=== PATIENT | male | born 1990 | race Caucasian/White ===

== ENCOUNTER 2018-03-30 15:53 | Inpatient (IN) | payer MEDICAID ==
[2018-03-30] MEDS ORDERED: IPRATROPIUM/ALBUTEROL 0.5-2.5 MG/3 ML AMPUL NEB ONE ×2 (15:58→16:05)
[2018-03-30] MEDS ORDERED: ALBUTEROL SULFATE 0.083% NEB 2.5 MG/3 ML AMPUL NEB ONE (16:02)
[2018-03-30] MEDS ORDERED: METHYLPREDNISOLONE INJ 125 MG/2 ML SDV ONE (16:02)
[2018-03-30] MEDS ORDERED: METHYLPREDNISOLONE INJ 125 MG/2 ML SDV IV ONE (16:05)
[2018-03-30] MEDS: ALBUTEROL SULFATE 0.083% NEB 2.5 MG/3 ML AMPUL NEB SCH ×2 (16:10→16:11)
--- NOTE | 2018-03-30 16:28 | RADIOLOGY REPORT (SQ) ---
EXAM DESCRIPTION: CHEST SINGLE VIEW COMPLETED DATE/TIME: 03/30/2018 4:16 pm REASON FOR STUDY: bed 18 db difficulty breathing COMPARISON: None. EXAM PARAMETERS: NUMBER OF VIEWS: One view. TECHNIQUE: Single frontal radiographic view of the chest acquired. RADIATION DOSE: NA LIMITATIONS: Large patient, AP portable technique. FINDINGS: LUNGS AND PLEURA: No opacities, masses or pneumothorax. No pleural effusion. MEDIASTINUM AND HILAR STRUCTURES: No masses. Contour normal. HEART AND VASCULAR STRUCTURES: Mild cardiomegaly BONES: No acute findings. HARDWARE: None in the chest. OTHER: No other significant finding. IMPRESSION: Mild cardiomegaly. No acute infiltrates TECHNICAL DOCUMENTATION: JOB ID: [id number] [employer]- All Rights Reserved Reading location - IP/workstation name: [email or web address]
--- NOTE | 2018-03-30 16:34 | ER Document Report ---
ED General - General Chief Complaint: Shortness Of Breath Stated Complaint: SHORT OF BREATH Time Seen by Provider: 03/30/18 16:08 Mode of Arrival: Ambulatory Information source: Patient Notes: 28-year-old male presents emergency department in respiratory distress. Patient has a history of COPD and asthma. He states that he is not on any nebulizer treatments at home. He states that he ran out of his medication and never got it refilled. He does not have an inhaler. He states that he uses 4 L nasal cannula and is on BiPAP when needed. Patient states that he took a nap and when he woke up he was having wheezing. Patient states that his wheezing gradually progressed. He denies being on any current antibiotics or steroids. Patient denies any other medical problems. He does not smoke. He denies any recent travel, recent surgery, history of DVT or PE, calf pain, history of malignancy, hormone use. Patient denies check pain, nausea, vomiting, or diaphoresis. He has had a productive cough over the last day. TRAVEL OUTSIDE OF THE [place] IN LAST 30 DAYS: No - HPI Onset: Just prior to arrival Onset/Duration: Sudden Quality of pain: No pain Severity: Severe Associated symptoms: Shortness of breath Exacerbated by: Denies Relieved by: Denies Similar symptoms previously: Yes Recently seen / treated by doctor: No - Related Data Allergies/Adverse Reactions: No Known Allergies Allergy (Verified 03/30/18 15:59) Past Medical History - Social History Smoking Status: Former Smoker Family History: Reviewed & Not Pertinent Review of Systems - Review of Systems Constitutional: Chills, Fever EENT: No symptoms reported Cardiovascular: No symptoms reported Respiratory: Cough, Short of breath, Sputum, Wheezing Gastrointestinal: No symptoms reported Genitourinary: No symptoms reported Male Genitourinary: No symptoms reported Musculoskeletal: No symptoms reported Skin: No symptoms reported Hematologic/Lymphatic: No symptoms reported Neurological/Psychological: No symptoms reported -: Yes All other systems reviewed and negative Physical Exam - Vital signs Vitals: Pulse Resp BP Pulse Ox 132 H 38 H 156/83 H 93 03/30/18 16:00 03/30/18 16:00 03/30/18 16:00 03/30/18 16:00 - Notes Notes: PHYSICAL EXAMINATION: GENERAL:Severe respiratory distress. HEAD: Atraumatic, normocephalic. EYES: Pupils equal round and reactive to light, extraocular movements intact, sclera anicteric, conjunctiva are normal. ENT: Nares patent, oropharynx clear without exudates. Moist mucous membranes. NECK: Normal range of motion, supple without lymphadenopathy LUNGS: Diffuse wheezing. HEART: Regular rate and rhythm without murmurs ABDOMEN: Morbidly obese. Soft, nontender, nondistended abdomen. No guarding, no rebound. No masses appreciated. Musculoskeletal: Normal range of motion, no pitting or edema. No cyanosis. NEUROLOGICAL: Cranial nerves grossly intact. Normal speech, normal gait. Normal sensory, motor exams PSYCH: Normal mood, normal affect. SKIN: Warm, Dry, normal turgor, no rashes or lesions noted. Course - Re-evaluation Re-evalutation: 03/30/18 16:34 EKG: Ventricular rate 92, DC interval 156, QRS duration 108, QTc 441, sinus rhythm, incomplete right bundle branch block. No ischemic changes. 03/30/18 19:31 On evaluation, patient is in respiratory distress. Patient was given a DuoNeb treatment and Solu-Medrol. Patient was placed on BiPAP. Labs and imaging were obtained. Chest x-ray does not show an acute process. D-dimer was ordered and is within normal limits. ABG shows a respiratory acidosis. On reevaluation, patient's vital signs are within normal limits. He's on Bipap. His work of breathing has improved. Patient states that he is feeling much better. I contacted the hospitalist for admission. Dr. Guaman is agreeable with admitting the patient. - Vital Signs Vital signs: Temp Pulse Resp BP Pulse Ox 99.3 F 132 H 14 125/59 L 96 03/30/18 16:29 03/30/18 16:00 03/30/18 19:01 03/30/18 19:01 03/30/18 19:01 - Laboratory Result Diagrams: 03/30/18 16:00 03/30/18 16:00 Laboratory results interpreted by me: 03/30/18 03/30/18 03/30/18 16:00 16:00 17:50 RDW 16.0 H Lymphocytes % 12.3 L Carbonic Acid 2.01 H ABG pH 7.22 L ABG pCO2 66.9 H ABG pO2 182.0 H ABG HCO3 27.0 H ABG Total CO2 29.1 H ABG O2 Saturation 98.9 H Carbon Dioxide 34 H Glucose 156 H Direct Bilirubin 0.5 H Discharge - Discharge Clinical Impression: COPD exacerbation, Respiratory distress Condition: Good Disposition: ADMITTED OBSERVATION Admitting Provider: Hospitalist Unit Admitted: IMCU Referrals: PILY ESPINAL MD [Primary Care Provider] - Follow up as needed
[2018-03-30 16:49] LABS: ABSOLUTE EOSINOPHILS # (AUTO) 0.3 10^3/uL (0.0-0.6); ABSOLUTE LYMPHOCYTES (AUTO) 1.3 10^3/uL (0.5-4.7); ABSOLUTE MONOCYTES (AUTO) 0.8 10^3/uL (0.1-1.4); BASOPHILS % (AUTO) 0.2 % (0-2); EOSINOPHILS % (AUTO) 2.9 % (0-6); HEMOGLOBIN 14.6 g/dL (13.5-17.0); LYMPHOCYTES % (AUTO) 12.3 % (13-45); MEAN CORPUSCULAR HEMOGLOBIN 29.8 pg (27.0-33.4); MEAN CORPUSCULAR HGB CONC 32.6 g/dL (32.0-36.0); MEAN CORPUSCULAR VOLUME 92 fl (80-97); MONOCYTES % (AUTO) 7.3 % (3-13); PLATELET COUNT 289 10^3/uL (150-450); RED BLOOD COUNT 4.91 10^6/uL (4.35-5.55); SEGMENTED NEUTROPHILS % (AUTO) 77.3 % (42-78); TOTAL CELLS COUNTED % (AUTO) 100 %; WHITE BLOOD COUNT 10.4 10^3/uL (4.0-10.5)
[2018-03-30 17:06] LABS: ALANINE AMINOTRANSFERASE 46 U/L (21-72); ALKALINE PHOSPHATASE 64 U/L (38-126); ANION GAP 5 (5-19); ASPARTATE AMINO TRANSFERASE 32 U/L (17-59); BILIRUBIN,DIRECT 0.5 mg/dL (0.0-0.4); BILIRUBIN,TOTAL 0.5 mg/dL (0.2-1.3); BLOOD UREA NITROGEN 9 mg/dL (7-20); CALCIUM 8.8 mg/dL (8.4-10.2); CARBON DIOXIDE 34 mmol/L (22-30); CHLORIDE 105 mmol/L (98-107); GLUCOSE 156 mg/dL (75-110); POTASSIUM 4.1 mmol/L (3.6-5.0); SODIUM 143.7 mmol/L (137-145); TOTAL PROTEIN 7.4 g/dL (6.3-8.2)
[2018-03-30 18:15] LABS: ARTERIAL BLOOD BASE EXCESS -2.2 mmol/L; ARTERIAL BLOOD H2CO3 2.01 mmol/L (1.05-1.35); ARTERIAL BLOOD O2 SATURATION 98.9 % (94-98); ARTERIAL BLOOD PCO2 66.9 mmHg (35-45); ARTERIAL BLOOD PH 7.22 (7.35-7.45); ARTERIAL BLOOD TOTAL CO2 29.1 mmol/L (23-27)
[2018-03-30 18:17] LABS: ARTERIAL BLOOD FIO2 50%
--- NOTE | 2018-03-30 19:25 | EKG REPORT ---
SEVERITY:- ABNORMAL ECG - SINUS RHYTHM INCOMPLETE RIGHT BUNDLE BRANCH BLOCK INFERIOR Q WAVES, PROBABLY NORMAL VARIATION : Confirmed by: Rohini Vargas 30-Mar-2018 19:24:42
[2018-03-30] MEDS ORDERED: PROMETHAZINE HCL INJ 25 MG/1 ML VIAL IV PRN (20:05)
[2018-03-30] MEDS ORDERED: IPRATROPIUM/ALBUTEROL 0.5-2.5 MG/3 ML AMPUL NEB PRN (20:05)
[2018-03-30] MEDS ORDERED: ACETAMINOPHEN 650 MG SUPP.RECT PR PRN (20:05)
[2018-03-30] MEDS ORDERED: PROMETHAZINE HCL 25 MG TABLET PO PRN (20:05)
--- NOTE | 2018-03-30 20:38 | PDOC H&P ---
History of Present Illness Admission Date/PCP: 03/30/18 19:43 PILY ESPINAL MD Patient complains of: Shortness of breath History of Present Illness: JOEY ORTEGA is a 28 year old male with history of chronic respiratory failure secondary to COPD on 4 L oxygen at home. Room air he tells me he saturates between 80-92%, his diagnosis of COPD has been confirm more than once with pulmonary function tesT. On CPAP at night secondary to TERRANCE. Tells me he has been sick for the last 3 days with progressive shortness of breath, brownish sputum, persistent cough which caused him chest pain and upper abdominal pain. Subjective fever and chills. He has been complaining of mild sore throat and runny nose. Denies dizziness, lightheadedness, palpitations, headache, diarrhea , constipation, urinary symptoms. Patient follows with Dr. Reeder who is his pulmonary. Upon arrival to our facility patient was tachypneic with a respiratory rate of 40, oxygen saturation 93% on 8 L oxygen via nasal cannula, afebrile. Patient was initiated on BiPAP. By the time I went to see him he was more comfortable. AB. His last COPD with asthma exacerbation was about a year ago Past Medical History Cardiac Medical History: Reports: Hypertension, Other - LVH Cardiac History Note: Morbid obesity Pulmonary Medical History: Reports: Asthma, Chronic Obstructive Pulmonary Disease (COPD), Respiratory Failure, Sleep Apnea Psychiatric Medical History: Reports: Depression, General Anxiety Disorder Past Surgical History Past Surgical History: Reports: None Social History Smoking Status: Former Smoker - Used to smoke three quarters of a pack a day, quit 1 year ago but intermittently she smokes 1 cigarette, last 2 months ago. Frequency of Alcohol Use: Rare Hx Recreational Drug Use: No Hx Prescription Drug Abuse: No Family History Family History: Reviewed & Not Pertinent Family History: Mother alive 44 years old with no medical history, father he does not know anything about him Parental Family History Reviewed: Yes - As above Children Family History Reviewed: NA Sibling(s) Family History Reviewed.: NA Medication/Allergy Allergies/Adverse Reactions: No Known Allergies Allergy (Verified 03/30/18 15:59) Review of Systems Review of Systems: As outlined in the HPI, all others negative Physical Exam Vital Signs: Temp Pulse Resp BP Pulse Ox 99.3 F 132 H 28 H 125/59 L 95 03/30/18 16:29 03/30/18 16:00 03/30/18 20:00 03/30/18 19:01 03/30/18 20:00 Additional comments: General appearance: Morbid obese, alert and cooperative, and appears to be in no acute distress. Wearing BiPAP. Head: Normocephalic Eyes: PEERL, EOMI, vision is grossly intact. Ears: External auditory canal and tympanic membranes clear, hearing grossly intact. Nose: No nasal discharge. Throat: Oral cavity and pharynx normal. No inflammation, swelling, exudate or lesions. Neck: Neck supple, nontender without lymphadenopathy, masses or thyromegaly. Cardiac: Normal S1 and S2. No S3, S4 or murmurs. Rhythm is regular. There is no peripheral edema, cyanosis or pallor. Extremities are warm and well perfused. Capillary refill is less than 2 seconds. No carotid bruits. Lungs: Bilateral decreased breath sounds with diffuse rales and moderate rhonchi , mild to moderate wheezing . Not using accessory muscles. Abdomen: Positive bowel sounds. Soft. Nondistended, nontender. No guarding or rebound. No masses. No hepatosplenomegaly Extremities: No significant deformity or joint abnormality. No edema. Peripheral pulses intact. No varicosities. Neurological: Cranial nerves II through XII grossly intact. Strength and sensation symmetric and intact throughout. Reflexes 2+ throughout. Skin: Skin normal color, texture and turgor with no lesions or eruptions, warm and dry. Psychiatric: The mental examination revealed the patient was oriented to person , place, and time. The patient was able to demonstrate good judgment on recent , without hallucinations, abnormal affect or abnormal behaviors. Results Laboratory Results: 03/30/18 03/30/18 03/30/18 16:00 16:00 16:00 WBC 10.4 RBC 4.91 Hgb 14.6 Hct 45.0 MCV 92 MCH 29.8 MCHC 32.6 RDW 16.0 H Plt Count 289 Seg Neutrophils % 77.3 Lymphocytes % 12.3 L Monocytes % 7.3 Eosinophils % 2.9 Basophils % 0.2 Absolute Neutrophils 8.0 Absolute Lymphocytes 1.3 Absolute Monocytes 0.8 Absolute Eosinophils 0.3 Absolute Basophils 0.0 D-Dimer Carbonic Acid HCO3/H2CO3 Ratio ABG pH ABG pCO2 ABG pO2 ABG HCO3 ABG Total CO2 ABG O2 Saturation ABG Base Excess FiO2 Sodium 143.7 Potassium 4.1 Chloride 105 Carbon Dioxide 34 H Anion Gap 5 BUN 9 Creatinine 0.72 Est GFR ( Amer) > 60 Est GFR (Non-Af Amer) > 60 Glucose 156 H Calcium 8.8 Total Bilirubin 0.5 Direct Bilirubin 0.5 H AST 32 ALT 46 Alkaline Phosphatase 64 Troponin I < 0.012 Total Protein 7.4 Albumin 4.0 03/30/18 03/30/18 16:00 17:50 WBC RBC Hgb Hct MCV MCH MCHC RDW Plt Count Seg Neutrophils % Lymphocytes % Monocytes % Eosinophils % Basophils % Absolute Neutrophils Absolute Lymphocytes Absolute Monocytes Absolute Eosinophils Absolute Basophils D-Dimer 0.38 Carbonic Acid 2.01 H HCO3/H2CO3 Ratio 13:1 ABG pH 7.22 L ABG pCO2 66.9 H ABG pO2 182.0 H ABG HCO3 27.0 H ABG Total CO2 29.1 H ABG O2 Saturation 98.9 H ABG Base Excess -2.2 FiO2 50% Sodium Potassium Chloride Carbon Dioxide Anion Gap BUN Creatinine Est GFR ( Amer) Est GFR (Non-Af Amer) Glucose Calcium Total Bilirubin Direct Bilirubin AST ALT Alkaline Phosphatase Troponin I Total Protein Albumin Impressions: Chest X-Ray 03/30/18 16:05 IMPRESSION: Mild cardiomegaly. No acute infiltrates Assessment & Plan - Diagnosis (1) Acute and chronic respiratory failure Qualifiers: Respiratory failure complication: hypoxia and hypercapnia Qualified Code(s) : J96.21 - Acute and chronic respiratory failure with hypoxia; J96.22 - Acute and chronic respiratory failure with hypercapnia; J96.22 - Acute and chronic respiratory failure with hypercapnia; J96.22 - Acute and chronic respiratory failure with hypercapnia Is this a current diagnosis for this admission?: Yes Plan: Patient has chronic respiratory failure on 4 L oxygen at home, usually saturates between 82% to 92%, in the emergency department initially was saturating 93% on 8 L oxygen via nasal cannula and was transitioned to BiPAP. ABG shows hypercapnia with a CO2 of 66 with a pH of 7.22, with a half prior ABG to compare in our system. Chest x-ray so far negative. D-dimer negative. (2) Bronchial asthma Qualifiers: Asthma complication type: with acute exacerbation Is this a current diagnosis for this admission?: Yes Plan: Symptoms are probably also associated with bronchial asthma exacerbation. As per prior assessment and plan (3) COPD exacerbation Is this a current diagnosis for this admission?: Yes Plan: We will continue the patient on BiPAP. IV Levaquin. Solu-Medrol 60 mg every 8 hours. Incentive spirometry. Pulmonary toilet. Respiratory therapy consult. DuoNeb nebulizer treatments as needed. Unfortunately we do not have pulmonary evaluation until Sunday. Tonight patient will be n.p.o. Patient tells me that he had meconium aspiration when he was born that he had pneumonia, after that he had multiple episodes of bronchial asthma exacerbation in addition to his a smoking habit and morbid obesity probably made him to have COPD at early age. (4) Hypertension Qualifiers: Hypertension type: essential hypertension Qualified Code(s): I10 - Essential (primary) hypertension Is this a current diagnosis for this admission?: Yes Plan: Continue home antihypertensive medications (5) Hypothyroidism Is this a current diagnosis for this admission?: Yes Plan: Continue with Synthroid (6) Morbid obesity Is this a current diagnosis for this admission?: Yes Plan: Lifestyle modification (7) TERRANCE (obstructive sleep apnea) Is this a current diagnosis for this admission?: Yes Plan: Patient is usually on CPAP at home, currently on BiPAP 18/ - Time Time Spent: 30 to 50 Minutes - Inpatient Certification Based on my medical assessment, after consideration of the patient's comorbidities, presenting symptoms, or acuity I expect that the services needed warrant INPATIENT care.: Yes I certify that my determination is in accordance with my understanding of Medicare's requirements for reasonable and necessary INPATIENT services [42 CFR 412.3e].: Yes Medical Necessity: Risk of Complication if Not Cared For in Hospital
[2018-03-30] MEDS ORDERED: LEVOFLOXACIN 750 MG/D5W RTU 750 MG/150 ML RTUPB IV SCH (21:00)
[2018-03-30] MEDS: NORMAL SALINE 1000 ML 1,000 ML IV PRN (21:01)
[2018-03-30] MEDS: MAG HYDROX/AL HYDROX/SIMETH SUSP 30 ML UDCUP PO PRN (23:51)
[2018-03-31] MEDS ORDERED: IPRATROPIUM/ALBUTEROL 0.5-2.5 MG/3 ML AMPUL NEB ONE (00:01)
[2018-03-31] MEDS ORDERED: METHYLPREDNISOLONE INJ 40 MG/1 ML SDV IV SCH (02:00)
[2018-03-31 06:00] LABS: ABSOLUTE BASOPHILS # (AUTO) 0.1 10^3/uL (0.0-0.2); ABSOLUTE LYMPHOCYTES (AUTO) 0.8 10^3/uL (0.5-4.7); ABSOLUTE MONOCYTES (AUTO) 0.4 10^3/uL (0.1-1.4); ABSOLUTE NEUT (AUTO) 11.1 10^3/uL (1.7-8.2); BASOPHILS % (AUTO) 0.4 % (0-2); EOSINOPHILS % (AUTO) 0.1 % (0-6); HEMATOCRIT 40.4 % (37.9-51.0); HEMOGLOBIN 13.2 g/dL (13.5-17.0); LYMPHOCYTES % (AUTO) 6.1 % (13-45); MEAN CORPUSCULAR HEMOGLOBIN 29.5 pg (27.0-33.4); MEAN CORPUSCULAR HGB CONC 32.7 g/dL (32.0-36.0); MEAN CORPUSCULAR VOLUME 90 fl (80-97); MONOCYTES % (AUTO) 2.9 % (3-13); PLATELET COUNT 275 10^3/uL (150-450); RED BLOOD COUNT 4.49 10^6/uL (4.35-5.55); RED CELL DISTRIBUTION WIDTH 15.7 % (11.5-14.0); SEGMENTED NEUTROPHILS % (AUTO) 90.5 % (42-78); TOTAL CELLS COUNTED % (AUTO) 100 %; WHITE BLOOD COUNT 12.3 10^3/uL (4.0-10.5)
[2018-03-31 06:37] LABS: ANION GAP 10 (5-19); BLOOD UREA NITROGEN 14 mg/dL (7-20); CALCIUM 8.7 mg/dL (8.4-10.2); CARBON DIOXIDE 28 mmol/L (22-30); CHLORIDE 104 mmol/L (98-107); GLUCOSE 179 mg/dL (75-110); PHOSPHORUS 2.7 mg/dL (2.5-4.5); POTASSIUM 4.8 mmol/L (3.6-5.0); SODIUM 142.1 mmol/L (137-145)
[2018-03-31] MEDS: MAG HYDROX/AL HYDROX/SIMETH SUSP 30 ML UDCUP PO PRN (08:13)
[2018-03-31] MEDS ORDERED: NALBUPHINE HCL INJ 10 MG/1 ML AMPULE IV PRN (08:45)
[2018-03-31] MEDS ORDERED: TRAMADOL HCL 50 MG TABLET PO PRN (08:47)
[2018-03-31] MEDS ORDERED: SUCCINYLCHOLINE CHLORIDE INJ 200 MG/10 ML VIAL ONE (09:15)
[2018-03-31] MEDS: BUDESONIDE NEB 0.5 MG/2 ML AMPUL NEB SCH ×2 (09:53→20:46)
[2018-03-31] MEDS: IPRATROPIUM BROMIDE 0.02% NEB 0.5 MG/2.5 ML AMPUL NEB SCH ×2 (09:53→16:03)
[2018-03-31] MEDS: LEVALBUTEROL HCL NEB 1.25 MG/3 ML AMPUL NEB SCH ×2 (09:53→16:03)
[2018-03-31] MEDS ORDERED: LEVOFLOXACIN 750 MG TABLET PO SCH (10:00)
[2018-03-31 10:16] LABS: ARTERIAL BLOOD BASE EXCESS 3.4 mmol/L; ARTERIAL BLOOD FIO2 50%; ARTERIAL BLOOD H2CO3 2.72 mmol/L (1.05-1.35); ARTERIAL BLOOD HCO3 34.6 mmol/L (20-24); ARTERIAL BLOOD O2 SATURATION 95.5 % (94-98); ARTERIAL BLOOD PO2 97.9 mmHg (80-100); ARTERIAL BLOOD TOTAL CO2 37.4 mmol/L (23-27)
[2018-03-31 10:18] LABS: ARTERIAL BLOOD PCO2 90.4 mmHg (35-45)
[2018-03-31] MEDS: ENOXAPARIN SODIUM INJ 40 MG/0.4 ML DISP.SYRIN SUBCUT SCH (10:53)
[2018-03-31] MEDS ORDERED: PHARMACY COMMUNICATION ORDER MC NR (11:30)
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
[2018-03-31] MEDS ORDERED: MAG HYDROX/AL HYDROX/SIMETH SUSP 30 ML UDCUP NG PRN (12:30)
[2018-03-31] MEDS ORDERED: PROMETHAZINE HCL 25 MG TABLET NG PRN (12:30)
[2018-03-31] MEDS ORDERED: TRAMADOL HCL 50 MG TABLET NG PRN (12:30)
[2018-03-31] MEDS ORDERED: MIDAZOLAM HCL 50 MG/100 ML RTUINJ ONE (12:44)
[2018-03-31] MEDS ORDERED: PROPOFOL 1,000 MG/100 ML INFUS..BTL IV ONE (12:44)
--- NOTE | 2018-03-31 13:14 | RADIOLOGY REPORT (SQ) ---
EXAM DESCRIPTION: CHEST SINGLE VIEW COMPLETED DATE/TIME: 03/31/2018 12:53 pm REASON FOR STUDY: post intubation COMPARISON: None. EXAM PARAMETERS: NUMBER OF VIEWS: One view. TECHNIQUE: Single frontal radiographic view of the chest acquired. RADIATION DOSE: NA LIMITATIONS: None. FINDINGS: LUNGS AND PLEURA: No acute infiltrates or effusions. ET tube in good position above jasmina a. MEDIASTINUM AND HILAR STRUCTURES: No masses. Contour normal. HEART AND VASCULAR STRUCTURES: The heart is normal with normal pulmonary vasculature. HARDWARE: None in the chest. OTHER: Endotracheal tube above danny. NG tube passing toward stomach. . IMPRESSION: ET tube in good position above danny. Otherwise, no significant abnormality seen. TECHNICAL DOCUMENTATION: JOB ID: [id number] [employer]- All Rights Reserved Reading location - IP/workstation name: [email or web address]
[2018-03-31] MEDS: NORMAL SALINE 1000 ML 1,000 ML IV PRN (13:26)
[2018-03-31 13:30] LABS: ARTERIAL BLOOD BASE EXCESS 1.6 mmol/L; ARTERIAL BLOOD HCO3 32.6 mmol/L (20-24); ARTERIAL BLOOD O2 SATURATION 86.2 % (94-98); ARTERIAL BLOOD PO2 64.3 mmHg (80-100); ARTERIAL BLOOD TOTAL CO2 35.2 mmol/L (23-27)
[2018-03-31 13:32] LABS: ARTERIAL BLOOD FIO2 60%
[2018-03-31 13:33] LABS: ARTERIAL BLOOD PCO2 86.3 mmHg (35-45)
--- NOTE | 2018-03-31 13:43 | PDOC CONSULTATION ---
Consultation Consult Date: 03/31/18 Attending physician:: ALDO MCCARTHY Consult reason:: acute/chronic resp failure History of Present Illness Admission Date/PCP: 03/30/18 19:43 PILY ESPINAL MD History of Present Illness: JOEY ORTEGA is a 28 year old male,With multiple medical problems complaining increasing shortness of breath he is placed on BiPAP unfortunately his PCO2 was rising from 60-90 and the patient was awake but somewhat confused and after some debate about his fatigue rising PCO2 and pH it was elected that we intubate him he concurred was intubated by anesthesia. He has a past medical history of COPD chronic respiratory failure obesity hypoventilation syndrome. Past Medical History Cardiac Medical History: Reports: Hypertension, Other - LVH Pulmonary Medical History: Reports: Asthma, Chronic Obstructive Pulmonary Disease (COPD), Respiratory Failure, Sleep Apnea EENT Medical History: Denies: Cataracts Neurological Medical History: Denies: Multiple Sclerosis GI Medical History: Denies: Crohn's Disease, Ulcerative Colitis Psychiatric Medical History: Reports: Depression, General Anxiety Disorder Past Surgical History Past Surgical History: Reports: None Social History Information Source: Patient, OM Records Smoking Status: Former Smoker Passive smoke exposure as: Both Frequency of Alcohol Use: Rare Hx Recreational Drug Use: No Hx Prescription Drug Abuse: No Have you been exposed to any sick contacts recently?: No Have you had any recent respiratory illnesses?: No Have you travelled outside of [place] in the past 12 months?: No - Advance Directive Resuscitation Status: Full Code Family History Parental Family History Reviewed: No Children Family History Reviewed: No Sibling(s) Family History Reviewed.: No Medication/Allergy Home Medications: Buspirone HCl [Buspar 10 mg Tablet] 20 mg PO BID 03/31/18 Hydrochlorothiazide [Hydrodiuril 12.5 mg Capsule] 12.5 mg PO DAILY 03/31/18 Levothyroxine Sodium [Synthroid] 100 mcg PO DAILY 03/31/18 Lisinopril [Prinivil] 20 mg PO DAILY 03/31/18 Sertraline HCl [Zoloft] 150 mg PO DAILY 03/31/18 Allergies/Adverse Reactions: No Known Allergies Allergy (Verified 03/30/18 15:59) Review of Systems ROS unobtainable: Due to mental status Physical Exam Vital Signs: Temp Pulse Resp BP Pulse Ox 97.5 F 79 20 153/64 H 93 03/31/18 07:57 03/31/18 09:53 03/31/18 09:53 03/31/18 07:57 03/31/18 09:53 Intake & Output 03/30/18 03/31/18 04/01/18 06:59 06:59 06:59 Intake Total 100 Output Total 100 Balance 0 Weight 238 kg General appearance: PRESENT: no acute distress, disheveled, morbidly obese Head exam: PRESENT: atraumatic, normocephalic Eye exam: PRESENT: conjunctiva pale, EOMI. ABSENT: nystagmus, periorbital swelling, scleral icterus Mouth exam: PRESENT: dry mucosa, neck supple, tongue midline Neck exam: ABSENT: carotid bruit, JVD, lymphadenopathy, thyromegaly, tracheal deviation, tracheostomy Respiratory exam: PRESENT: decreased breath sounds, prolonged expiratory phas, rales, rhonchi, tachypnea, unlabored. ABSENT: retraction, stridor Cardiovascular exam: PRESENT: RRR, +S1, +S2 Pulses: PRESENT: normal radial pulses GI/Abdominal exam: PRESENT: soft. ABSENT: tenderness Extremities exam: PRESENT: pedal edema. ABSENT: calf tenderness, clubbing, joint swelling, tenderness Musculoskeletal exam: ABSENT: deformity, dislocation Neurological exam: PRESENT: awake Psychiatric exam: PRESENT: anxious Skin exam: PRESENT: dry, warm Results Laboratory Results: 03/31/18 05:30 03/31/18 05:30 03/31/18 03/31/18 03/31/18 05:30 05:30 06:50 WBC 12.3 H RBC 4.49 Hgb 13.2 L Hct 40.4 MCV 90 MCH 29.5 MCHC 32.7 RDW 15.7 H Plt Count 275 Seg Neutrophils % 90.5 H Lymphocytes % 6.1 L Monocytes % 2.9 L Eosinophils % 0.1 Basophils % 0.4 Absolute Neutrophils 11.1 H Absolute Lymphocytes 0.8 Absolute Monocytes 0.4 Absolute Eosinophils 0.0 Absolute Basophils 0.1 Carbonic Acid Cancelled HCO3/H2CO3 Ratio Cancelled ABG pH Cancelled ABG pCO2 Cancelled ABG pO2 Cancelled ABG HCO3 Cancelled ABG O2 Saturation Cancelled ABG Base Excess Cancelled FiO2 Cancelled Sodium 142.1 Potassium 4.8 Chloride 104 Carbon Dioxide 28 Anion Gap 10 BUN 14 Creatinine 0.66 Est GFR ( Amer) > 60 Est GFR (Non-Af Amer) > 60 Glucose 179 H Calcium 8.7 Phosphorus 2.7 Magnesium 2.2 03/31/18 09:40 WBC RBC Hgb Hct MCV MCH MCHC RDW Plt Count Seg Neutrophils % Lymphocytes % Monocytes % Eosinophils % Basophils % Absolute Neutrophils Absolute Lymphocytes Absolute Monocytes Absolute Eosinophils Absolute Basophils Carbonic Acid 2.72 H HCO3/H2CO3 Ratio 12:1 ABG pH 7.20 L* ABG pCO2 90.4 H* ABG pO2 97.9 ABG HCO3 34.6 H ABG O2 Saturation 95.5 ABG Base Excess 3.4 FiO2 50% Sodium Potassium Chloride Carbon Dioxide Anion Gap BUN Creatinine Est GFR ( Amer) Est GFR (Non-Af Amer) Glucose Calcium Phosphorus Magnesium Impressions: Chest X-Ray 03/30/18 16:05 IMPRESSION: Mild cardiomegaly. No acute infiltrates Assessment & Plan - Diagnosis (1) Acute respiratory failure with hypoxia and hypercapnia Is this a current diagnosis for this admission?: Yes Plan: Patient failed BiPAP PCO2 rising strongly suggest intubation (2) Morbid obesity Is this a current diagnosis for this admission?: Yes (3) TERRANCE (obstructive sleep apnea) Is this a current diagnosis for this admission?: Yes Plan: May require trilogy at home - Time Total Critical Time (Minutes): 75
[2018-03-31 13:48] LABS: URINE AMPHETAMINES SCREEN NEGATIVE; URINE BARBITURATES SCREEN NEGATIVE; URINE BENZODIAZEPINES SCREEN NEGATIVE; URINE COCAINE SCREEN NEGATIVE; URINE MARIJUANA (THC) SCREEN NEGATIVE; URINE METHADONE SCREEN NEGATIVE; URINE PHENCYCLIDINE SCREEN NEGATIVE
[2018-03-31] MEDS: PROPOFOL 1,000 MG/100 ML INFUS..BTL IV PRN ×6 (14:47→22:29)
[2018-03-31] MEDS: METHYLPREDNISOLONE INJ 40 MG/1 ML SDV IV SCH ×2 (15:32→17:07)
[2018-03-31 15:55] LABS: ARTERIAL BLOOD BASE EXCESS 2.8 mmol/L; ARTERIAL BLOOD H2CO3 1.78 mmol/L (1.05-1.35); ARTERIAL BLOOD HCO3 30.3 mmol/L (20-24); ARTERIAL BLOOD O2 SATURATION 85.8 % (94-98); ARTERIAL BLOOD PCO2 59.3 mmHg (35-45); ARTERIAL BLOOD PH 7.33 (7.35-7.45); ARTERIAL BLOOD PO2 55.3 mmHg (80-100); ARTERIAL BLOOD TOTAL CO2 32.1 mmol/L (23-27)
[2018-03-31 15:56] LABS: ARTERIAL BLOOD FIO2 80%
[2018-03-31] MEDS: MIDAZOLAM HCL 50 MG/100 ML RTUINJ IV PRN ×2 (17:06→22:31)
[2018-03-31 21:40] LABS: ANION GAP 7 (5-19); BLOOD UREA NITROGEN 16 mg/dL (7-20); CALCIUM 9.3 mg/dL (8.4-10.2); CARBON DIOXIDE 31 mmol/L (22-30); CHLORIDE 104 mmol/L (98-107); CREATINE KINASE 114 U/L (55-170); GLUCOSE 147 mg/dL (75-110); POTASSIUM 4.9 mmol/L (3.6-5.0); SODIUM 142.3 mmol/L (137-145)
[2018-03-31 21:53] LABS: NT PRO BNP 209 pg/mL (<125); TROPONIN I < 0.012 ng/mL
[2018-03-31] MEDS ORDERED: PANTOPRAZOLE SODIUM 40 MG VIAL IV ONE (22:30)
--- NOTE | 2018-03-31 23:33 | EKG REPORT ---
SEVERITY:- BORDERLINE ECG - SINUS RHYTHM INFERIOR Q WAVES, PROBABLY NORMAL VARIATION : Confirmed by: Rohini Vargas 31-Mar-2018 23:31:48
[2018-04-01] MEDS: IPRATROPIUM BROMIDE 0.02% NEB 0.5 MG/2.5 ML AMPUL NEB SCH ×3 (00:06→15:56)
[2018-04-01] MEDS: LEVALBUTEROL HCL NEB 1.25 MG/3 ML AMPUL NEB SCH ×3 (00:06→15:56)
[2018-04-01] MEDS: PROPOFOL 1,000 MG/100 ML INFUS..BTL IV PRN ×15 (01:10→23:00)
[2018-04-01] MEDS: METHYLPREDNISOLONE INJ 40 MG/1 ML SDV IV SCH ×4 (01:11→18:47)
[2018-04-01 04:25] LABS: VENOUS BLOOD HCO3 31.3 mmol/L (20-32); VENOUS BLOOD PCO2 53.1 mmHg (35-63); VENOUS BLOOD PH 7.39 (7.30-7.42)
[2018-04-01 04:57] LABS: FREE T3 2.43 pg/mL (2.77-5.27); FREE T4 (FREE THYROXINE) 0.83 ng/dL (0.78-2.19)
[2018-04-01 05:11] LABS: THYROID STIMULATING HORMONE 0.4 uIU/mL (0.47-4.68)
[2018-04-01 05:38] LABS: ARTERIAL BLOOD BASE EXCESS 3.1 mmol/L; ARTERIAL BLOOD H2CO3 1.58 mmol/L (1.05-1.35); ARTERIAL BLOOD HCO3 29.5 mmol/L (20-24); ARTERIAL BLOOD O2 SATURATION 96.7 % (94-98); ARTERIAL BLOOD PCO2 52.4 mmHg (35-45); ARTERIAL BLOOD PH 7.37 (7.35-7.45); ARTERIAL BLOOD PO2 91.5 mmHg (80-100); ARTERIAL BLOOD TOTAL CO2 31.1 mmol/L (23-27)
[2018-04-01 05:39] LABS: ARTERIAL BLOOD FIO2 100%
[2018-04-01] MEDS: NORMAL SALINE 1000 ML 1,000 ML IV PRN (05:40)
[2018-04-01 06:22] LABS: ABSOLUTE LYMPHOCYTES (AUTO) 0.8 10^3/uL (0.5-4.7); ABSOLUTE MONOCYTES (AUTO) 0.6 10^3/uL (0.1-1.4); ABSOLUTE NEUT (AUTO) 11.6 10^3/uL (1.7-8.2); BASOPHILS % (AUTO) 0.1 % (0-2); HEMATOCRIT 40.1 % (37.9-51.0); HEMOGLOBIN 13.2 g/dL (13.5-17.0); LYMPHOCYTES % (AUTO) 6.2 % (13-45); MEAN CORPUSCULAR HEMOGLOBIN 29.3 pg (27.0-33.4); MEAN CORPUSCULAR VOLUME 89 fl (80-97); MONOCYTES % (AUTO) 4.8 % (3-13); PLATELET COUNT 260 10^3/uL (150-450); RED BLOOD COUNT 4.51 10^6/uL (4.35-5.55); RED CELL DISTRIBUTION WIDTH 15.9 % (11.5-14.0); SEGMENTED NEUTROPHILS % (AUTO) 88.9 % (42-78); TOTAL CELLS COUNTED % (AUTO) 100 %
[2018-04-01 06:31] LABS: ANION GAP 8 (5-19); BLOOD UREA NITROGEN 17 mg/dL (7-20); CALCIUM 9.3 mg/dL (8.4-10.2); CARBON DIOXIDE 28 mmol/L (22-30); CHLORIDE 105 mmol/L (98-107); GLUCOSE 153 mg/dL (75-110); POTASSIUM 4.9 mmol/L (3.6-5.0); SODIUM 141.3 mmol/L (137-145)
--- NOTE | 2018-04-01 07:28 | RADIOLOGY REPORT (SQ) ---
EXAM DESCRIPTION: X-ray single view chest. CLINICAL HISTORY: 28 years Male, post intubation COMPARISON: 03/31/2018 TECHNIQUE: Single portable view of the chest performed on 04/01/2018 at 6:44 AM FINDINGS: The lungs are well expanded. There is volume loss in the left inferior hemithorax which may be due to a combination of pleural fluid and atelectasis. Underlying inflammatory changes are not excluded. There is no evidence of a pneumothorax. The cardiac silhouette is normal in size and configuration. No acute osseous abnormality is identified. No focal soft tissue abnormalities are seen. Lines and tubes: The endotracheal tube tip terminates in the region of the midclavicular heads. A feeding tube tip is poorly delineated on this examination. The feeding tube appears to extend below the diaphragm. IMPRESSION: 1. There is volume loss in the left lung base which may be due to a combination of pleural fluid and atelectasis. 2. Life support lines and tubes present as described above. The tip of the feeding tube is not well visualized on this examination.
[2018-04-01 07:33] LABS: AMORPHOUS SEDIMENT,URINE 2+ /HPF; APPEARANCE,URINE TURBID; BILIRUBIN,URINE NEGATIVE (NEGATIVE); COLOR,URINE YELLOW; GLUCOSE, URINE NEGATIVE (NEGATIVE); KETONES,URINE NEGATIVE (NEGATIVE); LEUKOCYTE ESTERASE,URINE NEGATIVE (NEGATIVE); NITRITE,URINE NEGATIVE (NEGATIVE); PROTEIN,URINE 30 mg/dL (NEGATIVE); URINE SPECIFIC GRAVITY 1.021; UROBILINOGEN,URINE NEGATIVE mg/dL (<2.0)
[2018-04-01] MEDS: BUDESONIDE NEB 0.5 MG/2 ML AMPUL NEB SCH ×2 (08:21→20:10)
[2018-04-01] MEDS: PANTOPRAZOLE SODIUM 40 MG VIAL IV SCH (09:22)
[2018-04-01] MEDS: LEVOFLOXACIN 750 MG TABLET NG SCH (09:22)
[2018-04-01] MEDS: ENOXAPARIN SODIUM INJ 40 MG/0.4 ML DISP.SYRIN SUBCUT SCH (09:22)
--- NOTE | 2018-04-01 12:08 | PDOC PROGRESS REPORT ---
Subjective Progress Note for:: 04/01/18 Subjective:: Intubated and sedated Reason For Visit: ACUTE ON CHRONIC SEVERE RESPIRATORY FAILURE Physical Exam Vital Signs: Temp Pulse Resp BP Pulse Ox 99.3 F 70 24 H 141/87 H 91 L 04/01/18 08:05 04/01/18 08:00 04/01/18 08:05 04/01/18 08:05 04/01/18 08:05 Intake & Output 03/31/18 04/01/18 04/02/18 06:59 06:59 06:59 Intake Total 100 2797 100 Output Total 100 2670 100 Balance 0 127 0 Weight 238 kg 226.1 kg General appearance: PRESENT: no acute distress, disheveled, morbidly obese. ABSENT: cooperative Head exam: PRESENT: atraumatic, normocephalic Eye exam: PRESENT: conjunctiva pale. ABSENT: nystagmus, scleral icterus Mouth exam: PRESENT: dry mucosa, neck supple, tongue midline, other - ET tube in place Neck exam: ABSENT: carotid bruit, JVD, lymphadenopathy, thyromegaly, tracheal deviation, tracheostomy Respiratory exam: PRESENT: decreased breath sounds, prolonged expiratory phas, rales, rhonchi, tachypnea, unlabored, wheezes. ABSENT: retraction, stridor Cardiovascular exam: PRESENT: RRR, +S1, +S2 Pulses: PRESENT: normal radial pulses GI/Abdominal exam: PRESENT: soft. ABSENT: tenderness Gentrourinary exam: PRESENT: indwelling catheter Extremities exam: PRESENT: pedal edema. ABSENT: calf tenderness, clubbing, joint swelling Musculoskeletal exam: ABSENT: ambulatory, deformity, dislocation Neurological exam: ABSENT: awake Skin exam: PRESENT: dry, warm Results Laboratory Results: 04/01/18 04:12 04/01/18 04:12 03/31/18 03/31/18 03/31/18 09:40 13:20 15:40 WBC RBC Hgb Hct MCV MCH MCHC RDW Plt Count Seg Neutrophils % Lymphocytes % Monocytes % Eosinophils % Basophils % Absolute Neutrophils Absolute Lymphocytes Absolute Monocytes Absolute Eosinophils Absolute Basophils Carbonic Acid 2.72 H 2.60 H 1.78 H HCO3/H2CO3 Ratio 12:1 12:1 17:1 ABG pH 7.20 L* 7.20 L* 7.33 L ABG pCO2 90.4 H* 86.3 H* 59.3 H ABG pO2 97.9 64.3 L 55.3 L ABG HCO3 34.6 H 32.6 H 30.3 H ABG O2 Saturation 95.5 86.2 L 85.8 L ABG Base Excess 3.4 1.6 2.8 VBG pH VBG pCO2 VBG HCO3 VBG Base Excess FiO2 50% 60% 80% Sodium Potassium Chloride Carbon Dioxide Anion Gap BUN Creatinine Est GFR ( Amer) Est GFR (Non-Af Amer) Glucose Calcium Magnesium Triglycerides TSH Free T4 Free T3 pg/mL Urine Color Urine Appearance Urine pH Ur Specific [place] Urine Protein Urine Glucose (UA) Urine Ketones Urine Blood Urine Nitrite Ur Leukocyte Esterase Urine WBC (Auto) Urine RBC (Auto) 03/31/18 04/01/18 04/01/18 21:14 04:12 04:12 WBC RBC Hgb Hct MCV MCH MCHC RDW Plt Count Seg Neutrophils % Lymphocytes % Monocytes % Eosinophils % Basophils % Absolute Neutrophils Absolute Lymphocytes Absolute Monocytes Absolute Eosinophils Absolute Basophils Carbonic Acid HCO3/H2CO3 Ratio ABG pH ABG pCO2 ABG pO2 ABG HCO3 ABG O2 Saturation ABG Base Excess VBG pH 7.39 VBG pCO2 53.1 VBG HCO3 31.3 VBG Base Excess 5.0 FiO2 Sodium 142.3 Potassium 4.9 Chloride 104 Carbon Dioxide 31 H Anion Gap 7 BUN 16 Creatinine 0.65 Est GFR ( Amer) > 60 Est GFR (Non-Af Amer) > 60 Glucose 147 H Calcium 9.3 Magnesium 2.2 2.3 Triglycerides 186 H TSH Free T4 Free T3 pg/mL Urine Color Urine Appearance Urine pH Ur Specific [place] Urine Protein Urine Glucose (UA) Urine Ketones Urine Blood Urine Nitrite Ur Leukocyte Esterase Urine WBC (Auto) Urine RBC (Auto) 04/01/18 04/01/18 04/01/18 04:12 04:12 04:12 WBC 13.0 H RBC 4.51 Hgb 13.2 L Hct 40.1 MCV 89 MCH 29.3 MCHC 33.0 RDW 15.9 H Plt Count 260 Seg Neutrophils % 88.9 H Lymphocytes % 6.2 L Monocytes % 4.8 Eosinophils % 0.0 Basophils % 0.1 Absolute Neutrophils 11.6 H Absolute Lymphocytes 0.8 Absolute Monocytes 0.6 Absolute Eosinophils 0.0 Absolute Basophils 0.0 Carbonic Acid HCO3/H2CO3 Ratio ABG pH ABG pCO2 ABG pO2 ABG HCO3 ABG O2 Saturation ABG Base Excess VBG pH VBG pCO2 VBG HCO3 VBG Base Excess FiO2 Sodium 141.3 Potassium 4.9 Chloride 105 Carbon Dioxide 28 Anion Gap 8 BUN 17 Creatinine 0.73 Est GFR ( Amer) > 60 Est GFR (Non-Af Amer) > 60 Glucose 153 H Calcium 9.3 Magnesium Triglycerides TSH 0.40 L Free T4 0.83 Free T3 pg/mL 2.43 L Urine Color Urine Appearance Urine pH Ur Specific [place] Urine Protein Urine Glucose (UA) Urine Ketones Urine Blood Urine Nitrite Ur Leukocyte Esterase Urine WBC (Auto) Urine RBC (Auto) 04/01/18 04/01/18 05:30 06:30 WBC RBC Hgb Hct MCV MCH MCHC RDW Plt Count Seg Neutrophils % Lymphocytes % Monocytes % Eosinophils % Basophils % Absolute Neutrophils Absolute Lymphocytes Absolute Monocytes Absolute Eosinophils Absolute Basophils Carbonic Acid 1.58 H HCO3/H2CO3 Ratio 18:1 ABG pH 7.37 ABG pCO2 52.4 H ABG pO2 91.5 ABG HCO3 29.5 H ABG O2 Saturation 96.7 ABG Base Excess 3.1 VBG pH VBG pCO2 VBG HCO3 VBG Base Excess FiO2 100% Sodium Potassium Chloride Carbon Dioxide Anion Gap BUN Creatinine Est GFR ( Amer) Est GFR (Non-Af Amer) Glucose Calcium Magnesium Triglycerides TSH Free T4 Free T3 pg/mL Urine Color YELLOW Urine Appearance TURBID Urine pH 5.0 Ur Specific [place] 1.021 Urine Protein 30 H Urine Glucose (UA) NEGATIVE Urine Ketones NEGATIVE Urine Blood NEGATIVE Urine Nitrite NEGATIVE Ur Leukocyte Esterase NEGATIVE Urine WBC (Auto) 1 Urine RBC (Auto) 1 03/31/18 03/31/18 21:14 21:14 Creatine Kinase 114 CK-MB (CK-2) 0.80 Troponin I < 0.012 NT-Pro-B Natriuret Pep 209 H Impressions: Chest X-Ray 04/01/18 06:00 IMPRESSION: 1. There is volume loss in the left lung base which may be due to a combination of pleural fluid and atelectasis. 2. Life support lines and tubes present as described above. The tip of the feeding tube is not well visualized on this examination. Assessment & Plan - Diagnosis (1) Acute respiratory failure with hypoxia and hypercapnia Is this a current diagnosis for this admission?: Yes Plan: Intermittent pain requiring FiO2 of 100% PCO2 has gone down and pH is improved (2) Morbid obesity Is this a current diagnosis for this admission?: Yes (3) TERRANCE (obstructive sleep apnea) Is this a current diagnosis for this admission?: Yes Plan: May require trilogy at home - Time Total Critical Time (Minutes): 40
[2018-04-01] MEDS: MIDAZOLAM HCL 50 MG/100 ML RTUINJ IV PRN ×2 (15:07→21:56)
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
[2018-04-01 16:26] LABS: ARTERIAL BLOOD BASE EXCESS 2.8 mmol/L; ARTERIAL BLOOD H2CO3 1.49 mmol/L (1.05-1.35); ARTERIAL BLOOD HCO3 28.8 mmol/L (20-24); ARTERIAL BLOOD O2 SATURATION 90.5 % (94-98); ARTERIAL BLOOD PCO2 49.5 mmHg (35-45); ARTERIAL BLOOD PH 7.38 (7.35-7.45); ARTERIAL BLOOD PO2 60.4 mmHg (80-100); ARTERIAL BLOOD TOTAL CO2 30.3 mmol/L (23-27)
[2018-04-01 16:27] LABS: ARTERIAL BLOOD FIO2 100%
[2018-04-01] MEDS: LEVALBUTEROL HCL NEB 1.25 MG/3 ML AMPUL NEB PRN (20:10)
[2018-04-02] MEDS: METHYLPREDNISOLONE INJ 40 MG/1 ML SDV IV SCH ×5 (00:08→23:57)
[2018-04-02] MEDS: PROPOFOL 1,000 MG/100 ML INFUS..BTL IV PRN ×16 (00:08→23:04)
[2018-04-02] MEDS: IPRATROPIUM BROMIDE 0.02% NEB 0.5 MG/2.5 ML AMPUL NEB SCH ×4 (00:35→23:58)
[2018-04-02] MEDS: LEVALBUTEROL HCL NEB 1.25 MG/3 ML AMPUL NEB SCH ×4 (00:35→23:58)
[2018-04-02] MEDS: MIDAZOLAM HCL 50 MG/100 ML RTUINJ IV PRN ×4 (04:24→21:02)
[2018-04-02 04:34] LABS: VENOUS BLOOD BASE EXCESS 1.2 mmol/L; VENOUS BLOOD HCO3 26.3 mmol/L (20-32); VENOUS BLOOD PCO2 43.5 mmHg (35-63); VENOUS BLOOD PH 7.4 (7.30-7.42)
[2018-04-02] MEDS: LEVALBUTEROL HCL NEB 1.25 MG/3 ML AMPUL NEB PRN ×3 (04:40→19:58)
[2018-04-02 05:24] LABS: ARTERIAL BLOOD BASE EXCESS 4.1 mmol/L; ARTERIAL BLOOD H2CO3 1.49 mmol/L (1.05-1.35); ARTERIAL BLOOD O2 SATURATION 92.5 % (94-98); ARTERIAL BLOOD PCO2 49.5 mmHg (35-45); ARTERIAL BLOOD TOTAL CO2 31.5 mmol/L (23-27)
[2018-04-02 05:25] LABS: ARTERIAL BLOOD FIO2 100%
--- NOTE | 2018-04-02 06:18 | RADIOLOGY REPORT (SQ) ---
EXAM DESCRIPTION: XR CHEST 1 VIEW COMPLETED DATE/TME: 04/02/2018 06:00 CLINICAL HISTORY: 28 years Male, resp failure COMPARISON: One day prior. NUMBER OF VIEWS/TECHNIQUE: 1/AP FINDINGS: Moderate central edema pattern, moderate streaky opacity of the right upper lung field, normal cardiac silhouette, moderate lung volume, tip of an endotracheal tube is 6 cm from the danny, likely adequate enteric tube partially obscured distally. No pneumothorax. Stable bony thorax. IMPRESSION: No significant change.
[2018-04-02 07:28] LABS: HEMATOCRIT 41.2 % (37.9-51.0); HEMOGLOBIN 13.5 g/dL (13.5-17.0); MEAN CORPUSCULAR HEMOGLOBIN 29.6 pg (27.0-33.4); MEAN CORPUSCULAR HGB CONC 32.8 g/dL (32.0-36.0); MEAN CORPUSCULAR VOLUME 90 fl (80-97); PLATELET COUNT 286 10^3/uL (150-450); RED BLOOD COUNT 4.57 10^6/uL (4.35-5.55); RED CELL DISTRIBUTION WIDTH 16.4 % (11.5-14.0); WHITE BLOOD COUNT 13.4 10^3/uL (4.0-10.5)
[2018-04-02 07:36] LABS: ANION GAP 9 (5-19); BLOOD UREA NITROGEN 21 mg/dL (7-20); CALCIUM 9.2 mg/dL (8.4-10.2); CARBON DIOXIDE 28 mmol/L (22-30); CHLORIDE 104 mmol/L (98-107); GLUCOSE 162 mg/dL (75-110); POTASSIUM 4.5 mmol/L (3.6-5.0); SODIUM 140.8 mmol/L (137-145)
[2018-04-02 07:52] LABS: ABSOLUTE LYMPHOCYTES# (MANUAL) 1.1 10^3/uL (0.5-4.7); ABSOLUTE MONOCYTES # (MANUAL) 0.7 10^3/uL (0.1-1.4); ABSOLUTE NEUTROPHILS# (MANUAL) 11.7 10^3/uL (1.7-8.2); BAND NEUTROPHILS % (MANUAL) 1 % (3-5); BASOPHILS % (MANUAL) 0 % (0-2); EOSINOPHILS % (MANUAL) 0 % (0-6); LYMPHOCYTES % (MANUAL) 8 % (13-45); MONOCYTES % (MANUAL) 5 % (3-13); SEGMENTED NEUTROPHILS % (MAN) 86 % (42-78); TOTAL CELLS COUNTED 100
[2018-04-02 07:53] LABS: PLATELET COMMENT ADEQUATE; PLATELET GIANT PRESENT; PLATELET LARGE PRESENT
[2018-04-02 07:54] LABS: RBC MORPHOLOGY COMMENT NORMO-CYTIC/CHROMIC
[2018-04-02 07:55] LABS: POLYCHROMASIA SLIGHT
[2018-04-02] MEDS: BUDESONIDE NEB 0.5 MG/2 ML AMPUL NEB SCH ×2 (08:38→19:58)
[2018-04-02] MEDS: NORMAL SALINE 1000 ML 1,000 ML IV PRN (09:03)
[2018-04-02] MEDS: LEVOFLOXACIN 750 MG TABLET NG SCH (09:04)
[2018-04-02] MEDS: PANTOPRAZOLE SODIUM 40 MG VIAL IV SCH (09:04)
[2018-04-02] MEDS: ENOXAPARIN SODIUM INJ 40 MG/0.4 ML DISP.SYRIN SUBCUT SCH (09:04)
[2018-04-02 13:34] LABS: ARTERIAL BLOOD BASE EXCESS 3.6 mmol/L; ARTERIAL BLOOD H2CO3 1.64 mmol/L (1.05-1.35); ARTERIAL BLOOD HCO3 30.4 mmol/L (20-24); ARTERIAL BLOOD O2 SATURATION 92.5 % (94-98); ARTERIAL BLOOD PCO2 54.5 mmHg (35-45); ARTERIAL BLOOD PH 7.36 (7.35-7.45); ARTERIAL BLOOD PO2 67.5 mmHg (80-100)
[2018-04-02 13:38] LABS: ARTERIAL BLOOD FIO2 100%
--- NOTE | 2018-04-02 14:00 | PDOC PROGRESS REPORT ---
Subjective Progress Note for:: 04/02/18 Subjective:: Intubated and sedated Reason For Visit: ACUTE ON CHRONIC SEVERE RESPIRATORY FAILURE Physical Exam Vital Signs: Temp Pulse Resp BP Pulse Ox 99.3 F 74 24 H 172/98 H 89 L 04/02/18 08:00 04/02/18 08:00 04/02/18 08:00 04/02/18 08:00 04/02/18 08:00 Intake & Output 04/01/18 04/02/18 04/03/18 06:59 06:59 06:59 Intake Total 2797 1684 90 Output Total 2670 2290 200 Balance 127 -606 -110 Weight 226.1 kg 218.5 kg General appearance: PRESENT: no acute distress, disheveled, morbidly obese. ABSENT: cooperative Head exam: PRESENT: atraumatic, normocephalic Eye exam: PRESENT: conjunctiva pale. ABSENT: nystagmus, scleral icterus Mouth exam: PRESENT: dry mucosa, neck supple, tongue midline, other - ET tube in place Neck exam: ABSENT: carotid bruit, JVD, lymphadenopathy, thyromegaly, tracheal deviation, tracheostomy Respiratory exam: PRESENT: decreased breath sounds, prolonged expiratory phas, rales, rhonchi, unlabored. ABSENT: retraction, stridor, tachypnea Cardiovascular exam: PRESENT: RRR, +S1, +S2 Pulses: PRESENT: normal radial pulses GI/Abdominal exam: PRESENT: soft. ABSENT: tenderness Gentrourinary exam: PRESENT: indwelling catheter Extremities exam: PRESENT: pedal edema. ABSENT: calf tenderness, clubbing, joint swelling Musculoskeletal exam: ABSENT: ambulatory, deformity, dislocation Neurological exam: ABSENT: awake Skin exam: PRESENT: dry, warm Results Laboratory Results: 04/02/18 04:12 04/02/18 04:12 04/01/18 04/02/18 04/02/18 16:00 04:12 04:12 WBC 13.4 H RBC 4.57 Hgb 13.5 Hct 41.2 MCV 90 MCH 29.6 MCHC 32.8 RDW 16.4 H Plt Count 286 Seg Neutrophils % Not Reportable Lymphocytes % Not Reportable Monocytes % Not Reportable Eosinophils % Not Reportable Basophils % Not Reportable Absolute Neutrophils Not Reportable Absolute Lymphocytes Not Reportable Absolute Monocytes Not Reportable Absolute Eosinophils Not Reportable Absolute Basophils Not Reportable Carbonic Acid 1.49 H HCO3/H2CO3 Ratio 19:1 ABG pH 7.38 ABG pCO2 49.5 H ABG pO2 60.4 L ABG HCO3 28.8 H ABG O2 Saturation 90.5 L ABG Base Excess 2.8 VBG pH 7.40 VBG pCO2 43.5 VBG HCO3 26.3 VBG Base Excess 1.2 FiO2 100% Sodium Potassium Chloride Carbon Dioxide Anion Gap BUN Creatinine Est GFR ( Amer) Est GFR (Non-Af Amer) Glucose Calcium Magnesium 04/02/18 04/02/18 04/02/18 04:12 04:12 04:55 WBC RBC Hgb Hct MCV MCH MCHC RDW Plt Count Seg Neutrophils % Lymphocytes % Monocytes % Eosinophils % Basophils % Absolute Neutrophils Absolute Lymphocytes Absolute Monocytes Absolute Eosinophils Absolute Basophils Carbonic Acid 1.49 H HCO3/H2CO3 Ratio 20:1 ABG pH 7.40 ABG pCO2 49.5 H ABG pO2 65.0 L ABG HCO3 30.0 H ABG O2 Saturation 92.5 L ABG Base Excess 4.1 VBG pH VBG pCO2 VBG HCO3 VBG Base Excess FiO2 100% Sodium 140.8 Potassium 4.5 Chloride 104 Carbon Dioxide 28 Anion Gap 9 BUN 21 H Creatinine 0.79 Est GFR ( Amer) > 60 Est GFR (Non-Af Amer) > 60 Glucose 162 H Calcium 9.2 Magnesium 2.4 H 03/31/18 03/31/18 21:14 21:14 Creatine Kinase 114 CK-MB (CK-2) 0.80 Troponin I < 0.012 NT-Pro-B Natriuret Pep 209 H Impressions: Chest X-Ray 04/02/18 06:00 IMPRESSION: No significant change. Assessment & Plan - Diagnosis (1) Acute respiratory failure with hypoxia and hypercapnia Is this a current diagnosis for this admission?: Yes Plan: He has improved pH is stable but still very difficult to oxygenate check d- dimer if elevated will treat empirically for pulmonary emboli as I am unable to get CTA here or in other institutions (2) Morbid obesity Is this a current diagnosis for this admission?: Yes (3) TERRANCE (obstructive sleep apnea) Is this a current diagnosis for this admission?: Yes Plan: May require trilogy at home - Time Total Critical Time (Minutes): 45
--- NOTE | 2018-04-02 14:13 | PDOC PROGRESS REPORT ---
Subjective Progress Note for:: 04/02/18 Subjective:: JEOY ORTEGA is a 28 year old male with history of chronic respiratory failure secondary to COPD on 4 L oxygen at home. Room air he tells me he saturates between 80-92%, his diagnosis of COPD has been confirm more than once with pulmonary function tesT. On CPAP at night secondary to TERRANCE. Tells me he has been sick for the last 3 days with progressive shortness of breath, brownish sputum, persistent cough which caused him chest pain and upper abdominal pain. Subjective fever and chills. He has been complaining of mild sore throat and runny nose. Denies dizziness, lightheadedness, palpitations, headache, diarrhea , constipation, urinary symptoms. Patient currently on ventilator requiring 100% FiO2 to maintain saturations in the 88-90% range. Dr. Mayer has anticoagulated patient for possible pulmonary embolism. Due to patient's morbid obesity unable to fit in any scanner at this or other hospitals. Currently sedated on the ventilator unable to review Reason For Visit: ACUTE ON CHRONIC SEVERE RESPIRATORY FAILURE Physical Exam Vital Signs: Temp Pulse Resp BP Pulse Ox 99.0 F 78 24 H 162/97 H 86 L 04/02/18 12:06 04/02/18 13:20 04/02/18 13:20 04/02/18 12:06 04/02/18 13:20 Intake & Output 04/01/18 04/02/18 04/03/18 06:59 06:59 06:59 Intake Total 2797 1684 1266 Output Total 2670 2290 845 Balance 127 -606 421 Weight 226.1 kg 218.5 kg General appearance: PRESENT: other - Dated on ventilator Head exam: PRESENT: atraumatic, normocephalic Respiratory exam: PRESENT: clear to auscultation kapil, other - On ventilator. ABSENT: rales, rhonchi, wheezes Cardiovascular exam: PRESENT: RRR. ABSENT: diastolic murmur, rubs, systolic murmur GI/Abdominal exam: PRESENT: normal bowel sounds, soft, other - Massive pannus. ABSENT: distended, guarding, mass, organolmegaly, rebound, tenderness Extremities exam: PRESENT: calf tenderness, full ROM, pedal edema, +2 edema. ABSENT: clubbing Neurological exam: ABSENT: alert, awake Results Laboratory Results: 04/02/18 04:12 10/09/18 04:12 04/01/18 04/02/18 04/02/18 16:00 04:12 04:12 WBC 13.4 H RBC 4.57 Hgb 13.5 Hct 41.2 MCV 90 MCH 29.6 MCHC 32.8 RDW 16.4 H Plt Count 286 Seg Neutrophils % Not Reportable Lymphocytes % Not Reportable Monocytes % Not Reportable Eosinophils % Not Reportable Basophils % Not Reportable Absolute Neutrophils Not Reportable Absolute Lymphocytes Not Reportable Absolute Monocytes Not Reportable Absolute Eosinophils Not Reportable Absolute Basophils Not Reportable Carbonic Acid 1.49 H HCO3/H2CO3 Ratio 19:1 ABG pH 7.38 ABG pCO2 49.5 H ABG pO2 60.4 L ABG HCO3 28.8 H ABG O2 Saturation 90.5 L ABG Base Excess 2.8 VBG pH 7.40 VBG pCO2 43.5 VBG HCO3 26.3 VBG Base Excess 1.2 FiO2 100% Sodium Potassium Chloride Carbon Dioxide Anion Gap BUN Creatinine Est GFR ( Amer) Est GFR (Non-Af Amer) Glucose Calcium Magnesium 04/02/18 04/02/18 04/02/18 04:12 04:12 04:55 WBC RBC Hgb Hct MCV MCH MCHC RDW Plt Count Seg Neutrophils % Lymphocytes % Monocytes % Eosinophils % Basophils % Absolute Neutrophils Absolute Lymphocytes Absolute Monocytes Absolute Eosinophils Absolute Basophils Carbonic Acid 1.49 H HCO3/H2CO3 Ratio 20:1 ABG pH 7.40 ABG pCO2 49.5 H ABG pO2 65.0 L ABG HCO3 30.0 H ABG O2 Saturation 92.5 L ABG Base Excess 4.1 VBG pH VBG pCO2 VBG HCO3 VBG Base Excess FiO2 100% Sodium 140.8 Potassium 4.5 Chloride 104 Carbon Dioxide 28 Anion Gap 9 BUN 21 H Creatinine 0.79 Est GFR ( Amer) > 60 Est GFR (Non-Af Amer) > 60 Glucose 162 H Calcium 9.2 Magnesium 2.4 H 04/02/18 13:20 WBC RBC Hgb Hct MCV MCH MCHC RDW Plt Count Seg Neutrophils % Lymphocytes % Monocytes % Eosinophils % Basophils % Absolute Neutrophils Absolute Lymphocytes Absolute Monocytes Absolute Eosinophils Absolute Basophils Carbonic Acid 1.64 H HCO3/H2CO3 Ratio 18:1 ABG pH 7.36 ABG pCO2 54.5 H ABG pO2 67.5 L ABG HCO3 30.4 H ABG O2 Saturation 92.5 L ABG Base Excess 3.6 VBG pH VBG pCO2 VBG HCO3 VBG Base Excess FiO2 100% Sodium Potassium Chloride Carbon Dioxide Anion Gap BUN Creatinine Est GFR ( Amer) Est GFR (Non-Af Amer) Glucose Calcium Magnesium 03/31/18 03/31/18 21:14 21:14 Creatine Kinase 114 CK-MB (CK-2) 0.80 Troponin I < 0.012 NT-Pro-B Natriuret Pep 209 H Impressions: Chest X-Ray 04/02/18 06:00 IMPRESSION: No significant change. Assessment & Plan - Diagnosis (1) Acute on chronic respiratory failure with hypoxia and hypercapnia Is this a current diagnosis for this admission?: Yes Plan: Dr. Mayer managing ventilator. We will ask dietary to assess for nutritional needs while on ventilator. Agree patient's requirements are inconsistent with his chest x-ray pulmonary embolism clearly is likely in this patient anticoagulation indicated. Overall prognosis poor (2) COPD exacerbation Is this a current diagnosis for this admission?: Yes Plan: Obstructive sleep apnea obesity hypoventilation syndrome and tobacco dependency all contributing to patient's respiratory issues. (3) Hypertension Qualifiers: Hypertension type: essential hypertension Qualified Code(s): I10 - Essential (primary) hypertension Is this a current diagnosis for this admission?: Yes Plan: Mild hypertension begin patient's home medications (4) Hypothyroidism Is this a current diagnosis for this admission?: Yes Plan: Begin home medications via OG tube while on ventilator. TSH 0.4 patient most likely euthyroid sick from acute illness. Will make no change at this time (5) Morbid obesity Is this a current diagnosis for this admission?: Yes Plan: BMI of 69.1. Patient too obese to fit in imaging equipment. (6) TERRANCE (obstructive sleep apnea) Is this a current diagnosis for this admission?: Yes Plan: Unknown compliance in the outpatient setting - Time Time Spent with patient: 25-34 minutes Anticipated discharge: Home
[2018-04-02] MEDS ORDERED: (PENDING PHARMACY ID) (Lisinopril [Prinivil] 20 MG) PO SCH (14:15)
[2018-04-02] MEDS: HYDRALAZINE HCL INJ/PF 20 MG/1 ML SDV IV PRN ×2 (15:00→20:14)
[2018-04-02] MEDS: LEVOTHYROXINE SODIUM 0.1 MG TABLET PO SCH (15:00)
[2018-04-02] MEDS: LISINOPRIL 10 MG TABLET PO SCH (15:01)
[2018-04-03] MEDS: PROPOFOL 1,000 MG/100 ML INFUS..BTL IV PRN ×13 (00:14→15:46)
[2018-04-03] MEDS: MIDAZOLAM HCL 50 MG/100 ML RTUINJ IV PRN ×3 (03:04→12:17)
[2018-04-03 04:15] LABS: ABSOLUTE BASOPHILS # (AUTO) 0.1 10^3/uL (0.0-0.2); ABSOLUTE LYMPHOCYTES (AUTO) 0.7 10^3/uL (0.5-4.7); ABSOLUTE MONOCYTES (AUTO) 0.7 10^3/uL (0.1-1.4); ABSOLUTE NEUT (AUTO) 10.8 10^3/uL (1.7-8.2); BASOPHILS % (AUTO) 0.5 % (0-2); HEMATOCRIT 42.3 % (37.9-51.0); HEMOGLOBIN 13.9 g/dL (13.5-17.0); LYMPHOCYTES % (AUTO) 5.8 % (13-45); MEAN CORPUSCULAR HEMOGLOBIN 29.2 pg (27.0-33.4); MEAN CORPUSCULAR HGB CONC 32.9 g/dL (32.0-36.0); MEAN CORPUSCULAR VOLUME 89 fl (80-97); MONOCYTES % (AUTO) 5.8 % (3-13); PLATELET COUNT 259 10^3/uL (150-450); RED BLOOD COUNT 4.77 10^6/uL (4.35-5.55); RED CELL DISTRIBUTION WIDTH 16.3 % (11.5-14.0); SEGMENTED NEUTROPHILS % (AUTO) 87.9 % (42-78); TOTAL CELLS COUNTED % (AUTO) 100 %; WHITE BLOOD COUNT 12.3 10^3/uL (4.0-10.5)
[2018-04-03 04:29] LABS: ALANINE AMINOTRANSFERASE 107 U/L (21-72); ALBUMIN 3.6 g/dL (3.5-5.0); ALKALINE PHOSPHATASE 49 U/L (38-126); ANION GAP 7 (5-19); ASPARTATE AMINO TRANSFERASE 100 U/L (17-59); BILIRUBIN,DIRECT 0.5 mg/dL (0.0-0.4); BILIRUBIN,TOTAL 0.6 mg/dL (0.2-1.3); BLOOD UREA NITROGEN 19 mg/dL (7-20); CARBON DIOXIDE 28 mmol/L (22-30); CHLORIDE 107 mmol/L (98-107); GLUCOSE 157 mg/dL (75-110); POTASSIUM 4.3 mmol/L (3.6-5.0); TOTAL PROTEIN 6.7 g/dL (6.3-8.2)
[2018-04-03] MEDS: LEVOTHYROXINE SODIUM 0.1 MG TABLET PO SCH (05:44)
[2018-04-03] MEDS: METHYLPREDNISOLONE INJ 40 MG/1 ML SDV IV SCH ×2 (05:45→11:18)
[2018-04-03 06:00] LABS: ARTERIAL BLOOD H2CO3 1.34 mmol/L (1.05-1.35); ARTERIAL BLOOD HCO3 24.6 mmol/L (20-24); ARTERIAL BLOOD O2 SATURATION 91.8 % (94-98); ARTERIAL BLOOD PCO2 44.5 mmHg (35-45); ARTERIAL BLOOD PH 7.36 (7.35-7.45); ARTERIAL BLOOD PO2 64.6 mmHg (80-100)
[2018-04-03 06:01] LABS: ARTERIAL BLOOD FIO2 100%
--- NOTE | 2018-04-03 06:35 | RADIOLOGY REPORT (SQ) ---
EXAM DESCRIPTION: XR CHEST 1 VIEW COMPLETED DATE/TME: 04/03/2018 06:00 CLINICAL HISTORY: 28 years Male, resp failure COMPARISON: One day prior. NUMBER OF VIEWS/TECHNIQUE: 1/AP FINDINGS: Moderate mixed patchy and wedge-shaped opacity of the right upper and right suprahilar hemithorax , moderate left infrahilar consolidate, mildly enlarged cardiac silhouette, endotracheal tube tip is 6.5 cm from the danny, likely adequate enteric tube obscured distally. No pneumothorax. Stable bony thorax. IMPRESSION: Interval worsening includes moderate right upper hemithoracic opacities.
[2018-04-03] MEDS: LEVALBUTEROL HCL NEB 1.25 MG/3 ML AMPUL NEB SCH ×2 (08:11→16:01)
[2018-04-03] MEDS: BUDESONIDE NEB 0.5 MG/2 ML AMPUL NEB SCH (08:11)
[2018-04-03] MEDS: IPRATROPIUM BROMIDE 0.02% NEB 0.5 MG/2.5 ML AMPUL NEB SCH ×2 (08:11→16:00)
[2018-04-03] MEDS ORDERED: VANCOMYCIN HCL 0 MG in DEXTROSE 5%-WATER 250 ML IV NR (08:15)
[2018-04-03] MEDS: PANTOPRAZOLE SODIUM 40 MG VIAL IV SCH (09:52)
[2018-04-03] MEDS: ENOXAPARIN SODIUM INJ 40 MG/0.4 ML DISP.SYRIN SUBCUT SCH (09:52)
[2018-04-03] MEDS: LISINOPRIL 10 MG TABLET PO SCH (09:52)
[2018-04-03] MEDS: LEVOFLOXACIN 750 MG TABLET NG SCH (09:53)
--- NOTE | 2018-04-03 10:40 | PDOC PROGRESS REPORT ---
Subjective Progress Note for:: 04/03/18 Subjective:: JOEY ORTEGA is a 28 year old male with history of chronic respiratory failure secondary to COPD on 4 L oxygen at home. Room air he tells me he saturates between 80-92%, his diagnosis of COPD has been confirm more than once with pulmonary function tesT. On CPAP at night secondary to TERRANCE. Tells me he has been sick for the last 3 days with progressive shortness of breath, brownish sputum, persistent cough which caused him chest pain and upper abdominal pain. Subjective fever and chills. He has been complaining of mild sore throat and runny nose. Denies dizziness, lightheadedness, palpitations, headache, diarrhea , constipation, urinary symptoms. Patient currently on ventilator requiring 100% FiO2 to maintain saturations in the 88-90% range. Dr. Mayer has ordered d-dimer which was normal. Chest x- ray today shows increasing infiltrate in the right upper lobe. Patient continues to require 100% FiO2. Case discussed with Dr. Mayer Reason For Visit: ACUTE ON CHRONIC SEVERE RESPIRATORY FAILURE Physical Exam Vital Signs: Temp Pulse Resp BP Pulse Ox 97.0 F 71 24 H 161/83 H 89 L 04/03/18 08:00 04/03/18 10:00 04/03/18 10:00 04/03/18 10:00 04/03/18 10:00 Intake & Output 04/02/18 04/03/18 04/04/18 06:59 06:59 06:59 Intake Total 1684 2813 285 Output Total 2290 3230 500 Balance -606 -417 -215 Weight 218.5 kg 220.3 kg General appearance: PRESENT: other - Sedated on a ventilator Respiratory exam: PRESENT: rales, wheezes, other - Ventilator support. ABSENT: rhonchi Cardiovascular exam: PRESENT: RRR. ABSENT: diastolic murmur, rubs, systolic murmur GI/Abdominal exam: PRESENT: normal bowel sounds, soft. ABSENT: distended, guarding, mass, organolmegaly, rebound, tenderness Extremities exam: PRESENT: +2 edema Results Laboratory Results: 04/03/18 03:48 04/03/18 03:48 04/02/18 04/03/18 04/03/18 13:20 03:48 03:48 WBC 12.3 H RBC 4.77 Hgb 13.9 Hct 42.3 MCV 89 MCH 29.2 MCHC 32.9 RDW 16.3 H Plt Count 259 Seg Neutrophils % 87.9 H Lymphocytes % 5.8 L Monocytes % 5.8 Eosinophils % 0.0 Basophils % 0.5 Absolute Neutrophils 10.8 H Absolute Lymphocytes 0.7 Absolute Monocytes 0.7 Absolute Eosinophils 0.0 Absolute Basophils 0.1 Carbonic Acid 1.64 H HCO3/H2CO3 Ratio 18:1 ABG pH 7.36 ABG pCO2 54.5 H ABG pO2 67.5 L ABG HCO3 30.4 H ABG O2 Saturation 92.5 L ABG Base Excess 3.6 FiO2 100% Sodium 142.0 Potassium 4.3 Chloride 107 Carbon Dioxide 28 Anion Gap 7 BUN 19 Creatinine 0.66 Est GFR ( Amer) > 60 Est GFR (Non-Af Amer) > 60 Glucose 157 H Calcium 9.0 Magnesium 2.5 H Total Bilirubin 0.6 AST 100 H ALT 107 H Alkaline Phosphatase 49 Total Protein 6.7 Albumin 3.6 04/03/18 05:55 WBC RBC Hgb Hct MCV MCH MCHC RDW Plt Count Seg Neutrophils % Lymphocytes % Monocytes % Eosinophils % Basophils % Absolute Neutrophils Absolute Lymphocytes Absolute Monocytes Absolute Eosinophils Absolute Basophils Carbonic Acid 1.34 HCO3/H2CO3 Ratio 18:1 ABG pH 7.36 ABG pCO2 44.5 ABG pO2 64.6 L ABG HCO3 24.6 H ABG O2 Saturation 91.8 L ABG Base Excess -1.0 FiO2 100% Sodium Potassium Chloride Carbon Dioxide Anion Gap BUN Creatinine Est GFR ( Amer) Est GFR (Non-Af Amer) Glucose Calcium Magnesium Total Bilirubin AST ALT Alkaline Phosphatase Total Protein Albumin 03/31/18 13:20 Sputum Gram Stain - Final 03/31/18 13:20 Sputum Sputum Culture - Final NORMAL ALHAJI 03/31/18 03/31/18 21:14 21:14 Creatine Kinase 114 CK-MB (CK-2) 0.80 Troponin I < 0.012 NT-Pro-B Natriuret Pep 209 H Impressions: Chest X-Ray 04/03/18 06:00 IMPRESSION: Interval worsening includes moderate right upper hemithoracic opacities. Assessment & Plan - Diagnosis (1) Acute on chronic respiratory failure with hypoxia and hypercapnia Is this a current diagnosis for this admission?: Yes Plan: Dr. Mayer managing ventilator. Case discussed with him. D-dimer being negative and infiltrate increasing it appears patient has pneumonia as his primary cause for profound hypoxemia. Certainly his morbid obesity is a compounding factor. We will add vancomycin due to worsening infiltrate despite antibiotics. Continue Levaquin (2) COPD exacerbation Is this a current diagnosis for this admission?: Yes Plan: Obstructive sleep apnea obesity hypoventilation syndrome and tobacco dependency all contributing to patient's respiratory issues. Continue current medical therapy. (3) Hypertension Qualifiers: Hypertension type: essential hypertension Qualified Code(s): I10 - Essential (primary) hypertension Is this a current diagnosis for this admission?: Yes Plan: Patient on as needed hydralazine and lisinopril 20 mg daily. We will add IV Lasix 20 mg daily patient remains hypertensive will consider adding calcium channel vinicius or titrate lisinopril further.. (4) Hypothyroidism Is this a current diagnosis for this admission?: Yes Plan: Begin home medications via OG tube while on ventilator. TSH 0.4 patient most likely euthyroid sick from acute illness. Will make no change at this time (5) Morbid obesity Is this a current diagnosis for this admission?: Yes Plan: BMI of 69.1. Patient too obese to fit in imaging equipment. (6) TERRANCE (obstructive sleep apnea) Is this a current diagnosis for this admission?: Yes Plan: Unknown compliance in the outpatient setting - Time Time Spent with patient: 25-34 minutes
[2018-04-03] MEDS ORDERED: FUROSEMIDE INJ/PF 20 MG/2 ML SDV IV SCH (11:30)
--- NOTE | 2018-04-03 11:54 | PDOC TRANSFER SUMMARY ---
General Admission Date/PCP: 03/30/18 19:43 PILY ESPINAL MD Admission Date: 03/30/18 Transfer Date: 04/03/18 Accepting Facility: [facility] Accepting Physician: Dr. Wolf Resuscitation Status: Full Code - Transfer Diagnosis (1) Acute on chronic respiratory failure with hypoxia and hypercapnia Is this a current diagnosis for this admission?: Yes Diagnosis Summary: Currently on ventilator requiring an FiO2 of 100% with saturations in the 88-91 % range (2) COPD exacerbation Is this a current diagnosis for this admission?: Yes (3) Hypertension Is this a current diagnosis for this admission?: Yes Diagnosis Summary: Mild systolic hypertension lisinopril restarted 04/02/2018 and Lasix added 2017 (4) Hypothyroidism Is this a current diagnosis for this admission?: Yes Diagnosis Summary: TSH of 0.4 (5) Morbid obesity Is this a current diagnosis for this admission?: Yes Diagnosis Summary: 220.3 kg BMI of 69.7 (6) TERRANCE (obstructive sleep apnea) Is this a current diagnosis for this admission?: Yes Diagnosis Summary: Does comply with CPAP at night in the outpatient setting (7) Right upper lobe pneumonia Is this a current diagnosis for this admission?: Yes Diagnosis Summary: On IV Levaquin 750 daily since 03/30/2018 vancomycin added 04/03/2018 - Transfer Medications Transfer Medications: Current Medications Acetaminophen (Tylenol 650 Mg Supp) 650 mg [place] Q4HP PRN PRN Reason: FOR PAIN OR TEMP Stop: 04/29/18 20:04 Al Hydrox/Mg Hydrox/Simethicone (Maalox Plus Susp 30 Udcup) 30 ml NG Q6HP PRN PRN Reason: HEARTBURN Stop: 04/29/18 20:04 Budesonide (Pulmicort Neb 0.5 Mg/2 Ml Ampul) 0.5 mg NEB RTQ12 CHRISTINE Stop: 04/30/18 09:29 Last Admin: 04/03/18 08:11 Dose: 0.5 mg Enoxaparin Sodium (Lovenox Inj 40 Mg/0.4 Ml Disp.Syrin) 40 mg SUBCUT DAILY CHRISTINE Stop: 04/30/18 09:59 Last Admin: 04/03/18 09:52 Dose: 40 mg Furosemide (Lasix Inj/Pf 20 Mg/2 Ml Sdv) 20 mg IV DAILY CHRISTINE Stop: 05/03/18 11:29 Last Admin: 04/03/18 11:22 Dose: 20 mg Hydralazine HCl (Apresoline Inj/Pf 20 Mg/1 Ml Sdv) 10 mg IV Q4HP PRN PRN Reason: Give For Sbp > 180 / Dbp > 105 Stop: 05/02/18 14:24 Last Admin: 04/02/18 20:14 Dose: 10 mg Sodium Chloride (Nacl 0.9% 1000 Ml Iv Soln) 1,000 mls @ 30 mls/hr IV CONTINUOUS PRN PRN Reason: THIS MED IS NOT "PRN" Stop: 04/29/18 20:04 Last Admin: 04/02/18 09:03 Dose: 30 mls/hr Propofol (Diprivan Rtu 1000 Mg/100 Ml Inf.Bottle) 1,000 mg in 100 mls @ 0 mls/ hr IV CONTINUOUS PRN; Protocol; Titrate PRN Reason: THIS MED IS NOT "PRN" Stop: 04/30/18 13:34 Last Admin: 04/03/18 11:17 Dose: 78.66 mls/hr Midazolam HCl (Versed Rtu 50 Mg/100 Ml Premix Bag) 50 mg in 100 mls @ 0 mls/hr IV CONTINUOUS PRN; Protocol; Titrate PRN Reason: THIS MED IS NOT "PRN" Stop: 04/07/18 13:35 Last Admin: 04/03/18 07:42 Dose: 10 mg/hr, 20 mls/hr Vancomycin HCl 2,000 mg/ (Dextrose) 500 mls @ 250 mls/hr IV Q8 CHRISTINE Stop: 04/10/18 13:59 Ipratropium Purdys (Atrovent 0.02% Neb 0.5 Mg/2.5 Ml Ampul) 0.5 mg NEB RTQ8 CHRISTINE Stop: 04/30/18 09:29 Last Admin: 04/03/18 08:11 Dose: 0.5 mg Levalbuterol HCl (Xopenex Neb 1.25 Mg/3 Ml Ampul) 1.25 mg NEB RTQ2HP PRN PRN Reason: FOR WHEEZING Stop: 04/30/18 08:39 Last Admin: 04/02/18 19:58 Dose: 1.25 mg Levalbuterol HCl (Xopenex Neb 1.25 Mg/3 Ml Ampul) 1.25 mg NEB RTQ8 CHRISTINE Stop: 04/30/18 09:29 Last Admin: 04/03/18 08:11 Dose: 1.25 mg Levofloxacin (Levaquin 750 Mg Tablet) 750 mg NG DAILY CHRISTINE Stop: 04/07/18 09:59 Last Admin: 04/03/18 09:53 Dose: 750 mg Levothyroxine Sodium (Synthroid 0.1 Mg Tablet) 0.1 mg PO Q6AM CHRISTINE Stop: 05/02/18 14:59 Last Admin: 04/03/18 05:44 Dose: 0.1 mg Lisinopril (Prinivil 10 Mg Tablet) 20 mg PO DAILY CHRISTINE Stop: 05/02/18 14:59 Last Admin: 04/03/18 09:52 Dose: 20 mg Methylprednisolone Sodium Succinate (Solu-Medrol Inj/Pf 40 Mg/1 Ml Sdv) 40 mg IV Q6 CHRISTINE Stop: 04/30/18 11:59 Last Admin: 04/03/18 11:18 Dose: 40 mg Pantoprazole Sodium (Protonix Iv Inj 40 Mg Vial) 40 mg IV DAILY CHRISTINE Stop: 04/04/18 09:59 Last Admin: 04/03/18 09:52 Dose: 40 mg Pharmacy Profile Note (Medication Communication Order) 1 each [facility] .NOTICE NR Stop: 04/30/18 11:29 Promethazine HCl (Phenergan 25 Mg Tablet) 25 mg NG Q4HP PRN PRN Reason: FOR NAUSEA/VOMITING Stop: 04/29/18 20:04 Tramadol HCl (Ultram 50 Mg Tablet) 50 mg NG Q4HP PRN PRN Reason: FOR PAIN SCALE 1-2 Stop: 04/07/18 08:46 - Allergies Allergies/Adverse Reactions: No Known Allergies Allergy (Verified 03/30/18 15:59) Hospital Course Hospital Course: JOEY ORTEGA is a 28 year old male with history of chronic respiratory failure secondary to COPD on 4 L oxygen at home. Room air he tells me he saturates between 80-92%, his diagnosis of COPD has been confirm more than once with pulmonary function tesT. On CPAP at night secondary to TERRANCE. Tells me he has been sick for the last 3 days with progressive shortness of breath, brownish sputum, persistent cough which caused him chest pain and upper abdominal pain. Subjective fever and chills. He has been complaining of mild sore throat and runny nose. Denies dizziness, lightheadedness, palpitations, headache, diarrhea , constipation, urinary symptoms. Patient follows with Dr. Reeder who is his pulmonary. Upon arrival to our facility patient was tachypneic with a respiratory rate of 40, oxygen saturation 93% on 8 L oxygen via nasal cannula, afebrile. Patient was initiated on BiPAP. By the time I went to see him he was more comfortable. AB.//[id number] His last COPD with asthma exacerbation was about a year ago. Patient was intubated and placed in the medical intensive care unit. He was requiring 100% FiO2 to maintain saturations at 88%. D-dimer was performed on 3 separate occasions as patient was too obese to fit in any scanner's the d-dimer was normal indicating there was no pulmonary embolism. Patient was on Levaquin for a possible community-acquired pneumonia although his x-rays of limited quality due to obesity showed no clear infiltrate. On 03 30 patient did blossom a right upper lobe infiltrate consistent with a pneumonitis. His white count was 12,000 at the time of transfer. With the worsening of the x-ray vancomycin was added. Blood cultures were negative sputum culture showed gram-positive cocci in clusters ID and sensitivity to follow. Consultation with Dr. Mayer of pulmonary was obtained at the time of his admission. The patient had no clear cause for his disproportionate hypoxemia suspecting he had a large shunt. Because of his obesity it was felt the patient could not be managed at this facility since he failed to respond to routine therapies. Contact was made with Dr. harper and the commission specialist at [facility] who accepted the patient in transfer. Condition at the time of transfer stable Physical Exam Vital Signs: Temp Pulse Resp BP Pulse Ox 97.0 F 71 24 H 161/83 H 90 L 04/03/18 08:00 04/03/18 10:00 04/03/18 10:00 04/03/18 10:00 04/03/18 11:34 Intake & Output 04/02/18 04/03/18 04/04/18 06:59 06:59 06:59 Intake Total 1684 2813 385 Output Total 2290 3230 500 Balance -606 -417 -115 Weight 218.5 kg 220.3 kg General appearance: PRESENT: other - Sedated on ventilator Head exam: PRESENT: atraumatic, normocephalic Mouth exam: PRESENT: other - ET OG present Respiratory exam: PRESENT: rales, wheezes - There, other - Ventilator support Cardiovascular exam: PRESENT: RRR. ABSENT: diastolic murmur, rubs, systolic murmur GI/Abdominal exam: PRESENT: normal bowel sounds, soft, other - Massive pannus. ABSENT: distended, guarding, mass, organolmegaly, rebound, tenderness Extremities exam: PRESENT: +2 edema Musculoskeletal exam: ABSENT: deformity Results Laboratory Results: 04/03/18 03:48 04/03/18 03:48 04/02/18 04/03/18 04/03/18 13:20 03:48 03:48 WBC 12.3 H RBC 4.77 Hgb 13.9 Hct 42.3 MCV 89 MCH 29.2 MCHC 32.9 RDW 16.3 H Plt Count 259 Seg Neutrophils % 87.9 H Lymphocytes % 5.8 L Monocytes % 5.8 Eosinophils % 0.0 Basophils % 0.5 Absolute Neutrophils 10.8 H Absolute Lymphocytes 0.7 Absolute Monocytes 0.7 Absolute Eosinophils 0.0 Absolute Basophils 0.1 Carbonic Acid 1.64 H HCO3/H2CO3 Ratio 18:1 ABG pH 7.36 ABG pCO2 54.5 H ABG pO2 67.5 L ABG HCO3 30.4 H ABG O2 Saturation 92.5 L ABG Base Excess 3.6 FiO2 100% Sodium 142.0 Potassium 4.3 Chloride 107 Carbon Dioxide 28 Anion Gap 7 BUN 19 Creatinine 0.66 Est GFR ( Amer) > 60 Est GFR (Non-Af Amer) > 60 Glucose 157 H Calcium 9.0 Magnesium 2.5 H Total Bilirubin 0.6 AST 100 H ALT 107 H Alkaline Phosphatase 49 Total Protein 6.7 Albumin 3.6 04/03/18 05:55 WBC RBC Hgb Hct MCV MCH MCHC RDW Plt Count Seg Neutrophils % Lymphocytes % Monocytes % Eosinophils % Basophils % Absolute Neutrophils Absolute Lymphocytes Absolute Monocytes Absolute Eosinophils Absolute Basophils Carbonic Acid 1.34 HCO3/H2CO3 Ratio 18:1 ABG pH 7.36 ABG pCO2 44.5 ABG pO2 64.6 L ABG HCO3 24.6 H ABG O2 Saturation 91.8 L ABG Base Excess -1.0 FiO2 100% Sodium Potassium Chloride Carbon Dioxide Anion Gap BUN Creatinine Est GFR ( Amer) Est GFR (Non-Af Amer) Glucose Calcium Magnesium Total Bilirubin AST ALT Alkaline Phosphatase Total Protein Albumin 03/31/18 13:20 Sputum Gram Stain - Final 03/31/18 13:20 Sputum Sputum Culture - Final NORMAL ALHAJI 03/31/18 03/31/18 21:14 21:14 Creatine Kinase 114 CK-MB (CK-2) 0.80 Troponin I < 0.012 NT-Pro-B Natriuret Pep 209 H Impressions: Chest X-Ray 04/03/18 06:00 IMPRESSION: Interval worsening includes moderate right upper hemithoracic opacities. Plan Discharge Plan: Transferred to [facility] Time Spent: Greater than 30 Minutes
[2018-04-03] MEDS ORDERED: VANCOMYCIN HCL 2,000 MG in DEXTROSE 5%-WATER 500 ML IV SCH (14:00)
[2018-04-03 14:47] VITALS: BP 163/94
--- NOTE | 2018-04-03 18:09 | PDOC PROGRESS REPORT ---
Subjective Progress Note for:: 04/03/18 Subjective:: Intubated and sedated,Unchanged Reason For Visit: ACUTE ON CHRONIC SEVERE RESPIRATORY FAILURE Physical Exam Vital Signs: Temp Pulse Resp BP Pulse Ox 96.8 F L 69 24 H 160/90 H 89 L 04/03/18 12:00 04/03/18 12:00 04/03/18 12:00 04/03/18 12:00 04/03/18 12:00 Intake & Output 04/02/18 04/03/18 04/04/18 06:59 06:59 06:59 Intake Total 1684 2813 639 Output Total 2290 3230 675 Balance -606 -417 -36 Weight 218.5 kg 220.3 kg General appearance: PRESENT: no acute distress, disheveled, morbidly obese. ABSENT: cooperative Head exam: PRESENT: atraumatic, normocephalic Eye exam: PRESENT: conjunctiva pale. ABSENT: nystagmus, scleral icterus Mouth exam: PRESENT: dry mucosa, neck supple, tongue midline, other - ET tube in place Neck exam: ABSENT: carotid bruit, JVD, lymphadenopathy, thyromegaly, tracheal deviation, tracheostomy Respiratory exam: PRESENT: decreased breath sounds, prolonged expiratory phas, rales, rhonchi, tachypnea, unlabored, wheezes Cardiovascular exam: PRESENT: RRR, +S1, +S2 Pulses: PRESENT: normal radial pulses GI/Abdominal exam: PRESENT: soft. ABSENT: tenderness Extremities exam: PRESENT: pedal edema. ABSENT: calf tenderness, clubbing, joint swelling Musculoskeletal exam: ABSENT: ambulatory, deformity, dislocation Neurological exam: ABSENT: awake Skin exam: PRESENT: dry, warm Results Laboratory Results: 04/03/18 03:48 04/03/18 03:48 04/03/18 04/03/18 04/03/18 03:48 03:48 05:55 WBC 12.3 H RBC 4.77 Hgb 13.9 Hct 42.3 MCV 89 MCH 29.2 MCHC 32.9 RDW 16.3 H Plt Count 259 Seg Neutrophils % 87.9 H Lymphocytes % 5.8 L Monocytes % 5.8 Eosinophils % 0.0 Basophils % 0.5 Absolute Neutrophils 10.8 H Absolute Lymphocytes 0.7 Absolute Monocytes 0.7 Absolute Eosinophils 0.0 Absolute Basophils 0.1 Carbonic Acid 1.34 HCO3/H2CO3 Ratio 18:1 ABG pH 7.36 ABG pCO2 44.5 ABG pO2 64.6 L ABG HCO3 24.6 H ABG O2 Saturation 91.8 L ABG Base Excess -1.0 FiO2 100% Sodium 142.0 Potassium 4.3 Chloride 107 Carbon Dioxide 28 Anion Gap 7 BUN 19 Creatinine 0.66 Est GFR ( Amer) > 60 Est GFR (Non-Af Amer) > 60 Glucose 157 H Calcium 9.0 Magnesium 2.5 H Total Bilirubin 0.6 AST 100 H ALT 107 H Alkaline Phosphatase 49 Total Protein 6.7 Albumin 3.6 04/01/18 06:30 Zamora Catheter Urine Culture - Final NO GROWTH 2 DAYS 03/31/18 13:20 Sputum Gram Stain - Final 03/31/18 13:20 Sputum Sputum Culture - Final NORMAL ALHAJI 03/31/18 03/31/18 21:14 21:14 Creatine Kinase 114 CK-MB (CK-2) 0.80 Troponin I < 0.012 NT-Pro-B Natriuret Pep 209 H Impressions: Chest X-Ray 04/03/18 06:00 IMPRESSION: Interval worsening includes moderate right upper hemithoracic opacities. Assessment & Plan - Diagnosis (1) Acute respiratory failure with hypoxia and hypercapnia Is this a current diagnosis for this admission?: Yes Plan: Discussed with primary care physician patient not making any headway have a large right to left shunt consider transferring to tertiary care (2) Morbid obesity Is this a current diagnosis for this admission?: Yes (3) TERRANCE (obstructive sleep apnea) Is this a current diagnosis for this admission?: Yes Plan: May require trilogy at home - Time Total Critical Time (Minutes): 45
--- NOTE | 2018-04-04 14:50 | PDOC PROGRESS REPORT ---
Subjective Progress Note for:: 04/03/18 Subjective:: Intubated and sedated,Unchanged Reason For Visit: ACUTE ON CHRONIC SEVERE RESPIRATORY FAILURE Physical Exam Vital Signs: Temp Pulse Resp BP Pulse Ox 97.0 F 63 24 H 157/92 H 90 L 04/03/18 08:00 04/03/18 08:00 04/03/18 08:00 04/03/18 08:00 04/03/18 08:00 Intake & Output 04/02/18 04/03/18 04/04/18 06:59 06:59 06:59 Intake Total 1684 2813 193 Output Total 2290 3230 300 Balance -606 -417 -107 Weight 218.5 kg 220.3 kg General appearance: PRESENT: no acute distress, disheveled, morbidly obese. ABSENT: cooperative Head exam: PRESENT: atraumatic, normocephalic Eye exam: PRESENT: conjunctiva pale. ABSENT: nystagmus, periorbital swelling, scleral icterus Mouth exam: PRESENT: dry mucosa, neck supple, tongue midline, other - ET tube in place Neck exam: ABSENT: carotid bruit, JVD, lymphadenopathy, thyromegaly, tracheal deviation, tracheostomy Respiratory exam: PRESENT: decreased breath sounds, prolonged expiratory phas, rales, rhonchi, symmetrical, tachypnea, unlabored, wheezes. ABSENT: retraction , stridor Cardiovascular exam: PRESENT: RRR, +S1, +S2 Pulses: PRESENT: normal radial pulses GI/Abdominal exam: PRESENT: soft. ABSENT: tenderness Gentrourinary exam: PRESENT: indwelling catheter Extremities exam: PRESENT: +2 edema. ABSENT: calf tenderness, clubbing, joint swelling Musculoskeletal exam: ABSENT: deformity, dislocation Neurological exam: ABSENT: awake Skin exam: PRESENT: dry, warm Results Laboratory Results: 04/03/18 03:48 04/03/18 03:48 04/02/18 04/03/18 04/03/18 13:20 03:48 03:48 WBC 12.3 H RBC 4.77 Hgb 13.9 Hct 42.3 MCV 89 MCH 29.2 MCHC 32.9 RDW 16.3 H Plt Count 259 Seg Neutrophils % 87.9 H Lymphocytes % 5.8 L Monocytes % 5.8 Eosinophils % 0.0 Basophils % 0.5 Absolute Neutrophils 10.8 H Absolute Lymphocytes 0.7 Absolute Monocytes 0.7 Absolute Eosinophils 0.0 Absolute Basophils 0.1 Carbonic Acid 1.64 H HCO3/H2CO3 Ratio 18:1 ABG pH 7.36 ABG pCO2 54.5 H ABG pO2 67.5 L ABG HCO3 30.4 H ABG O2 Saturation 92.5 L ABG Base Excess 3.6 FiO2 100% Sodium 142.0 Potassium 4.3 Chloride 107 Carbon Dioxide 28 Anion Gap 7 BUN 19 Creatinine 0.66 Est GFR ( Amer) > 60 Est GFR (Non-Af Amer) > 60 Glucose 157 H Calcium 9.0 Magnesium 2.5 H Total Bilirubin 0.6 AST 100 H ALT 107 H Alkaline Phosphatase 49 Total Protein 6.7 Albumin 3.6 04/03/18 05:55 WBC RBC Hgb Hct MCV MCH MCHC RDW Plt Count Seg Neutrophils % Lymphocytes % Monocytes % Eosinophils % Basophils % Absolute Neutrophils Absolute Lymphocytes Absolute Monocytes Absolute Eosinophils Absolute Basophils Carbonic Acid 1.34 HCO3/H2CO3 Ratio 18:1 ABG pH 7.36 ABG pCO2 44.5 ABG pO2 64.6 L ABG HCO3 24.6 H ABG O2 Saturation 91.8 L ABG Base Excess -1.0 FiO2 100% Sodium Potassium Chloride Carbon Dioxide Anion Gap BUN Creatinine Est GFR ( Amer) Est GFR (Non-Af Amer) Glucose Calcium Magnesium Total Bilirubin AST ALT Alkaline Phosphatase Total Protein Albumin 03/31/18 13:20 Sputum Gram Stain - Final 03/31/18 13:20 Sputum Sputum Culture - Final NORMAL ALHAJI 03/31/18 03/31/18 21:14 21:14 Creatine Kinase 114 CK-MB (CK-2) 0.80 Troponin I < 0.012 NT-Pro-B Natriuret Pep 209 H Impressions: Chest X-Ray 04/03/18 06:00 IMPRESSION: Interval worsening includes moderate right upper hemithoracic opacities. Assessment & Plan - Diagnosis (1) Acute respiratory failure with hypoxia and hypercapnia Is this a current diagnosis for this admission?: Yes Plan: Unchanged (2) Morbid obesity Is this a current diagnosis for this admission?: Yes (3) TERRANCE (obstructive sleep apnea) Is this a current diagnosis for this admission?: Yes Plan: May require trilogy at home - Time Total Critical Time (Minutes): 50
== END 2018-04-03 16:15 | disposition short-term general hospital (02) | DRG 208 ==
LOC: ER 15:53 → EH 19:43 → OBSVTOIN 19:43 → 3W 21:32 → ICU 03-31 11:45
PROVIDERS: ADMIT Internal Medicine; ATTEND Internal Medicine
PROC: 5A09357 Assistance with Respiratory Ventilation, Less than 24 Consecutive Hours, Continuous Positive Airway Pressure (ICD-10-PCS; 2018-03-30)
PROC: 5A1945Z Respiratory Ventilation, 24-96 Consecutive Hours (ICD-10-PCS; principal; 2018-03-31)
PROC: 0BH17EZ Insertion of Endotracheal Airway into Trachea, Via Natural or Artificial Opening (ICD-10-PCS; 2018-03-31)
PROC: 3E0F73Z Introduction of Anti-inflammatory into Respiratory Tract, Via Natural or Artificial Opening (ICD-10-PCS; 2018-03-31)
DX: J96.21 Acute and chronic respiratory failure with hypoxia (principal); J18.9 Pneumonia, unspecified organism; J44.1 Chronic obstructive pulmonary disease with (acute) exacerbation; Z68.44 Body mass index [BMI] 60.0-69.9, adult; E66.2 Morbid (severe) obesity with alveolar hypoventilation; J96.22 Acute and chronic respiratory failure with hypercapnia; I10 Essential (primary) hypertension; E03.9 Hypothyroidism, unspecified; F32.9 Major depressive disorder, single episode, unspecified; F41.1 Generalized anxiety disorder; I45.10 Unspecified right bundle-branch block; Z99.81 Dependence on supplemental oxygen; Z87.891 Personal history of nicotine dependence; Z78.1 Physical restraint status
CPT/HCPCS: 31500; 36415; 36600; 71045; 80048; 80053; 80307; 81001; 82271; 82550; 82553; 82803; 83735; 83880; 84100; 84439; 84443; 84478; 84481; 84484; 85025; 85379; 87040; 87070; 87077; 87086; 87186; 87205; 93005; 93010; 94002; 94003; 94640; 94660; 96374; 99285; J0330; J0360; J1650; J1940; J2250; J2704; J2920; J2930; J3490; J7030; J7620; S0164

== ENCOUNTER 2018-10-02 16:01 | Emergency (ER) | payer MEDICAID, MEDICARE ==
--- NOTE | 2018-10-02 17:03 | ER Document Report ---
ED General - General Chief Complaint: Breathing Difficulty Stated Complaint: RESPIRATORY DISTRESS Time Seen by Provider: 10/02/18 16:14 Primary Care Provider: PILY ESPINAL MD [Primary Care Provider] - Follow up as needed Mode of Arrival: Medic Information source: Patient, Emergency Med Personnel, [facility] Records Notes: 28-year-old male with chronic respiratory failure, tracheostomy, hypertension, hypothyroidism, depression, anxiety presents with complaint of shortness of breath that started 2 days prior to arrival. Patient also reports a new productive cough. He denies any fever, chills, nausea, vomiting, chest pain. He has had sick contacts with family members at home with upper respiratory illness. Patient uses Pulmicort. He is supposed to be on Atrovent as needed but mother and friend who are at the bedside states that he is noncompliant with this. He is also supposed to be on humidified air and they state that he is also noncompliant with this. TRAVEL OUTSIDE OF THE [place] IN LAST 30 DAYS: No - HPI Onset: Other Onset/Duration: Gradual, Persistent Quality of pain: No pain Associated symptoms: Productive cough, Shortness of breath. denies: Chest pain, Fever, Nausea, Vomiting, Sweating, Weakness Exacerbated by: Coughing Relieved by: Denies Similar symptoms previously: Yes Recently seen / treated by doctor: Yes - Related Data Allergies/Adverse Reactions: No Known Allergies Allergy (Verified 10/02/18 16:09) Past Medical History - General Information source: Patient, Relative, [facility] Records - Social History Smoking Status: Former Smoker Chew tobacco use (# tins/day): No Frequency of alcohol use: None Drug Abuse: None Lives with: Family Family History: DM, Hypertension, Reviewed & Not Pertinent Patient has suicidal ideation: No Patient has homicidal ideation: No - Past Medical History Cardiac Medical History: Reports: Hx Hypertension Pulmonary Medical History: Reports: Hx Asthma, Hx COPD, Hx Respiratory Failure, Hx Sleep Apnea Renal/ Medical History: Denies: Hx Peritoneal Dialysis GI Medical History: Denies: Hx Crohn's Disease, Hx Ulcerative Colitis Psychiatric Medical History: Reports: Hx Anxiety, Hx Depression - Immunizations Hx Diphtheria, Pertussis, Tetanus Vaccination: Yes Review of Systems - Review of Systems Constitutional: denies: Fever, Malaise, Weakness, Recent illness EENT: denies: Blurred vision, Difficulty swallowing Cardiovascular: denies: Chest pain, Palpitations Respiratory: Cough, Short of breath, Wheezing. denies: Hurts to breathe Gastrointestinal: denies: Nausea, Vomiting Genitourinary: denies: Flank pain Male Genitourinary: No symptoms reported Musculoskeletal: Back pain Skin: denies: Rash Hematologic/Lymphatic: No symptoms reported Neurological/Psychological: denies: Confusion, Lost consciousness, Headaches -: Yes All other systems reviewed and negative Physical Exam - Vital signs Vitals: Temp Pulse Resp BP 98.5 F 89 19 162/65 H 10/02/18 16:10 10/02/18 16:10 10/02/18 16:10 10/02/18 16:10 - Notes Notes: PHYSICAL EXAMINATION: GENERAL: Morbidly obese, no acute distress. HEAD: Atraumatic, normocephalic. EYES: Pupils equal round and reactive to light, extraocular movements intact, sclera anicteric, conjunctiva are normal. ENT: Nares patent, oropharynx clear without exudates. Moist mucous membranes. NECK: Normal range of motion, supple without lymphadenopathy LUNGS: Breath sounds clear to auscultation bilaterally and equal. No wheezes rales or rhonchi. HEART: Regular rate and rhythm without murmurs ABDOMEN: Soft, nontender, nondistended abdomen. No guarding, no rebound. No masses appreciated. Musculoskeletal: Normal range of motion, no pitting or edema. No cyanosis. NEUROLOGICAL: Cranial nerves grossly intact. Normal speech, normal gait. Normal sensory, motor exams PSYCH: Normal mood, normal affect. SKIN: Warm, Dry, normal turgor, no rashes or lesions noted. Course - Vital Signs Vital signs: Temp Pulse Resp BP Pulse Ox 98.5 F 89 18 179/75 H 94 10/02/18 16:10 10/02/18 16:10 10/02/18 18:00 10/02/18 17:02 10/02/18 21:00 10/02/18 22:25 28-year-old male with chronic respiratory failure, tracheostomy, hypertension, hypothyroidism, depression, anxiety presents with complaint of shortness of breath that started 2 days prior to arrival. Patient also reports a new productive cough. He denies any fever, chills, nausea, vomiting, chest pain. Vital signs reviewed and patient initially hypoxic on room air which he is not supposed to be on. Exam is significant for expiratory wheezing. Patient has no accessory muscle use, tachypnea, increased work of breathing. He does have a harsh productive cough. Patient did receive duo nebs, saline irrigation of the trach and suctioning and reports significant improvement of his shortness of breath. Discussed admission with the patient who states that he is comfortable with discharge home. Patient to receive doxycycline, prednisone for home-going prescriptions. Patient was evaluated and treated as appropriate for the patient's presenting symptoms and complaint, with consideration of any critical or life threatening conditions that may be associated with their obtained history and exam as noted above. All results were discussed with patient. Patient provided the opportunity to ask questions, and express concerns. Patient was educated on treatments based on their presumed diagnosis as noted above. At this time we will discharge the patient with return precautions and follow-up recommendations. Verbal discharge instructions given a the bedside. Medication warnings reviewed. Patient is in ag reement with this plan and has verbalized understanding of return precautions. After careful consideration I feel that that patient can be safely discharged from the emergency department, they were advised to followup with a primary care physician in 2-3 days. Dictation on this chart was performed using voice recognition software and may result in unintended grammatical, spelling, syntax or errors. - Laboratory Result Diagrams: 10/02/18 19:05 10/02/18 19:05 Laboratory results interpreted by me: 10/02/18 10/02/18 19:05 19:05 RBC 3.83 L Hgb 11.2 L Hct 34.7 L RDW 14.6 H Monocytes % 14.0 H Chloride 95 L Carbon Dioxide 38 H Glucose 156 H - Diagnostic Test Radiology reviewed: Image reviewed, Reports reviewed Discharge - Discharge Clinical Impression: COPD exacerbation Pneumonia Qualifiers: Pneumonia type: due to unspecified organism Laterality: right Lung location: middle lobe of lung Qualified Code(s): J18.1 - Lobar pneumonia, unspecified organism Condition: Good Disposition: HOME, SELF-CARE Instructions: Chronic Obstructive Lung Disease ([facility]), Pneumonia ([facility]) Additional Instructions: You have been diagnosed with a pneumonia. It is very important that you take all of your antibiotics until they are gone even if you are feeling better. Please return to the emergency department immediately if you began having worsening shortness of breath, become confused, have worsening pain, pass out, have persistent vomiting that prevents you from being able to drink fluids for more than 12 hours, or have any other symptoms that are worrisome to you. Please follow-up with your primary care doctor in the next 1-2 days. Prescriptions: Albuterol Sulfate [Albuterol Sulfate 5mg/1 mL] 5 mg PO Q4 PRN #25 vial PRN Reason: Doxycycline Hyclate 100 mg PO BID #20 capsule Prednisone [Deltasone 20 mg Tablet] 60 mg PO DAILY #10 tablet Forms: Elevated Blood Pressure Referrals: PILY ESPINAL MD [Primary Care Provider] - Follow up as needed
[2018-10-02] MEDS ORDERED: IPRATROPIUM/ALBUTEROL 0.5-2.5 MG/3 ML AMPUL NEB ONE ×2 (17:12→17:17)
[2018-10-02] MEDS ORDERED: PREDNISONE 20 MG TABLET PO ONE (17:17)
[2018-10-02] MEDS ORDERED: DOXYCYCLINE HYCLATE 100 MG TABLET PO ONE (17:17)
--- NOTE | 2018-10-02 18:11 | RADIOLOGY REPORT (SQ) ---
EXAM DESCRIPTION: CHEST SINGLE VIEW COMPLETED DATE/TIME: 10/02/2018 5:45 pm REASON FOR STUDY: cough/ sputum COMPARISON: 02/07/2017 TECHNIQUE: Single frontal radiographic view of the chest acquired. NUMBER OF VIEWS: One view. LIMITATIONS: None. FINDINGS: LUNGS AND PLEURA: No pneumothorax. Patchy airspace opacities in the right mid and lower l maxim consolidation. No evidence for significant effusion. MEDIASTINUM AND HILAR STRUCTURES: Stable. HEART AND VASCULAR STRUCTURES: Stable. BONES: No acute findings. HARDWARE: A tracheostomy tube is present with tip overlying the lower trachea approximately 1 cm abov e the level of the danny, correlate clinically for proper positioning. OTHER: No other significant finding. IMPRESSION: A tracheostomy tube is present with tip overlying the lower trachea approximately 1 cm a kaci the level of the danny, correlate clinically for proper positioning. Patchy airspace opacities in the right mid and lower lung consolidation. COMMENT: These results were called to Dr. Batista at 1803 hours. Results were confirmed and read debby reyes TECHNICAL DOCUMENTATION: JOB ID: [id number] [place]-72 2010 [employer]- All Rights Reserved Reading location - IP/workstation name: [email or web address]
[2018-10-02 19:32] LABS: ABSOLUTE EOSINOPHILS # (AUTO) 0.2 10^3/uL (0.0-0.6); ABSOLUTE MONOCYTES (AUTO) 0.7 10^3/uL (0.1-1.4); ABSOLUTE NEUT (AUTO) 3.1 10^3/uL (1.7-8.2); BASOPHILS % (AUTO) 0.4 % (0-2); EOSINOPHILS % (AUTO) 3.1 % (0-6); HEMATOCRIT 34.7 % (37.9-51.0); HEMOGLOBIN 11.2 g/dL (13.5-17.0); LYMPHOCYTES % (AUTO) 19.7 % (13-45); MEAN CORPUSCULAR HEMOGLOBIN 29.2 pg (27.0-33.4); MEAN CORPUSCULAR HGB CONC 32.3 g/dL (32.0-36.0); MEAN CORPUSCULAR VOLUME 90 fl (80-97); PLATELET COUNT 233 10^3/uL (150-450); RED BLOOD COUNT 3.83 10^6/uL (4.35-5.55); RED CELL DISTRIBUTION WIDTH 14.6 % (11.5-14.0); SEGMENTED NEUTROPHILS % (AUTO) 62.8 % (42-78); TOTAL CELLS COUNTED % (AUTO) 100 %; WHITE BLOOD COUNT 4.9 10^3/uL (4.0-10.5)
[2018-10-02 19:52] LABS: BLOOD UREA NITROGEN 20 mg/dL (7-20); CALCIUM 9.1 mg/dL (8.4-10.2); CHLORIDE 95 mmol/L (98-107); GLUCOSE 156 mg/dL (75-110); POTASSIUM 4.5 mmol/L (3.6-5.0); SODIUM 142.3 mmol/L (137-145)
[2018-10-02 19:59] LABS: ANION GAP 9 (5-19); CARBON DIOXIDE 38 mmol/L (22-30)
[2018-10-02 22:33] VITALS: BP 168/78
== END 2018-10-02 22:35 | disposition home or self-care (01) ==
LOC: ER 16:01
DX: J44.0 Chronic obstructive pulmonary disease with (acute) lower respiratory infection (principal); J18.1 Lobar pneumonia, unspecified organism; J44.1 Chronic obstructive pulmonary disease with (acute) exacerbation; J96.11 Chronic respiratory failure with hypoxia; Z93.0 Tracheostomy status; Z91.14 Patient's other noncompliance with medication regimen; E66.01 Morbid (severe) obesity due to excess calories; I10 Essential (primary) hypertension; R05 Cough; M54.9 Dorsalgia, unspecified; Z87.891 Personal history of nicotine dependence
CPT/HCPCS: 94640 ×2; 99285; 36415; 87070; 87205; 85025; 87077; 80048; 87186; 71045; J3490; J7512; J7620

== ENCOUNTER 2019-03-11 20:50 | Emergency (ER) | payer MEDICARE, MEDICAID ==
--- NOTE | 2019-03-11 21:17 | ER Document Report ---
ED Respiratory Problem - General Stated Complaint: DIFFICULTY BREATHING Time Seen by Provider: 03/11/19 21:16 Primary Care Provider: PILY ESPINAL MD [NO LOCAL MD] - Follow up as needed Mode of Arrival: Stretcher Information source: Patient Notes: HISTORY OF PRESENT ILLNESS: Patient is a 29-year-old male with a past medical history of COPD and chronic respiratory failure status post tracheostomy who presents with shortness of breath and a feeling as though something is "stuck around my tracheostomy." He denies chest pain, no cough or congestion, no recent fevers or chills. Patient reports that he was chewing gum yesterday and feels as though he may have aspirated it, however he did not have symptoms until today. Of note, he reports his tracheostomy was replaced 1 day ago by his home health nurse. Location: Trachea Onset: Gradual Alleviation: None Provocation: None Quality: Foreign body sensation Radiation: None Severity: Mild Timing: Constant History of CAD: None Associated symptoms: None REVIEW OF SYSTEMS: CONSTITUTIONAL : Denies fever or chills, no sweats. Denies recent illness. EENT: Denies eye, ear, throat, or mouth pain or symptoms. Denies nasal or sinus congestion. CARDIOVASCULAR: Denies chest pain. Denies swelling of the legs. RESPIRATORY: Denies cough, cold, or chest congestion. Denies shortness of breath or difficulty breathing. Denies wheezing. GASTROINTESTINAL: Denies abdominal pain. Denies nausea, vomiting, or diarrhea. Denies constipation. GENITOURINARY: Denies difficulty urinating, painful urination, burning, frequency, or blood in urine. MUSCULOSKELETAL: Denies neck or back pain or joint pain or swelling. SKIN: Denies rash or skin lesions. HEMATOLOGIC : Denies easy bruising or bleeding. LYMPHATIC: Denies swollen, enlarged glands. NEUROLOGICAL: Denies altered mental status or loss of consciousness. Denies headache. Denies weakness or paralysis or loss of use of either side. Denies problems with gait or speech. Denies sensory or motor loss. PSYCHIATRIC: Denies anxiety or stress or depression. All other systems reviewed and negative. PHYSICAL EXAMINATION: GENERAL: Super morbidly obese-appearing, well-nourished and in no acute distress. HEAD: Atraumatic, normocephalic. No scalp deformity, depression, or crepitance. EYES: Pupils are 3 mm and equal/round/reactive to light, extraocular movements intact, sclera anicteric, conjunctiva are normal. ENT: Nares patent bilaterally, oropharynx. Moist mucous membranes. No tonsil hypertrophy. NECK: Tracheostomy present in the anterior neck. Normal range of motion, supple without lymphadenopathy. LUNGS: Breath sounds present, equal, and clear to auscultation bilaterally. No wheezes, rales, or rhonchi. HEART: Regular rate and rhythm without murmurs, rubs, or gallops. 2+ peripheral pulses. Normal capillary refill. ABDOMEN: Soft, nontender, nondistended. Normoactive bowel sounds. No guarding, no rebound. No masses appreciated. BACK: Normal contour, no midline tenderness. Rectal exam deferred. GENITAL/PELVIC: Deferred. EXTREMITIES: Normal range of motion, no pitting or edema. No cyanosis. NEUROLOGICAL: No focal neurological deficits. Moves all extremities spontaneously and on command. PSYCH: Normal mood, normal affect. No suicidal thoughts/ideations. No homicidal thoughts/ideations. No hallucinations. SKIN: Warm, dry, normal turgor, no rashes or lesions noted. ASSESSMENT AND PLAN: This patient is a 29-year-old male who presents with possible foreign body sensation versus mucus plugging around tracheostomy. 1. Will obtain chest x-ray and deep suction of the trachea. 2. Will reassess. TRAVEL OUTSIDE OF THE [place] IN LAST 30 DAYS: No - HPI Patient complains to provider of: COPD Onset: Just prior to arrival Duration: Continuous Quality of pain: No pain Severity: Mild Pain Level: Denies Context: Hx COPD Short of Breath: Mild Cough: Nonproductive Sputum amount: None Associated symptoms: None Similar symptoms previously: No Recently seen / treated by doctor: No - Related Data Allergies/Adverse Reactions: No Known Allergies Allergy (Verified 10/02/18 16:09) Past Medical History - General Information source: Patient - Social History Smoking Status: Former Smoker Chew tobacco use (# tins/day): No Frequency of alcohol use: None Drug Abuse: None Lives with: Family Family History: DM, Hypertension, Reviewed & Not Pertinent Patient has suicidal ideation: No Patient has homicidal ideation: No - Past Medical History Cardiac Medical History: Reports: Hx Hypertension Pulmonary Medical History: Reports: Hx Asthma, Hx COPD, Hx Respiratory Failure, Hx Sleep Apnea EENT Medical History: Reports: None Neurological Medical History: Reports: None Endocrine Medical History: Reports: None Renal/ Medical History: Reports: None. Denies: Hx Peritoneal Dialysis Malignancy Medical History: Reports None GI Medical History: Reports: None. Denies: Hx Crohn's Disease, Hx Ulcerative Colitis Musculoskeletal Medical History: Reports None Skin Medical History: Reports None Psychiatric Medical History: Reports: Hx Anxiety, Hx Depression Traumatic Medical History: Reports: None Infectious Medical History: Reports: None Past Surgical History: Reports: Other - History of tracheostomy - Immunizations Hx Diphtheria, Pertussis, Tetanus Vaccination: Yes Review of Systems - Review of Systems Constitutional: No symptoms reported EENT: No symptoms reported Cardiovascular: No symptoms reported Respiratory: See HPI, Short of breath Gastrointestinal: No symptoms reported Genitourinary: No symptoms reported Male Genitourinary: No symptoms reported Musculoskeletal: No symptoms reported Skin: No symptoms reported Hematologic/Lymphatic: No symptoms reported Neurological/Psychological: No symptoms reported -: Yes All other systems reviewed and negative Physical Exam - Vital signs Vitals: Pulse Ox 95 03/11/19 20:56 Interpretation: Normal Course - Re-evaluation Re-evalutation: 03/12/19 00:58 Chest x-ray is negative. Patient had deep suctioning. Will discharge the patient home with strict return precautions and follow-up with primary care. All results were explained to and discussed with the patient, and all questions addressed and answered for the patient. The patient voices both understanding and agreeing with the plan. - Vital Signs Vital signs: Temp Pulse Resp BP Pulse Ox 98.5 F 16 116/44 L 96 03/11/19 21:24 03/12/19 00:01 03/12/19 00:01 03/11/19 23:01 - Diagnostic Test Radiology reviewed: Image reviewed, Reports reviewed - EKG Interpretation by Me EKG shows normal: Sinus rhythm Rate: Normal Rhythm: NSR [place]/QRS: No: Right axis deviation, Left axis deviation, RBBB, LBBB, IVCD, LAHB/LAFB, LPHB/LPFB, Bifasicular block Voltage: No: Increased voltage, Consistant with LVH, Decreased voltage, Throughout, Limb leads P Waves: No: LISA, LAE, Absent, AV Dissociation, Other Heart block present: No: 1st Degree, Mobitz 1, Mobitz 2, CHB (3rd degree block) When compared to previous EKG there are: No significant change Discharge - Discharge Clinical Impression: Morbid obesity, TERRANCE (obstructive sleep apnea) Condition: Good Disposition: HOME, SELF-CARE Additional Instructions: You have been evaluated in the Emergency Department for difficulty breathing that could have been related to your tracheostomy. While here, you had suctioning of your tracheostomy and a normal chest x-ray and it is now safe to be discharged home. Please follow-up with your primary physician as instructed in one week to be rechecked. Return to the Emergency Department if you exp erience chest pain, increased difficulty breathing, or any other concerning symptoms. Referrals: PILY ESPINAL MD [NO LOCAL MD] - Follow up as needed Print Language: Icelandic
--- NOTE | 2019-03-11 22:59 | RADIOLOGY REPORT (SQ) ---
XR CHEST 1 VIEW CLINICAL STATEMENT: SOB COMPARISON: 10/02/2018 FINDINGS: Heart is moderately enlarged. Endotracheal tube is in appropriate placement. No pneumothorax. No significant pleural effusions. IMPRESSION: No acute disease. No change.
--- NOTE | 2019-03-12 07:20 | EKG REPORT ---
SEVERITY:- ABNORMAL ECG - SINUS RHYTHM INCOMPLETE RIGHT BUNDLE BRANCH BLOCK : Confirmed by: Vincent Meyer MD 12-Mar-2019 07:19:03
[2019-03-12 18:34] VITALS: BP 138/72
== END 2019-03-12 17:00 | disposition home or self-care (01) ==
LOC: ER 20:50
DX: G47.33 Obstructive sleep apnea (adult) (pediatric) (principal); E66.01 Morbid (severe) obesity due to excess calories; J44.9 Chronic obstructive pulmonary disease, unspecified; J96.10 Chronic respiratory failure, unspecified whether with hypoxia or hypercapnia; Z93.0 Tracheostomy status; I10 Essential (primary) hypertension; Z87.891 Personal history of nicotine dependence
CPT/HCPCS: 71045; 93005; 93010

== ENCOUNTER 2019-03-21 20:22 | Inpatient (IN) | payer MEDICARE, MEDICAID ==
[2019-03-21] MEDS ORDERED: METHYLPREDNISOLONE INJ 125 MG/2 ML SDV IV ONE (20:41)
[2019-03-21] MEDS ORDERED: IPRATROPIUM/ALBUTEROL 0.5-2.5 MG/3 ML AMPUL NEB ONE (20:45)
--- NOTE | 2019-03-21 20:55 | ER Document Report ---
ED Respiratory Problem - General Chief Complaint: Breathing Difficulty Stated Complaint: DIFFICULTY BREATHING Time Seen by Provider: 03/21/19 20:36 TRAVEL OUTSIDE OF THE [place] IN LAST 30 DAYS: No - HPI Notes: This is a 29-year-old gentleman with a history of oxygen dependent COPD, indwelling trach who presents today with complaint of cough, congestion for the past couple of weeks. Patient tells me that he was told he has an infection in his trach and was taken Levaquin orally. He states is not getting any better. Continues to cough. Had fever today. He describes his symptoms as moderate. There are no obvious aggravating or relieving factors. The patient was found to have wheezing per EMS. He was given 3 DuoNeb's per EMS. - Related Data Allergies/Adverse Reactions: No Known Allergies Allergy (Verified 10/02/18 16:09) Past Medical History - Social History Smoking Status: Former Smoker Frequency of alcohol use: None Drug Abuse: None Family History: DM, Hypertension, Reviewed & Not Pertinent - Past Medical History Cardiac Medical History: Reports: Hx Hypertension Pulmonary Medical History: Reports: Hx Asthma, Hx COPD, Hx Respiratory Failure, Hx Sleep Apnea Renal/ Medical History: Denies: Hx Peritoneal Dialysis GI Medical History: Denies: Hx Crohn's Disease, Hx Ulcerative Colitis Psychiatric Medical History: Reports: Hx Anxiety, Hx Depression Past Surgical History: Reports: Other - History of tracheostomy - Immunizations Hx Diphtheria, Pertussis, Tetanus Vaccination: Yes Review of Systems - Review of Systems Constitutional: Fever Cardiovascular: denies: Chest pain, Palpitations Respiratory: Cough, Short of breath, Sputum, Wheezing Gastrointestinal: denies: Abdominal pain, Diarrhea, Nausea -: Yes All other systems reviewed and negative Physical Exam - Vital signs Vitals: Resp BP Pulse Ox 24 H 133/81 H 94 03/21/19 20:28 03/21/19 20:28 03/21/19 20:28 Interpretation: Normal - General General appearance: Appears well, Alert - HEENT Head: Normocephalic, Atraumatic Eyes: Normal Pupils: PERRL Neck: Other - Patient has trach in place. - Respiratory Respiratory status: No respiratory distress Chest status: Nontender Breath sounds: Rhonchi, Wheezing - There is some rhonchi appreciated. Scattered wheezes appreciated. Chest palpation: Normal - Cardiovascular Rhythm: Regular Heart sounds: Normal auscultation Murmur: No - Abdominal Inspection: Normal Distension: No distension Bowel sounds: Normal Tenderness: Nontender Organomegaly: No organomegaly - Neurological Neuro grossly intact: Yes Cognition: Normal Orientation: AAOx4 Tony Coma Scale Eye Opening: Spontaneous Mckenzie Coma Scale Verbal: Oriented Tony Coma Scale Motor: Obeys Commands Mckenzie Coma Scale Total: 15 Speech: Normal Motor strength normal: LUE, RUE, LLE, RLE Sensory: Normal - Psychological Associated symptoms: Normal affect, Normal mood Course - Re-evaluation Re-evalutation: 03/21/19 20:57 Differential diagnosis includes pneumonia versus COPD exacerbation. Will cover for ventilator associated pneumonia with Cipro and Zosyn. 03/21/19 22:04 Patient reevaluated. Patient is doing better. 03/21/19 23:11 Patient reevaluated. Patient is doing much better. Labs and imaging reviewed and discussed. Patient's care discussed with Dr. Lewis. Will admit to the hospitalist service. - Vital Signs Vital signs: Temp Pulse Resp BP Pulse Ox 18 127/64 H 93 03/21/19 21:01 03/21/19 21:01 03/21/19 21:01 - Laboratory Result Diagrams: 03/21/19 20:37 03/21/19 20:37 Laboratory results interpreted by me: 03/21/19 03/21/19 03/21/19 20:37 20:37 23:13 RBC 3.94 L Hgb 10.9 L Hct 34.9 L MCHC 31.4 L RDW 15.6 H Carbonic Acid 2.40 H ABG pCO2 79.9 H* ABG pO2 69.0 L ABG HCO3 43.5 H ABG Total CO2 46.0 H ABG O2 Saturation 92.1 L Potassium 5.1 H Chloride 91 L Carbon Dioxide 41 H* Discharge - Discharge Clinical Impression: Pneumonia Qualifiers: Pneumonia type: due to unspecified organism Laterality: unspecified laterality Lung location: unspecified part of lung Qualified Code(s): J18.9 - Pneumonia, unspecified organism Condition: Stable Disposition: ADMITTED INPATIENT Admitting Provider: Joshua (Hospitalist) Unit Admitted: Telemetry
[2019-03-21] MEDS ORDERED: PIPERACILLIN/TAZOBACTAM 4.5 GM VIAL IV ONE (20:58)
[2019-03-21 21:01] LABS: ABSOLUTE BASOPHILS # (AUTO) 0.1 10^3/uL (0.0-0.2); ABSOLUTE EOSINOPHILS # (AUTO) 0.1 10^3/uL (0.0-0.6); ABSOLUTE LYMPHOCYTES (AUTO) 1.1 10^3/uL (0.5-4.7); ABSOLUTE MONOCYTES (AUTO) 0.7 10^3/uL (0.1-1.4); ABSOLUTE NEUT (AUTO) 5.6 10^3/uL (1.7-8.2); BASOPHILS % (AUTO) 0.7 % (0-2); EOSINOPHILS % (AUTO) 1.8 % (0-6); HEMATOCRIT 34.9 % (37.9-51.0); HEMOGLOBIN 10.9 g/dL (13.5-17.0); LYMPHOCYTES % (AUTO) 14.9 % (13-45); MEAN CORPUSCULAR HEMOGLOBIN 27.7 pg (27.0-33.4); MEAN CORPUSCULAR HGB CONC 31.4 g/dL (32.0-36.0); MEAN CORPUSCULAR VOLUME 89 fl (80-97); MONOCYTES % (AUTO) 9.3 % (3-13); PLATELET COUNT 285 10^3/uL (150-450); RED BLOOD COUNT 3.94 10^6/uL (4.35-5.55); RED CELL DISTRIBUTION WIDTH 15.6 % (11.5-14.0); SEGMENTED NEUTROPHILS % (AUTO) 73.3 % (42-78); TOTAL CELLS COUNTED % (AUTO) 100 %; WHITE BLOOD COUNT 7.6 10^3/uL (4.0-10.5)
[2019-03-21 21:23] LABS: ALBUMIN 4.1 g/dL (3.5-5.0); ALKALINE PHOSPHATASE 65 U/L (38-126); ASPARTATE AMINO TRANSFERASE 33 U/L (17-59); BILIRUBIN,DIRECT 0.2 mg/dL (0.0-0.4); BILIRUBIN,TOTAL 0.3 mg/dL (0.2-1.3); BLOOD UREA NITROGEN 20 mg/dL (7-20); CALCIUM 8.6 mg/dL (8.4-10.2); CHLORIDE 91 mmol/L (98-107); GLUCOSE 105 mg/dL (75-110); POTASSIUM 5.1 mmol/L (3.6-5.0); TOTAL PROTEIN 7.4 g/dL (6.3-8.2)
[2019-03-21 21:33] LABS: ANION GAP 7 (5-19)
[2019-03-21 21:34] LABS: CARBON DIOXIDE 41 mmol/L (22-30)
--- NOTE | 2019-03-21 22:05 | RADIOLOGY REPORT (SQ) ---
EXAM DESCRIPTION: XR CHEST 1 VIEW COMPLETED DATE/TME: 03/21/2019 20:44 CLINICAL HISTORY: 29 years, Male, dyspnea COMPARISON: 03/11/2019. NUMBER OF VIEWS: 1 TECHNIQUE: Single view, AP portable chest was obtained. LIMITATIONS: None. FINDINGS: Stable enlarged cardiac and mediastinal silhouette. Heart size is enlarged. Endotracheal tube terminates 3.3 cm above the level of the danny. Elevation of the RIGHT hemidiaphragm. RIGHT paratracheal opacity may reflect prominence of the vascular pedicle or hilum. Subsegmental atelectasis or developing consolidation may be considered in the differential. Low lung volumes grossly clear without focal opacity, pneumothorax or pleural effusions. The visualized bones are within normal limits. IMPRESSION: 1. Cardiomegaly. 2. Stable aeration. copyright 2010 [employer]- All Rights Reserved
[2019-03-21] MEDS ORDERED: IPRATROPIUM/ALBUTEROL 0.5-2.5 MG/3 ML AMPUL NEB PRN (23:13)
[2019-03-21] MEDS ORDERED: MAG HYDROX/AL HYDROX/SIMETH SUSP 30 ML UDCUP PO PRN (23:13)
[2019-03-21 23:34] LABS: ARTERIAL BLOOD BASE EXCESS 14.6 mmol/L; ARTERIAL BLOOD HCO3 43.5 mmol/L (20-24); ARTERIAL BLOOD O2 SATURATION 92.1 % (94-98); ARTERIAL BLOOD PH 7.35 (7.35-7.45)
[2019-03-21 23:36] LABS: ARTERIAL BLOOD FIO2 6L
[2019-03-21 23:37] LABS: ARTERIAL BLOOD PCO2 79.9 mmHg (35-45)
[2019-03-21] MEDS ORDERED: CEFTAZIDIME PENTAHYDRATE 2 GM in DEXTROSE 5%-WATER 100 ML IV ONE (23:45)
[2019-03-21] MEDS ORDERED: CEFTAZIDIME INJ 1 GM VIAL IV PRN (23:50)
[2019-03-21] MEDS ORDERED: IMIPENEM/CILASTATIN SODIUM INJ 500 MG VIAL IV PRN (23:51)
[2019-03-22] MEDS ORDERED: IMIPENEM/CILASTATIN SODIUM 1,000 MG in NORMAL SALINE 250 ML IV SCH ×2
[2019-03-22] MEDS: CIPROFLOXACIN 400 MG/D5W RTU 400 MG/200 ML RTUPB IV SCH ×3 (00:39→22:59)
[2019-03-22] MEDS: IPRATROPIUM/ALBUTEROL 0.5-2.5 MG/3 ML AMPUL NEB SCH ×4 (02:24→20:18)
[2019-03-22] MEDS: CEFTAZIDIME PENTAHYDRATE 2 GM in DEXTROSE 5%-WATER 100 ML IV SCH ×3 (02:52→18:14)
[2019-03-22] MEDS ORDERED: IMIPENEM/CILASTATIN SODIUM INJ 500 MG VIAL IV ONE (02:55)
[2019-03-22] MEDS: IMIPENEM/CILASTATIN SODIUM 1,000 MG in NORMAL SALINE 250 ML IV SCH ×4 (04:00→21:08)
[2019-03-22 04:55] LABS: ABSOLUTE LYMPHOCYTES (AUTO) 0.6 10^3/uL (0.5-4.7); ABSOLUTE MONOCYTES (AUTO) 0.1 10^3/uL (0.1-1.4); ABSOLUTE NEUT (AUTO) 7.9 10^3/uL (1.7-8.2); BASOPHILS % (AUTO) 0.3 % (0-2); EOSINOPHILS % (AUTO) 0.1 % (0-6); HEMATOCRIT 34.4 % (37.9-51.0); HEMOGLOBIN 10.8 g/dL (13.5-17.0); LYMPHOCYTES % (AUTO) 7.4 % (13-45); MEAN CORPUSCULAR HEMOGLOBIN 27.9 pg (27.0-33.4); MEAN CORPUSCULAR HGB CONC 31.5 g/dL (32.0-36.0); MEAN CORPUSCULAR VOLUME 89 fl (80-97); PLATELET COUNT 217 10^3/uL (150-450); RED BLOOD COUNT 3.88 10^6/uL (4.35-5.55); RED CELL DISTRIBUTION WIDTH 15.5 % (11.5-14.0); SEGMENTED NEUTROPHILS % (AUTO) 91.2 % (42-78); TOTAL CELLS COUNTED % (AUTO) 100 %; WHITE BLOOD COUNT 8.6 10^3/uL (4.0-10.5)
[2019-03-22 05:08] LABS: ANION GAP 12 (5-19); BLOOD UREA NITROGEN 22 mg/dL (7-20); CALCIUM 8.7 mg/dL (8.4-10.2); CARBON DIOXIDE 36 mmol/L (22-30); CHLORIDE 91 mmol/L (98-107); GLUCOSE 292 mg/dL (75-110); POTASSIUM 4.5 mmol/L (3.6-5.0)
[2019-03-22] MEDS: HEPARIN SOD (PORCINE) 5,000 UNIT/ML 1 ML VIAL SUBCUT SCH ×3 (05:38→22:59)
[2019-03-22] MEDS ORDERED: CEFTAZIDIME PENTAHYDRATE 2 GM in DEXTROSE 5%-WATER 100 ML IV SCH (06:00)
--- NOTE | 2019-03-22 06:01 | PDOC H&P ---
History of Present Illness Admission Date/PCP: 03/21/19 23:25 MARIALUISA HANSEN DO Patient complains of: Shortness of breath History of Present Illness: JOEY ORTEGA III is a 29 year old male with a past medical history of morbid obesity hypoventilation syndrome, status post tracheostomy 11 months ago, depression, tobacco, BMI of 70. He presents with 2 weeks of increased tracheal expectoration. Secretions were cultured by primary care Dr. Rodriguez at [facility] [place]. Patient reports culture was resistant to oral antibiotics and referred to the hospital for evaluation. On exam is found to have shortness of breath, tracheal secretions and decompensated respiratory acidosis. He is completely awake and alert and talkative with a PCO2 of 80. He denies sedating, anxiolytic, analgesic medications. He started on empiric antibiotics and referred to the hospitalist for admission. Past Medical History Cardiac Medical History: Reports: Hypertension Pulmonary Medical History: Reports: Asthma, Chronic Obstructive Pulmonary Disease (COPD), Respiratory Failure, Sleep Apnea GI Medical History: Denies: Crohn's Disease, Ulcerative Colitis Psychiatric Medical History: Reports: Depression Past Surgical History Past Surgical History: Reports: Other - History of tracheostomy Social History Information Source: Patient, [facility] Records Smoking Status: Former Smoker Last Time Smoked: quit approximately 1 and 1/2 years ago Frequency of Alcohol Use: Occasional Hx Recreational Drug Use: No Drugs: None Hx Prescription Drug Abuse: No - Advance Directive Resuscitation Status: Full Code Family History Family History: DM, Hypertension Parental Family History Reviewed: Yes Children Family History Reviewed: Yes Sibling(s) Family History Reviewed.: Yes Medication/Allergy Home Medications: Buspirone HCl [Buspar 10 mg Tablet] 15 mg PO BID 03/12/18 Levothyroxine Sodium [Synthroid] 100 mcg PO DAILY 03/12/18 Lisinopril [Prinivil] 40 mg PO DAILY 03/12/18 Sertraline HCl [Zoloft] 150 mg PO DAILY 03/12/18 Amlodipine Besylate [Norvasc 10 mg Tablet] 10 mg PO DAILY 03/22/19 Atorvastatin Calcium [Lipitor 40 mg Tablet] 40 mg PO QHS 03/22/19 Buspirone HCl [Buspar 10 mg Tablet] 25 mg PO QHS 03/22/19 Furosemide [Lasix 40 mg Tablet] 40 mg PO DAILY 03/22/19 Hydrochlorothiazide [Hydrodiuril 25 mg Tablet] 25 mg PO DAILY 03/22/19 Nystatin 1 applic TP QIDP PRN 03/22/19 Allergies/Adverse Reactions: No Known Allergies Allergy (Verified 10/02/18 16:09) Review of Systems Constitutional: ABSENT: chills, fever(s), headache(s), weight gain, weight loss Eyes: ABSENT: visual disturbances Ears: ABSENT: hearing changes Cardiovascular: ABSENT: chest pain, dyspnea on exertion, edema, orthropnea, palpitations Respiratory: ABSENT: cough, hemoptysis Gastrointestinal: ABSENT: abdominal pain, constipation, diarrhea, hematemesis, hematochezia, nausea, vomiting Genitourinary: ABSENT: dysuria, hematuria Musculoskeletal: ABSENT: joint swelling Integumentary: ABSENT: rash, wounds Neurological: ABSENT: abnormal gait, abnormal speech, confusion, dizziness, focal weakness, syncope Psychiatric: ABSENT: anxiety, depression, homidical ideation, suicidal ideation Endocrine: ABSENT: cold intolerance, heat intolerance, polydipsia, polyuria Hematologic/Lymphatic: ABSENT: easy bleeding, easy bruising Physical Exam Vital Signs: Temp Pulse Resp BP Pulse Ox 98.3 F 78 20 139/59 H 96 03/22/19 01:22 03/22/19 02:24 03/22/19 02:24 03/22/19 01:22 03/22/19 02:24 Intake & Output 03/20/19 03/21/19 03/22/19 11:59 11:59 11:59 Intake Total 200 Output Total 550 Balance -350 Weight 208 kg General appearance: PRESENT: cooperative, mild distress, morbidly obese, well- developed, well-nourished Head exam: PRESENT: atraumatic, normocephalic Eye exam: PRESENT: conjunctiva pink, EOMI, PERRLA. ABSENT: scleral icterus Ear exam: PRESENT: normal external ear exam Mouth exam: PRESENT: moist, tongue midline Neck exam: PRESENT: tracheostomy - With purulent secretions, other. ABSENT: carotid bruit, JVD, lymphadenopathy, thyromegaly Respiratory exam: PRESENT: clear to auscultation kapil. ABSENT: rales, rhonchi, wheezes Cardiovascular exam: PRESENT: RRR. ABSENT: diastolic murmur, rubs, systolic murmur Pulses: PRESENT: normal dorsalis pedis pul Vascular exam: PRESENT: normal capillary refill GI/Abdominal exam: PRESENT: normal bowel sounds, soft. ABSENT: distended, guarding, mass, organolmegaly, rebound, tenderness Rectal exam: PRESENT: deferred Extremities exam: PRESENT: full ROM. ABSENT: calf tenderness, clubbing, pedal edema Neurological exam: PRESENT: alert, awake, oriented to person, oriented to place, oriented to time, oriented to situation, CN II-XII grossly intact. ABSENT: motor sensory deficit Psychiatric exam: PRESENT: appropriate affect, normal mood. ABSENT: homicidal ideation, suicidal ideation Skin exam: PRESENT: dry, intact, warm. ABSENT: cyanosis, rash Results Laboratory Results: 03/22/19 04:34 03/22/19 04:34 03/21/19 03/21/19 03/21/19 20:37 20:37 20:37 WBC 7.6 RBC 3.94 L Hgb 10.9 L Hct 34.9 L MCV 89 MCH 27.7 MCHC 31.4 L RDW 15.6 H Plt Count 285 Seg Neutrophils % 73.3 Carbonic Acid HCO3/H2CO3 Ratio ABG pH ABG pCO2 ABG pO2 ABG HCO3 ABG O2 Saturation ABG Base Excess FiO2 Sodium 139.2 Potassium 5.1 H Chloride 91 L Carbon Dioxide 41 H* Anion Gap 7 BUN 20 Creatinine 0.86 Est GFR ( Amer) > 60 Glucose 105 Lactic Acid 1.0 Calcium 8.6 Total Bilirubin 0.3 AST 33 Alkaline Phosphatase 65 Total Protein 7.4 Albumin 4.1 TSH 03/21/19 03/21/19 03/22/19 20:37 23:13 04:34 WBC 8.6 RBC 3.88 L Hgb 10.8 L Hct 34.4 L MCV 89 MCH 27.9 MCHC 31.5 L RDW 15.5 H Plt Count 217 Seg Neutrophils % 91.2 H Carbonic Acid 2.40 H HCO3/H2CO3 Ratio 18:1 ABG pH 7.35 ABG pCO2 79.9 H* ABG pO2 69.0 L ABG HCO3 43.5 H ABG O2 Saturation 92.1 L ABG Base Excess 14.6 FiO2 6L Sodium Potassium Chloride Carbon Dioxide Anion Gap BUN Creatinine Est GFR ( Amer) Glucose Lactic Acid Calcium Total Bilirubin AST Alkaline Phosphatase Total Protein Albumin TSH 2.34 03/22/19 04:34 WBC RBC Hgb Hct MCV MCH MCHC RDW Plt Count Seg Neutrophils % Carbonic Acid HCO3/H2CO3 Ratio ABG pH ABG pCO2 ABG pO2 ABG HCO3 ABG O2 Saturation ABG Base Excess FiO2 Sodium 139.3 Potassium 4.5 Chloride 91 L Carbon Dioxide 36 H Anion Gap 12 BUN 22 H Creatinine 0.89 Est GFR ( Amer) > 60 Glucose 292 H Lactic Acid Calcium 8.7 Total Bilirubin AST Alkaline Phosphatase Total Protein Albumin TSH Impressions: Chest X-Ray 03/21/19 20:44 IMPRESSION: 1. Cardiomegaly. 2. Stable aeration. copyright 2010 [employer]- All Rights Reserved Assessment and Plan - Diagnosis (1) Acute tracheobronchitis Is this a current diagnosis for this admission?: Yes Plan: Aggressive pulmonary toilet, albuterol and Atrovent, double coverage for Pseudomonas with imipenem and cefoxitin. Follow-up CBC (2) Acute and chronic respiratory failure Qualifiers: Is this a current diagnosis for this admission?: Yes Plan: Remarkably compensated with PCO2 of 80. Avoid excessive O2, avoid sedatives, analgesics. Consider BiPAP to trach (3) Hypoventilation associated with obesity syndrome Is this a current diagnosis for this admission?: Yes Plan: Avoid medications reducing respiratory drive, BiPAP to trach as needed (4) Morbid obesity Is this a current diagnosis for this admission?: Yes Plan: Morbid obesity will evaluate for metabolic cause with evaluation of thyroid function and dietitian consultation - Time Time Spent with patient: 25-34 minutes - Inpatient Certification Medical Necessity: Need Close Monitoring Due to Risk of Patient Decompensation
[2019-03-22] MEDS: DOCUSATE SODIUM 100 MG CAPSULE PO SCH ×2 (10:11→18:16)
--- NOTE | 2019-03-22 16:23 | PDOC PROGRESS REPORT ---
Subjective Progress Note for:: 03/22/19 Subjective:: No adverse events overnight. Vital signs been stable. He says he has the sensation of a foreign body in his neck but seems to move around and one today with a maple products maker could take a camera and look around and there to see if they see anything. He said at first he thought it was a parasite because he is got a cat who had worms but now he does not think that is it. Reason For Visit: CHRONIC RESPIRATORY ACIDOSIS,MORBID OBESITY Physical Exam Vital Signs: Temp Pulse Resp BP Pulse Ox 98.2 F 75 18 154/82 H 95 03/22/19 13:01 03/22/19 14:23 03/22/19 14:23 03/22/19 13:01 03/22/19 14:23 Intake & Output 03/21/19 03/22/19 03/23/19 06:59 06:59 06:59 Intake Total 200 590 Output Total 550 Balance -350 590 Weight 208 kg General appearance: PRESENT: no acute distress, cooperative, disheveled, morbidl y obese Neck exam: PRESENT: tracheostomy Respiratory exam: PRESENT: decreased breath sounds, symmetrical, unlabored, other - Coughs frequently. ABSENT: accessory muscle use, chest wall tenderness, crackles, prolonged expiratory phas, rhonchi, tachypnea, wheezes Cardiovascular exam: PRESENT: RRR, +S1, +S2 Pulses: PRESENT: normal carotid pulses Vascular exam: PRESENT: normal capillary refill GI/Abdominal exam: PRESENT: soft. ABSENT: distended, guarding, rebound, tenderness Extremities exam: ABSENT: clubbing, pedal edema Musculoskeletal exam: PRESENT: normal inspection. ABSENT: deformity Neurological exam: PRESENT: alert, awake, oriented to person, oriented to place, oriented to situation Psychiatric exam: PRESENT: appropriate affect, normal mood Skin exam: PRESENT: dry, warm Results Laboratory Results: 03/22/19 04:34 03/22/19 04:34 03/21/19 03/21/19 03/21/19 20:37 20:37 20:37 WBC 7.6 RBC 3.94 L Hgb 10.9 L Hct 34.9 L MCV 89 MCH 27.7 MCHC 31.4 L RDW 15.6 H Plt Count 285 Seg Neutrophils % 73.3 Carbonic Acid HCO3/H2CO3 Ratio ABG pH ABG pCO2 ABG pO2 ABG HCO3 ABG O2 Saturation ABG Base Excess FiO2 Sodium 139.2 Potassium 5.1 H Chloride 91 L Carbon Dioxide 41 H* Anion Gap 7 BUN 20 Creatinine 0.86 Est GFR ( Amer) > 60 Glucose 105 Lactic Acid 1.0 Calcium 8.6 Total Bilirubin 0.3 AST 33 Alkaline Phosphatase 65 Total Protein 7.4 Albumin 4.1 TSH 03/21/19 03/21/19 03/22/19 20:37 23:13 04:34 WBC 8.6 RBC 3.88 L Hgb 10.8 L Hct 34.4 L MCV 89 MCH 27.9 MCHC 31.5 L RDW 15.5 H Plt Count 217 Seg Neutrophils % 91.2 H Carbonic Acid 2.40 H HCO3/H2CO3 Ratio 18:1 ABG pH 7.35 ABG pCO2 79.9 H* ABG pO2 69.0 L ABG HCO3 43.5 H ABG O2 Saturation 92.1 L ABG Base Excess 14.6 FiO2 6L Sodium Potassium Chloride Carbon Dioxide Anion Gap BUN Creatinine Est GFR ( Amer) Glucose Lactic Acid Calcium Total Bilirubin AST Alkaline Phosphatase Total Protein Albumin TSH 2.34 03/22/19 04:34 WBC RBC Hgb Hct MCV MCH MCHC RDW Plt Count Seg Neutrophils % Carbonic Acid HCO3/H2CO3 Ratio ABG pH ABG pCO2 ABG pO2 ABG HCO3 ABG O2 Saturation ABG Base Excess FiO2 Sodium 139.3 Potassium 4.5 Chloride 91 L Carbon Dioxide 36 H Anion Gap 12 BUN 22 H Creatinine 0.89 Est GFR ( Amer) > 60 Glucose 292 H Lactic Acid Calcium 8.7 Total Bilirubin AST Alkaline Phosphatase Total Protein Albumin TSH Impressions: Chest X-Ray 03/21/19 20:44 IMPRESSION: 1. Cardiomegaly. 2. Stable aeration. copyright 2010 [employer]- All Rights Reserved Assessment and Plan - Diagnosis (1) Acute tracheobronchitis Is this a current diagnosis for this admission?: Yes Plan: Currently on antibiotics. Cultures are pending. Negative thus far. Vital signs are stable. Rather than get a maple products maker to "look around" in his neck, will start with some plain films of the neck to see if there is a foreign body other than his tracheostomy. I suspect that it could be phlegm moving that he feels. (2) Acute and chronic respiratory failure Qualifiers: Respiratory failure complication: hypoxia and hypercapnia Is this a current diagnosis for this admission?: Yes Plan: He does have some chronic CO2 retention but he was compensated with a normal pH despite the fact that his PCO2 was almost 80. He has a tracheostomy to help with his breathing. (3) Hypoventilation associated with obesity syndrome Is this a current diagnosis for this admission?: Yes Plan: He has a tracheostomy to help with his breathing. - Time Time Spent with patient: 25-34 minutes
--- NOTE | 2019-03-22 17:36 | RADIOLOGY REPORT (SQ) ---
EXAM DESCRIPTION: SOFT TISSUE NECK COMPLETED DATE/TIME: 03/22/2019 5:08 pm REASON FOR STUDY: r/o foreign body (other than trach) COMPARISON: None. NUMBER OF VIEWS: Four views. TECHNIQUE: AP and lateral radiographic image of the soft tissues of the neck. LIMITATIONS: Markedly limited due to patient's size. FINDINGS: EPIGLOTTIS: Nonvisualized. . PREVERTEBRAL SOFT TISSUES: Prominence of nasopharyngeal tissues with narrowing of nasopharynx. Narro wing of oropharynx. SUBGLOTTIC AREA: Nonvisualized. . RETROPHARYNGEAL SPACE: Normal. No soft tissue masses. BONES: No significant findings. LUNG APICES: Normal. OTHER: Tracheostomy tube in place. IMPRESSION: Limited study due to portable technique. TECHNICAL DOCUMENTATION: JOB ID: [id number] 2010 [email or web address]- All Rights Reserved Reading location - IP/workstation name: [email or web address]
[2019-03-23] MEDS: IPRATROPIUM/ALBUTEROL 0.5-2.5 MG/3 ML AMPUL NEB SCH ×4 (02:08→20:47)
[2019-03-23] MEDS: CEFTAZIDIME PENTAHYDRATE 2 GM in DEXTROSE 5%-WATER 100 ML IV SCH ×3 (03:00→17:11)
[2019-03-23] MEDS: IMIPENEM/CILASTATIN SODIUM 1,000 MG in NORMAL SALINE 250 ML IV SCH ×4 (04:18→20:29)
[2019-03-23] MEDS: HEPARIN SOD (PORCINE) 5,000 UNIT/ML 1 ML VIAL SUBCUT SCH ×3 (06:51→22:39)
[2019-03-23] MEDS ORDERED: (PENDING PHARMACY ID) (Nystatin [Nystatin] 1 APPLIC) TP PRN (07:28)
[2019-03-23] MEDS ORDERED: NYSTATIN TOPICAL POWDER 15 GM TP PRN (08:13)
[2019-03-23] MEDS: ACETAMINOPHEN 325 MG TABLET PO PRN (08:50)
[2019-03-23] MEDS: LEVOTHYROXINE SODIUM 0.1 MG TABLET PO SCH (08:50)
[2019-03-23] MEDS: LISINOPRIL 10 MG TABLET PO SCH (09:15)
[2019-03-23] MEDS: AMLODIPINE BESYLATE 10 MG TABLET PO SCH (09:16)
[2019-03-23] MEDS: FUROSEMIDE 40 MG TABLET PO SCH (09:16)
[2019-03-23] MEDS: SERTRALINE HCL 50 MG TABLET PO SCH (09:16)
[2019-03-23] MEDS: BUSPIRONE HCL 10 MG TABLET PO SCH ×3 (09:16→22:39)
[2019-03-23] MEDS: DOCUSATE SODIUM 100 MG CAPSULE PO SCH ×2 (09:17→17:09)
[2019-03-23] MEDS: ACETYLCYSTEINE 10% NEB 400 MG/4 ML VIAL NEB SCH ×3 (10:55→20:47)
[2019-03-23] MEDS: CIPROFLOXACIN 400 MG/D5W RTU 400 MG/200 ML RTUPB IV SCH ×2 (11:16→23:43)
--- NOTE | 2019-03-23 15:21 | PDOC PROGRESS REPORT ---
Subjective Progress Note for:: 03/23/19 Subjective:: No adverse events overnight. This morning he was having some trouble keeping his saturations up and required some suctioning. Had to turn his oxygen back up for a little while. He was feeling well enough and breathing well enough to be able to sit up on the edge of the bed and eat. Reason For Visit: CHRONIC RESPIRATORY ACIDOSIS,MORBID OBESITY Physical Exam Vital Signs: Temp Pulse Resp BP Pulse Ox 98.8 F 84 20 103/49 L 91 L 03/23/19 10:57 03/23/19 14:06 03/23/19 14:06 03/23/19 10:57 03/23/19 14:06 Intake & Output 03/22/19 03/23/19 03/24/19 06:59 06:59 06:59 Intake Total 200 2184 950 Output Total 550 500 Balance -350 2184 450 Weight 208 kg 208 kg General appearance: PRESENT: no acute distress, cooperative, disheveled, morbidly obese Neck exam: PRESENT: tracheostomy Respiratory exam: PRESENT: decreased breath sounds, symmetrical, unlabored, oth er - Coughs frequently. ABSENT: accessory muscle use, chest wall tenderness, crackles, prolonged expiratory phas, rhonchi, tachypnea, wheezes Cardiovascular exam: PRESENT: RRR, +S1, +S2 Pulses: PRESENT: normal carotid pulses Vascular exam: PRESENT: normal capillary refill GI/Abdominal exam: PRESENT: soft. ABSENT: distended, guarding, rebound, tenderness Extremities exam: ABSENT: clubbing, pedal edema Musculoskeletal exam: PRESENT: normal inspection. ABSENT: deformity Neurological exam: PRESENT: alert, awake, oriented to person, oriented to place, oriented to situation Psychiatric exam: PRESENT: appropriate affect, normal mood Skin exam: PRESENT: dry, warm Results Laboratory Results: 03/22/19 04:34 03/22/19 04:34 Impressions: Chest X-Ray 03/21/19 20:44 IMPRESSION: 1. Cardiomegaly. 2. Stable aeration. copyright 2011 [employer]- All Rights Reserved Soft Tissue Neck X-Ray 03/22/19 00:00 IMPRESSION: Limited study due to portable technique. Assessment and Plan - Diagnosis (1) Acute tracheobronchitis Is this a current diagnosis for this admission?: Yes Plan: Currently on antibiotics. Cultures are pending. Negative thus far. Vital s igns are stable. Plain films of the neck were negative for foreign body. I started him on some Mucomyst nebs as well as chest PT and a flutter valve. (2) Acute and chronic respiratory failure Qualifiers: Respiratory failure complication: hypoxia and hypercapnia Qualified Code(s): J96.21 - Acute and chronic respiratory failure with hypoxia; J96.22 - Acute and chronic respiratory failure with hypercapnia Is this a current diagnosis for this admission?: Yes Plan: He does have some chronic CO2 retention but he was compensated with a normal pH despite the fact that his PCO2 was almost 80. He has a tracheostomy to help with his breathing. Currently on supplemental O2 to maintain SPO2 greater than 90%. (3) Hypoventilation associated with obesity syndrome Is this a current diagnosis for this admission?: Yes Plan: He has a tracheostomy to help with his breathing. - Time Time Spent with patient: 25-34 minutes
[2019-03-23] MEDS: ATORVASTATIN CALCIUM 40 MG TABLET PO SCH (22:39)
[2019-03-24] MEDS: CEFTAZIDIME PENTAHYDRATE 2 GM in DEXTROSE 5%-WATER 100 ML IV SCH ×3 (02:00→17:41)
[2019-03-24] MEDS: IPRATROPIUM/ALBUTEROL 0.5-2.5 MG/3 ML AMPUL NEB SCH ×4 (02:42→20:08)
[2019-03-24] MEDS: ACETYLCYSTEINE 10% NEB 400 MG/4 ML VIAL NEB SCH ×4 (02:42→20:08)
[2019-03-24] MEDS: IMIPENEM/CILASTATIN SODIUM 1,000 MG in NORMAL SALINE 250 ML IV SCH ×4 (03:34→21:31)
[2019-03-24] MEDS: LEVOTHYROXINE SODIUM 0.1 MG TABLET PO SCH (05:38)
[2019-03-24] MEDS: HEPARIN SOD (PORCINE) 5,000 UNIT/ML 1 ML VIAL SUBCUT SCH ×3 (05:38→21:30)
[2019-03-24] MEDS: FUROSEMIDE 40 MG TABLET PO SCH (11:01)
[2019-03-24] MEDS: DOCUSATE SODIUM 100 MG CAPSULE PO SCH ×2 (11:02→17:45)
[2019-03-24] MEDS: BUSPIRONE HCL 10 MG TABLET PO SCH ×3 (11:03→21:29)
[2019-03-24] MEDS: SERTRALINE HCL 50 MG TABLET PO SCH (11:03)
[2019-03-24] MEDS: AMLODIPINE BESYLATE 10 MG TABLET PO SCH (11:03)
[2019-03-24] MEDS: LISINOPRIL 10 MG TABLET PO SCH (11:03)
[2019-03-24] MEDS: CIPROFLOXACIN 400 MG/D5W RTU 400 MG/200 ML RTUPB IV SCH (13:33)
--- NOTE | 2019-03-24 15:59 | RADIOLOGY REPORT (SQ) ---
EXAM DESCRIPTION: CHEST SINGLE VIEW COMPLETED DATE/TIME: 03/24/2019 3:50 pm REASON FOR STUDY: HYPOXIA COMPARISON: Chest film 03/21/2019, 10/02/2018 EXAM PARAMETERS: NUMBER OF VIEWS: One view. TECHNIQUE: Single frontal radiographic view of the chest acquired. RADIATION DOSE: NA LIMITATIONS: Morbidly obese patient, AP portable technique, motion artifact FINDINGS: LUNGS AND PLEURA: Limited penetration left lung base. Basilar infiltrate could not be exc luded. Remainder of the lungs are grossly clear. No pleural effusion or gross pneumothorax. MEDIASTINUM AND HILAR STRUCTURES: No masses. Contour normal. HEART AND VASCULAR STRUCTURES: Stable marked cardiomegaly BONES: No acute findings. HARDWARE: Tracheostomy tube tip midtrachea. OTHER: No other significant finding. IMPRESSION: Morbidly obese patient with portable film. Left basilar consolidation could not be excl uded TECHNICAL DOCUMENTATION: JOB ID: [id number] [employer]- All Rights Reserved Reading location - IP/workstation name: [email or web address]
--- NOTE | 2019-03-24 18:11 | PDOC PROGRESS REPORT ---
Subjective Progress Note for:: 03/24/19 Subjective:: No adverse events overnight. He wants to use the nasal cannula instead of the trach collar, but his hypoxemia worsens when he is on the nasal cannula and the trach collar does a lot better. He said that he cannot get CPAP because of the fact that he says they can hook it up to his trach. Reason For Visit: CHRONIC RESPIRATORY ACIDOSIS,MORBID OBESITY Physical Exam Vital Signs: Temp Pulse Resp BP Pulse Ox 98.2 F 78 20 150/74 H 94 03/24/19 11:22 03/24/19 14:17 03/24/19 14:17 03/24/19 11:22 03/24/19 14:17 Intake & Output 03/23/19 03/24/19 03/25/19 06:59 06:59 06:59 Intake Total 2184 2805 740 Output Total 1200 Balance 2184 1605 740 Weight 208 kg 209 kg General appearance: PRESENT: no acute distress, cooperative, disheveled, morbidly obese Neck exam: PRESENT: tracheostomy Respiratory exam: PRESENT: decreased breath sounds, symmetrical, unlabored, other - Coughs frequently. ABSENT: accessory muscle use, chest wall tenderness, crackles, prolonged expiratory phas, rhonchi, tachypnea, wheezes Cardiovascular exam: PRESENT: RRR, +S1, +S2 Pulses: PRESENT: normal carotid pulses Vascular exam: PRESENT: normal capillary refill GI/Abdominal exam: PRESENT: soft. ABSENT: distended, guarding, rebound, tenderness Extremities exam: ABSENT: clubbing, pedal edema Musculoskeletal exam: PRESENT: normal inspection. ABSENT: deformity Neurological exam: PRESENT: alert, awake, oriented to person, oriented to place, oriented to situation Psychiatric exam: PRESENT: appropriate affect, normal mood Skin exam: PRESENT: dry, warm Results Laboratory Results: 03/22/19 04:34 03/22/19 04:34 Impressions: Soft Tissue Neck X-Ray 03/22/19 00:00 IMPRESSION: Limited study due to portable technique. Chest X-Ray 03/24/19 00:00 IMPRESSION: Morbidly obese patient with portable film. Left basilar consolidation could not be excluded Assessment and Plan - Diagnosis (1) Acute tracheobronchitis Is this a current diagnosis for this admission?: Yes Plan: Currently on antibiotics. Cultures are pending. Negative thus far. Vital signs are stable. Plain films of the neck were negative for foreign body. I started him on some Mucomyst nebs as well as chest PT and a flutter valve. Repeat films show a possible left basilar consolidation but difficult to tell because of his body habitus. (2) Acute and chronic respiratory failure Qualifiers: Respiratory failure complication: hypoxia and hypercapnia Qualified Code(s): J96.21 - Acute and chronic respiratory failure with hypoxia; J96.22 - Acute and chronic respiratory failure with hypercapnia Is this a current diagnosis for this admission?: Yes Plan: He does have some chronic CO2 retention but he was compensated with a normal pH despite the fact that his PCO2 was almost 80. He has a tracheostomy to help with his breathing. Currently on supplemental O2 to maintain SPO2 greater than 90%. At 12 L on trach collar he is satting in the mid 90s. If pulmonology is available, we may need a consultation to see if he needs a device at home like a trilogy device to help with his breathing. (3) Hypoventilation associated with obesity syndrome Is this a current diagnosis for this admission?: Yes Plan: He has a tracheostomy to help with his breathing. He may need supplemental oxygen or a device at home. - Time Time Spent with patient: 15-24 minutes
[2019-03-24] MEDS: ATORVASTATIN CALCIUM 40 MG TABLET PO SCH (21:30)
[2019-03-25] MEDS: CEFTAZIDIME PENTAHYDRATE 2 GM in DEXTROSE 5%-WATER 100 ML IV SCH ×2 (01:17→11:19)
[2019-03-25] MEDS: IPRATROPIUM/ALBUTEROL 0.5-2.5 MG/3 ML AMPUL NEB SCH ×4 (02:24→20:12)
[2019-03-25] MEDS: ACETYLCYSTEINE 10% NEB 400 MG/4 ML VIAL NEB SCH ×4 (02:24→20:12)
[2019-03-25] MEDS: IMIPENEM/CILASTATIN SODIUM 1,000 MG in NORMAL SALINE 250 ML IV SCH ×4 (02:41→21:14)
[2019-03-25] MEDS: HEPARIN SOD (PORCINE) 5,000 UNIT/ML 1 ML VIAL SUBCUT SCH ×3 (05:46→21:14)
[2019-03-25] MEDS: LEVOTHYROXINE SODIUM 0.1 MG TABLET PO SCH (05:50)
[2019-03-25] MEDS: DOCUSATE SODIUM 100 MG CAPSULE PO SCH ×2 (09:43→17:15)
[2019-03-25] MEDS: BUSPIRONE HCL 10 MG TABLET PO SCH ×3 (09:48→21:13)
[2019-03-25] MEDS: AMLODIPINE BESYLATE 10 MG TABLET PO SCH (09:48)
[2019-03-25] MEDS: LISINOPRIL 10 MG TABLET PO SCH (09:48)
[2019-03-25] MEDS: FUROSEMIDE 40 MG TABLET PO SCH (09:48)
[2019-03-25] MEDS: SERTRALINE HCL 50 MG TABLET PO SCH (09:49)
[2019-03-25] MEDS: ACETAMINOPHEN 325 MG TABLET PO PRN (09:52)
[2019-03-25] MEDS: ATORVASTATIN CALCIUM 40 MG TABLET PO SCH (21:13)
[2019-03-26] MEDS: IMIPENEM/CILASTATIN SODIUM 1,000 MG in NORMAL SALINE 250 ML IV SCH ×4 (02:20→21:34)
[2019-03-26] MEDS: IPRATROPIUM/ALBUTEROL 0.5-2.5 MG/3 ML AMPUL NEB SCH ×4 (02:34→21:20)
[2019-03-26] MEDS: ACETYLCYSTEINE 10% NEB 400 MG/4 ML VIAL NEB SCH ×4 (02:46→21:20)
[2019-03-26] MEDS: HEPARIN SOD (PORCINE) 5,000 UNIT/ML 1 ML VIAL SUBCUT SCH ×3 (05:39→21:36)
[2019-03-26] MEDS: LEVOTHYROXINE SODIUM 0.1 MG TABLET PO SCH (05:44)
[2019-03-26] MEDS: DOCUSATE SODIUM 100 MG CAPSULE PO SCH ×2 (09:32→17:23)
[2019-03-26] MEDS: AMLODIPINE BESYLATE 10 MG TABLET PO SCH (09:43)
[2019-03-26] MEDS: LISINOPRIL 10 MG TABLET PO SCH (09:43)
[2019-03-26] MEDS: SERTRALINE HCL 50 MG TABLET PO SCH (09:43)
[2019-03-26] MEDS: BUSPIRONE HCL 10 MG TABLET PO SCH ×3 (09:43→21:35)
[2019-03-26] MEDS: FUROSEMIDE 40 MG TABLET PO SCH (09:43)
[2019-03-26] MEDS: ACETAMINOPHEN 325 MG TABLET PO PRN (09:55)
--- NOTE | 2019-03-26 11:51 | PDOC PROGRESS REPORT ---
Subjective Progress Note for:: 03/26/19 Subjective:: 79-year-old male was admitted for cough and chest congestion. Patient was taking oral Levaquin. He is brought in by EMS for wheezing. Does have a trach. 03-26-19 patient was sleeping but was aroused easily by respiratory therapy for treatment. I examined the patient No signs are stable blood pressure 148/61 temp 98 pulse 94 respirations 18 patient has a trach collar, FiO2 of 50, flow rate of 10, O2 sat 94% Reason For Visit: CHRONIC RESPIRATORY ACIDOSIS,MORBID OBESITY Physical Exam Vital Signs: Temp Pulse Resp BP Pulse Ox 98.0 F 94 18 148/61 H 94 03/26/19 07:24 03/26/19 08:58 03/26/19 08:58 03/26/19 07:24 03/26/19 08:58 Intake & Output 03/25/19 03/26/19 03/27/19 06:59 06:59 06:59 Intake Total 1840 2380 Output Total 2150 5075 Balance -310 -2695 Weight 208.8 kg 207.6 kg General appearance: PRESENT: no acute distress, other - Patient was sleeping in no distress Respiratory exam: PRESENT: decreased breath sounds, other - Due to obesity Cardiovascular exam: PRESENT: RRR. ABSENT: diastolic murmur, rubs, systolic murmur Neurological exam: PRESENT: alert, awake, oriented to person, oriented to place, oriented to time, oriented to situation, CN II-XII grossly intact. ABSENT: motor sensory deficit Psychiatric exam: PRESENT: appropriate affect, normal mood. ABSENT: homicidal ideation, suicidal ideation Results Laboratory Results: 03/22/19 04:34 03/22/19 04:34 03/21/19 20:37 Blood Blood Culture - Final Staphylococcus Epidermidis Impressions: Soft Tissue Neck X-Ray 03/22/19 00:00 IMPRESSION: Limited study due to portable technique. Chest X-Ray 03/24/19 00:00 IMPRESSION: Morbidly obese patient with portable film. Left basilar consolidation could not be excluded Assessment and Plan - Diagnosis (1) Pneumonia Qualifiers: Pneumonia type: due to unspecified organism Laterality: unspecified laterality Lung location: unspecified part of lung Qualified Code(s): J18.9 - Pneumonia, unspecified organism Is this a current diagnosis for this admission?: Yes (2) Acute exacerbation of COPD with asthma Is this a current diagnosis for this admission?: Yes (3) Morbid obesity Is this a current diagnosis for this admission?: Yes - Plan Summary Summary: 03-26-19 patient's labs have not been checked in about 3 or 4 days therefore they will be ordered for the morning Patient grew out staph epi and his blood culture otherwise no growth. Patient is currently on Primaxin since admission 6 hours also Mucomyst nebulizer treatments. Chest x-ray done 3 days ago is suboptimal due to obesity limited penetration in the left lung base, question consolidation Will discuss with patient today the possibility of discharging soon on p.o. antibiotics outpatient appointment with pulmonology since his previous international bank manager has left the area
[2019-03-26] MEDS: ATORVASTATIN CALCIUM 40 MG TABLET PO SCH (21:35)
[2019-03-26] MEDS: BENZOCAINE/MENTHOL SORE THROAT LOZENGE BUCCAL PRN (21:36)
[2019-03-27] MEDS: IPRATROPIUM/ALBUTEROL 0.5-2.5 MG/3 ML AMPUL NEB SCH ×4 (02:33→19:53)
[2019-03-27] MEDS: ACETYLCYSTEINE 10% NEB 400 MG/4 ML VIAL NEB SCH ×4 (02:33→19:52)
[2019-03-27] MEDS: IMIPENEM/CILASTATIN SODIUM 1,000 MG in NORMAL SALINE 250 ML IV SCH ×4 (03:45→21:09)
[2019-03-27] MEDS: BENZOCAINE/MENTHOL SORE THROAT LOZENGE BUCCAL PRN ×6 (03:52→23:08)
[2019-03-27] MEDS: LEVOTHYROXINE SODIUM 0.1 MG TABLET PO SCH (06:36)
[2019-03-27] MEDS: HEPARIN SOD (PORCINE) 5,000 UNIT/ML 1 ML VIAL SUBCUT SCH ×3 (06:36→21:06)
[2019-03-27] MEDS ORDERED: INFLUENZA QUAD (6MOS+) 2019-20 VAC 0.5 ML SYR IM ONE (08:00)
[2019-03-27] MEDS: SERTRALINE HCL 50 MG TABLET PO SCH (10:43)
[2019-03-27] MEDS: DOCUSATE SODIUM 100 MG CAPSULE PO SCH ×4 (10:43→17:56)
[2019-03-27] MEDS: FUROSEMIDE 40 MG TABLET PO SCH (10:44)
[2019-03-27] MEDS: BUSPIRONE HCL 10 MG TABLET PO SCH ×3 (10:44→21:09)
[2019-03-27] MEDS: AMLODIPINE BESYLATE 10 MG TABLET PO SCH (10:45)
[2019-03-27] MEDS: LISINOPRIL 10 MG TABLET PO SCH (10:46)
--- NOTE | 2019-03-27 12:22 | PDOC PROGRESS REPORT ---
Subjective Progress Note for:: 03/27/19 Subjective:: 29-year-old male was admitted for cough and chest congestion. Patient was taking oral Levaquin. He is brought in by EMS for wheezing. Does have a trach. 03-26-19 patient was sleeping but was aroused easily by respiratory therapy for treatment. I examined the patient Vital signs are stable blood pressure 148/61, temp 98, pulse 94, respirations 18, patient has a trach collar, FiO2 of 50, flow rate of 10, O2 sat 94% 03/27/2019 once again vital signs are very stable patient is on his trach collar with 90% O2 sat rate of 8, FiO2 of 50 patient appears to be in no respiratory distress. Patient's blood pressure is averaging around 150/70. states that he feels like in the last couple weeks he has had difficulty with his trach and something is partially obstructing it. Patient is requesting pulmonary consult. Patient last saw his stranding supervisor in May 2018 and was supposed to follow- up in 2 months but never did it unfortunately patient's stranding supervisor no longer comes to the hospital to see consults, and we do not have pulmonology coverage today or tomorrow. I have contacted his stranding supervisor who no longer comes to the hospital and they have given him an appointment for April 24, however patient wants it sooner than that I will try to facilitate a quicker appointment if possible. Patient appears to be in no distress Reason For Visit: CHRONIC RESPIRATORY ACIDOSIS,MORBID OBESITY Physical Exam Vital Signs: Temp Pulse Resp BP Pulse Ox 98.2 F 89 18 166/99 H 98 03/27/19 07:27 03/27/19 09:17 03/27/19 09:17 03/27/19 07:27 03/27/19 09:17 Intake & Output 03/26/19 03/27/19 03/28/19 06:59 06:59 06:59 Intake Total 2380 1720 Output Total 2065 4169 Balance -4558 -9823 Weight 207.6 kg 208 kg Results Laboratory Results: 03/22/19 04:34 03/22/19 04:34 03/21/19 21:05 Blood Blood Culture - Final NO GROWTH IN 5 DAYS 03/21/19 20:37 Blood Blood Culture - Final Staphylococcus Epidermidis Impressions: Soft Tissue Neck X-Ray 03/22/19 00:00 IMPRESSION: Limited study due to portable technique. Chest X-Ray 03/24/19 00:00 IMPRESSION: Morbidly obese patient with portable film. Left basilar consolidation could not be excluded Assessment and Plan - Diagnosis (1) Pneumonia Qualifiers: Pneumonia type: due to unspecified organism Laterality: unspecified laterality Lung location: unspecified part of lung Qualified Code(s): J18.9 - Pneumonia, unspecified organism Is this a current diagnosis for this admission?: Yes (2) Acute exacerbation of COPD with asthma Is this a current diagnosis for this admission?: Yes (3) Morbid obesity Is this a current diagnosis for this admission?: Yes (4) Hypertension Qualifiers: Hypertension type: essential hypertension Qualified Code(s): I10 - Essential (primary) hypertension Is this a current diagnosis for this admission?: Yes (5) TERRANCE (obstructive sleep apnea) Is this a current diagnosis for this admission?: Yes - Plan Summary Summary: 03-26-19 patient's labs have not been checked in about 3 or 4 days therefore they will be ordered for the morning Patient grew out staph epi and his blood culture otherwise no growth. Patient is currently on Primaxin since admission 6 hours also Mucomyst nebulizer treatments. Chest x-ray done 3 days ago is suboptimal due to obesity limited penetration in the left lung base, question consolidation Will discuss with patient today the possibility of discharging soon on p.o. antibiotics outpatient appointment with pulmonology since his previous stranding supervisor has left the area 03/27/2019 please see previous note dictated above turning pulmonology consult and appointments, dated 03/27/2019. Patient's O2 saturations are stable on trach collar O2 of 50% - Time Time Spent with patient: 25-34 minutes
[2019-03-27 14:06] LABS: ABSOLUTE EOSINOPHILS # (AUTO) 0.2 10^3/uL (0.0-0.6); ABSOLUTE LYMPHOCYTES (AUTO) 0.7 10^3/uL (0.5-4.7); ABSOLUTE MONOCYTES (AUTO) 0.5 10^3/uL (0.1-1.4); ABSOLUTE NEUT (AUTO) 5.4 10^3/uL (1.7-8.2); BASOPHILS % (AUTO) 0.5 % (0-2); EOSINOPHILS % (AUTO) 3.3 % (0-6); HEMATOCRIT 32.1 % (37.9-51.0); LYMPHOCYTES % (AUTO) 10.3 % (13-45); MEAN CORPUSCULAR HEMOGLOBIN 27.6 pg (27.0-33.4); MEAN CORPUSCULAR HGB CONC 31.1 g/dL (32.0-36.0); MEAN CORPUSCULAR VOLUME 89 fl (80-97); MONOCYTES % (AUTO) 7.8 % (3-13); PLATELET COUNT 234 10^3/uL (150-450); RED BLOOD COUNT 3.62 10^6/uL (4.35-5.55); RED CELL DISTRIBUTION WIDTH 15.6 % (11.5-14.0); SEGMENTED NEUTROPHILS % (AUTO) 78.1 % (42-78); TOTAL CELLS COUNTED % (AUTO) 100 %; WHITE BLOOD COUNT 6.9 10^3/uL (4.0-10.5)
[2019-03-27 14:30] LABS: BLOOD UREA NITROGEN 14 mg/dL (7-20); CALCIUM 9.1 mg/dL (8.4-10.2); CHLORIDE 92 mmol/L (98-107); GLUCOSE 122 mg/dL (75-110); POTASSIUM 4.7 mmol/L (3.6-5.0)
[2019-03-27 14:39] LABS: ANION GAP 5 (5-19)
[2019-03-27 14:40] LABS: CARBON DIOXIDE 44 mmol/L (22-30)
--- NOTE | 2019-03-27 16:55 | RADIOLOGY REPORT (SQ) ---
EXAM DESCRIPTION: CHEST 2 VIEWS COMPLETED DATE/TIME: 03/27/2019 3:56 pm REASON FOR STUDY: follow up, pneumonia? COMPARISON: AP chest 03/24/2019, 03/21/2019, 10/02/2018 EXAM PARAMETERS: NUMBER OF VIEWS: two views TECHNIQUE: Digital Frontal and Lateral radiographic views of the chest acquired. RADIATION DOSE: NA LIMITATIONS: none FINDINGS: LUNGS AND PLEURA: Mild pulmonary vascular congestion. No overt pulmonary edema. Bibasila r atelectasis. No pleural effusions. MEDIASTINUM AND HILAR STRUCTURES: No masses or contour abnormalities. HEART AND VASCULAR STRUCTURES: Stable marked cardiomegaly BONES: No acute findings. HARDWARE: Tracheostomy tube tip midtrachea. OTHER: No other significant finding. IMPRESSION: Pulmonary vascular congestion and cardiomegaly. Bibasilar atelectasis. Tracheostomy tube in good positioning TECHNICAL DOCUMENTATION: JOB ID: [id number] [employer]- All Rights Reserved Reading location - IP/workstation name: [email or web address]
[2019-03-27] MEDS: ATORVASTATIN CALCIUM 40 MG TABLET PO SCH (21:09)
[2019-03-28] MEDS: BENZOCAINE/MENTHOL SORE THROAT LOZENGE BUCCAL PRN ×9 (01:20→22:36)
[2019-03-28] MEDS: IPRATROPIUM/ALBUTEROL 0.5-2.5 MG/3 ML AMPUL NEB SCH ×4 (02:10→20:21)
[2019-03-28] MEDS: ACETYLCYSTEINE 10% NEB 400 MG/4 ML VIAL NEB SCH ×4 (02:10→20:21)
[2019-03-28] MEDS: IMIPENEM/CILASTATIN SODIUM 1,000 MG in NORMAL SALINE 250 ML IV SCH ×4 (03:17→21:50)
[2019-03-28] MEDS: HEPARIN SOD (PORCINE) 5,000 UNIT/ML 1 ML VIAL SUBCUT SCH ×3 (05:30→21:49)
[2019-03-28] MEDS: LEVOTHYROXINE SODIUM 0.1 MG TABLET PO SCH (05:30)
[2019-03-28] MEDS: BUSPIRONE HCL 10 MG TABLET PO SCH ×3 (09:33→21:49)
[2019-03-28] MEDS: AMLODIPINE BESYLATE 10 MG TABLET PO SCH (09:34)
[2019-03-28] MEDS: SERTRALINE HCL 50 MG TABLET PO SCH (09:34)
[2019-03-28] MEDS: LISINOPRIL 10 MG TABLET PO SCH (09:34)
[2019-03-28] MEDS: FUROSEMIDE 40 MG TABLET PO SCH (09:35)
[2019-03-28] MEDS: DOCUSATE SODIUM 100 MG CAPSULE PO SCH ×2 (09:35→18:01)
--- NOTE | 2019-03-28 09:41 | PDOC PROGRESS REPORT ---
Subjective Progress Note for:: 03/28/19 Subjective:: 29-year-old male was admitted for cough and chest congestion. Patient was taking oral Levaquin. He is brought in by EMS for wheezing. Does have a trach. 03-26-19 patient was sleeping but was aroused easily by respiratory therapy for treatment. I examined the patient Vital signs are stable blood pressure 148/61, temp 98, pulse 94, respirations 18, patient has a trach collar, FiO2 of 50, flow rate of 10, O2 sat 94% 03/27/2019 once again vital signs are very stable patient is on his trach collar with 90% O2 sat rate of 8, FiO2 of 50 patient appears to be in no respiratory distress. Patient's blood pressure is averaging around 150/70. states that he feels like in the last couple weeks he has had difficulty with his trach and something is partially obstructing it. Patient is requesting pulmonary consult. Patient last saw his sider mechanic in May 2018 and was supposed to follow- up in 2 months but never did it unfortunately patient's sider mechanic no longer comes to the hospital to see consults, and we do not have pulmonology coverage today or tomorrow. I have contacted his sider mechanic who no longer comes to the hospital and they have given him an appointment for April 24, however patient wants it sooner than that I will try to facilitate a quicker appointment if possible. Patient appears to be in no distress 03/28/2019 unfortunately I cannot move his appointment up I called his sider mechanic office, they did place him on the waiting list so he may get called sooner if someone cancels. Pulmonology does not come to the hospital t jihan either. Add nystatin 4 times a day in case he is suffering from thrush with his complaint of sore throat and swallowing anticipate discharge tomorrow Reason For Visit: CHRONIC RESPIRATORY ACIDOSIS,MORBID OBESITY Physical Exam Vital Signs: Temp Pulse Resp BP Pulse Ox 98.8 F 77 18 123/67 95 03/27/19 20:00 03/28/19 02:12 03/28/19 02:12 03/27/19 20:00 03/28/19 04:17 Intake & Output 03/27/19 03/28/19 03/29/19 06:59 06:59 06:59 Intake Total 1720 3000 Output Total 3051 9590 Balance -1331 -650 Weight 208 kg 208.3 kg General appearance: PRESENT: no acute distress, other - Patient does not appear to be in any distress Respiratory exam: PRESENT: decreased breath sounds - Secondary to obesity Cardiovascular exam: PRESENT: RRR. ABSENT: diastolic murmur, rubs, systolic murmur Neurological exam: PRESENT: alert, awake, oriented to person, oriented to place, oriented to time, oriented to situation, CN II-XII grossly intact. ABSENT: motor sensory deficit Psychiatric exam: PRESENT: appropriate affect, normal mood. ABSENT: homicidal ideation, suicidal ideation Results Laboratory Results: 03/27/19 13:51 03/27/19 13:51 03/27/19 03/27/19 13:51 13:51 WBC 6.9 RBC 3.62 L Hgb 10.0 L Hct 32.1 L MCV 89 MCH 27.6 MCHC 31.1 L RDW 15.6 H Plt Count 234 Seg Neutrophils % 78.1 H Sodium 141.3 Potassium 4.7 Chloride 92 L Carbon Dioxide 44 H* Anion Gap 5 BUN 14 Creatinine 0.73 Est GFR ( Amer) > 60 Glucose 122 H Calcium 9.1 Impressions: Soft Tissue Neck X-Ray 03/22/19 00:00 IMPRESSION: Limited study due to portable technique. Chest X-Ray 03/27/19 00:00 IMPRESSION: Pulmonary vascular congestion and cardiomegaly. Bibasilar atelectasis. Tracheostomy tube in good positioning Assessment and Plan - Diagnosis (1) Pneumonia Qualifiers: Pneumonia type: due to unspecified organism Laterality: unspecified latera lity Lung location: unspecified part of lung Qualified Code(s): J18.9 - Pneumonia, unspecified organism Is this a current diagnosis for this admission?: Yes (2) Acute exacerbation of COPD with asthma Is this a current diagnosis for this admission?: Yes (3) Morbid obesity Is this a current diagnosis for this admission?: Yes (4) Hypertension Qualifiers: Hypertension type: essential hypertension Qualified Code(s): I10 - Essential (primary) hypertension Is this a current diagnosis for this admission?: Yes (5) TERRANCE (obstructive sleep apnea) Is this a current diagnosis for this admission?: Yes - Plan Summary Summary: 03-26-19 patient's labs have not been checked in about 3 or 4 days therefore they will be ordered for the morning Patient grew out staph epi and his blood culture otherwise no growth. Patient is currently on Primaxin since admission 6 hours also Mucomyst nebulizer treatments. Chest x-ray done 3 days ago is suboptimal due to obesity limited penetration in the left lung base, question consolidation Will discuss with patient today the possibility of discharging soon on p.o. antibiotics outpatient appointment with pulmonology since his previous sider mechanic no longer comes to the hospital for consults 03/27/2019 please see previous note dictated above turning pulmonology consult and appointments, dated 03/27/2019. Patient's O2 saturations are stable on trach collar O2 of 50% 03/28/2019 I added nystatin 4 times daily in case he is suffering from thrush. Chest x-ray yesterday showed no active pneumonia. Plan to discharge tomorrow probably on a Z-Nestor. He is on no oral steroids while here in the hospital. White count remains normal, electrolytes are basically normal, TSH is in the therapeutic range - Time Time Spent with patient: 25-34 minutes
[2019-03-28] MEDS: NYSTATIN 500000 UNIT/5 ML UDCUP PO SCH ×4 (11:27→21:50)
[2019-03-28] MEDS: ATORVASTATIN CALCIUM 40 MG TABLET PO SCH (21:50)
[2019-03-29] MEDS: BENZOCAINE/MENTHOL SORE THROAT LOZENGE BUCCAL PRN ×6 (00:49→13:21)
[2019-03-29] MEDS: ACETYLCYSTEINE 10% NEB 400 MG/4 ML VIAL NEB SCH ×2 (02:11→08:08)
[2019-03-29] MEDS: IPRATROPIUM/ALBUTEROL 0.5-2.5 MG/3 ML AMPUL NEB SCH ×2 (02:11→08:08)
[2019-03-29] MEDS: HEPARIN SOD (PORCINE) 5,000 UNIT/ML 1 ML VIAL SUBCUT SCH ×2 (05:04→13:15)
[2019-03-29] MEDS: LEVOTHYROXINE SODIUM 0.1 MG TABLET PO SCH (05:04)
[2019-03-29] MEDS: DOCUSATE SODIUM 100 MG CAPSULE PO SCH (09:30)
[2019-03-29] MEDS: SERTRALINE HCL 50 MG TABLET PO SCH (10:32)
[2019-03-29] MEDS: BUSPIRONE HCL 10 MG TABLET PO SCH (10:33)
[2019-03-29] MEDS: FUROSEMIDE 40 MG TABLET PO SCH (10:33)
[2019-03-29] MEDS: NYSTATIN 500000 UNIT/5 ML UDCUP PO SCH ×2 (10:34→13:21)
[2019-03-29] MEDS: LISINOPRIL 10 MG TABLET PO SCH (10:34)
[2019-03-29] MEDS: AMLODIPINE BESYLATE 10 MG TABLET PO SCH (10:34)
[2019-03-29 13:30] VITALS: BP 146/77
--- NOTE | 2019-03-29 15:00 | PDOC DISCHARGE SUMMARY ---
Impression - Admit/DC Date/PCP Admission Date/Primary Care Provider: 03/21/19 23:25 MARIALUISA HANSEN DO Discharge Date: 03/29/19 - Discharge Diagnosis (1) Pneumonia Is this a current diagnosis for this admission?: Yes (2) Acute exacerbation of COPD with asthma Is this a current diagnosis for this admission?: Yes (3) Morbid obesity Is this a current diagnosis for this admission?: Yes (4) Hypertension Is this a current diagnosis for this admission?: Yes (5) TERRANCE (obstructive sleep apnea) Is this a current diagnosis for this admission?: Yes - Assessment Summary: 03-26-19 patient's labs have not been checked in about 3 or 4 days therefore they will be ordered for the morning Patient grew out staph epi and his blood culture otherwise no growth. Patient is currently on Primaxin since admission 6 hours also Mucomyst nebulizer treatments. Chest x-ray done 3 days ago is suboptimal due to obesity limited penetration in the left lung base, question consolidation Will discuss with patient today the possibility of discharging soon on p.o. antibiotics outpatient appointment with pulmonology since his previous draw frame runner no longer comes to the hospital for consults 03/27/2019 please see previous note dictated above turning pulmonology consult and appointments, dated 03/27/2019. Patient's O2 saturations are stable on trach collar O2 of 50% 03/28/2019 I added nystatin 4 times daily in case he is suffering from thrush. Chest x-ray yesterday showed no active pneumonia. Plan to discharge tomorrow probably on a Z-Nestor. He is on no oral steroids while here in the hospital. White count remains normal, electrolytes are basically normal, TSH is in the therapeutic range 03/29/2019 patient was discharged today with prescription for nystatin hospital thrush, pack to finish out his antibiotics, all Dosepak to taper his steroids, and I wrote for his BuSpar and Zoloft through the rest of the month To follow-up with his draw frame runner on April 24 - Additional Information Resuscitation Status: Full Code Discharge Diet: As Tolerated Discharge Activity: Activity As Tolerated Referrals: MARIALUISA HANSEN DO [Primary Care Provider] - 04/08/19 11:00 am (needs a referral to a draw frame runner) Prescriptions: Azithromycin 250 mg PO DAILY #6 tablet Buspirone HCl [Buspar 10 mg Tablet] 25 mg PO QHS #30 tablet Methylprednisolone [Medrol Dosepack (4 mg/Tab) 21 Tab/Dosepak] 4 mg PO ASDIR PRN #21 tab.ds.pk PRN Reason: Nystatin [Mycostatin 500,000 Unit/5 ml Susp Udcup] 500,000 unit PO QID 5 Days udc Sertraline HCl [Zoloft 50 mg Tablet] 150 mg PO DAILY #30 tablet Home Medications: Buspirone HCl [Buspar 10 mg Tablet] 15 mg PO BID 03/12/18 Levothyroxine Sodium [Synthroid] 100 mcg PO DAILY 03/12/18 Sertraline HCl [Zoloft] 150 mg PO DAILY 03/12/18 Hydrochlorothiazide [Hydrodiuril 25 mg Tablet] 25 mg PO DAILY 03/22/19 Amlodipine Besylate [Norvasc 10 mg Tablet] 10 mg PO DAILY tablet 03/29/19 Atorvastatin Calcium [Lipitor 40 mg Tablet] 40 mg PO QHS tablet 03/29/19 Azithromycin 250 mg PO DAILY #6 tablet 03/29/19 Buspirone HCl [Buspar 10 mg Tablet] 15 mg PO BID tablet 03/29/19 Buspirone HCl [Buspar 10 mg Tablet] 25 mg PO QHS #30 tablet 03/29/19 Furosemide [Lasix 40 mg Tablet] 40 mg PO DAILY #30 03/29/19 Ipratropium/Albuterol Sulfate [Duoneb 3 ml Ampul] 3 ml NEB [id number] PRN vial.neb 03/29/19 Ipratropium/Albuterol Sulfate [Duoneb 3 ml Ampul] 3 ml NEB RTQ6 vial.neb 03/29/19 Levothyroxine Sodium [Synthroid 0.1 mg Tablet] 0.1 mg PO Q6AM tablet 03/29/19 Lisinopril [Prinivil 10 mg Tablet] 40 mg PO DAILY tablet 03/29/19 Methylprednisolone [Medrol Dosepack (4 mg/Tab) 21 Tab/Dosepak] 4 mg PO ASDIR PRN #21 tab.ds.pk 03/29/19 Nystatin [Mycostatin 500,000 Unit/5 ml Susp Udcup] 500,000 unit PO QID 5 Days udc 03/29/19 Nystatin [Mycostatin Topical Powder 15 gm] 1 applic TP QIDP PRN bottle 03/29/19 Sertraline HCl [Zoloft 50 mg Tablet] 150 mg PO DAILY #30 tablet 03/29/19 History of Present Illiness History of Present Illness: JOEY ORTEGA III is a 29 year old male Physical Exam Vital Signs: Temp Pulse Resp BP Pulse Ox 98.5 F 72 20 146/77 H 97 03/29/19 13:26 03/29/19 13:26 03/29/19 13:26 03/29/19 13:26 03/29/19 13:26 Intake & Output 03/28/19 03/29/19 03/30/19 06:59 06:59 06:59 Intake Total 3000 2532 Output Total 3650 3600 Balance -650 -1068 Weight 208.3 kg 210.2 kg Results Laboratory Results: WBC 6.9 10^3/uL (4.0-10.5) 03/27/19 13:51 RBC 3.62 10^6/uL (4.35-5.55) L 03/27/19 13:51 Hgb 10.0 g/dL (13.5-17.0) L 03/27/19 13:51 Hct 32.1 % (37.9-51.0) L 03/27/19 13:51 MCV 89 fl (80-97) 03/27/19 13:51 MCH 27.6 pg (27.0-33.4) 03/27/19 13:51 MCHC 31.1 g/dL (32.0-36.0) L 03/27/19 13:51 RDW 15.6 % (11.5-14.0) H 03/27/19 13:51 Plt Count 234 10^3/uL (150-450) 03/27/19 13:51 Lymph % (Auto) 10.3 % (13-45) L 03/27/19 13:51 [place] % (Auto) 7.8 % (3-13) 03/27/19 13:51 Eos % (Auto) 3.3 % (0-6) 03/27/19 13:51 Baso % (Auto) 0.5 % (0-2) 03/27/19 13:51 Absolute Neuts (auto) 5.4 10^3/uL (1.7-8.2) 03/27/19 13:51 Absolute Lymphs (auto) 0.7 10^3/uL (0.5-4.7) 03/27/19 13:51 Absolute Monos (auto) 0.5 10^3/uL (0.1-1.4) 03/27/19 13:51 Absolute Eos (auto) 0.2 10^3/uL (0.0-0.6) 03/27/19 13:51 Absolute Basos (auto) 0.0 10^3/uL (0.0-0.2) 03/27/19 13:51 Seg Neutrophils % 78.1 % (42-78) H 03/27/19 13:51 Carbonic Acid 2.40 mmol/L (1.05-1.35) H 03/21/19 23:13 HCO3/H2CO3 Ratio 18:1 03/21/19 23:13 ABG pH 7.35 (7.35-7.45) 03/21/19 23:13 ABG pCO2 79.9 mmHg (35-45) H* 03/21/19 23:13 ABG pO2 69.0 mmHg (80-100) L 03/21/19 23:13 ABG HCO3 43.5 mmol/L (20-24) H 03/21/19 23:13 ABG Total CO2 46.0 mmol/L (23-27) H 03/21/19 23:13 ABG O2 Saturation 92.1 % (94-98) L 03/21/19 23:13 ABG Base Excess 14.6 mmol/L 03/21/19 23:13 FiO2 6L 03/21/19 23:13 Sodium 141.3 mmol/L (137-145) 03/27/19 13:51 Potassium 4.7 mmol/L (3.6-5.0) 03/27/19 13:51 Chloride 92 mmol/L (98-107) L 03/27/19 13:51 Carbon Dioxide 44 mmol/L (22-30) H* 03/27/19 13:51 Anion Gap 5 (5-19) 03/27/19 13:51 BUN 14 mg/dL (7-20) 03/27/19 13:51 Creatinine 0.73 mg/dL (0.52-1.25) 03/27/19 13:51 Est GFR ( Amer) > 60 (>60) 03/27/19 13:51 Est GFR (MDRD) Non-Af > 60 (>60) 03/27/19 13:51 Glucose 122 mg/dL (75-110) H 03/27/19 13:51 Lactic Acid 1.0 mmol/L (0.7-2.1) 03/21/19 20:37 Calcium 9.1 mg/dL (8.4-10.2) 03/27/19 13:51 Total Bilirubin 0.3 mg/dL (0.2-1.3) 03/21/19 20:37 Direct Bilirubin 0.2 mg/dL (0.0-0.4) 03/21/19 20:37 Neonat Total Bilirubin Not Reportable 03/21/19 20:37 Neonat Direct Bilirubin Not Reportable 03/21/19 20:37 Neonat Indirect Bili Not Reportable 03/21/19 20:37 AST 33 U/L (17-59) 03/21/19 20:37 ALT 30 U/L (<50) 03/21/19 20:37 Alkaline Phosphatase 65 U/L (38-126) 03/21/19 20:37 Total Protein 7.4 g/dL (6.3-8.2) 03/21/19 20:37 Albumin 4.1 g/dL (3.5-5.0) 03/21/19 20:37 TSH 2.34 uIU/mL (0.47-4.68) 03/21/19 20:37 Impressions: Chest X-Ray 03/21/19 20:44 IMPRESSION: 1. Cardiomegaly. 2. Stable aeration. copyright 2011 [employer]- All Rights Reserved Soft Tissue Neck X-Ray 03/22/19 00:00 IMPRESSION: Limited study due to portable technique. Chest X-Ray 03/24/19 00:00 IMPRESSION: Morbidly obese patient with portable film. Left basilar consolidation could not be excluded Chest X-Ray 03/27/19 00:00 IMPRESSION: Pulmonary vascular congestion and cardiomegaly. Bibasilar atelectasis. Tracheostomy tube in good positioning Stroke Is this a Stroke Patient?: No Acute Heart Failure - Is this a Heart Failure Patient?: No
== END 2019-03-29 14:00 | disposition home health service (06) | DRG 189 ==
LOC: ER 20:22 → EH 23:25 → 4S 03-22 01:13
PROVIDERS: ADMIT Internal Medicine; ATTEND Internal Medicine
PROC: 3E0234Z Introduction of Serum, Toxoid and Vaccine into Muscle, Percutaneous Approach (ICD-10-PCS; principal; 2019-03-29)
DX: J96.22 Acute and chronic respiratory failure with hypercapnia (principal); J18.9 Pneumonia, unspecified organism; J44.1 Chronic obstructive pulmonary disease with (acute) exacerbation; E66.2 Morbid (severe) obesity with alveolar hypoventilation; Z68.45 Body mass index [BMI] 70 or greater, adult; J20.9 Acute bronchitis, unspecified; J96.21 Acute and chronic respiratory failure with hypoxia; B37.9 Candidiasis, unspecified; I10 Essential (primary) hypertension; F41.8 Other specified anxiety disorders; Z99.81 Dependence on supplemental oxygen; Z23 Encounter for immunization; Z79.899 Other long term (current) drug therapy; Z93.0 Tracheostomy status
CPT/HCPCS: 36415; 70360; 71045; 71046; 80048; 80053; 82803; 83605; 84443; 85025; 87040; 87070; 87077; 87186; 87205; 90686; 94640; 94667; 94668; 96365; 96375; 99285; J0713; J0743; J0744; J1644; J2543; J2930; J3490; J7050; J7060; J7620; L8504

== ENCOUNTER 2019-08-06 14:35 | Emergency (ER) | payer MEDICARE, MEDICAID ==
--- NOTE | 2019-08-06 16:44 | RADIOLOGY REPORT (SQ) ---
EXAM DESCRIPTION: CHEST 2 VIEWS COMPLETED DATE/TIME: 08/06/2019 4:13 pm REASON FOR STUDY: congestion COMPARISON: 03/27/2019 EXAM PARAMETERS: NUMBER OF VIEWS: two views TECHNIQUE: Digital Frontal and Lateral radiographic views of the chest acquired. RADIATION DOSE: NA LIMITATIONS: none FINDINGS: LUNGS AND PLEURA: Elevated right hemidiaphragm. Cannot exclude mild pulmonary edema. MEDIASTINUM AND HILAR STRUCTURES: No masses or contour abnormalities. HEART AND VASCULAR STRUCTURES: Cardiomegaly. BONES: No acute findings. HARDWARE: Tracheostomy tube remains in place. OTHER: No other significant finding. IMPRESSION: Cardiomegaly. Cannot exclude mild pulmonary edema. TECHNICAL DOCUMENTATION: JOB ID: [id number] 2010 [employer]- All Rights Reserved Reading location - IP/workstation name: [email or web address]
--- NOTE | 2019-08-06 17:01 | ER Document Report ---
ED General - General TRAVEL OUTSIDE OF THE [place]. IN LAST 30 DAYS: No <ODALIS FELDMAN - Last Filed: 08/06/19 20:52> <CHILO MAXWELL - Last Filed: 08/06/19 23:31> - General Chief Complaint: Congestion Stated Complaint: WEAKNESS Time Seen by Provider: 08/06/19 16:51 Primary Care Provider: MARIALUISA BRONSON DO [Primary Care Provider] - Follow up as needed - HPI Notes: 29-year-old male with history of massive obesity, chronic respiratory failure due to hypoventilation from obesity to the emergency department with complaints of a positive sputum culture for Pseudomonas that was done in the last 2 months and in the past week rust colored thick sputum that is been suctioned out of his trach. He states that he uses 6 L of oxygen continuously at home. He states that he has not had any fevers or chills. He states he feels short of breath but he always feels short of breath. Denies any chest pain. He is followed by Dr. Bronson who is the physician who obtained the initial culture. He states however that his home health nurse sent him into the emergency department today when they started to get a little bit more concerned about the rust colored sputum and suction. Patient denies any tahmina gross bleeding from his trach. His trach was placed 1 year ago in [place]. He does have a molded parts inspector and that is Dr. Trevino. (ODALIS FELDMAN) - Related Data Allergies/Adverse Reactions: No Known Allergies Allergy (Verified 10/02/18 16:09) Past Medical History - Social History Smoking Status: Former Smoker Chew tobacco use (# tins/day): No Frequency of alcohol use: Rare Drug Abuse: None Family History: DM, Hypertension Patient has suicidal ideation: No Patient has homicidal ideation: No - Past Medical History Cardiac Medical History: Reports: Hx Hypertension Pulmonary Medical History: Reports: Hx Asthma, Hx COPD, Hx Respiratory Failure, Hx Sleep Apnea Renal/ Medical History: Denies: Hx Peritoneal Dialysis GI Medical History: Denies: Hx Crohn's Disease, Hx Ulcerative Colitis Psychiatric Medical History: Reports: Hx Anxiety, Hx Depression Past Surgical History: Reports: Other - History of tracheostomy - Immunizations Hx Diphtheria, Pertussis, Tetanus Vaccination: Yes <ODALIS FELDMAN - Last Filed: 08/06/19 20:52> Physical Exam - General General appearance: Appears well, Alert - HEENT Head: Normocephalic Ears: Normal External canal: Normal Tympanic membrane: Normal Sinus: Normal Nasal: Normal Mouth/Lips: Normal. No: Angioedema Pharynx: Normal. No: Potential airway comprom. Neck: Other - there is a trach to the anterior neck. It appears clean and not erythematous to the site or warm. There is no active drainage from the trach - Respiratory Respiratory status: No respiratory distress Chest status: Nontender Breath sounds: No: Rales, Rhonchi, Wheezing Chest palpation: Normal - Cardiovascular Rhythm: Regular Heart sounds: Normal auscultation Murmur: No - Abdominal Inspection: Normal Distension: No distension Bowel sounds: Normal Tenderness: Nontender. No: Tender, McBurney's point, Khoury's sign, Guarding, Rebound Organomegaly: No organomegaly - Psychological Associated symptoms: Normal affect, Normal mood - Skin Skin Temperature: Warm Skin Moisture: Dry Skin Color: Normal <ODALIS FELDMAN - Last Filed: 08/06/19 20:52> - Vital signs Vitals: Temp Resp BP Pulse Ox 99.0 F 21 H 106/54 L 93 08/06/19 15:00 08/06/19 15:00 08/06/19 15:00 08/06/19 15:00 - General Notes: massively obese (ODALIS FELDMAN) - Cardiovascular Notes: no leg edema (ODALIS FELDMAN) Course - Laboratory Result Diagrams: 08/06/19 17:50 08/06/19 17:50 - Diagnostic Test Radiology reviewed: Image reviewed, Reports reviewed <ODALIS FELDMAN - Last Filed: 08/06/19 20:52> - Laboratory Result Diagrams: 08/06/19 17:50 08/06/19 17:50 <CHILO MAXWELL - Last Filed: 08/06/19 23:31> - Re-evaluation Re-evalutation: 08/06/19 17:18 I discussed the patient with Dr. burch -- we will get RT to do a deep sucture for sputum culture. Then we will obtain basic labs and test sputum for blood. Once labs are obtained, will call patient's lung specialist to discuss patient. Patient has positive blood testing from his trach site. Discussed further with Dr. Burch. She would like for me to speak with pulmonology about the patient. I tried the patient's molded parts inspector Dr. Reeder but he does not have after hours on-call. I will attempt to talk with [facility] pulmonology about the patient. Updated the patient about the plan and he agrees. 08/06/19 20:[address] Laboy, Pulm MICU attending on at [facility]. He agrees that the patient needs further evaluation of his blood streaked sputum. He is aware that our CT scannner only will take up to 500 lbs. Patient weights 543 lbs. [facility] has a weight limit of 650 lbs. He would like to get bilateral Doppler on the legs and obtain a D Dimer. Dr. Laboy states if clots in the legs or Dimer is elevated, he will need to come to [facility] for further evaluation for possible PE. If these are negative though, Dr. Laboy could consider allowing the patient to stay here. We discussed starting Heparin but Dr. Laboy would prefer to start that at [facility] if needed. I rounded with the patient about the plan and he agrees. I also rounded on this patient with TRAIN ANNOUNCER Alissa, who will assume his care this evening as my shift is coming to an end. SULEMAN Maxwell is to call [facility] back once results are available. (ODALIS FELDMAN) 08/06/19 22:18 D-dimer negative, venous doppler to bilateral lower extremities unofficially negative per doppler tech. 08/06/19 22:22 Call placed to [facility] to speak with Dr. Laboy, awaiting callback. 08/06/19 22:[address] Laboy, he does not believe patient needs to be transferred. Spoke with hospitalist, Lon Lewis, discussed patient's case. He does not feel patient needs to be admitted to the hospital. Patient will be discharged home, he will follow-up with Dr. Reeder, he will call Dr. Reeder office tomorrow. (CHILO MAXWELL) - Vital Signs Vital signs: Temp Pulse Resp BP Pulse Ox 98.3 F 14 100/60 95 08/06/19 19:00 02/12/20 21:00 08/06/19 16:01 08/06/19 21:00 - Laboratory Laboratory results interpreted by me: 08/06/19 08/06/19 17:50 17:50 RBC 4.18 L Hgb 11.7 L Hct 36.9 L MCHC 31.8 L RDW 15.4 H Chloride 92 L Carbon Dioxide 41 H* Discharge <ODALIS FELDMAN - Last Filed: 08/06/19 20:52> <CHILO MAXWELL - Last Filed: 08/06/19 23:31> - Discharge Clinical Impression: Hemoptysis Condition: Stable Disposition: HOME, SELF-CARE Additional Instructions: Please take antibiotics as prescribed. Call your molded parts inspector tomorrow, let him know you need to see him as you were seen in the emergency department. Return to the emergency department if you develop any worsening symptoms, develop fevers, increased hemoptysis or any other concern. We are happy to reevaluate you at any time. Prescriptions: Levofloxacin [Levaquin 750 mg Tablet] 750 mg PO DAILY #7 tablet Referrals: MARIALUISA BRONSON DO [Primary Care Provider] - Follow up as needed
[2019-08-06 18:10] LABS: ABSOLUTE EOSINOPHILS # (AUTO) 0.2 10^3/uL (0.0-0.6); ABSOLUTE LYMPHOCYTES (AUTO) 1.2 10^3/uL (0.5-4.7); ABSOLUTE MONOCYTES (AUTO) 0.5 10^3/uL (0.1-1.4); ABSOLUTE NEUT (AUTO) 5.1 10^3/uL (1.7-8.2); BASOPHILS % (AUTO) 0.5 % (0-2); EOSINOPHILS % (AUTO) 2.4 % (0-6); HEMATOCRIT 36.9 % (37.9-51.0); HEMOGLOBIN 11.7 g/dL (13.5-17.0); LYMPHOCYTES % (AUTO) 16.8 % (13-45); MEAN CORPUSCULAR HGB CONC 31.8 g/dL (32.0-36.0); MEAN CORPUSCULAR VOLUME 88 fl (80-97); MONOCYTES % (AUTO) 6.9 % (3-13); PLATELET COUNT 286 10^3/uL (150-450); RED BLOOD COUNT 4.18 10^6/uL (4.35-5.55); RED CELL DISTRIBUTION WIDTH 15.4 % (11.5-14.0); SEGMENTED NEUTROPHILS % (AUTO) 73.4 % (42-78); TOTAL CELLS COUNTED % (AUTO) 100 %; WHITE BLOOD COUNT 6.9 10^3/uL (4.0-10.5)
[2019-08-06 18:28] LABS: ALBUMIN 3.9 g/dL (3.5-5.0); ALKALINE PHOSPHATASE 77 U/L (38-126); ASPARTATE AMINO TRANSFERASE 31 U/L (17-59); BILIRUBIN,TOTAL 0.2 mg/dL (0.2-1.3); BLOOD UREA NITROGEN 19 mg/dL (7-20); CALCIUM 8.8 mg/dL (8.4-10.2); CHLORIDE 92 mmol/L (98-107); GLUCOSE 84 mg/dL (75-110); POTASSIUM 4.8 mmol/L (3.6-5.0); TOTAL PROTEIN 7.4 g/dL (6.3-8.2)
[2019-08-06 18:44] LABS: ANION GAP 5 (5-19)
[2019-08-06 18:45] LABS: CARBON DIOXIDE 41 mmol/L (22-30)
[2019-08-06 20:33] LABS: INTERNATIONAL RATION (INR) 1.04; PROTHROMBIN TIME 13.6 SEC (11.4-15.4)
[2019-08-06 20:34] LABS: PARTIAL THROMBOPLASTIN TIME 31.9 SEC (23.5-35.8)
[2019-08-06 20:45] LABS: D-DIMER < 0.27 ug/mL (0.00-0.50)
--- NOTE | 2019-08-06 22:31 | RADIOLOGY REPORT (SQ) ---
EXAM DESCRIPTION: US EXTREMITY VEINS BILATERAL COMPLETED DATE/TME: 08/06/2019 20:21 CLINICAL HISTORY: 29 years, Male, eval for DVT, bilateral COMPARISON: None. TECHNIQUE: Axial 2-D grayscale images of both lower extremities were acquired. Doppler was utilized. LIMITATIONS: Limited secondary to body habitus. FINDINGS: On the right, the visualized common femoral, femoral, popliteal, posterior tibial, peroneal, greater saphenous, and small saphenous veins demonstrate normal compressibility, phasicity, and augmentation. No reflux was identified. The distal femoral vein was not well-visualized. On the left, the visualized common femoral, femoral, popliteal, posterior tibial, greater saphenous, and small saphenous veins demonstrate normal compressibility, phasicity, and augmentation. The distal femoral vein and peroneal vein were not well visualized. Superficial soft tissues about both lower extremities reveal no suspicious abnormality. IMPRESSION: Limitations, as above. No evidence of deep or superficial venous thrombosis about the visualized portions of either lower extremity. copyright 2010 [employer]- All Rights Reserved
[2019-08-06] MEDS ORDERED: LEVOFLOXACIN 750 MG TABLET PO ONE (23:24)
[2019-08-07 00:18] VITALS: BP 106/62
--- NOTE | 2019-08-07 09:05 | EKG REPORT ---
SEVERITY:- NORMAL ECG - SINUS RHYTHM : Confirmed by: Vincent Meyer MD 07-Aug-2019 07:02:33
== END 2019-08-07 00:20 | disposition home or self-care (01) ==
LOC: ER 14:35
DX: R04.2 Hemoptysis (principal); R68.89 Other general symptoms and signs; J96.10 Chronic respiratory failure, unspecified whether with hypoxia or hypercapnia; E66.9 Obesity, unspecified; I10 Essential (primary) hypertension; J44.9 Chronic obstructive pulmonary disease, unspecified; Z93.0 Tracheostomy status; Z99.81 Dependence on supplemental oxygen
CPT/HCPCS: 36415; 71046; 80053; 85025; 85379; 85610; 85730; 87040; 87070; 87077; 87186; 87205; 93005; 93010; 93970; 99285

== ENCOUNTER 2019-12-16 19:30 | Emergency (ER) | payer MEDICARE, MEDICAID ==
[2019-12-16 20:40] LABS: ABSOLUTE EOSINOPHILS # (AUTO) 0.2 10^3/uL (0.0-0.6); ABSOLUTE LYMPHOCYTES (AUTO) 1.2 10^3/uL (0.5-4.7); ABSOLUTE MONOCYTES (AUTO) 0.6 10^3/uL (0.1-1.4); ABSOLUTE NEUT (AUTO) 7.4 10^3/uL (1.7-8.2); BASOPHILS % (AUTO) 0.4 % (0-2); EOSINOPHILS % (AUTO) 1.9 % (0-6); HEMATOCRIT 35.1 % (37.9-51.0); HEMOGLOBIN 11.2 g/dL (13.5-17.0); LYMPHOCYTES % (AUTO) 12.3 % (13-45); MEAN CORPUSCULAR HEMOGLOBIN 27.9 pg (27.0-33.4); MEAN CORPUSCULAR HGB CONC 31.8 g/dL (32.0-36.0); MEAN CORPUSCULAR VOLUME 88 fl (80-97); MONOCYTES % (AUTO) 6.4 % (3-13); PLATELET COUNT 293 10^3/uL (150-450); RED BLOOD COUNT 4.01 10^6/uL (4.35-5.55); RED CELL DISTRIBUTION WIDTH 16.4 % (11.5-14.0); TOTAL CELLS COUNTED % (AUTO) 100 %; WHITE BLOOD COUNT 9.4 10^3/uL (4.0-10.5)
--- NOTE | 2019-12-16 20:50 | ER Document Report ---
ED GI/ - General Chief Complaint: Abdominal Pain Stated Complaint: ABDOMINAL PAIN Time Seen by Provider: 12/16/19 20:17 Primary Care Provider: MARIALUISA HANSEN DO [Primary Care Provider] - Follow up as needed Mode of Arrival: Ambulatory Information source: Patient Notes: 29-year-old male presented with complaint of pain to his umbilical area. He states he thinks he had either a mass or a hernia or an abscess. He states it is at a pain 2 out of 5 whenever he moves but it is not a constant pain. He states is been going on for about 3 days. He states every time he moves it hurts. He denies any nausea vomiting diarrhea or any fevers. Patient has an established trach due to respiratory failure. He has had his trach for about 2 years. He is alert oriented respirations regular nonlabored speaking in full sentences. Have spoken with xander Poe and the ultrasound both of which said they probably not to be see much on ultrasound. I have also talked with Dr. mcmanus the surgeon and he stated that he will come and look at the patient and tell him if there is anything that surgery needs to address. TRAVEL OUTSIDE OF THE [place] IN LAST 30 DAYS: No - HPI Patient complains to provider of: Abdominal pain Onset: Other - 3 days Timing/Duration: Persistent Quality of pain: Sharp Severity at maximum: Moderate Severity in ED: Moderate Pain Level: 3 Location: Other - Like us Associated symptoms: None Exacerbated by: Denies, Movement Relieved by: Denies, Supine Similar symptoms previously: Yes Recently seen / treated by doctor: Yes - Related Data Allergies/Adverse Reactions: egg Allergy (Verified 12/16/19 21:08) Past Medical History - General Information source: Patient - Social History Smoking Status: Never Smoker Frequency of alcohol use: None Drug Abuse: None Lives with: Family Family History: DM, Hypertension Patient has homicidal ideation: No - Past Medical History Cardiac Medical History: Reports: Hx Hypertension Pulmonary Medical History: Reports: Hx Asthma, Hx COPD, Hx Respiratory Failure, Hx Sleep Apnea EENT Medical History: Reports: None Neurological Medical History: Reports: None Endocrine Medical History: Reports: None Renal/ Medical History: Reports: None Malignancy Medical History: Reports None GI Medical History: Reports: None Musculoskeletal Medical History: Reports None Skin Medical History: Reports None Psychiatric Medical History: Reports: Hx Anxiety, Hx Depression Traumatic Medical History: Reports: None Infectious Medical History: Reports: None Past Surgical History: Reports: Other - History of tracheostomy - Immunizations Hx Diphtheria, Pertussis, Tetanus Vaccination: Yes Review of Systems - Review of Systems Constitutional: No symptoms reported EENT: No symptoms reported Cardiovascular: No symptoms reported Respiratory: No symptoms reported Gastrointestinal: Other - Pain at umbilicus Genitourinary: No symptoms reported Male Genitourinary: No symptoms reported Musculoskeletal: No symptoms reported Skin: No symptoms reported Hematologic/Lymphatic: No symptoms reported Neurological/Psychological: No symptoms reported -: Yes All other systems reviewed and negative Physical Exam - Vital signs Vitals: Resp Pulse Ox 25 H 93 12/16/19 19:45 12/16/19 19:45 Interpretation: Normal - General General appearance: Appears well, Alert - HEENT Head: Normocephalic, Atraumatic Eyes: Normal Pupils: PERRL - Respiratory Respiratory status: No respiratory distress Chest status: Nontender Breath sounds: Normal Chest palpation: Normal - Cardiovascular Rhythm: Regular Heart sounds: Normal auscultation Murmur: No - Abdominal Inspection: Normal Distension: No distension Bowel sounds: Normal Tenderness: Nontender, Tender - Umbilicus Organomegaly: Mass - Umbilicus - Back Back: Normal, Nontender - Extremities General upper extremity: Normal inspection, Nontender, Normal color, Normal ROM, Normal temperature General lower extremity: Normal inspection, Nontender, Normal color, Normal ROM, Normal temperature, Normal weight bearing. No: Erica's sign - Neurological Neuro grossly intact: Yes Cognition: Normal Orientation: AAOx4 [place] Coma Scale Eye Opening: Spontaneous Tony Coma Scale Verbal: Oriented Tony Coma Scale Motor: Obeys Commands Tony Coma Scale Total: 15 Speech: Normal Motor strength normal: LUE, RUE, LLE, RLE Sensory: Normal - Psychological Associated symptoms: Normal affect, Normal mood - Skin Skin Temperature: Warm Skin Moisture: Dry Skin Color: Normal Course - Re-evaluation Re-evalutation: 12/17/19 04:35 Discussed ultrasound results with patient. I also discussed his size and assessment with Dr. mcmanus. He did come and examine the patient. He states that it is a umbilical hernia and due to his body habitus there is no way he will be able to have surgery for this umbilical hernia. He states it is not incarcerated. The ultrasound also showed that it was an umbilical hernia and not incarcerated. Patient has been given instructions to follow-up with his primary care doctor. Patient verbalized understanding and agreement treatment plan patient was discharged home. - Vital Signs Vital signs: Temp Pulse Resp BP Pulse Ox 98.5 F 19 133/64 H 99 12/16/19 20:09 12/16/19 22:00 12/16/19 21:01 12/16/19 21:01 - Laboratory Result Diagrams: 12/16/19 20:00 12/16/19 21:38 Laboratory results interpreted by me: 12/16/19 12/16/19 12/16/19 20:00 20:54 21:38 RBC 4.01 L Hgb 11.2 L Hct 35.1 L MCHC 31.8 L RDW 16.4 H Lymph % (Auto) 12.3 L Seg Neutrophils % 79.0 H Sodium 136.4 L Chloride 90 L Carbon Dioxide 43 H* Anion Gap 3 L BUN 23 H Glucose 114 H Urine Ascorbic Acid 40 H - Diagnostic Test Radiology reviewed: Image reviewed, Reports reviewed Discharge - Discharge Clinical Impression: Umbilical hernia Qualifiers: Obstruction and gangrene presence: without obstruction or gangrene Qualified C ode(s): K42.9 - Umbilical hernia without obstruction or gangrene Disposition: HOME, SELF-CARE Additional Instructions: Umbilical Hernia There is a hernia in the belly-button area, called an umbilical hernia. There's a weak spot in the abdominal wall where the umbilical cord was attached. Sometimes this weak spot opens up, and bowel slips out of the abdominal cavity, creating a bulge under the skin at the naval. In infants, a small umbilical hernia may seal off by itself. Adults usually need surgery to repair the hernia. It's important that you follow up as recommended. For now, avoid straining, heavy lifting, and vigorous exercise. If the hernia has just appeared and the naval area is painful, apply ice packs to reduce swelling. Complications occur if bowel gets tightly stuck in the hernia. You should c ome back immediately if the area becomes increasingly painful, swollen, or discolored, or if you develop abdominal pain and vomiting. If you would find a large abdominal binder for your hernia it may decrease the discomfort and slow down the growth of your hernia. Please follow-up with general surgery and primary care for further instructions with your hernia. You stated you are trying to lose weight so that you can have this repaired. Consult with general surgery how much you would have to lose before you could have your hernia addressed. Acetaminophen Acetaminophen may be taken for pain relief or fever control. It's much safer than aspirin, offering a wider range of "safe" dosages. It is safe during . Some brand names are Tylenol, Panadol, Datril, Anacin 3, Tempra, and Liquiprin. Acetaminophen can be repeated every four hours. The following are maximum recommended dosages: WEIGHT Dose Drops Elixir Chewable(80mg) (LBS.) drprs=droppers tsp=teaspoon 6 40 mg .4 ml (1/2) 6-11 80 mg .8 ml (full) 1/2 tsp 1 tab 12-16 120 mg 1 1/2 drprs 3/4 tsp 1 1/2 tabs 17-23 160 mg 2 drprs 1 tsp 2 tabs 24-30 240 mg 3 drprs 1 1/2 tsp 3 tabs 30-35 320 mg 2 tsp 4 tabs 36-41 360 mg 2 1/4 tsp 4 1/2 tabs 42-47 400 mg 2 1/2 tsp 5 tabs 48-53 480 mg 3 tsp 6 tabs 54-59 520 mg 3 1/4 tsp 6 1/2 tabs 60-64 560 mg 3 1/2 tsp 7 tabs 65-70 600 mg 3 3/4 tsp 7 1/2 tabs 71-76 640 mg 4 tsp 8 tabs 77-82 720 mg 4 1/2 tsp 9 tabs 83-88 800 mg 5 tsp 10 tabs >89 pounds or adults 650 mg to 900 mg Acetaminophen can be repeated every four hours. Maximum daily dose not to exceed 4000 mg. These maximum recommended dosages are slightly higher than the dosages written on the product container, but these dosages are very safe and well below the toxic dosage for acetaminophen. FOLLOW-UP CARE: If you have been referred to a physician for follow-up care, call the physicians office for an appointment as you were instructed or within the next two days. If you experience worsening or a significant change in your symptoms, notify the physician immediately or return to the Emergency Department at any time for re-evaluation. Forms: Elevated Blood Pressure Referrals: MARIALUISA HANSEN, [Primary Care Provider] - Follow up as needed
[2019-12-16 21:07] LABS: APPEARANCE,URINE CLEAR; BILIRUBIN,URINE NEGATIVE (NEGATIVE); COLOR,URINE YELLOW; GLUCOSE, URINE NEGATIVE (NEGATIVE); KETONES,URINE NEGATIVE (NEGATIVE); LEUKOCYTE ESTERASE,URINE NEGATIVE (NEGATIVE); NITRITE,URINE NEGATIVE (NEGATIVE); PROTEIN,URINE NEGATIVE (NEGATIVE); URINE SPECIFIC GRAVITY 1.016; UROBILINOGEN,URINE NEGATIVE mg/dL (<2.0)
--- NOTE | 2019-12-16 21:30 | RADIOLOGY REPORT (SQ) ---
EXAM DESCRIPTION: US ABDOMEN LIMITED COMPLETED DATE/TME: 12/16/2019 20:39 CLINICAL HISTORY: 29 years, Male, mass,hernia around umbilicus Findings: Focused ultrasonography of the mid abdomen is performed. There is a 7.1 x 3.9 x 4.0 cm heterogeneous echogenic region posterior to the umbilicus with no motion. This may represent a fat-containing umbilical hernia. IMPRESSION: Probable fat-containing umbilical hernia. Follow-up CT abdomen can be performed for complete evaluation.
[2019-12-16 22:21] LABS: ALBUMIN 3.9 g/dL (3.5-5.0); ALKALINE PHOSPHATASE 70 U/L (38-126); ASPARTATE AMINO TRANSFERASE 23 U/L (17-59); BILIRUBIN,TOTAL 0.3 mg/dL (0.2-1.3); BLOOD UREA NITROGEN 23 mg/dL (7-20); CALCIUM 8.6 mg/dL (8.4-10.2); CHLORIDE 90 mmol/L (98-107); GLUCOSE 114 mg/dL (75-110); POTASSIUM 4.7 mmol/L (3.6-5.0); TOTAL PROTEIN 7.4 g/dL (6.3-8.2)
[2019-12-16 22:47] LABS: ANION GAP 3 (5-19); CARBON DIOXIDE 43 mmol/L (22-30)
[2019-12-16 23:23] VITALS: BP 133/64
== END 2019-12-16 23:45 | disposition home or self-care (01) ==
LOC: ER 19:30
DX: K42.9 Umbilical hernia without obstruction or gangrene (principal); R10.33 Periumbilical pain; I10 Essential (primary) hypertension; J44.9 Chronic obstructive pulmonary disease, unspecified; J96.90 Respiratory failure, unspecified, unspecified whether with hypoxia or hypercapnia; Z93.0 Tracheostomy status; Z91.012 Allergy to eggs
CPT/HCPCS: 36415; 76705; 80053; 81001; 83690; 85025; 99284

== ENCOUNTER 2020-01-30 15:43 | Inpatient (IN) | payer MEDICARE, MEDICAID ==
[2020-01-30] MEDS ORDERED: ALBUTEROL SULFATE 0.083% NEB 2.5 MG/3 ML AMPUL NEB ONE ×3 (15:59→20:40)
[2020-01-30] MEDS ORDERED: NORMAL SALINE 250 ML IV ONE (16:06)
[2020-01-30] MEDS ORDERED: CEFEPIME 2 GM/D5W RTU 2 GM/50 ML RTUPB IV ONE (16:10)
[2020-01-30] MEDS: MAGNESIUM SULFATE/D5W 1 GM/100 ML RTUPB IV SCH ×2 (16:23→16:37)
[2020-01-30 16:37] LABS: INTERNATIONAL RATION (INR) 1.02; PROTHROMBIN TIME 13.6 SEC (11.4-15.4)
[2020-01-30] MEDS ORDERED: METHYLPREDNISOLONE INJ 125 MG/2 ML SDV IV ONE (16:48)
[2020-01-30 16:49] LABS: HEMOGLOBIN 10.7 g/dL (13.5-17.0); MEAN CORPUSCULAR HEMOGLOBIN 27.3 pg (27.0-33.4); MEAN CORPUSCULAR HGB CONC 30.6 g/dL (32.0-36.0); MEAN CORPUSCULAR VOLUME 89 fl (80-97); PLATELET COUNT 274 10^3/uL (150-450); RED BLOOD COUNT 3.93 10^6/uL (4.35-5.55); RED CELL DISTRIBUTION WIDTH 16.7 % (11.5-14.0); WHITE BLOOD COUNT 8.9 10^3/uL (4.0-10.5)
[2020-01-30 16:51] LABS: ALBUMIN 3.8 g/dL (3.5-5.0); ALKALINE PHOSPHATASE 72 U/L (38-126); ASPARTATE AMINO TRANSFERASE 26 U/L (17-59); BILIRUBIN,TOTAL 0.4 mg/dL (0.2-1.3); BLOOD UREA NITROGEN 21 mg/dL (7-20); CALCIUM 8.6 mg/dL (8.4-10.2); CHLORIDE 89 mmol/L (98-107); GLUCOSE 125 mg/dL (75-110); POTASSIUM 4.7 mmol/L (3.6-5.0); TOTAL PROTEIN 7.6 g/dL (6.3-8.2)
[2020-01-30 17:03] LABS: ANION GAP 2 (5-19)
--- NOTE | 2020-01-30 17:03 | RADIOLOGY REPORT (SQ) ---
EXAM DESCRIPTION: CHEST SINGLE VIEW IMAGES COMPLETED DATE/TIME: 01/30/2020 4:31 pm REASON FOR STUDY: sobr COMPARISON: 08/06/2019 EXAM PARAMETERS: NUMBER OF VIEWS: One view. TECHNIQUE: Single frontal radiographic view of the chest acquired. RADIATION DOSE: NA LIMITATIONS: None. FINDINGS: LUNGS AND PLEURA: Low lung volumes. No infiltrate, effusion, or mass. MEDIASTINUM AND HILAR STRUCTURES: No masses. Contour normal. HEART AND VASCULAR STRUCTURES: Cardiomegaly. No pulmonary edema. BONES: No acute findings. HARDWARE: Tracheostomy tube. OTHER: No other significant finding. IMPRESSION: Cardiomegaly without pulmonary edema. TECHNICAL DOCUMENTATION: JOB ID: [id number] 2010 [employer]- All Rights Reserved Reading location - IP/workstation name: [email or web address]
[2020-01-30 17:04] LABS: CARBON DIOXIDE 49 mmol/L (22-30)
[2020-01-30 17:07] LABS: ABSOLUTE LYMPHOCYTES# (MANUAL) 0.9 10^3/uL (0.5-4.7); ABSOLUTE MONOCYTES # (MANUAL) 0.5 10^3/uL (0.1-1.4); BASOPHILS % (MANUAL) 0 % (0-2); EOSINOPHILS % (MANUAL) 2 % (0-6); LYMPHOCYTES % (MANUAL) 10 % (13-45); MONOCYTES % (MANUAL) 6 % (3-13); SEGMENTED NEUTROPHILS % (MAN) 82 % (42-78); TOTAL CELLS COUNTED 100
[2020-01-30 17:12] LABS: POLYCHROMASIA SLIGHT
[2020-01-30 17:13] LABS: POIKILOCYTOSIS 2+; STOMATOCYTES 2+
[2020-01-30 17:15] LABS: PLATELET COMMENT ADEQUATE; PLATELET LARGE PRESENT
[2020-01-30 20:10] LABS: ARTERIAL BLOOD BASE EXCESS 24.1 mmol/L; ARTERIAL BLOOD FIO2 10L; ARTERIAL BLOOD H2CO3 5.07 mmol/L (1.05-1.35); ARTERIAL BLOOD HCO3 59.5 mmol/L (20-24); ARTERIAL BLOOD O2 SATURATION 87.1 % (94-98); ARTERIAL BLOOD PO2 72.8 mmHg (80-100); ARTERIAL BLOOD TOTAL CO2 64.7 mmol/L (23-27)
[2020-01-30 20:11] LABS: ARTERIAL BLOOD PH 7.17 (7.35-7.45)
[2020-01-30 20:12] LABS: ARTERIAL BLOOD PCO2 168.4 mmHg (35-45)
[2020-01-30] MEDS ORDERED: LORAZEPAM INJ 2 MG/1 ML VIAL IV ONE (20:49)
[2020-01-30] MEDS ORDERED: ACETYLCYSTEINE 20% SOLN 800 MG/4 ML VIAL.NEB NEB ONE (20:53)
--- NOTE | 2020-01-30 22:15 | ER Document Report ---
Entered by ARA PRO SCRIBE 01/30/20 [id number] Acting as scribe for:KOSTA ALFORD MD ED Respiratory Problem - General Stated Complaint: SHORTNESS OF BREATH Primary Care Provider: MARIALUISA HANSEN DO [Primary Care Provider] - Follow up as needed Information source: Patient Notes: This 30 year old male patient s/p tracheostomy presents to the emergency department today with complaints of shortness of breath. Patient states he has tried to deep suction himself as he feels like there is thick mucus clogging his trach but he has been unable to clear his trach properly. Patient states it has been getting progressively worse for the last four days. TRAVEL OUTSIDE OF THE [place] IN LAST 30 DAYS: No - Related Data Allergies/Adverse Reactions: egg Allergy (Verified 12/16/19 21:08) Past Medical History - General Information source: Patient - Social History Smoking Status: Never Smoker Cigarette use (# per day): No Frequency of alcohol use: None Drug Abuse: None Lives with: Family Family History: Reviewed & Not Pertinent, DM, Hypertension - Past Medical History Cardiac Medical History: Reports: Hx Hypertension Pulmonary Medical History: Reports: Hx Asthma, Hx COPD, Hx Respiratory Failure, Hx Sleep Apnea Psychiatric Medical History: Reports: Hx Anxiety, Hx Depression Past Surgical History: Reports: Other - History of tracheostomy - Immunizations Hx Diphtheria, Pertussis, Tetanus Vaccination: Yes Review of Systems - Review of Systems Constitutional: No symptoms reported EENT: No symptoms reported Cardiovascular: No symptoms reported Respiratory: See HPI, Short of breath Gastrointestinal: No symptoms reported Genitourinary: No symptoms reported Male Genitourinary: No symptoms reported Musculoskeletal: No symptoms reported Skin: No symptoms reported Hematologic/Lymphatic: No symptoms reported Neurological/Psychological: No symptoms reported -: Yes All other systems reviewed and negative Physical Exam - Vital signs Vitals: Resp Pulse Ox 16 73 L 01/30/20 15:52 01/30/20 15:52 - Notes Notes: Physical Exam: General: Alert, appears short of breath. HEENT: Normocephalic. Atraumatic. PERRL. Extraocular movements intact. Oropharynx clear. Trach in place. Neck: Supple. Non-tender. Respiratory: Moderate respiratory distress. Diminished throughout with rhonchi. Cardiovascular: Regular rate and rhythm. Abdominal: Morbidly obese. Non-tender. No distension. Normal Bowel Sounds. Back: No gross abnormalities. Extremities: Moves all four extremities. Upper extremities: Normal inspection. Normal ROM. Lower extremities: Normal inspection. No edema. Normal ROM. Neurological: Normal cognition. AAOx4. Normal speech. Psychological: Normal affect. Normal Mood. Skin: Warm. Dry. Normal color. Course - Re-evaluation Re-evalutation: 01/30/20 21:40 Patient presented in respiratory distress with increased mucus production coming from his trach and shortness of breath. Denies any fever chills or chest pain. 01/30/20 21:41 Patient was stabilized with nebulized treatments IV Solu-Medrol and IV magnesium and IV fluids and tracheal suctioning. Once stabilized patient was resting comfortably for about an hour or more and then ABG was done showing a pH of 7.17 and a PCO2 of 168 with O2 sat of 87% at that point time we immediately ordered BiPAP along with another breathing treatment of albuterol with Mucomyst to start a decrease on the mucus ordered loosen secretions to through the trach. Better suction 01/30/20 22:13 Patient had his tracheostomy exchanged to a cuffed trach Shiley length of 5. Trach was exchanged without complications. Patient placed on ventilator settings of pressure support of the rate of 12 PEEP of 15 and 100% O2. Patient tolerated procedure well other suctionings were done when patient seems to be exchanging gas and volume much better at this time. - Vital Signs Vital signs: Temp Pulse Resp BP Pulse Ox 98.0 F 24 H 123/80 90 L 01/30/20 16:54 01/30/20 21:21 01/30/20 21:21 01/30/20 21:21 Vital signs see documentation sats are 90% with a blood pressure 123/80 and respiratory rate 24. Patient has improved while on BiPAP and Mucomyst albuterol nebulizer treatment. - Laboratory Result Diagrams: 01/30/20 16:07 01/30/20 16:07 Laboratory results interpreted by me: 01/30/20 01/30/20 01/30/20 16:07 16:07 16:07 RBC 3.93 L Hgb 10.7 L Hct 35.0 L MCHC 30.6 L RDW 16.7 H Seg Neuts % (Manual) 82 H Lymphocytes % (Manual) 10 L Carbonic Acid ABG pH ABG pCO2 ABG pO2 ABG HCO3 ABG Total CO2 ABG O2 Saturation Chloride 89 L Carbon Dioxide 49 H* Anion Gap 2 L BUN 21 H Glucose 125 H NT-Pro-B Natriuret Pep 141 H 01/30/20 19:23 RBC Hgb Hct MCHC RDW Seg Neuts % (Manual) Lymphocytes % (Manual) Carbonic Acid 5.07 H ABG pH 7.17 L* ABG pCO2 168.4 H* ABG pO2 72.8 L ABG HCO3 59.5 H ABG Total CO2 64.7 H ABG O2 Saturation 87.1 L Chloride Carbon Dioxide Anion Gap BUN Glucose NT-Pro-B Natriuret Pep Patient has a respiratory failure with increased PCO2 white blood cell count is normal not showing any shift otherwise labs are within limits except for the carbon dioxide of 49 which is a chronic respiratory alkalosis - Diagnostic Test Radiology reviewed: Image reviewed, Reports reviewed Radiology results interpreted by me: 01/30/20 21:46 Chest x-ray does not disclose an infiltrate patient has cardiomegaly without signs of congestive heart failure - EKG Interpretation by Me Additional EKG results interpreted by me: 01/30/20 21:48 Twelve-lead EKG shows normal sinus rhythm and rate with borderline Q waves in the inferior leads otherwise no acute ST-T wave changes. Critical Care Note - Critical Care Note Total time excluding time spent on procedures (mins): 90 - Patient is inpatient and respiratory failure due to exacerbation of COPD. Patient morbidly obese and has chronic CO2 retention with a trach present. Patient has increased mucus production over several days to the point where he had his tracheostomy tube somewhat plugged up with tenacious mucus multiple suction and was done along with airflow moist airflow albuterol treatments. Patient's exacerbation req uired further management placing patient on BiPAP along with some sedation to allow him to participate with the BiPAP machine. Discussed case with cracking machine operator and plan to admit patient to the ICU. Currently way exchanging out trach tubes as well for better air exchange. Discharge - Discharge Clinical Impression: COPD exacerbation, Acute on chronic respiratory failure with hypoxia and hypercapnia, Morbid obesity Condition: Critical Disposition: ADMITTED INPATIENT Admitting Provider: Kartik (Entry Level Software Engineer) Unit Admitted: ICU Referrals: MARIALUISA HANSEN DO [Primary Care Provider] - Follow up as needed I personally performed the services described in the documentation, reviewed and edited the documentation which was dictated to the scribe in my presence, and it accurately records my words and actions.
[2020-01-30 23:31] LABS: ARTERIAL BLOOD BASE EXCESS 19.8 mmol/L; ARTERIAL BLOOD H2CO3 4.39 mmol/L (1.05-1.35); ARTERIAL BLOOD HCO3 53.9 mmol/L (20-24); ARTERIAL BLOOD O2 SATURATION 91.2 % (94-98); ARTERIAL BLOOD PO2 81.4 mmHg (80-100); ARTERIAL BLOOD TOTAL CO2 58.3 mmol/L (23-27)
[2020-01-30 23:32] LABS: ARTERIAL BLOOD FIO2 100%
[2020-01-30 23:33] LABS: ARTERIAL BLOOD PCO2 145.9 mmHg (35-45)
[2020-01-30 23:34] LABS: ARTERIAL BLOOD PH 7.19 (7.35-7.45)
[2020-01-30] MEDS ORDERED: LEVOFLOXACIN 750 MG/D5W RTU 750 MG/150 ML RTUPB IV ONE (23:59)
[2020-01-31] MEDS: METRONIDAZOLE 500 MG/NS RTU 500 MG/100 ML RTUPB IV SCH ×4 (00:01→18:35)
--- NOTE | 2020-01-31 00:20 | EKG REPORT ---
SEVERITY:- DEFECTIVE ECG - SINUS RHYTHM BORDERLINE INFERIOR Q WAVES : Confirmed by: Vincent Meyer MD 31-Jan-2020 00:20:20
[2020-01-31] MEDS ORDERED: RINGERS SOLUTION,LACTATED 1,000 ML IV PRN ×2 (00:39→04:57)
[2020-01-31] MEDS: HEPARIN SOD (PORCINE) 5,000 UNIT/ML 1 ML VIAL SUBCUT SCH ×4 (01:08→21:11)
--- NOTE | 2020-01-31 04:09 | CRITICAL CARE ADMISSION REPORT ---
HPI Date:: 01/31/20 Time:: 01:00 Reason for ICU Reason:: Pneumonia, respiratory failure, morbid obesity. Admission Date/Time & PCP: Admission Date/Time: 01/30/20 23:41 Primary Care Provider: MARIALUISA HANSEN DO HPI: Mr. Burnett is an unfortunate 30-year-old gentleman with severe morbid obesity leading to chronic respiratory failure status post tracheostomy and multiple ED visits and admissions for his restrictive lung disease. Patient presents after 4 days of worsening shortness of breath and increased sputum production. He was unable to adequately suction his tracheostomy tube today and activated EMS for what he felt was an obstruction. EMS replaced his tracheal tube. Upon arrival to the emergency department, patient was hypoxemic, confused and combative. He was given Ativan for sedation and placed on ventilatory support. I was asked to assess Mr. Burnett for possible admission to the intensive care u nit. Upon arrival, I found him to be with minimal exhaled tidal volume and a significant air leak from his tracheostomy tube. I emergently changed his tracheostomy tube to a cuffed XLT. He immediately began to have better ventilation and an improvement in his saturation from 85 to 88% to 92%. Despite improvement in his profound hypercarbia and subsequent respiratory acidosis, he remained acidotic after 40 minutes on the ventilator. He is mentating better and has been cooperative with my exam and conversation. We will admit Mr. Acharya to the intensive care unit for continued ventilatory parson pport and treatment of a right lower lobe pneumonia which is evident on CXR. He is being tested for COVID-19 and will be considered a rule out POI until results return. I began having discussions with Mr. Burnett regarding his chronic respiratory condition. Unfortunately, he likely lacks the muscle mass necessary to maintain adequate ventilation and as evident by this admission, has very little reserve. I will further recommend palliative care and perhaps hospice care depending on the level of intervention he will desire. History obtained from:: Medical Record - Diagnosis/Plan (1) Acute on chronic respiratory failure with hypoxia and hypercapnia Is this a current diagnosis for this admission?: Yes Plan: Patient with acute on chronic respiratory failure secondary to severe morbid o besity and restrictive lung disease superimposed by possible pneumonia. Obtain repeat ABG Adjust vent settings according to desired CO2. Wean FiO2 to maintain SPO2 88 to 95% We will begin weaning trials over the next 24 hours. Start systemic steroids and antibiotics Start duo nebs every 4 as needed (2) Morbid obesity Is this a current diagnosis for this admission?: Yes Plan: Unfortunately, patient's morbid obesity has led to chronic respiratory failure with very little reserve for complications such as pneumonia. He most likely has significant muscle wasting due to inactivity. His ability to lose weight at this point is likely severely diminished. Past Medical History Cardiac Medical History: Reports: Hypertension Pulmonary Medical History: Reports: Asthma, Chronic Obstructive Pulmonary Disease (COPD), Respiratory Failure, Sleep Apnea GI Medical History: Denies: Crohn's Disease, Ulcerative Colitis Psychiatric Medical History: Reports: Depression Past Surgical History Past Surgical History: Reports: Other - History of tracheostomy Social/Family History - Social History Social History Note: Unable to obtain information directly from the patient due to his mental status and respiratory failure. Lives with: Family Smoking Status: Never Smoker Frequency of Alcohol Use: Occasional Hx Recreational Drug Use: No Drugs: None Hx Prescription Drug Abuse: No - Medication/Allergies Home Medications: Buspirone HCl [Buspar 10 mg Tablet] 15 mg PO BID 03/12/18 Levothyroxine Sodium [Synthroid] 100 mcg PO DAILY 03/12/18 Sertraline HCl [Zoloft] 150 mg PO DAILY 03/12/18 Hydrochlorothiazide [Hydrodiuril 25 mg Tablet] 25 mg PO DAILY 03/22/19 Amlodipine Besylate [Norvasc 10 mg Tablet] 10 mg PO DAILY tablet 03/29/19 Atorvastatin Calcium [Lipitor 40 mg Tablet] 40 mg PO QHS tablet 03/29/19 Azithromycin 250 mg PO DAILY #6 tablet 03/29/19 Buspirone HCl [Buspar 10 mg Tablet] 15 mg PO BID tablet 03/29/19 Buspirone HCl [Buspar 10 mg Tablet] 25 mg PO QHS #30 tablet 03/29/19 Furosemide [Lasix 40 mg Tablet] 40 mg PO DAILY #30 03/29/19 Ipratropium/Albuterol Sulfate [Duoneb 3 ml Ampul] 3 ml NEB QCF12FC PRN vial.neb 03/29/19 Ipratropium/Albuterol Sulfate [Duoneb 3 ml Ampul] 3 ml NEB RTQ6 vial.neb 03/29/19 Levothyroxine Sodium [Synthroid 0.1 mg Tablet] 0.1 mg PO Q6AM tablet 03/29/19 Lisinopril [Prinivil 10 mg Tablet] 40 mg PO DAILY tablet 03/29/19 Methylprednisolone [Medrol Dosepack (4 mg/Tab) 21 Tab/Dosepak] 4 mg PO ASDIR PRN #21 tab.ds.pk 03/29/19 Nystatin [Mycostatin 500,000 Unit/5 ml Susp Udcup] 500,000 unit PO QID 5 Days udc 03/29/19 Nystatin [Mycostatin Topical Powder 15 gm] 1 applic TP QIDP PRN bottle 03/29/19 Sertraline HCl [Zoloft 50 mg Tablet] 150 mg PO DAILY #30 tablet 03/29/19 Levofloxacin [Levaquin 750 mg Tablet] 750 mg PO DAILY #7 tablet 08/06/19 Allergies/Adverse Reactions: egg Allergy (Verified 12/16/19 21:08) Review of Systems ROS unobtainable: Due to endotracheal tube, Due to mental status Physical Exam Vital Signs: Temp Pulse Resp BP Pulse Ox 98.5 F 21 H 117/81 92 01/31/20 01:03 01/31/20 01:00 01/31/20 00:21 01/31/20 01:00 Intake & Output 01/29/20 01/30/20 01/31/20 06:59 06:59 06:59 Intake Total 600 Balance 600 Weight 251 kg Weight/Height Weight 251 kg Height 5 ft 11 in General appearance: PRESENT: morbidly obese Respiratory exam: PRESENT: decreased breath sounds - Breath sounds are severely diminished due to body habitus., other Cardiovascular exam: PRESENT: RRR, other Pulses: PRESENT: +2 pedal pulses bilateral Vascular exam: PRESENT: normal capillary refill GI/Abdominal exam: PRESENT: other - Unable to appreciate bowel sounds due to body habitus. Extremities exam: PRESENT: +1 edema Musculoskeletal exam: PRESENT: other - Severe morbid obesity with limited ambulation. Neurological exam: PRESENT: CN II-XII grossly intact - Patient was briefly awake and alert but is unable to carry on conversation., other Psychiatric exam: PRESENT: flat affect. ABSENT: agitated Skin exam: PRESENT: normal color, warm Tubes/Lines: PRESENT: Other - Tracheostomy tube Laboratory/Radiographs Laboratory Results: 01/30/20 16:07 01/30/20 16:07 01/30/20 01/30/20 01/30/20 16:07 16:07 16:07 WBC 8.9 RBC 3.93 L Hgb 10.7 L Hct 35.0 L MCV 89 MCH 27.3 MCHC 30.6 L RDW 16.7 H Plt Count 274 Seg Neutrophils % Not Reportable Carbonic Acid HCO3/H2CO3 Ratio ABG pH ABG pCO2 ABG pO2 ABG HCO3 ABG O2 Saturation ABG Base Excess FiO2 Sodium 139.5 Potassium 4.7 Chloride 89 L Carbon Dioxide 49 H* Anion Gap 2 L BUN 21 H Creatinine 1.01 Est GFR ( Amer) > 60 Glucose 125 H Lactic Acid 1.8 Calcium 8.6 Total Bilirubin 0.4 AST 26 Alkaline Phosphatase 72 Total Protein 7.6 Albumin 3.8 01/30/20 01/30/20 19:23 23:17 WBC RBC Hgb Hct MCV MCH MCHC RDW Plt Count Seg Neutrophils % Carbonic Acid 5.07 H 4.39 H HCO3/H2CO3 Ratio 11:1 12:1 ABG pH 7.17 L* 7.19 L* ABG pCO2 168.4 H* 145.9 H* ABG pO2 72.8 L 81.4 ABG HCO3 59.5 H 53.9 H ABG O2 Saturation 87.1 L 91.2 L ABG Base Excess 24.1 19.8 FiO2 10L 100% Sodium Potassium Chloride Carbon Dioxide Anion Gap BUN Creatinine Est GFR ( Amer) Glucose Lactic Acid Calcium Total Bilirubin AST Alkaline Phosphatase Total Protein Albumin 01/30/20 16:07 NT-Pro-B Natriuret Pep 141 H Impressions: Chest X-Ray 01/30/20 16:04 IMPRESSION: Cardiomegaly without pulmonary edema. All labs, radiographs, diagnostic studies and EKGs were personally reviewed: Yes In addition, reports of radiographic and diagnostic studies were read: Yes Critical Time Critical Time (minutes): 72 -: The care of a critically ill patient is dynamic. This note represents a static moment in the admission process. Orders and treatments may be given simultaneously and urgently, and time is not physician relations representative of the treatment process. This patient requires Critical Care secondary to life threatening organ or limb dysfunction. Without Critical Care services, the patient is at risk for in creased mortality and morbidity.
[2020-01-31 04:47] LABS: HEMATOCRIT 33.3 % (37.9-51.0); HEMOGLOBIN 10.4 g/dL (13.5-17.0); MEAN CORPUSCULAR HEMOGLOBIN 27.2 pg (27.0-33.4); MEAN CORPUSCULAR HGB CONC 31.1 g/dL (32.0-36.0); MEAN CORPUSCULAR VOLUME 88 fl (80-97); PLATELET COUNT 250 10^3/uL (150-450); RED BLOOD COUNT 3.81 10^6/uL (4.35-5.55); RED CELL DISTRIBUTION WIDTH 16.9 % (11.5-14.0)
[2020-01-31 05:02] LABS: BLOOD UREA NITROGEN 33 mg/dL (7-20); CALCIUM 8.5 mg/dL (8.4-10.2); CHLORIDE 88 mmol/L (98-107); GLUCOSE 135 mg/dL (75-110); POTASSIUM 5.1 mmol/L (3.6-5.0)
[2020-01-31 05:18] LABS: ANION GAP 6 (5-19)
[2020-01-31 05:19] LABS: CARBON DIOXIDE 44 mmol/L (22-30)
[2020-01-31 05:31] LABS: ABSOLUTE LYMPHOCYTES# (MANUAL) 0.6 10^3/uL (0.5-4.7); ABSOLUTE MONOCYTES # (MANUAL) 0.6 10^3/uL (0.1-1.4); BASOPHILS % (MANUAL) 0 % (0-2); EOSINOPHILS % (MANUAL) 0 % (0-6); LYMPHOCYTES % (MANUAL) 6 % (13-45); MONOCYTES % (MANUAL) 6 % (3-13); PLATELET COMMENT ADEQUATE; SEGMENTED NEUTROPHILS % (MAN) 88 % (42-78); TOTAL CELLS COUNTED 100
[2020-01-31 05:32] LABS: ANISOCYTOSIS 1+; POLYCHROMASIA 1+; TOXIC VACUOLATION PRESENT
[2020-01-31 05:36] LABS: STOMATOCYTES 1+
[2020-01-31] MEDS: METHYLPREDNISOLONE INJ 125 MG/2 ML SDV IV SCH ×3 (06:02→21:10)
[2020-01-31 06:16] LABS: ARTERIAL BLOOD BASE EXCESS 16.9 mmol/L; ARTERIAL BLOOD H2CO3 2.58 mmol/L (1.05-1.35); ARTERIAL BLOOD HCO3 46.2 mmol/L (20-24); ARTERIAL BLOOD O2 SATURATION 94.8 % (94-98); ARTERIAL BLOOD PH 7.35 (7.35-7.45); ARTERIAL BLOOD PO2 81.6 mmHg (80-100); ARTERIAL BLOOD TOTAL CO2 48.8 mmol/L (23-27)
[2020-01-31 06:17] LABS: ARTERIAL BLOOD FIO2 100%; ARTERIAL BLOOD PCO2 85.8 mmHg (35-45)
[2020-01-31] MEDS ORDERED: CEFEPIME 2 GM/D5W RTU 2 GM/50 ML RTUPB IV SCH (10:00)
[2020-01-31] MEDS: CEFEPIME HCL 2 GM in DEXTROSE 5%-WATER 50 ML IV SCH ×2 (11:00→21:11)
[2020-01-31] MEDS ORDERED: FUROSEMIDE INJ/PF 40 MG/4 ML SDV IV ONE ×2 (13:00→16:00)
[2020-01-31] MEDS ORDERED: FUROSEMIDE INJ/PF 40 MG/4 ML SDV ONE (15:20)
[2020-01-31] MEDS: FAMOTIDINE INJ/PF 20 MG/2 ML SDV IV SCH (21:10)
[2020-01-31] MEDS: LEVOFLOXACIN 500 MG/D5W RTU 500 MG/100 ML RTUPB IV SCH (21:11)
[2020-02-01] MEDS: METRONIDAZOLE 500 MG/NS RTU 500 MG/100 ML RTUPB IV SCH ×4 (00:14→17:54)
[2020-02-01 04:01] LABS: ARTERIAL BLOOD BASE EXCESS 17.4 mmol/L; ARTERIAL BLOOD H2CO3 2.47 mmol/L (1.05-1.35); ARTERIAL BLOOD HCO3 47.4 mmol/L (20-24); ARTERIAL BLOOD PH 7.38 (7.35-7.45); ARTERIAL BLOOD PO2 67.4 mmHg (80-100); ARTERIAL BLOOD TOTAL CO2 49.9 mmol/L (23-27)
[2020-02-01 04:02] LABS: ARTERIAL BLOOD FIO2 90%
[2020-02-01 04:03] LABS: ARTERIAL BLOOD PCO2 81.9 mmHg (35-45)
[2020-02-01 04:18] LABS: ABSOLUTE LYMPHOCYTES (AUTO) 0.8 10^3/uL (0.5-4.7); ABSOLUTE MONOCYTES (AUTO) 0.5 10^3/uL (0.1-1.4); ABSOLUTE NEUT (AUTO) 8.7 10^3/uL (1.7-8.2); BASOPHILS % (AUTO) 0.3 % (0-2); HEMATOCRIT 34.6 % (37.9-51.0); LYMPHOCYTES % (AUTO) 7.7 % (13-45); MEAN CORPUSCULAR HEMOGLOBIN 27.4 pg (27.0-33.4); MEAN CORPUSCULAR HGB CONC 31.7 g/dL (32.0-36.0); MEAN CORPUSCULAR VOLUME 86 fl (80-97); MONOCYTES % (AUTO) 5.3 % (3-13); PLATELET COUNT 280 10^3/uL (150-450); RED BLOOD COUNT 4.01 10^6/uL (4.35-5.55); RED CELL DISTRIBUTION WIDTH 16.3 % (11.5-14.0); SEGMENTED NEUTROPHILS % (AUTO) 86.7 % (42-78); TOTAL CELLS COUNTED % (AUTO) 100 %; WHITE BLOOD COUNT 10.1 10^3/uL (4.0-10.5)
[2020-02-01 04:37] LABS: BLOOD UREA NITROGEN 33 mg/dL (7-20); CHLORIDE 89 mmol/L (98-107); GLUCOSE 137 mg/dL (75-110); PHOSPHORUS 3.5 mg/dL (2.5-4.5); POTASSIUM 5.3 mmol/L (3.6-5.0)
[2020-02-01 04:46] LABS: ANION GAP 6 (5-19)
[2020-02-01 04:48] LABS: CARBON DIOXIDE 43 mmol/L (22-30)
[2020-02-01] MEDS: METHYLPREDNISOLONE INJ 125 MG/2 ML SDV IV SCH ×2 (05:19→21:18)
[2020-02-01] MEDS: HEPARIN SOD (PORCINE) 5,000 UNIT/ML 1 ML VIAL SUBCUT SCH ×3 (05:20→21:18)
--- NOTE | 2020-02-01 08:39 | RADIOLOGY REPORT (SQ) ---
EXAM DESCRIPTION: CHEST SINGLE VIEW IMAGES COMPLETED DATE/TIME: 02/01/2020 4:44 am REASON FOR STUDY: ETT tube COMPARISON: 01/30/2020 EXAM PARAMETERS: NUMBER OF VIEWS: One view. TECHNIQUE: Single frontal radiographic view of the chest acquired. RADIATION DOSE: NA LIMITATIONS: Lordotic positioning. FINDINGS: LUNGS AND PLEURA: Improved aeration at the right lung base. Patchy atelectasis/consolidat ion at the left lung base. No definite pneumothorax. MEDIASTINUM AND HILAR STRUCTURES: No masses. Contour normal. HEART AND VASCULAR STRUCTURES: Moderate cardiomegaly. No pulmonary vascular congestion. BONES: Endotracheal tube is in the midthoracic trachea. HARDWARE: None in the chest. OTHER: No other significant finding. IMPRESSION: Improved aeration at the lung bases. Persistent atelectasis/ consolidation at the left lung base. TECHNICAL DOCUMENTATION: JOB ID: [id number] 2010 [employer]- All Rights Reserved Reading location - IP/workstation name: [email or web address]
[2020-02-01] MEDS: CEFEPIME HCL 2 GM in DEXTROSE 5%-WATER 50 ML IV SCH ×2 (09:00→21:17)
[2020-02-01] MEDS: FAMOTIDINE INJ/PF 20 MG/2 ML SDV IV SCH ×2 (10:55→21:18)
--- NOTE | 2020-02-01 11:52 | CDI QUERY ---
CDI Query CDI Review: Documentation in the Medical Record indicates this patient has: Height: 5 ft 11 in Weight: 251 kg / 552.2 lbs Calculated BMI: 77 kg/m2 The following is also documented in the Medical Record: Patient with acute on chronic respiratory failure secondary to severe morbid obesity and restrictive lung disease superimposed by possible pneumonia Unfortunately, patient's morbid obesity has led to chronic respiratory failure with very little reserve for complications such as pneumonia. He most likely has significant muscle wasting due to inactivity. His ability to lose weight at this point is likely severely diminished. Based on your medical judgement, can you further clarify in the Progress Notes with supporting documentation: Severe morbid obesity / BMI 77 kg/m2 Severe morbid obesity with hypoventilation syndrome / BMI 77 kg/m2 Unable to determine Other Thank you for your consideration. BAIRON Box RN Clinical Sales Merchandise Associate Physician Advisor [email or web address]
[2020-02-01] MEDS ORDERED: FUROSEMIDE INJ/PF 40 MG/4 ML SDV IV ONE (13:30)
--- NOTE | 2020-02-01 18:07 | PDOC CRITICAL CARE PROG REPORT ---
General Date:: 02/01/20 ICU Day:: 2 Ventilator Day:: 2 Hospital Day:: 2 Resuscitation Status: Full Code Events in the past 12 to 24 Hours:: This morbidly obese 30-year-old male was admitted to the ICU on 01/[address] presenting to [facility] emergency department with complaints of increased shortness of breath and sputum production for 4 days prior to presentation. He has a chronic tracheostomy and is typically able to provide his own tracheostomy care but reported being unable to adequately suction his tracheostomy, prompting call to EMS. In the emergency department, the patient was found to be hypoxemic. He was confused and combative. He was provided Ativan for sedation and then was placed on mechanical ventilatory support. 01/31: The patient did have brisk diuresis with a single dose of furosemide yesterday. This resulted in dramatic improvement in his PEEP requirement. At the time of clinical interview, the patient has been plus placed on PSV 10/5, FiO2 60%. He is awake, alert and oriented. He is interactive and is able to essentially perform his own tracheostomy care. He is requesting coming off the ventilator today. Blood cultures (01/29, 1 of 2 bottles) positive for gram-posi tive saqib, likely contaminant. Trach aspirate (01/29) showed 3+ PMNs on Gram stain but no organisms. Reason for ICU Addmission:: Pneumonia, respiratory failure, morbid obesity. - Medications: Medications reviewed and adjusted accordingly: Yes Physical Exam Vital Signs: Temp Pulse Resp BP Pulse Ox 98.6 F 58 L 24 H 162/97 H 95 01/31/20 05:45 02/01/20 07:35 02/01/20 10:00 02/01/20 09:56 02/01/20 10:00 Intake & Output 01/31/20 02/01/20 02/02/20 06:59 06:59 06:59 Intake Total 750 1700 Output Total 425 4181 475 Balance 969 -885 -803 Weight 251 kg Weight/Height Weight 251 kg Height 1.8 m General appearance: PRESENT: no acute distress, well-developed, well-nourished Head exam: PRESENT: atraumatic, normocephalic Eye exam: PRESENT: conjunctiva pink, EOMI, PERRLA. ABSENT: scleral icterus Mouth exam: PRESENT: moist, tongue midline Neck exam: PRESENT: tracheostomy. ABSENT: carotid bruit, JVD, lymphadenopathy, thyromegaly Respiratory exam: PRESENT: crackles, decreased breath sounds. ABSENT: retraction, rhonchi, wheezes Cardiovascular exam: PRESENT: RRR. ABSENT: diastolic murmur, rubs, systolic murmur Pulses: PRESENT: normal dorsalis pedis pul GI/Abdominal exam: PRESENT: normal bowel sounds, soft. ABSENT: distended, guarding, mass, organolmegaly, rebound, tenderness Gentrourinary exam: PRESENT: indwelling catheter Extremities exam: PRESENT: full ROM, pedal edema, +2 edema. ABSENT: calf tenderness, clubbing Neurological exam: PRESENT: alert, awake, reflexes normal, CN II-XII grossly intact. ABSENT: motor sensory deficit Psychiatric exam: PRESENT: appropriate affect, normal mood. ABSENT: homicidal ideation, suicidal ideation Skin exam: PRESENT: dry, intact, warm. ABSENT: cyanosis, rash Laboratory/Radiographs Laboratory Results: 02/01/20 04:10 02/01/20 04:10 02/01/20 02/01/20 02/01/20 03:15 04:10 04:10 WBC 10.1 RBC 4.01 L Hgb 11.0 L Hct 34.6 L MCV 86 MCH 27.4 MCHC 31.7 L RDW 16.3 H Plt Count 280 Seg Neutrophils % 86.7 H Carbonic Acid 2.47 H HCO3/H2CO3 Ratio 19:1 ABG pH 7.38 ABG pCO2 81.9 H* ABG pO2 67.4 L ABG HCO3 47.4 H ABG O2 Saturation 92.0 L ABG Base Excess 17.4 FiO2 90% Sodium 138.0 Potassium 5.3 H Chloride 89 L Carbon Dioxide 43 H* Anion Gap 6 BUN 33 H Creatinine 0.96 Est GFR ( Amer) > 60 Glucose 137 H Calcium 9.0 Phosphorus 3.5 Magnesium 2.7 H 01/30/20 16:07 Blood Blood Culture (PCR) - Final 01/30/20 01/31/20 02/01/20 16:07 04:36 04:10 NT-Pro-B Natriuret Pep 141 H 104 46 Impressions: Chest X-Ray 02/01/20 05:00 IMPRESSION: Improved aeration at the lung bases. Persistent atelectasis/ consolidation at the left lung base. All labs, radiographs, diagnostic studies and EKGs were personally reviewed: Yes In addition, reports of radiographic and diagnostic studies were read: Yes Assessment and Plan - Diagnosis (1) Acute on chronic respiratory failure with hypoxia and hypercapnia Is this a current diagnosis for this admission?: Yes Plan: Furosemide 40 mg IV single dose. Wean FiO2 as tolerated. Keep SpO2 88+%. (2) COPD exacerbation Is this a current diagnosis for this admission?: Yes Plan: Continue DuoNeb. Decrease Solu-Medrol to 60 mg IV every 12 hours. Start budesonide. (3) Morbid obesity Is this a current diagnosis for this admission?: Yes Plan: 251 kg. BMI 77. Unknown baseline weight. (4) Normocytic anemia Is this a current diagnosis for this admission?: Yes Plan: Monitor Hgb. Critical Time Critical Time (minutes): 60 Level of Care: ICU -: 1. The care of a critical patient is a dynamic process. This note is a outbound telemarketing representative synopsis but static in nature. The timeframe for treatments given in order is not necessarily the actual time these treatments may have been done. 2. This patient requires critical care secondary to ongoing requirements for therapy not offered or safe outside the critical care environment. Transfer to a lower level of care will result in altered life or limb morbidity and mortality. 3. Multidisciplinary rounds completed. 4. ABCDE bundle addressed.
[2020-02-01] MEDS: BUDESONIDE NEB 0.25 MG/2 ML AMPUL NEB SCH (20:23)
[2020-02-01] MEDS: LEVOFLOXACIN 500 MG/D5W RTU 500 MG/100 ML RTUPB IV SCH (21:18)
[2020-02-02] MEDS: METRONIDAZOLE 500 MG/NS RTU 500 MG/100 ML RTUPB IV SCH ×4 (00:45→19:05)
[2020-02-02] MEDS: HEPARIN SOD (PORCINE) 5,000 UNIT/ML 1 ML VIAL SUBCUT SCH ×3 (05:26→22:19)
[2020-02-02] MEDS: LEVOTHYROXINE SODIUM 0.1 MG TABLET PO SCH (05:27)
[2020-02-02 05:36] LABS: BLOOD UREA NITROGEN 34 mg/dL (7-20); CALCIUM 9.1 mg/dL (8.4-10.2); CHLORIDE 90 mmol/L (98-107); GLUCOSE 119 mg/dL (75-110); POTASSIUM 5.2 mmol/L (3.6-5.0)
[2020-02-02 05:45] LABS: ANION GAP 7 (5-19)
--- NOTE | 2020-02-02 08:31 | RADIOLOGY REPORT (SQ) ---
EXAM DESCRIPTION: CHEST SINGLE VIEW IMAGES COMPLETED DATE/TIME: 02/02/2020 6:10 am REASON FOR STUDY: dyspnea COMPARISON: 02/01/2020 EXAM PARAMETERS: NUMBER OF VIEWS: One view. TECHNIQUE: Single frontal radiographic view of the chest acquired. RADIATION DOSE: NA LIMITATIONS: None. FINDINGS: LUNGS AND PLEURA: Low lung volumes with left lower lobe consolidation. No pneumothorax. No definitive effusion. MEDIASTINUM AND HILAR STRUCTURES: Stable. HEART AND VASCULAR STRUCTURES: Enlarged, stable. Mild central vascular prominence. BONES: No acute findings. HARDWARE: Tracheostomy tube tip overlies midline at thoracic inlet. OTHER: No other significant finding. IMPRESSION: Low lung volumes with persistent left basilar consolidation, possibly atelectasis or pne umonia. TECHNICAL DOCUMENTATION: JOB ID: [id number] 2010 [employer]- All Rights Reserved Reading location - IP/workstation name: [email or web address]
[2020-02-02] MEDS: BUDESONIDE NEB 0.25 MG/2 ML AMPUL NEB SCH ×2 (09:09→19:52)
[2020-02-02 09:41] LABS: HEMATOCRIT 35.3 % (37.9-51.0); HEMOGLOBIN 11.1 g/dL (13.5-17.0); MEAN CORPUSCULAR HEMOGLOBIN 27.2 pg (27.0-33.4); MEAN CORPUSCULAR HGB CONC 31.5 g/dL (32.0-36.0); MEAN CORPUSCULAR VOLUME 87 fl (80-97); PLATELET COUNT 286 10^3/uL (150-450); RED BLOOD COUNT 4.07 10^6/uL (4.35-5.55); RED CELL DISTRIBUTION WIDTH 16.6 % (11.5-14.0); WHITE BLOOD COUNT 9.5 10^3/uL (4.0-10.5)
[2020-02-02] MEDS: SERTRALINE HCL 50 MG TABLET PO SCH (10:30)
[2020-02-02] MEDS: METHYLPREDNISOLONE INJ 125 MG/2 ML SDV IV SCH ×2 (10:30→22:18)
[2020-02-02] MEDS: FAMOTIDINE INJ/PF 20 MG/2 ML SDV IV SCH ×2 (10:30→22:19)
[2020-02-02] MEDS: CEFEPIME HCL 2 GM in DEXTROSE 5%-WATER 50 ML IV SCH ×2 (10:42→23:46)
--- NOTE | 2020-02-02 18:02 | PDOC CRITICAL CARE PROG REPORT ---
General Date:: 02/02/20 ICU Day:: 3 Hospital Day:: 3 Resuscitation Status: Full Code Events in the past 12 to 24 Hours:: This morbidly obese 30-year-old male was admitted to the ICU on 01/[address] [facility] emergency department with complaints of increased shortness of breath and sputum production for 4 days prior to presentation. He has a chronic tracheostomy and is typically able to provide his own tracheostomy care but reported being unable to adequately suction his tracheostomy, prompting call to EMS. In the emergency department, the patient was found to be hypoxemic. He was confused and combative. He was provided Ativan for sedation and then was placed on mechanical ventilatory support. 01/31: The patient did have brisk diuresis with a single dose of furosemide yesterday. This resulted in dramatic improvement in his PEEP requirement. At the time of clinical interview, the patient has been plus placed on PSV 10/5, FiO2 60%. He is awake, alert and oriented. He is interactive and is able to es sentially perform his own tracheostomy care. He is requesting coming off the ventilator today. Blood cultures (01/29, 1 of 2 bottles) positive for gram- positive saqib, likely contaminant. Trach aspirate (01/29) showed 3+ PMNs on Gram stain but no organisms. 02/01: The patient has remained on trach collar. He is able to suction himself out. Review of systems relevant to events:: Respiratory: Dyspnea, chronic tracheostomy Reason for ICU Addmission:: Pneumonia, respiratory failure, morbid obesity. - Medications: Medications reviewed and adjusted accordingly: Yes Physical Exam Vital Signs: Temp Pulse Resp BP Pulse Ox 98.8 F 83 15 186/101 H 93 02/02/20 05:03 02/02/20 09:09 02/02/20 14:00 02/02/20 13:32 02/02/20 16:00 Intake & Output 02/01/20 02/02/20 02/03/20 06:59 06:59 06:59 Intake Total 1700 600 Output Total 2408 1070 375 Balance -935 -2240 -375 Weight/Height Weight 251 kg Height 1.8 m General appearance: PRESENT: no acute distress, morbidly obese, well-developed, well-nourished Eye exam: PRESENT: conjunctiva pink, EOMI, PERRLA. ABSENT: scleral icterus Mouth exam: PRESENT: moist, tongue midline Neck exam: PRESENT: tracheostomy. ABSENT: carotid bruit, JVD, lymphadenopathy, thyromegaly Respiratory exam: PRESENT: decreased breath sounds, prolonged expiratory phas, rales, wheezes - On forced expiration only Cardiovascular exam: PRESENT: RRR. ABSENT: diastolic murmur, rubs, systolic murmur Pulses: PRESENT: normal dorsalis pedis pul GI/Abdominal exam: PRESENT: normal bowel sounds, soft, other - Pendulous abdomen. ABSENT: distended, guarding, mass, organolmegaly, rebound, tenderness Extremities exam: PRESENT: full ROM, pedal edema, +2 edema. ABSENT: calf tenderness, clubbing Neurological exam: PRESENT: alert, awake, oriented to person, oriented to place, oriented to time, oriented to situation, CN II-XII grossly intact. ABSENT: motor sensory deficit Psychiatric exam: PRESENT: appropriate affect, normal mood. ABSENT: homicidal ideation, suicidal ideation Skin exam: PRESENT: dry, intact, warm. ABSENT: cyanosis, rash Laboratory/Radiographs Laboratory Results: 02/02/20 04:48 02/02/20 04:48 02/02/20 02/02/20 04:48 04:48 WBC 9.5 RBC 4.07 L Hgb 11.1 L Hct 35.3 L MCV 87 MCH 27.2 MCHC 31.5 L RDW 16.6 H Plt Count 286 Sodium 137.9 Potassium 5.2 H Chloride 90 L Carbon Dioxide 41 H* Anion Gap 7 BUN 34 H Creatinine 0.98 Est GFR ( Amer) > 60 Glucose 119 H Calcium 9.1 Magnesium 2.4 H 01/31/20 01:15 Tracheal Aspirate Gram Stain - Final 01/31/20 01:15 Tracheal Aspirate Sputum Culture - Final REDUCED NORMAL ALHAJI 01/30/20 16:07 Blood Blood Culture (PCR) - Final 01/30/20 16:07 Blood Blood Culture - Final Corynebacterium Species 01/30/20 01/31/20 02/01/20 16:07 04:36 04:10 NT-Pro-B Natriuret Pep 141 H 104 46 Impressions: Chest X-Ray 02/02/20 05:00 IMPRESSION: Low lung volumes with persistent left basilar consolidation, possibly atelectasis or pneumonia. All labs, radiographs, diagnostic studies and EKGs were personally reviewed: Yes In addition, reports of radiographic and diagnostic studies were read: Yes Assessment and Plan - Diagnosis (1) Acute on chronic respiratory failure with hypoxia and hypercapnia Is this a current diagnosis for this admission?: Yes Plan: Furosemide 40 mg IV every 12 hours. (Patient reports that he takes furosemide 40 mg p.o. twice daily as needed at home). Continue trach collar. Wean FiO2 as tolerated. Keep SpO2 88+%. (2) COPD exacerbation Is this a current diagnosis for this admission?: Yes Plan: Continue DuoNeb/budesonide. Continue Solu-Medrol 60 mg IV every 12 hours. (3) Morbid obesity Is this a current diagnosis for this admission?: Yes Plan: 251 kg. BMI 77. Unknown baseline weight. (4) Normocytic anemia Is this a current diagnosis for this admission?: Yes Plan: Monitor Hgb. (5) COVID-19 ruled out by laboratory testing Is this a current diagnosis for this admission?: Yes Critical Time Critical Time (minutes): 45 Level of Care: ICU -: 1. The care of a critical patient is a dynamic process. This note is a in home sales representative synopsis but static in nature. The timeframe for treatments given in order is not necessarily the actual time these treatments may have been done. 2. This patient requires critical care secondary to ongoing requirements for therapy not offered or safe outside the critical care environment. Transfer to a lower level of care will result in altered life or limb morbidity and mortality. 3. Multidisciplinary rounds completed. 4. ABCDE bundle addressed.
[2020-02-02] MEDS: LEVOFLOXACIN 500 MG/D5W RTU 500 MG/100 ML RTUPB IV SCH (22:19)
[2020-02-02] MEDS ORDERED: NITROGLYCERIN 0.4 MG/TAB 25 TAB/BOTTLE ONE (22:57)
[2020-02-02] MEDS: NITROGLYCERIN 0.4 MG/TAB 25 TAB/BOTTLE SL PRN ×2 (23:10→23:22)
--- NOTE | 2020-02-02 23:14 | EKG REPORT ---
SEVERITY:- NORMAL ECG - SINUS RHYTHM : Confirmed by: Rohini Vargas 02-Feb-2020 23:14:01
[2020-02-03 00:19] LABS: CREATINE KINASE MB 1.07 ng/mL (<4.55); TROPONIN I 0.018 ng/mL
[2020-02-03] MEDS: METRONIDAZOLE 500 MG/NS RTU 500 MG/100 ML RTUPB IV SCH ×5 (00:35→23:52)
[2020-02-03] MEDS ORDERED: NITROGLYCERIN 2% OINTMENT 1 GM PACKET TP ONE (01:00)
[2020-02-03] MEDS: HEPARIN SOD (PORCINE) 5,000 UNIT/ML 1 ML VIAL SUBCUT SCH ×3 (06:16→21:37)
[2020-02-03] MEDS: NITROGLYCERIN 2% OINTMENT 1 GM PACKET TP SCH ×4 (06:16→23:51)
[2020-02-03] MEDS: LEVOTHYROXINE SODIUM 0.1 MG TABLET PO SCH (06:16)
[2020-02-03 06:40] LABS: CREATINE KINASE MB 1.06 ng/mL (<4.55); TROPONIN I 0.014 ng/mL
[2020-02-03 08:25] LABS: ABSOLUTE LYMPHOCYTES (AUTO) 0.6 10^3/uL (0.5-4.7); ABSOLUTE MONOCYTES (AUTO) 0.5 10^3/uL (0.1-1.4); ABSOLUTE NEUT (AUTO) 7.1 10^3/uL (1.7-8.2); BASOPHILS % (AUTO) 0.1 % (0-2); EOSINOPHILS % (AUTO) 0.1 % (0-6); HEMATOCRIT 36.2 % (37.9-51.0); HEMOGLOBIN 11.1 g/dL (13.5-17.0); LYMPHOCYTES % (AUTO) 7.8 % (13-45); MEAN CORPUSCULAR HGB CONC 30.6 g/dL (32.0-36.0); MEAN CORPUSCULAR VOLUME 88 fl (80-97); MONOCYTES % (AUTO) 5.6 % (3-13); PLATELET COUNT 246 10^3/uL (150-450); RED CELL DISTRIBUTION WIDTH 16.5 % (11.5-14.0); SEGMENTED NEUTROPHILS % (AUTO) 86.4 % (42-78); TOTAL CELLS COUNTED % (AUTO) 100 %; WHITE BLOOD COUNT 8.2 10^3/uL (4.0-10.5)
[2020-02-03 08:43] LABS: ALBUMIN 4.1 g/dL (3.5-5.0); ALKALINE PHOSPHATASE 63 U/L (38-126); ASPARTATE AMINO TRANSFERASE 28 U/L (17-59); BILIRUBIN,TOTAL 0.3 mg/dL (0.2-1.3); BLOOD UREA NITROGEN 29 mg/dL (7-20); CALCIUM 8.7 mg/dL (8.4-10.2); CHLORIDE 91 mmol/L (98-107); GLUCOSE 147 mg/dL (75-110); POTASSIUM 5.2 mmol/L (3.6-5.0); TOTAL PROTEIN 7.6 g/dL (6.3-8.2)
[2020-02-03 08:51] LABS: ANION GAP 5 (5-19)
[2020-02-03 09:01] LABS: CARBON DIOXIDE 43 mmol/L (22-30)
[2020-02-03] MEDS: BUDESONIDE NEB 0.25 MG/2 ML AMPUL NEB SCH ×2 (09:24→21:26)
[2020-02-03] MEDS: SERTRALINE HCL 50 MG TABLET PO SCH (09:35)
[2020-02-03] MEDS: FAMOTIDINE INJ/PF 20 MG/2 ML SDV IV SCH ×2 (09:35→21:37)
[2020-02-03] MEDS: CEFEPIME HCL 2 GM in DEXTROSE 5%-WATER 50 ML IV SCH ×2 (09:35→21:48)
[2020-02-03] MEDS: METHYLPREDNISOLONE INJ 125 MG/2 ML SDV IV SCH (09:36)
[2020-02-03 11:05] LABS: CARBON DIOXIDE 41 mmol/L (22-30)
[2020-02-03 12:06] LABS: CREATINE KINASE MB 1.02 ng/mL (<4.55); TROPONIN I 0.022 ng/mL
--- NOTE | 2020-02-03 12:38 | PDOC PROGRESS REPORT ---
Subjective Progress Note for:: 02/03/20 Subjective:: 30-year-old gentleman with severe morbid obesity leading to chronic respiratory failure status post tracheostomy and multiple ED visits and admissions for his restrictive lung disease. Patient presents after 4 days of worsening shortness of breath and increased sputum production. He was unable to adequately suction his tracheostomy tube today and activated EMS for what he felt was an obstruction. EMS replaced his tracheal tube. [facility] was hypoxemic, confused and combative. He was given Ativan for sedation and placed on ventilatory support. I was asked to assess Mr. Burnett for possible admission to the intensive care unit. Upon arrival, I found him to be with minimal exhaled tidal volume and a significant air leak from his tracheostomy tube. I emergently changed his tracheostomy tube to a cuffed XLT. He immediately began to have better ventilation and an improvement in his saturation from 85 to 88% to 92%. Despite improvement in his profound hypercarbia and subsequent respiratory acidosis, he remained acidotic after 40 minutes on the ventilator. He is mentating better and has been cooperative with my exam and conversation. We will admit Mr. Acharya to the intensive care unit for continued ventilatory support and treatment of a right lower lobe pneumonia which is evident on CXR. He is being tested for COVID-19 and will be considered a rule out POI until results return. I began having discussions with Mr. Burnett regarding his chronic respiratory condition. Unfortunately, he likely lacks the muscle mass necessary to maintain adequate ventilation and as evident by this admission, has very little reserve. I will further recommend palliative care and perhaps hospice care depending on the level of intervention he will desire. [id number]-old male was admitted to the ICU on 01/30 after presenting to [facility] emergency department with complaints of increased shortness of breath and sputum production for 4 days prior to presentation. He has a chronic tracheostomy and is typically able to provide his own tracheostomy care but reported being unable to adequately suction his tracheostomy, prompting call to EMS. In the emergency department, the patient was found to be hypoxemic. He was confused and combative. He was provided Ativan for sedation and then was placed on mechanical ventilatory support. 01/31: The patient did have brisk diuresis with a single dose of furosemide yesterday. This resulted in dramatic improvement in his PEEP requirement. At the time of clinical interview, the patient has been plus placed on PSV 10/5, FiO2 60%. He is awake, alert and oriented. He is interactive and is able to essentially perform his own tracheostomy care. He is requesting coming off the ventilator today. Blood cultures (01/29, 1 of 2 bottles) positive for gram-po sitive saqib, likely contaminant. Trach aspirate (01/29) showed 3+ PMNs on Gram stain but no organisms. 02/01-The patient has remained on trach collar. He is able to suction himself out. 02/03/2020-morbidly obese male comfortably in chair communicating okay. Trach in place. Not in distress. Expressing desire to go home once he is stable. Reason For Visit: RESPIRATORY FAILURE,PNEUMONIA Physical Exam Vital Signs: Temp Pulse Resp BP Pulse Ox 97.3 F 78 18 163/79 H 95 02/03/20 11:56 02/03/20 11:56 02/03/20 11:56 02/03/20 11:56 02/03/20 11:56 Intake & Output 02/02/20 02/03/20 02/04/20 06:59 06:59 06:59 Intake Total 600 722 450 Output Total 2840 1025 Balance -2240 -303 450 Weight 245 kg General appearance: PRESENT: cooperative, morbidly obese Head exam: PRESENT: atraumatic Eye exam: PRESENT: conjunctiva pink, PERRLA Ear exam: PRESENT: normal external ear exam Mouth exam: PRESENT: moist, tongue midline Teeth exam: PRESENT: poor dentation Neck exam: PRESENT: other - Has a tracheostomy present. Respiratory exam: PRESENT: decreased breath sounds, other - Prolonged expiratory phase with rales and wheezes. Cardiovascular exam: PRESENT: RRR. ABSENT: diastolic murmur, rubs, systolic murmur GI/Abdominal exam: PRESENT: normal bowel sounds, soft. ABSENT: distended, guarding, mass, organolmegaly, rebound, tenderness Rectal exam: PRESENT: deferred Neurological exam: PRESENT: alert, awake, oriented to person, oriented to place, oriented to time, oriented to situation, CN II-XII grossly intact. ABSENT: motor sensory deficit Psychiatric exam: PRESENT: appropriate affect, normal mood. ABSENT: homicidal ideation, suicidal ideation Results Laboratory Results: 02/03/20 05:10 02/03/20 05:10 02/02/20 02/03/20 02/03/20 04:48 05:10 05:10 WBC 8.2 RBC 4.10 L Hgb 11.1 L Hct 36.2 L MCV 88 MCH 27.0 MCHC 30.6 L RDW 16.5 H Plt Count 246 Seg Neutrophils % 86.4 H Sodium 138.6 Potassium 5.2 H Chloride 91 L Carbon Dioxide 41 H* 43 H* Anion Gap 5 BUN 29 H Creatinine 0.88 Est GFR ( Amer) > 60 Glucose 147 H Calcium 8.7 Magnesium 2.5 H Total Bilirubin 0.3 AST 28 Alkaline Phosphatase 63 Total Protein 7.6 Albumin 4.1 01/31/20 01:15 Tracheal Aspirate Gram Stain - Final 01/31/20 01:15 Tracheal Aspirate Sputum Culture - Final REDUCED NORMAL ALHAJI 01/30/20 01/31/20 02/01/20 16:07 04:36 04:10 Creatine Kinase CK-MB (CK-2) Troponin I NT-Pro-B Natriuret Pep 141 H 104 46 02/02/20 02/02/20 02/03/20 23:20 23:20 05:10 Creatine Kinase 95 86 CK-MB (CK-2) 1.07 Troponin I 0.018 NT-Pro-B Natriuret Pep 02/03/20 02/03/20 02/03/20 05:10 10:56 10:56 Creatine Kinase 80 CK-MB (CK-2) 1.06 1.02 Troponin I 0.014 0.022 NT-Pro-B Natriuret Pep Impressions: Chest X-Ray 02/02/20 05:00 IMPRESSION: Low lung volumes with persistent left basilar consolidation, possibly atelectasis or pneumonia. Assessment and Plan - Diagnosis (1) Acute on chronic respiratory failure with hypoxia and hypercapnia Is this a current diagnosis for this admission?: Yes Plan: Furosemide 40 mg IV every 12 hours. (Patient reports that he takes furosemide 40 mg p.o. twice daily as needed at home). Continue trach collar. Wean FiO2 as tolerated. Keep SpO2 88+%. Eat 1120-patient admitted with acute on chronic respiratory failure with hypoxia and hypercapnia. Pulse ox is 93% on 4 L. Blood culture is growing gram- positive cocci in clusters. Patient is afebrile. On cefepime, levofloxacin, Flagyl. (2) COVID-19 ruled out by laboratory testing Is this a current diagnosis for this admission?: Yes (3) COPD exacerbation Is this a current diagnosis for this admission?: Yes Plan: Continue DuoNeb/budesonide. Continue Solu-Medrol 60 mg IV every 12 hours. (4) Normocytic anemia Is this a current diagnosis for this admission?: Yes Plan: Monitor Hgb. 02/03/2020-latest hemoglobin is 11.1. Stable. Plan is to continue to closely monitor the labs. (5) Morbid obesity Is this a current diagnosis for this admission?: No Plan: 251 kg. BMI 77. Unknown baseline weight. 02/03/2020-patient BMI is more than 77 diet exercise weight loss lifestyle modifications discussed with the patient. Morbid obesity may be associated with hypoventilation syndrome. Patient need a sleep studies as an outpatient. - Time Anticipated Discharge Disposition: Home, Self Care Anticipated Discharge Timeframe: within 48 hours
[2020-02-03] MEDS ORDERED: FUROSEMIDE 40 MG TABLET PO PRN (16:41)
[2020-02-03] MEDS: BUSPIRONE HCL 10 MG TABLET PO SCH (17:58)
[2020-02-03] MEDS ORDERED: SALMETEROL IH SCH ×2 (18:30→22:00)
[2020-02-03] MEDS ORDERED: [UNRECOGNIZED DRUG - OTHER] IH SCH ×2 (18:30→22:00)
[2020-02-03] MEDS ORDERED: FLUTICASONE PROPION IH SCH ×2 (18:30→22:00)
[2020-02-03] MEDS: ATORVASTATIN CALCIUM 40 MG TABLET PO SCH (21:37)
[2020-02-03] MEDS: GABAPENTIN 300 MG CAPSULE PO SCH (21:37)
[2020-02-03] MEDS: METHYLPREDNISOLONE INJ 40 MG/1 ML SDV IV SCH (21:38)
[2020-02-03] MEDS: LEVOFLOXACIN 500 MG/D5W RTU 500 MG/100 ML RTUPB IV SCH (22:41)
[2020-02-04] MEDS: NITROGLYCERIN 2% OINTMENT 1 GM PACKET TP SCH ×4 (06:41→23:06)
[2020-02-04] MEDS: GABAPENTIN 300 MG CAPSULE PO SCH ×3 (06:41→21:38)
[2020-02-04] MEDS: METRONIDAZOLE 500 MG/NS RTU 500 MG/100 ML RTUPB IV SCH ×2 (06:41→12:00)
[2020-02-04] MEDS: HEPARIN SOD (PORCINE) 5,000 UNIT/ML 1 ML VIAL SUBCUT SCH ×3 (06:41→21:38)
[2020-02-04] MEDS: LEVOTHYROXINE SODIUM 0.1 MG TABLET PO SCH (06:41)
[2020-02-04 09:18] LABS: ABSOLUTE MONOCYTES (AUTO) 0.6 10^3/uL (0.1-1.4); ABSOLUTE NEUT (AUTO) 7.9 10^3/uL (1.7-8.2); BASOPHILS % (AUTO) 0.2 % (0-2); EOSINOPHILS % (AUTO) 0.3 % (0-6); HEMATOCRIT 39.9 % (37.9-51.0); HEMOGLOBIN 12.3 g/dL (13.5-17.0); LYMPHOCYTES % (AUTO) 10.3 % (13-45); MEAN CORPUSCULAR HGB CONC 30.7 g/dL (32.0-36.0); MEAN CORPUSCULAR VOLUME 88 fl (80-97); PLATELET COUNT 229 10^3/uL (150-450); RED BLOOD COUNT 4.54 10^6/uL (4.35-5.55); RED CELL DISTRIBUTION WIDTH 16.2 % (11.5-14.0); SEGMENTED NEUTROPHILS % (AUTO) 83.2 % (42-78); TOTAL CELLS COUNTED % (AUTO) 100 %; WHITE BLOOD COUNT 9.5 10^3/uL (4.0-10.5)
[2020-02-04] MEDS: IPRATROPIUM/ALBUTEROL 0.5-2.5 MG/3 ML AMPUL NEB PRN (09:18)
[2020-02-04] MEDS: BUDESONIDE NEB 0.25 MG/2 ML AMPUL NEB SCH ×2 (09:19→21:33)
[2020-02-04 09:42] LABS: ALBUMIN 4.3 g/dL (3.5-5.0); ALKALINE PHOSPHATASE 63 U/L (38-126); ASPARTATE AMINO TRANSFERASE 32 U/L (17-59); BILIRUBIN,DIRECT 0.1 mg/dL (0.0-0.4); BILIRUBIN,TOTAL 0.4 mg/dL (0.2-1.3); BLOOD UREA NITROGEN 25 mg/dL (7-20); CHLORIDE 91 mmol/L (98-107); GLUCOSE 132 mg/dL (75-110); POTASSIUM 5.1 mmol/L (3.6-5.0); TOTAL PROTEIN 8.1 g/dL (6.3-8.2)
[2020-02-04] MEDS: CEFEPIME HCL 2 GM in DEXTROSE 5%-WATER 50 ML IV SCH ×2 (09:42→21:39)
[2020-02-04] MEDS: BUSPIRONE HCL 10 MG TABLET PO SCH ×2 (09:44→17:46)
[2020-02-04] MEDS: FAMOTIDINE INJ/PF 20 MG/2 ML SDV IV SCH ×2 (09:44→21:40)
[2020-02-04] MEDS: AMLODIPINE BESYLATE 10 MG TABLET PO SCH (09:44)
[2020-02-04] MEDS: METHYLPREDNISOLONE INJ 40 MG/1 ML SDV IV SCH (09:45)
[2020-02-04] MEDS: HYDROCHLOROTHIAZIDE 25 MG TABLET PO SCH (09:45)
[2020-02-04] MEDS: SERTRALINE HCL 50 MG TABLET PO SCH (09:45)
[2020-02-04] MEDS: LISINOPRIL 10 MG TABLET PO SCH (09:45)
[2020-02-04 10:08] LABS: ANION GAP 5 (5-19)
[2020-02-04 10:49] LABS: CARBON DIOXIDE 44 mmol/L (22-30)
--- NOTE | 2020-02-04 11:05 | PDOC PROGRESS REPORT ---
Subjective Progress Note for:: 02/04/20 Subjective:: 30-year-old gentleman with severe morbid obesity leading to chronic respiratory failure status post tracheostomy and multiple ED visits and admissions for his restrictive lung disease. Patient presents after 4 days of worsening shortness of breath and increased sputum production. He was unable to adequately suction his tracheostomy tube today and activated EMS for what he felt was an obstruction. EMS replaced his tracheal tube. [facility] patient was hypoxemic, confused and combative. He was given Ativan for sedation and placed on ventilatory support. I was asked to assess Mr. Burnett for possible admission to the intensive care unit. Upon arrival, I found him to be with minimal exhaled tidal volume and a significant air leak from his tracheostomy tube. I emergently changed his tracheostomy tube to a cuffed XLT. He immediately began to have better ventilation and an improvement in his saturation from 85 to 88% to 92%. Despite improvement in his profound hypercarbia and subsequent respiratory acidosis, he remained acidotic after 40 minutes on the ventilator. He is mentating better and has been cooperative with my exam and conversation. We will admit Mr. Acharya to the intensive care unit for continued ventilatory support and treatment of a right lower lobe pneumonia which is evident on CXR. He is being tested for COVID-19 and will be considered a rule out POI until results return. I began having discussions with Mr. Burnett regarding his chronic respiratory condition. Unfortunately, he likely lacks the muscle mass necessary to maintain adequate ventilation and as evident by this admission, has very little reserve. I will further recommend palliative care and perhaps hospice care depending on the level of intervention he will desire. [id number]-old male was admitted to the ICU on 01/[address] [facility] emergency department with complaints of increased shortness of breath and sputum production for 4 days prior to presentation. He has a chronic tracheostomy and is typically able to provide his own tracheostomy care but reported being unable to adequately suction his tracheostomy, prompting call to EMS. In the emergency department, the patient was found to be hypoxemic. He was confused and combative. He was provided Ativan for sedation and then was placed on mechanical ventilatory support. 01/31: The patient did have brisk diuresis with a single dose of furosemide yesterday. This resulted in dramatic improvement in his PEEP requirement. At the time of clinical interview, the patient has been plus placed on PSV 10/5, FiO2 60%. He is awake, alert and oriented. He is interactive and is able to essentially perform his own tracheostomy care. He is requesting coming off the ventilator today. Blood cultures (01/29, 1 of 2 bottles) positive for gram-po sitive saqib, likely contaminant. Trach aspirate (01/29) showed 3+ PMNs on Gram stain but no organisms. 02/01-The patient has remained on trach collar. He is able to suction himself out. 02/03/2020-morbidly obese male comfortably in chair communicating okay. Trach in place. Not in distress. Expressing desire to go home once he is stable. 02/04/2020-patient is comfortably sitting on the edge of the bed not in distress. Communicating okay. Blood cultures came back positive for gram-positive cocci clusters presently on cefepime, levofloxacin, Flagyl. Reason For Visit: RESPIRATORY FAILURE,PNEUMONIA Physical Exam Vital Signs: Temp Pulse Resp BP Pulse Ox 98.0 F 93 20 161/102 H 96 02/04/20 08:21 02/04/20 08:21 02/04/20 08:21 02/04/20 08:21 02/04/20 08:21 Intake & Output 02/03/20 02/04/20 02/05/20 06:59 06:59 06:59 Intake Total 722 1200 Output Total 1025 1250 Balance -303 -50 Weight 245 kg 246 kg General appearance: PRESENT: no acute distress, morbidly obese Head exam: PRESENT: atraumatic Eye exam: PRESENT: conjunctiva pink, PERRLA Ear exam: PRESENT: normal external ear exam Mouth exam: PRESENT: moist, tongue midline Teeth exam: PRESENT: poor dentation Throat exam: PRESENT: other - Tracheostomy seen. Neck exam: ABSENT: carotid bruit, JVD, lymphadenopathy, thyromegaly Respiratory exam: PRESENT: decreased breath sounds Cardiovascular exam: PRESENT: RRR GI/Abdominal exam: PRESENT: normal bowel sounds, soft. ABSENT: distended, guarding, mass, organolmegaly, rebound, tenderness Rectal exam: PRESENT: deferred Extremities exam: PRESENT: full ROM. ABSENT: calf tenderness, clubbing, pedal edema Neurological exam: PRESENT: alert, awake, oriented to person, oriented to place, oriented to time, oriented to situation, CN II-XII grossly intact. ABSENT: motor sensory deficit Psychiatric exam: PRESENT: appropriate affect, normal mood. ABSENT: homicidal ideation, suicidal ideation Results Laboratory Results: 02/04/20 09:07 02/04/20 09:07 02/02/20 02/04/20 02/04/20 04:48 09:07 09:07 WBC 9.5 RBC 4.54 Hgb 12.3 L Hct 39.9 MCV 88 MCH 27.0 MCHC 30.7 L RDW 16.2 H Plt Count 229 Seg Neutrophils % 83.2 H Sodium 139.6 Potassium 5.1 H Chloride 91 L Carbon Dioxide 41 H* 44 H* Anion Gap 5 BUN 25 H Creatinine 0.79 Est GFR ( Amer) > 60 Glucose 132 H Calcium 9.0 Magnesium 2.3 Total Bilirubin 0.4 AST 32 Alkaline Phosphatase 63 Total Protein 8.1 Albumin 4.3 01/30/20 01/31/20 02/01/20 16:07 04:36 04:10 Creatine Kinase CK-MB (CK-2) Troponin I NT-Pro-B Natriuret Pep 141 H 104 46 02/02/20 02/02/20 02/03/20 23:20 23:20 05:10 Creatine Kinase 95 86 CK-MB (CK-2) 1.07 Troponin I 0.018 NT-Pro-B Natriuret Pep 02/03/20 02/03/20 02/03/20 05:10 10:56 10:56 Creatine Kinase 80 CK-MB (CK-2) 1.06 1.02 Troponin I 0.014 0.022 NT-Pro-B Natriuret Pep Impressions: Chest X-Ray 02/02/20 05:00 IMPRESSION: Low lung volumes with persistent left basilar consolidation, pos sibly atelectasis or pneumonia. Assessment and Plan - Diagnosis (1) Acute on chronic respiratory failure with hypoxia and hypercapnia Is this a current diagnosis for this admission?: Yes Plan: Furosemide 40 mg IV every 12 hours. (Patient reports that he takes furosemide 40 mg p.o. twice daily as needed at home). Continue trach collar. Wean FiO2 as tolerated. Keep SpO2 88+%. 02/03/20-patient admitted with acute on chronic respiratory failure with hypoxia and hypercapnia. Pulse ox is 93% on 4 L. Blood culture is growing gram- positive cocci in clusters. Patient is afebrile. On cefepime, levofloxacin, Flagyl. 02/04/2020-blood cultures came back positive for gram-positive cocci in clusters. Patient is presently on IV cefepime, levofloxacin, Flagyl. Afebrile. Plan is to continue IV antibiotics at this time WBC count is 9500. (2) COVID-19 ruled out by laboratory testing Is this a current diagnosis for this admission?: Yes (3) COPD exacerbation Is this a current diagnosis for this admission?: Yes Plan: Continue DuoNeb/budesonide. Continue Solu-Medrol 60 mg IV every 12 hours. 02/04/2020-pulse ox today's 5%. On IV Solu-Medrol 2 mg every 12 hours plan is to continue DuoNeb nebulizations and budesonide. (4) Normocytic anemia Is this a current diagnosis for this admission?: Yes Plan: Monitor Hgb. 02/03/2020-latest hemoglobin is 11.1. Stable. Plan is to continue to closely monitor the labs. (5) Morbid obesity Is this a current diagnosis for this admission?: No Plan: 251 kg. BMI 77. Unknown baseline weight. 02/03/2020-patient BMI is more than 77 diet exercise weight loss lifestyle modifications discussed with the patient. Morbid obesity may be associated with hypoventilation syndrome. Patient need a sleep studies as an outpatient. - Time Anticipated Discharge Disposition: Home, Self Care Anticipated Discharge Timeframe: within 48 hours
[2020-02-04] MEDS: ATORVASTATIN CALCIUM 40 MG TABLET PO SCH (21:38)
[2020-02-04] MEDS: LEVOFLOXACIN 500 MG TABLET PO SCH (21:38)
[2020-02-05] MEDS: GABAPENTIN 300 MG CAPSULE PO SCH ×3 (05:38→21:46)
[2020-02-05] MEDS: LEVOTHYROXINE SODIUM 0.1 MG TABLET PO SCH (05:38)
[2020-02-05] MEDS: HEPARIN SOD (PORCINE) 5,000 UNIT/ML 1 ML VIAL SUBCUT SCH ×3 (05:38→21:45)
[2020-02-05] MEDS: NITROGLYCERIN 2% OINTMENT 1 GM PACKET TP SCH ×3 (05:38→21:47)
[2020-02-05] MEDS: HYDROCHLOROTHIAZIDE 25 MG TABLET PO SCH (08:21)
[2020-02-05] MEDS: AMLODIPINE BESYLATE 10 MG TABLET PO SCH (08:21)
[2020-02-05] MEDS: BUDESONIDE NEB 0.25 MG/2 ML AMPUL NEB SCH ×2 (08:50→20:38)
[2020-02-05] MEDS: BUSPIRONE HCL 10 MG TABLET PO SCH ×2 (10:21→17:27)
[2020-02-05] MEDS: SERTRALINE HCL 50 MG TABLET PO SCH (10:22)
[2020-02-05] MEDS: METHYLPREDNISOLONE INJ 40 MG/1 ML SDV IV SCH (10:23)
[2020-02-05] MEDS: LISINOPRIL 10 MG TABLET PO SCH (10:23)
[2020-02-05] MEDS: FAMOTIDINE 20 MG TABLET PO SCH ×2 (10:25→21:46)
[2020-02-05] MEDS: CEFEPIME HCL 2 GM in DEXTROSE 5%-WATER 50 ML IV SCH ×2 (10:26→21:52)
[2020-02-05 12:30] LABS: ARTERIAL BLOOD BASE EXCESS 21.1 mmol/L; ARTERIAL BLOOD FIO2 10L; ARTERIAL BLOOD H2CO3 4.57 mmol/L (1.05-1.35); ARTERIAL BLOOD O2 SATURATION 79.7 % (94-98); ARTERIAL BLOOD PO2 59.1 mmHg (80-100); ARTERIAL BLOOD TOTAL CO2 60.6 mmol/L (23-27)
[2020-02-05 12:31] LABS: ARTERIAL BLOOD PCO2 151.7 mmHg (35-45); ARTERIAL BLOOD PH 7.19 (7.35-7.45)
--- NOTE | 2020-02-05 14:33 | PDOC PROGRESS REPORT ---
Subjective Progress Note for:: 02/05/20 Subjective:: 30-year-old gentleman with severe morbid obesity leading to chronic respiratory failure status post tracheostomy and multiple ED visits and admissions for his restrictive lung disease. Patient presents after 4 days of worsening shortness of breath and increased sputum production. He was unable to adequately suction his tracheostomy tube today and activated EMS for what he felt was an obstruction. EMS replaced his tracheal tube. [facility] was hypoxemic, confused and combative. He was given Ativan for sedation and placed on ventilatory support. I was asked to assess Mr. Burnett for possible admission to the intensive care unit. Upon arrival, I found him to be with minimal exhaled tidal volume and a significant air leak from his tracheostomy tube. I emergently changed his tracheostomy tube to a cuffed XLT. He immediately began to have better ventilation and an improvement in his saturation from 85 to 88% to 92%. Despite improvement in his profound hypercarbia and subsequent respiratory acidosis, he remained acidotic after 40 minutes on the ventilator. He is mentating better and has been cooperative with my exam and conversation. We will admit Mr. Acharya to the intensive care unit for continued ventilatory support and treatment of a right lower lobe pneumonia which is evident on CXR. He is being tested for COVID-19 and will be considered a rule out POI until results return. I began having discussions with Mr. Burnett regarding his chronic respiratory condition. Unfortunately, he likely lacks the muscle mass necessary to maintain adequate ventilation and as evident by this admission, has very little reserve. I will further recommend palliative care and perhaps hospice care depending on the level of intervention he will desire. [id number]-old male was admitted to the ICU on 01/30 after presenting to [facility] emergency department with complaints of increased shortness of breath and sputum production for 4 days prior to presentation. He has a chronic tracheostomy and is typically able to provide his own tracheostomy care but reported being unable to adequately suction his tracheostomy, prompting call to EMS. In the emergency department, the patient was found to be hypoxemic. He was confused and combative. He was provided Ativan for sedation and then was placed on mechanical ventilatory support. 01/31: The patient did have brisk diuresis with a single dose of furosemide yesterday. This resulted in dramatic improvement in his PEEP requirement. At the time of clinical interview, the patient has been plus placed on PSV 10/5, FiO2 60%. He is awake, alert and oriented. He is interactive and is able to essentially perform his own tracheostomy care. He is requesting coming off the ventilator today. Blood cultures (01/29, 1 of 2 bottles) positive for gram-po sitive saqib, likely contaminant. Trach aspirate (01/29) showed 3+ PMNs on Gram stain but no organisms. 02/01-The patient has remained on trach collar. He is able to suction himself out. 02/03/2020-morbidly obese male comfortably in chair communicating okay. Trach in place. Not in distress. Expressing desire to go home once he is stable. 02/04/2020-patient is comfortably sitting on the edge of the bed not in distress. Communicating okay. Blood cultures came back positive for gram-positive cocci clusters presently on cefepime, levofloxacin, Flagyl. 02/04-around 1:30 PM nurse called me to notify me that patient not talking right , is confused twitching I gave order for ABG stat report came back with ABG pH 7.19/PCO2 151.7/PO2 59/bicarb 56 with bicarb of 56. I am at the bedside with respiratory therapist. Repeated suctionings we did a bagging to improve the aeration and a blow out the CO2 , patient is unable to tolerate the suctioning. Call was placed to software deployment engineer Dr. woods he knows the patient very well agreed to take the patient back to ICU for further management with possible ventilatory support. Reason For Visit: RESPIRATORY FAILURE,PNEUMONIA Physical Exam Vital Signs: Temp Pulse Resp BP Pulse Ox 97.9 F 84 20 162/78 H 96 02/05/20 12:25 02/05/20 12:25 02/05/20 12:25 02/05/20 12:25 02/05/20 12:25 Intake & Output 02/04/20 02/05/20 02/06/20 06:59 06:59 06:59 Intake Total 1200 622 Output Total 1250 5428 044 Balance -50 -1128 -475 Weight 246 kg 245 kg General appearance: PRESENT: morbidly obese, other - Morbidly obese patient moderate to severe distress Head exam: PRESENT: atraumatic Eye exam: PRESENT: PERRLA Ear exam: PRESENT: normal external ear exam Mouth exam: PRESENT: moist, tongue midline Neck exam: PRESENT: other - Patient has a trach. Respiratory exam: PRESENT: accessory muscle use, decreased breath sounds, tachypnea Cardiovascular exam: PRESENT: tachycardia GI/Abdominal exam: PRESENT: normal bowel sounds, soft. ABSENT: distended, guarding, mass, organolmegaly, rebound, tenderness Rectal exam: PRESENT: deferred Extremities exam: PRESENT: full ROM. ABSENT: calf tenderness, clubbing, pedal edema Neurological exam: PRESENT: alert, awake, oriented to person, oriented to place, oriented to time, oriented to situation, CN II-XII grossly intact. ABSENT: motor sensory deficit Psychiatric exam: PRESENT: appropriate affect, normal mood. ABSENT: homicidal ideation, suicidal ideation Results Laboratory Results: 02/04/20 09:07 02/04/20 09:07 02/05/20 12:00 Carbonic Acid 4.57 H HCO3/H2CO3 Ratio 12:1 ABG pH 7.19 L* ABG pCO2 151.7 H* ABG pO2 59.1 L ABG HCO3 56.0 H ABG O2 Saturation 79.7 L ABG Base Excess 21.1 FiO2 10L 01/30/20 18:19 Blood Blood Culture - Final Staphylococcus Epidermidis 01/30/20 01/31/20 02/01/20 16:07 04:36 04:10 Creatine Kinase CK-MB (CK-2) Troponin I NT-Pro-B Natriuret Pep 141 H 104 46 02/02/20 02/02/20 02/03/20 23:20 23:20 05:10 Creatine Kinase 95 86 CK-MB (CK-2) 1.07 Troponin I 0.018 NT-Pro-B Natriuret Pep 02/03/20 02/03/20 02/03/20 05:10 10:56 10:56 Creatine Kinase 80 CK-MB (CK-2) 1.06 1.02 Troponin I 0.014 0.022 NT-Pro-B Natriuret Pep Impressions: Chest X-Ray 02/02/20 05:00 IMPRESSION: Low lung volumes with persistent left basilar consolidation, possibly atelectasis or pneumonia. Assessment and Plan - Diagnosis (1) Acute on chronic respiratory failure with hypoxia and hypercapnia Is this a current diagnosis for this admission?: Yes Plan: Furosemide 40 mg IV every 12 hours. (Patient reports that he takes furosemide 40 mg p.o. twice daily as needed at home). Continue trach collar. Wean FiO2 as tolerated. Keep SpO2 88+%. 02/03/20-patient admitted with acute on chronic respiratory failure with hypoxia and hypercapnia. Pulse ox is 93% on 4 L. Blood culture is growing gram-positiv e cocci in clusters. Patient is afebrile. On cefepime, levofloxacin, Flagyl. 02/04/2020-blood cultures came back positive for gram-positive cocci in clusters. Patient is presently on IV cefepime, levofloxacin, Flagyl. Afebrile. Plan is to continue IV antibiotics at this time WBC count is 9500. 02/05/2020-patient has problems with breathing and getting confused and twitchy we did ABG and it shows pH of 7.19 with PCO2 of 152 and patient unable to tolerate the suctions. He wants uncuffed trach. Patient may need to go to the unit for ventilatory support. I spoke to the software deployment engineer Dr woods, he knows the patient very well and agreed to take the patient in the ICU for further management. (2) COVID-19 ruled out by laboratory testing Is this a current diagnosis for this admission?: Yes (3) COPD exacerbation Is this a current diagnosis for this admission?: Yes Plan: Continue DuoNeb/budesonide. Continue Solu-Medrol 60 mg IV every 12 hours. 02/04/2020-pulse ox today's 5%. On IV Solu-Medrol 2 mg every 12 hours plan is to continue DuoNeb nebulizations and budesonide. (4) Normocytic anemia Is this a current diagnosis for this admission?: Yes Plan: Monitor Hgb. 02/03/2020-latest hemoglobin is 11.1. Stable. Plan is to continue to closely monitor the labs. (5) Morbid obesity Is this a current diagnosis for this admission?: No Plan: 251 kg. BMI 77. Unknown baseline weight. 02/03/2020-patient BMI is more than 77 diet exercise weight loss lifestyle modifications discussed with the patient. Morbid obesity may be associated with hypoventilation syndrome. Patient need a sleep studies as an outpatient. - Time Anticipated Discharge Disposition: Home with Home Health Anticipated Discharge Timeframe: within 72 hours
[2020-02-05] MEDS: LEVOFLOXACIN 500 MG TABLET PO SCH (21:46)
[2020-02-05] MEDS: ATORVASTATIN CALCIUM 40 MG TABLET PO SCH (21:46)
[2020-02-06] MEDS: NITROGLYCERIN 2% OINTMENT 1 GM PACKET TP SCH ×4 (05:06→21:56)
[2020-02-06] MEDS: LEVOTHYROXINE SODIUM 0.1 MG TABLET PO SCH (05:45)
[2020-02-06] MEDS: GABAPENTIN 300 MG CAPSULE PO SCH ×3 (05:45→21:56)
[2020-02-06] MEDS: HEPARIN SOD (PORCINE) 5,000 UNIT/ML 1 ML VIAL SUBCUT SCH ×3 (05:46→21:56)
[2020-02-06] MEDS: BUDESONIDE NEB 0.25 MG/2 ML AMPUL NEB SCH ×2 (08:35→19:37)
[2020-02-06 08:59] LABS: ARTERIAL BLOOD BASE EXCESS 22.1 mmol/L; ARTERIAL BLOOD H2CO3 4.48 mmol/L (1.05-1.35); ARTERIAL BLOOD HCO3 56.9 mmol/L (20-24); ARTERIAL BLOOD O2 SATURATION 97.2 % (94-98); ARTERIAL BLOOD PO2 126.3 mmHg (80-100); ARTERIAL BLOOD TOTAL CO2 61.5 mmol/L (23-27)
[2020-02-06 09:00] LABS: ARTERIAL BLOOD FIO2 75%
[2020-02-06 09:02] LABS: ARTERIAL BLOOD PCO2 148.9 mmHg (35-45)
[2020-02-06 09:08] LABS: ALBUMIN 3.9 g/dL (3.5-5.0); ALKALINE PHOSPHATASE 56 U/L (38-126); ASPARTATE AMINO TRANSFERASE 25 U/L (17-59); BILIRUBIN,TOTAL 0.4 mg/dL (0.2-1.3); BLOOD UREA NITROGEN 22 mg/dL (7-20); CALCIUM 8.8 mg/dL (8.4-10.2); CHLORIDE 88 mmol/L (98-107); GLUCOSE 121 mg/dL (75-110); POTASSIUM 4.6 mmol/L (3.6-5.0); TOTAL PROTEIN 7.3 g/dL (6.3-8.2)
[2020-02-06 09:22] LABS: ABSOLUTE EOSINOPHILS # (AUTO) 0.2 10^3/uL (0.0-0.6); ABSOLUTE LYMPHOCYTES (AUTO) 1.2 10^3/uL (0.5-4.7); ABSOLUTE MONOCYTES (AUTO) 0.8 10^3/uL (0.1-1.4); ABSOLUTE NEUT (AUTO) 6.8 10^3/uL (1.7-8.2); BASOPHILS % (AUTO) 0.3 % (0-2); EOSINOPHILS % (AUTO) 2.5 % (0-6); HEMATOCRIT 39.7 % (37.9-51.0); MONOCYTES % (AUTO) 8.4 % (3-13); PLATELET COUNT 227 10^3/uL (150-450); RED BLOOD COUNT 4.46 10^6/uL (4.35-5.55); RED CELL DISTRIBUTION WIDTH 16.9 % (11.5-14.0); SEGMENTED NEUTROPHILS % (AUTO) 75.8 % (42-78); TOTAL CELLS COUNTED % (AUTO) 100 %
[2020-02-06 09:26] LABS: HEMOGLOBIN 12.1 g/dL (13.5-17.0)
[2020-02-06 09:27] LABS: MEAN CORPUSCULAR HEMOGLOBIN 27.1 pg (27.0-33.4); MEAN CORPUSCULAR HGB CONC 30.5 g/dL (32.0-36.0); MEAN CORPUSCULAR VOLUME 89 fl (80-97)
[2020-02-06 09:42] LABS: ANION GAP 2 (5-19)
[2020-02-06 09:43] LABS: CARBON DIOXIDE 49 mmol/L (22-30)
[2020-02-06] MEDS: SERTRALINE HCL 50 MG TABLET PO SCH (09:57)
[2020-02-06] MEDS: METHYLPREDNISOLONE INJ 40 MG/1 ML SDV IV SCH (09:57)
[2020-02-06] MEDS: AMLODIPINE BESYLATE 10 MG TABLET PO SCH (09:57)
[2020-02-06] MEDS: HYDROCHLOROTHIAZIDE 25 MG TABLET PO SCH (09:57)
[2020-02-06] MEDS: BUSPIRONE HCL 10 MG TABLET PO SCH ×2 (09:57→17:37)
[2020-02-06] MEDS: FAMOTIDINE 20 MG TABLET PO SCH ×2 (09:58→21:56)
[2020-02-06] MEDS: LISINOPRIL 10 MG TABLET PO SCH (09:58)
[2020-02-06] MEDS: CEFEPIME HCL 2 GM in DEXTROSE 5%-WATER 50 ML IV SCH ×2 (10:01→21:55)
--- NOTE | 2020-02-06 10:24 | PDOC PROGRESS REPORT ---
Subjective Progress Note for:: 02/06/20 Subjective:: 30-year-old gentleman with severe morbid obesity leading to chronic respiratory failure status post tracheostomy and multiple ED visits and admissions for his restrictive lung disease. Patient presents after 4 days of worsening shortness of breath and increased sputum production. He was unable to adequately suction his tracheostomy tube today and activated EMS for what he felt was an obstruction. EMS replaced his tracheal tube. [facility] patient was hypoxemic, confused and combative. He was given Ativan for sedation and placed on ventilatory support. I was asked to assess Mr. Burnett for possible admission to the intensive care unit. Upon arrival, I found him to be with minimal exhaled tidal volume and a significant air leak from his tracheostomy tube. I emergently changed his tracheostomy tube to a cuffed XLT. He immediately began to have better ventilation and an improvement in his saturation from 85 to 88% to 92%. Despite improvement in his profound hypercarbia and subsequent respiratory acidosis, he remained acidotic after 40 minutes on the ventilator. He is mentating better and has been cooperative with my exam and conversation. We will admit Mr. Acharya to the intensive care unit for continued ventilatory support and treatment of a right lower lobe pneumonia which is evident on CXR. He is being tested for COVID-19 and will be considered a rule out POI until results return. I began having discussions with Mr. Burnett regarding his chronic respiratory condition. Unfortunately, he likely lacks the muscle mass necessary to maintain adequate ventilation and as evident by this admission, has very little reserve. I will further recommend palliative care and perhaps hospice care depending on the level of intervention he will desire. [id number]-old male was admitted to the ICU on 01/30 after presenting to [facility] emergency department with complaints of increased shortness of breath and sputum production for 4 days prior to presentation. He has a chronic tracheostomy and is typically able to provide his own tracheostomy care but reported being unable to adequately suction his tracheostomy, prompting call to EMS. In the emergency department, the patient was found to be hypoxemic. He was confused and combative. He was provided Ativan for sedation and then was placed on mechanical ventilatory support. 01/31: The patient did have brisk diuresis with a single dose of furosemide yesterday. This resulted in dramatic improvement in his PEEP requirement. At the time of clinical interview, the patient has been plus placed on PSV 10/5, FiO2 60%. He is awake, alert and oriented. He is interactive and is able to essentially perform his own tracheostomy care. He is requesting coming off the ventilator today. Blood cultures (01/29, 1 of 2 bottles) positive for gram-po sitive saqib, likely contaminant. Trach aspirate (01/29) showed 3+ PMNs on Gram stain but no organisms. 02/01-The patient has remained on trach collar. He is able to suction himself out. 02/03/2020-morbidly obese male comfortably in chair communicating okay. Trach in place. Not in distress. Expressing desire to go home once he is stable. 02/04/2020-patient is comfortably sitting on the edge of the bed not in distress. Communicating okay. Blood cultures came back positive for gram-positive cocci clusters presently on cefepime, levofloxacin, Flagyl. 02/04-around 1:30 PM nurse called me to notify me that patient not talking right , is confused twitching I gave order for ABG stat report came back with ABG pH 7.19/PCO2 151.7/PO2 59/bicarb 56 with bicarb of 56. I am at the bedside with respiratory therapist. Repeated suctionings we did a bagging to improve the aeration and a blow out the CO2 , patient is unable to tolerate the suctioning. Call was placed to sleeve baster Dr. woods he knows the patient very well agreed to take the patient back to ICU for further management with possible ventilatory support. 02/05-pt is alert, awake and oriented .. ABG was done on 75% oxygen and BiPAP pH is 7.2, PCO2 148.9, PO2 126, bicarb is 56.9. Consultation with Dr. More was requested for lung issues. Reason For Visit: RESPIRATORY FAILURE,PNEUMONIA Physical Exam Vital Signs: Temp Pulse Resp BP Pulse Ox 98.1 F 88 15 142/53 H 100 02/06/20 07:32 02/06/20 07:32 02/06/20 07:32 02/06/20 07:32 02/06/20 07:32 Intake & Output 02/05/20 02/06/20 02/07/20 06:59 06:59 06:59 Intake Total 622 100 Output Total 1750 1150 Balance -1128 -1050 Weight 245 kg 247.3 kg General appearance: PRESENT: no acute distress, morbidly obese Head exam: PRESENT: atraumatic Eye exam: PRESENT: PERRLA Mouth exam: PRESENT: moist, tongue midline Teeth exam: PRESENT: poor dentation Neck exam: PRESENT: other - Trach in place. Respiratory exam: PRESENT: decreased breath sounds Cardiovascular exam: PRESENT: RRR. ABSENT: diastolic murmur, rubs, systolic murmur GI/Abdominal exam: PRESENT: normal bowel sounds, soft. ABSENT: distended, guarding, mass, organolmegaly, rebound, tenderness Rectal exam: PRESENT: deferred Extremities exam: PRESENT: full ROM. ABSENT: calf tenderness, clubbing, pedal edema Neurological exam: PRESENT: alert, awake, oriented to person, oriented to place, oriented to time, oriented to situation, CN II-XII grossly intact. ABSENT: motor sensory deficit Psychiatric exam: PRESENT: appropriate affect, normal mood. ABSENT: homicidal ideation, suicidal ideation Results Laboratory Results: 02/06/20 08:15 02/06/20 08:15 02/05/20 02/06/20 02/06/20 12:00 08:15 08:15 WBC 9.0 RBC 4.46 Hgb 12.1 L Hct 39.7 MCV 89 MCH 27.1 MCHC 30.5 L RDW 16.9 H Plt Count 227 Seg Neutrophils % 75.8 Carbonic Acid 4.57 H HCO3/H2CO3 Ratio 12:1 ABG pH 7.19 L* ABG pCO2 151.7 H* ABG pO2 59.1 L ABG HCO3 56.0 H ABG O2 Saturation 79.7 L ABG Base Excess 21.1 FiO2 10L Sodium 138.9 Potassium 4.6 Chloride 88 L Carbon Dioxide 49 H* Anion Gap 2 L BUN 22 H Creatinine 0.71 Est GFR ( Amer) > 60 Glucose 121 H Calcium 8.8 Total Bilirubin 0.4 AST 25 Alkaline Phosphatase 56 Total Protein 7.3 Albumin 3.9 02/06/20 08:42 WBC RBC Hgb Hct MCV MCH MCHC RDW Plt Count Seg Neutrophils % Carbonic Acid 4.48 H HCO3/H2CO3 Ratio 12:1 ABG pH 7.20 L* ABG pCO2 148.9 H* ABG pO2 126.3 H ABG HCO3 56.9 H ABG O2 Saturation 97.2 ABG Base Excess 22.1 FiO2 75% Sodium Potassium Chloride Carbon Dioxide Anion Gap BUN Creatinine Est GFR ( Amer) Glucose Calcium Total Bilirubin AST Alkaline Phosphatase Total Protein Albumin 01/30/20 01/31/20 02/01/20 16:07 04:36 04:10 Creatine Kinase CK-MB (CK-2) Troponin I NT-Pro-B Natriuret Pep 141 H 104 46 02/02/20 02/02/20 02/03/20 23:20 23:20 05:10 Creatine Kinase 95 86 CK-MB (CK-2) 1.07 Troponin I 0.018 NT-Pro-B Natriuret Pep 02/03/20 02/03/20 02/03/20 05:10 10:56 10:56 Creatine Kinase 80 CK-MB (CK-2) 1.06 1.02 Troponin I 0.014 0.022 NT-Pro-B Natriuret Pep Impressions: Chest X-Ray 02/02/20 05:00 IMPRESSION: Low lung volumes with persistent left basilar consolidation, possibly atelectasis or pneumonia. Assessment and Plan - Diagnosis (1) Acute on chronic respiratory failure with hypoxia and hypercapnia Is this a current diagnosis for this admission?: Yes Plan: Furosemide 40 mg IV every 12 hours. (Patient reports that he takes furosemide 40 mg p.o. twice daily as needed at home). Continue trach collar. Wean FiO2 as tolerated. Keep SpO2 88+%. 02/03/20-patient admitted with acute on chronic respiratory failure with hypoxia and hypercapnia. Pulse ox is 93% on 4 L. Blood culture is growing gram- positive cocci in clusters. Patient is afebrile. On cefepime, levofloxacin, Flagyl. 02/04/2020-blood cultures came back positive for gram-positive cocci in clusters. Patient is presently on IV cefepime, levofloxacin, Flagyl. Afebrile. Plan is to continue IV antibiotics at this time WBC count is 9500. 02/05/2020-patient has problems with breathing and getting confused and twitchy we did ABG and it shows pH of 7.19 with PCO2 of 152 and patient unable to tolerate the suctions. He wants uncuffed trach. Patient may need to go to the unit for ventilatory support. I spoke to the sleeve baster Dr woods, he knows the patient very well and agreed to take the patient in the ICU for further management. 02/06/2020-patient is comfortably sitting on the edge of the bed communicating well. Not in distress. Attached to BiPAP machine. ABG this morning on 75% oxygen shows pH of 7.2/PCO2 148.9/PO2 126/bicarb of 57. consult with pulmonary is requested. (2) COVID-19 ruled out by laboratory testing Is this a current diagnosis for this admission?: Yes (3) COPD exacerbation Is this a current diagnosis for this admission?: Yes Plan: Continue DuoNeb/budesonide. Continue Solu-Medrol 60 mg IV every 12 hours. 02/04/2020-pulse ox today's 95%. On IV Solu-Medrol 40 mg every 12 hours plan is to continue DuoNeb nebulizations and budesonide. 02/06/2020 -patient is on IV Solu-Medrol 40 mg daily. Patient is on BiPAP and doing well. Plan is to continue the present management at this time. (4) Normocytic anemia Is this a current diagnosis for this admission?: Yes Plan: Monitor Hgb. 02/03/2020-latest hemoglobin is 11.1. Stable. Plan is to continue to closely monitor the labs. (5) Morbid obesity Is this a current diagnosis for this admission?: No Plan: 251 kg. BMI 77. Unknown baseline weight. 02/03/2020-patient BMI is more than 77 diet exercise weight loss lifestyle modifications discussed with the patient. Morbid obesity may be associated with hypoventilation syndrome. Patient need a sleep studies as an outpatient. - Time Anticipated Discharge Disposition: Home with Home Health Anticipated Discharge Timeframe: within 48 hours
[2020-02-06] MEDS: MEDROXYPROGESTERONE ACET 10 MG TABLET PO SCH (17:37)
[2020-02-06] MEDS: THEOPHYLLINE ANHYDROUS 300 MG TAB.SR.12H PO SCH (17:38)
[2020-02-06] MEDS: ACETAZOLAMIDE 250 MG TABLET PO SCH (17:38)
[2020-02-06] MEDS: IPRATROPIUM/ALBUTEROL 0.5-2.5 MG/3 ML AMPUL NEB PRN (19:37)
[2020-02-06] MEDS: ATORVASTATIN CALCIUM 40 MG TABLET PO SCH (21:56)
[2020-02-07] MEDS: NITROGLYCERIN 2% OINTMENT 1 GM PACKET TP SCH ×4 (03:09→21:37)
[2020-02-07] MEDS: LEVOTHYROXINE SODIUM 0.1 MG TABLET PO SCH (05:59)
[2020-02-07] MEDS: MEDROXYPROGESTERONE ACET 10 MG TABLET PO SCH ×3 (05:59→21:37)
[2020-02-07] MEDS: GABAPENTIN 300 MG CAPSULE PO SCH ×3 (05:59→21:38)
[2020-02-07] MEDS: HEPARIN SOD (PORCINE) 5,000 UNIT/ML 1 ML VIAL SUBCUT SCH ×3 (06:00→21:38)
[2020-02-07] MEDS: ACETAZOLAMIDE 250 MG TABLET PO SCH ×2 (06:01→18:01)
[2020-02-07] MEDS: AMLODIPINE BESYLATE 10 MG TABLET PO SCH (08:50)
[2020-02-07] MEDS: HYDROCHLOROTHIAZIDE 25 MG TABLET PO SCH (08:50)
[2020-02-07] MEDS: IPRATROPIUM/ALBUTEROL 0.5-2.5 MG/3 ML AMPUL NEB PRN (08:59)
[2020-02-07] MEDS: BUDESONIDE NEB 0.25 MG/2 ML AMPUL NEB SCH ×2 (08:59→19:58)
--- NOTE | 2020-02-07 10:26 | PDOC PROGRESS REPORT ---
Subjective Progress Note for:: 02/07/20 Subjective:: 30-year-old gentleman with severe morbid obesity leading to chronic respiratory failure status post tracheostomy and multiple ED visits and admissions for his restrictive lung disease. Patient presents after 4 days of worsening shortness of breath and increased sputum production. He was unable to adequately suction his tracheostomy tube today and activated EMS for what he felt was an obstruction. EMS replaced his tracheal tube. [facility] was hypoxemic, confused and combative. He was given Ativan for sedation and placed on ventilatory support. I was asked to assess Mr. Burnett for possible admission to the intensive care unit. Upon arrival, I found him to be with minimal exhaled tidal volume and a significant air leak from his tracheostomy tube. I emergently changed his tracheostomy tube to a cuffed XLT. He immediately began to have better ventilation and an improvement in his saturation from 85 to 88% to 92%. Despite improvement in his profound hypercarbia and subsequent respiratory acidosis, he remained acidotic after 40 minutes on the ventilator. He is mentating better and has been cooperative with my exam and conversation. We will admit Mr. Acharya to the intensive care unit for continued ventilatory support and treatment of a right lower lobe pneumonia which is evident on CXR. He is being tested for COVID-19 and will be considered a rule out POI until results return. I began having discussions with Mr. Burnett regarding his chronic respiratory condition. Unfortunately, he likely lacks the muscle mass necessary to maintain adequate ventilation and as evident by this admission, has very little reserve. I will further recommend palliative care and perhaps hospice care depending on the level of intervention he will desire. [id number]-old male was admitted to the ICU on 01/30 after presenting to [facility] emergency department with complaints of increased shortness of breath and sputum production for 4 days prior to presentation. He has a chronic tracheostomy and is typically able to provide his own tracheostomy care but reported being unable to adequately suction his tracheostomy, prompting call to EMS. In the emergency department, the patient was found to be hypoxemic. He was confused and combative. He was provided Ativan for sedation and then was placed on mechanical ventilatory support. 01/31: The patient did have brisk diuresis with a single dose of furosemide yesterday. This resulted in dramatic improvement in his PEEP requirement. At the time of clinical interview, the patient has been plus placed on PSV 10/5, FiO2 60%. He is awake, alert and oriented. He is interactive and is able to essentially perform his own tracheostomy care. He is requesting coming off the ventilator today. Blood cultures (01/29, 1 of 2 bottles) positive for gram-po sitive saqib, likely contaminant. Trach aspirate (01/29) showed 3+ PMNs on Gram stain but no organisms. 02/01-The patient has remained on trach collar. He is able to suction himself out. 02/03/2020-morbidly obese male comfortably in chair communicating okay. Trach in place. Not in distress. Expressing desire to go home once he is stable. 02/04/2020-patient is comfortably sitting on the edge of the bed not in distress. Communicating okay. Blood cultures came back positive for gram-positive cocci clusters presently on cefepime, levofloxacin, Flagyl. 02/04-around 1:30 PM nurse called me to notify me that patient not talking right , is confused twitching I gave order for ABG stat report came back with ABG pH 7.19/PCO2 151.7/PO2 59/bicarb 56 with bicarb of 56. I am at the bedside with respiratory therapist. Repeated suctionings we did a bagging to improve the aeration and a blow out the CO2 , patient is unable to tolerate the suctioning. Call was placed to anime artist Dr. woods he knows the patient very well agreed to take the patient back to ICU for further management with possible ventilatory support. 02/05-pt is alert, awake and oriented .. ABG was done on 75% oxygen and BiPAP pH is 7.2, PCO2 148.9, PO2 126, bicarb is 56.9. Consultation with Dr. More was requested for lung issues. [id number]-old male with morbid obesity under trach comfortably in the bed communicating okay. Plan is to repeat the ABG this morning. Reason For Visit: RESPIRATORY FAILURE,PNEUMONIA Physical Exam Vital Signs: Temp Pulse Resp BP Pulse Ox 98.1 F 90 16 109/66 93 02/07/20 08:10 02/07/20 08:59 02/07/20 08:59 02/07/20 08:10 02/07/20 08:59 Intake & Output 02/06/20 02/07/20 02/08/20 06:59 06:59 06:59 Intake Total 100 1442 Output Total 1150 2700 Balance -1050 -1258 Weight 247.3 kg 245.9 kg General appearance: PRESENT: no acute distress, morbidly obese Head exam: PRESENT: atraumatic Eye exam: PRESENT: PERRLA Mouth exam: PRESENT: moist, tongue midline Teeth exam: PRESENT: poor dentation Neck exam: ABSENT: carotid bruit, JVD, lymphadenopathy, thyromegaly Respiratory exam: PRESENT: decreased breath sounds Cardiovascular exam: PRESENT: RRR. ABSENT: diastolic murmur, rubs, systolic murmur GI/Abdominal exam: PRESENT: normal bowel sounds, soft. ABSENT: distended, guarding, mass, organolmegaly, rebound, tenderness Rectal exam: PRESENT: deferred Extremities exam: PRESENT: full ROM. ABSENT: calf tenderness, clubbing, pedal edema Neurological exam: PRESENT: alert, awake, oriented to person, oriented to place, oriented to time, oriented to situation, CN II-XII grossly intact. ABSENT: motor sensory deficit Psychiatric exam: PRESENT: appropriate affect, normal mood. ABSENT: homicidal ideation, suicidal ideation Skin exam: PRESENT: dry, intact, warm. ABSENT: cyanosis, rash Results Laboratory Results: 02/06/20 08:15 02/06/20 08:15 01/30/20 01/31/20 02/01/20 16:07 04:36 04:10 Creatine Kinase CK-MB (CK-2) Troponin I NT-Pro-B Natriuret Pep 141 H 104 46 02/02/20 02/02/20 02/03/20 23:20 23:20 05:10 Creatine Kinase 95 86 CK-MB (CK-2) 1.07 Troponin I 0.018 NT-Pro-B Natriuret Pep 02/03/20 02/03/20 02/03/20 05:10 10:56 10:56 Creatine Kinase 80 CK-MB (CK-2) 1.06 1.02 Troponin I 0.014 0.022 NT-Pro-B Natriuret Pep Impressions: Chest X-Ray 02/02/20 05:00 IMPRESSION: Low lung volumes with persistent left basilar consolidation, possibly atelectasis or pneumonia. Assessment and Plan - Diagnosis (1) Acute on chronic respiratory failure with hypoxia and hypercapnia Is this a current diagnosis for this admission?: Yes Plan: Furosemide 40 mg IV every 12 hours. (Patient reports that he takes furosemide 40 mg p.o. twice daily as needed at home). Continue trach collar. Wean FiO2 as tolerated. Keep SpO2 88+%. 02/03/20-patient admitted with acute on chronic respiratory failure with hypoxia and hypercapnia. Pulse ox is 93% on 4 L. Blood culture is growing gram- positive cocci in clusters. Patient is afebrile. On cefepime, levofloxacin, Flagyl. 02/04/2020-blood cultures came back positive for gram-positive cocci in clusters. Patient is presently on IV cefepime, levofloxacin, Flagyl. Afebrile. Plan is to continue IV antibiotics at this time WBC count is 9500. 02/05/2020-patient has problems with breathing and getting confused and twitchy we did ABG and it shows pH of 7.19 with PCO2 of 152 and patient unable to tolerate the suctions. He wants uncuffed trach. Patient may need to go to the unit for ventilatory support. I spoke to the anime artist Dr woods, he knows the patient very well and agreed to take the patient in the ICU for further management. 02/06/2020-patient is comfortably sitting on the edge of the bed communicating well. Not in distress. Attached to BiPAP machine. ABG this morning on 75% oxygen shows pH of 7.2/PCO2 148.9/PO2 126/bicarb of 57. consult with pulmonary is requested. 02/07/20-and is comfortably in the bed communicating okay. Trach is connected to BiPAP machine. Plan is to repeat the ABG to assess the PCO2 level. Patient is not in distress at this time. Cultures came back staph epidermidis plan is to discontinue IV antibiotics from today. (2) COVID-19 ruled out by laboratory testing Is this a current diagnosis for this admission?: Yes (3) COPD exacerbation Is this a current diagnosis for this admission?: Yes Plan: Continue DuoNeb/budesonide. Continue Solu-Medrol 60 mg IV every 12 hours. 02/04/2020-pulse ox today's 95%. On IV Solu-Medrol 40 mg every 12 hours plan is to continue DuoNeb nebulizations and budesonide. 02/06/2020 -patient is on IV Solu-Medrol 40 mg daily. Patient is on BiPAP and doing well. Plan is to continue the present management at this time. 02/07/20-consultation with Dr. Clemons is done his recommendation is Provera, trilogy at the time of discharge. We will continue the present management in the meantime. (4) Normocytic anemia Is this a current diagnosis for this admission?: Yes Plan: Monitor Hgb. 02/03/2020-latest hemoglobin is 11.1. Stable. Plan is to continue to closely monitor the labs. (5) Morbid obesity Is this a current diagnosis for this admission?: No Plan: 251 kg. BMI 77. Unknown baseline weight. 02/03/2020-patient BMI is more than 77 diet exercise weight loss lifestyle modifications discussed with the patient. Morbid obesity may be associated with hypoventilation syndrome. Patient need a sleep studies as an outpatient. - Time Anticipated Discharge Disposition: Home with Home Health Anticipated Discharge Timeframe: within 72 hours
[2020-02-07] MEDS: FAMOTIDINE 20 MG TABLET PO SCH ×2 (10:41→21:38)
[2020-02-07] MEDS: THEOPHYLLINE ANHYDROUS 300 MG TAB.SR.12H PO SCH ×2 (10:41→18:01)
[2020-02-07] MEDS: SERTRALINE HCL 50 MG TABLET PO SCH (10:41)
[2020-02-07] MEDS: LISINOPRIL 10 MG TABLET PO SCH (10:42)
[2020-02-07] MEDS: BUSPIRONE HCL 10 MG TABLET PO SCH ×2 (10:42→18:00)
[2020-02-07] MEDS: METHYLPREDNISOLONE INJ 40 MG/1 ML SDV IV SCH (10:43)
[2020-02-07 14:28] LABS: ARTERIAL BLOOD BASE EXCESS 15.9 mmol/L; ARTERIAL BLOOD H2CO3 3.52 mmol/L (1.05-1.35); ARTERIAL BLOOD HCO3 48.3 mmol/L (20-24); ARTERIAL BLOOD O2 SATURATION 95.8 % (94-98); ARTERIAL BLOOD PH 7.23 (7.35-7.45); ARTERIAL BLOOD PO2 100.4 mmHg (80-100); ARTERIAL BLOOD TOTAL CO2 51.9 mmol/L (23-27)
[2020-02-07 14:29] LABS: ARTERIAL BLOOD FIO2 80%; ARTERIAL BLOOD PCO2 116.9 mmHg (35-45)
[2020-02-07] MEDS: ATORVASTATIN CALCIUM 40 MG TABLET PO SCH (21:38)
[2020-02-08] MEDS: NITROGLYCERIN 2% OINTMENT 1 GM PACKET TP SCH ×3 (03:59→16:00)
[2020-02-08] MEDS: MEDROXYPROGESTERONE ACET 10 MG TABLET PO SCH ×3 (05:22→21:08)
[2020-02-08] MEDS: LEVOTHYROXINE SODIUM 0.1 MG TABLET PO SCH (05:23)
[2020-02-08] MEDS: GABAPENTIN 300 MG CAPSULE PO SCH ×3 (05:23→21:08)
[2020-02-08] MEDS: HEPARIN SOD (PORCINE) 5,000 UNIT/ML 1 ML VIAL SUBCUT SCH ×3 (05:23→21:07)
[2020-02-08] MEDS: ACETAZOLAMIDE 250 MG TABLET PO SCH ×2 (05:27→17:57)
[2020-02-08 06:07] LABS: ABSOLUTE EOSINOPHILS # (AUTO) 0.2 10^3/uL (0.0-0.6); ABSOLUTE MONOCYTES (AUTO) 1.2 10^3/uL (0.1-1.4); ABSOLUTE NEUT (AUTO) 8.6 10^3/uL (1.7-8.2); BASOPHILS % (AUTO) 0.3 % (0-2); EOSINOPHILS % (AUTO) 1.4 % (0-6); HEMATOCRIT 39.3 % (37.9-51.0); HEMOGLOBIN 11.9 g/dL (13.5-17.0); MEAN CORPUSCULAR HEMOGLOBIN 26.6 pg (27.0-33.4); MEAN CORPUSCULAR HGB CONC 30.3 g/dL (32.0-36.0); MEAN CORPUSCULAR VOLUME 88 fl (80-97); MONOCYTES % (AUTO) 9.7 % (3-13); PLATELET COUNT 255 10^3/uL (150-450); RED BLOOD COUNT 4.47 10^6/uL (4.35-5.55); RED CELL DISTRIBUTION WIDTH 16.5 % (11.5-14.0); SEGMENTED NEUTROPHILS % (AUTO) 71.6 % (42-78); TOTAL CELLS COUNTED % (AUTO) 100 %
[2020-02-08 06:31] LABS: ALKALINE PHOSPHATASE 58 U/L (38-126); BLOOD UREA NITROGEN 23 mg/dL (7-20); GLUCOSE 111 mg/dL (75-110); TOTAL PROTEIN 7.2 g/dL (6.3-8.2)
[2020-02-08 06:40] LABS: ANION GAP 6 (5-19); ASPARTATE AMINO TRANSFERASE 29 U/L (17-59); BILIRUBIN,TOTAL 0.4 mg/dL (0.2-1.3); CALCIUM 8.9 mg/dL (8.4-10.2); CHLORIDE 92 mmol/L (98-107); POTASSIUM 4.6 mmol/L (3.6-5.0)
[2020-02-08 07:15] LABS: CARBON DIOXIDE 40 mmol/L (22-30)
[2020-02-08] MEDS: IPRATROPIUM/ALBUTEROL 0.5-2.5 MG/3 ML AMPUL NEB PRN (08:34)
[2020-02-08] MEDS: BUDESONIDE NEB 0.25 MG/2 ML AMPUL NEB SCH ×2 (08:34→21:05)
[2020-02-08] MEDS: HYDROCHLOROTHIAZIDE 25 MG TABLET PO SCH (08:41)
[2020-02-08] MEDS: AMLODIPINE BESYLATE 10 MG TABLET PO SCH (08:42)
--- NOTE | 2020-02-08 09:17 | PDOC PROGRESS REPORT ---
Subjective Progress Note for:: 02/08/20 Subjective:: 30-year-old gentleman with severe morbid obesity leading to chronic respiratory failure status post tracheostomy and multiple ED visits and admissions for his restrictive lung disease. Patient presents after 4 days of worsening shortness of breath and increased sputum production. He was unable to adequately suction his tracheostomy tube today and activated EMS for what he felt was an obstruction. EMS replaced his tracheal tube[facility] was hypoxemic, confused and combative. He was given Ativan for sedation and placed on ventilatory support. I was asked to assess Mr. Burnett for possible admission to the intensive care unit. Upon arrival, I found him to be with minimal exhaled tidal volume and a significant air leak from his tracheostomy tube. I emergently changed his tracheostomy tube to a cuffed XLT. He immediately began to have better ventilation and an improvement in his saturation from 85 to 88% to 92%. Despite improvement in his profound hypercarbia and subsequent respiratory acidosis, he remained acidotic after 40 minutes on the ventilator. He is mentating better and has been cooperative with my exam and conversation. We will admit Mr. Acharya to the intensive care unit for continued ventilatory support and treatment of a right lower lobe pneumonia which is evident on CXR. He is being tested for COVID-19 and will be considered a rule out POI until results return. I began having discussions with Mr. Burnett regarding his chronic respiratory condition. Unfortunately, he likely lacks the muscle mass necessary to maintain adequate ventilation and as evident by this admission, has very little reserve. I will further recommend palliative care and perhaps hospice care depending on the level of intervention he will desire. [id number]-old male was admitted to the ICU on 01/30 after presenting to [facility] emergency department with complaints of increased shortness of breath and sputum production for 4 days prior to presentation. He has a chronic tracheostomy and is typically able to provide his own tracheostomy care but reported being unable to adequately suction his tracheostomy, prompting call to EMS. In the emergency department, the patient was found to be hypoxemic. He was confused and combative. He was provided Ativan for sedation and then was placed on mechanical ventilatory support. 01/31: The patient did have brisk diuresis with a single dose of furosemide yesterday. This resulted in dramatic improvement in his PEEP requirement. At the time of clinical interview, the patient has been plus placed on PSV 10/5, FiO2 60%. He is awake, alert and oriented. He is interactive and is able to essentially perform his own tracheostomy care. He is requesting coming off the ventilator today. Blood cultures (01/29, 1 of 2 bottles) positive for gram-po sitive saqib, likely contaminant. Trach aspirate (01/29) showed 3+ PMNs on Gram stain but no organisms. 02/01-The patient has remained on trach collar. He is able to suction himself out. 02/03/2020-morbidly obese male comfortably in chair communicating okay. Trach in place. Not in distress. Expressing desire to go home once he is stable. 02/04/2020-patient is comfortably sitting on the edge of the bed not in distress. Communicating okay. Blood cultures came back positive for gram-positive cocci clusters presently on cefepime, levofloxacin, Flagyl. 02/04-around 1:30 PM nurse called me to notify me that patient not talking right , is confused twitching I gave order for ABG stat report came back with ABG pH 7.19/PCO2 151.7/PO2 59/bicarb 56 with bicarb of 56. I am at the bedside with respiratory therapist. Repeated suctionings we did a bagging to improve the aeration and a blow out the CO2 , patient is unable to tolerate the suctioning. Call was placed to or rn Dr. woods he knows the patient very well agreed to take the patient back to ICU for further management with possible ventilatory support. 02/05-pt is alert, awake and oriented .. ABG was done on 75% oxygen and BiPAP pH is 7.2, PCO2 148.9, PO2 126, bicarb is 56.9. Consultation with Dr. More was requested for lung issues. 02/[id number]-[id number]-old male with morbid obesity under trach comfortably in the bed communicating okay. Plan is to repeat the ABG this morning. 02/08/2020-morbidly obese male most likely with obstructive sleep apnea the admitted for acute on chronic respiratory failure admitted to ICU now is in IMCU at this time. BiPAP is connected to the trach. Comfortably in the edge of the bed communicating well. No concerns expressed by the patient this morning. Plan is to discharge him home tomorrow probably with a trilogy. Reason For Visit: RESPIRATORY FAILURE,PNEUMONIA Physical Exam Vital Signs: Temp Pulse Resp BP Pulse Ox 98.4 F 91 19 134/74 H 100 02/08/20 03:19 02/08/20 08:37 02/08/20 08:37 02/08/20 03:19 02/08/20 08:37 Intake & Output 02/07/20 02/08/20 02/09/20 06:59 06:59 06:59 Intake Total 1442 2035 Output Total 2700 3675 Balance -1258 -1640 Weight 245.9 kg 247.1 kg General appearance: PRESENT: no acute distress, morbidly obese Head exam: PRESENT: atraumatic Eye exam: PRESENT: conjunctiva pale, PERRLA Mouth exam: PRESENT: moist, tongue midline Teeth exam: PRESENT: poor dentation Neck exam: PRESENT: other - Trach connected to BiPAP. Respiratory exam: PRESENT: decreased breath sounds Pulses: PRESENT: normal dorsalis pedis pul GI/Abdominal exam: PRESENT: normal bowel sounds, soft. ABSENT: distended, guarding, mass, organolmegaly, rebound, tenderness Rectal exam: PRESENT: deferred Extremities exam: PRESENT: full ROM. ABSENT: calf tenderness, clubbing, pedal edema Neurological exam: PRESENT: alert, awake, oriented to person, oriented to place, oriented to time, oriented to situation, CN II-XII grossly intact. ABSENT: motor sensory deficit Results Laboratory Results: 02/08/20 05:49 02/08/20 05:49 02/07/20 02/08/20 02/08/20 14:08 05:49 05:49 WBC 12.0 H RBC 4.47 Hgb 11.9 L Hct 39.3 MCV 88 MCH 26.6 L MCHC 30.3 L RDW 16.5 H Plt Count 255 Seg Neutrophils % 71.6 Carbonic Acid 3.52 H HCO3/H2CO3 Ratio 13:1 ABG pH 7.23 L ABG pCO2 116.9 H* ABG pO2 100.4 H ABG HCO3 48.3 H ABG O2 Saturation 95.8 ABG Base Excess 15.9 FiO2 80% Sodium 138.0 Potassium 4.6 Chloride 92 L Carbon Dioxide 40 H* Anion Gap 6 BUN 23 H Creatinine 0.81 Est GFR ( Amer) > 60 Glucose 111 H Calcium 8.9 Magnesium 2.4 H Total Bilirubin 0.4 AST 29 Alkaline Phosphatase 58 Total Protein 7.2 Albumin 4.0 01/30/20 01/31/20 02/01/20 16:07 04:36 04:10 Creatine Kinase CK-MB (CK-2) Troponin I NT-Pro-B Natriuret Pep 141 H 104 46 02/02/20 02/02/20 02/03/20 23:20 23:20 05:10 Creatine Kinase 95 86 CK-MB (CK-2) 1.07 Troponin I 0.018 NT-Pro-B Natriuret Pep 02/03/20 02/03/20 02/03/20 05:10 10:56 10:56 Creatine Kinase 80 CK-MB (CK-2) 1.06 1.02 Troponin I 0.014 0.022 NT-Pro-B Natriuret Pep Impressions: Chest X-Ray 02/02/20 05:00 IMPRESSION: Low lung volumes with persistent left basilar consolidation, possibly atelectasis or pneumonia. Assessment and Plan - Diagnosis (1) Acute on chronic respiratory failure with hypoxia and hypercapnia Is this a current diagnosis for this admission?: Yes Plan: Furosemide 40 mg IV every 12 hours. (Patient reports that he takes furosemide 40 mg p.o. twice daily as needed at home). Continue trach collar. Wean FiO2 as tolerated. Keep SpO2 88+%. 02/03/20-patient admitted with acute on chronic respiratory failure with hypoxia and hypercapnia. Pulse ox is 93% on 4 L. Blood culture is growing gram- positive cocci in clusters. Patient is afebrile. On cefepime, levofloxacin, Flagyl. 02/04/2020-blood cultures came back positive for gram-positive cocci in clusters. Patient is presently on IV cefepime, levofloxacin, Flagyl. Afebrile. Plan is to continue IV antibiotics at this time WBC count is 9500. 02/05/2020-patient has problems with breathing and getting confused and twitchy we did ABG and it shows pH of 7.19 with PCO2 of 152 and patient unable to tolerate the suctions. He wants uncuffed trach. Patient may need to go to the unit for ventilatory support. I spoke to the or rn Dr woods, he knows the patient very well and agreed to take the patient in the ICU for further management. 02/06/2020-patient is comfortably sitting on the edge of the bed communicating well. Not in distress. Attached to BiPAP machine. ABG this morning on 75% oxygen shows pH of 7.2/PCO2 148.9/PO2 126/bicarb of 57. consult with pulmonary is requested. 02/07/20-and is comfortably in the bed communicating okay. Trach is connected to BiPAP machine. Plan is to repeat the ABG to assess the PCO2 level. Patient is not in distress at this time. Cultures came back staph epidermidis plan is to discontinue IV antibiotics from today. 02/08/2020-patient is comfortably sitting in the bed communicating well. Not in distress. Patient has a trach connected to BiPAP. Tolerating the BiPAP well at this time. Not on antibiotics at this time. (2) COVID-19 ruled out by laboratory testing Is this a current diagnosis for this admission?: Yes (3) COPD exacerbation Is this a current diagnosis for this admission?: Yes Plan: Continue DuoNeb/budesonide. Continue Solu-Medrol 60 mg IV every 12 hours. 02/04/2020-pulse ox today's 95%. On IV Solu-Medrol 40 mg every 12 hours plan is to continue DuoNeb nebulizations and budesonide. 02/06/2020 -patient is on IV Solu-Medrol 40 mg daily. Patient is on BiPAP and doing well. Plan is to continue the present management at this time. 02/07/20-consultation with Dr. Clemons is done his recommendation is Provera, trilogy at the time of discharge. We will continue the present management in the meantime. (4) Normocytic anemia Is this a current diagnosis for this admission?: Yes Plan: Monitor Hgb. 02/03/2020-latest hemoglobin is 11.1. Stable. Plan is to continue to closely monitor the labs. (5) Morbid obesity Is this a current diagnosis for this admission?: No Plan: 251 kg. BMI 77. Unknown baseline weight. 02/03/2020-patient BMI is more than 77 diet exercise weight loss lifestyle modifications discussed with the patient. Morbid obesity may be associated with hypoventilation syndrome. Patient need a sleep studies as an outpatient. - Time Anticipated Discharge Disposition: Home with Home Health Anticipated Discharge Timeframe: within 48 hours
[2020-02-08] MEDS: BUSPIRONE HCL 10 MG TABLET PO SCH ×2 (10:41→17:57)
[2020-02-08] MEDS: THEOPHYLLINE ANHYDROUS 300 MG TAB.SR.12H PO SCH ×2 (10:41→17:57)
[2020-02-08] MEDS: SERTRALINE HCL 50 MG TABLET PO SCH (10:41)
[2020-02-08] MEDS: FAMOTIDINE 20 MG TABLET PO SCH ×2 (10:41→21:08)
[2020-02-08] MEDS: METHYLPREDNISOLONE INJ 40 MG/1 ML SDV IV SCH (10:42)
[2020-02-08] MEDS: LISINOPRIL 10 MG TABLET PO SCH (10:42)
[2020-02-08] MEDS: ATORVASTATIN CALCIUM 40 MG TABLET PO SCH (21:08)
[2020-02-09] MEDS: NITROGLYCERIN 2% OINTMENT 1 GM PACKET TP SCH ×5 (01:14→21:43)
[2020-02-09] MEDS: GABAPENTIN 300 MG CAPSULE PO SCH ×3 (05:53→21:42)
[2020-02-09] MEDS: LEVOTHYROXINE SODIUM 0.1 MG TABLET PO SCH (05:53)
[2020-02-09] MEDS: HEPARIN SOD (PORCINE) 5,000 UNIT/ML 1 ML VIAL SUBCUT SCH ×3 (05:53→21:41)
[2020-02-09] MEDS: ACETAZOLAMIDE 250 MG TABLET PO SCH (05:54)
[2020-02-09] MEDS: MEDROXYPROGESTERONE ACET 10 MG TABLET PO SCH ×3 (06:04→21:43)
[2020-02-09] MEDS: IPRATROPIUM/ALBUTEROL 0.5-2.5 MG/3 ML AMPUL NEB PRN ×2 (08:57→20:38)
[2020-02-09] MEDS: BUDESONIDE NEB 0.25 MG/2 ML AMPUL NEB SCH ×2 (08:57→20:38)
--- NOTE | 2020-02-09 09:44 | PDOC PROGRESS REPORT ---
Subjective Progress Note for:: 02/09/20 Subjective:: 30-year-old gentleman with severe morbid obesity leading to chronic respiratory failure status post tracheostomy and multiple ED visits and admissions for his restrictive lung disease. Patient presents after 4 days of worsening shortness of breath and increased sputum production. He was unable to adequately suction his tracheostomy tube today and activated EMS for what he felt was an obstruction. EMS replaced his tracheal tube. [facility], patient was hypoxemic, confused and combative. He was given Ativan for sedation and placed on ventilatory support. I was asked to assess Mr. Burnett for possible admission to the intensive care unit. Upon arrival, I found him to be with minimal exhaled tidal volume and a significant air leak from his tracheostomy tube. I emergently changed his tracheostomy tube to a cuffed XLT. He immediately began to have better ventilation and an improvement in his saturation from 85 to 88% to 92%. Despite improvement in his profound hypercarbia and subsequent respiratory acidosis, he remained acidotic after 40 minutes on the ventilator. He is mentating better and has been cooperative with my exam and conversation. We will admit Mr. Acharya to the intensive care unit for continued ventilatory support and treatment of a right lower lobe pneumonia which is evident on CXR. He is being tested for COVID-19 and will be considered a rule out POI until results return. I began having discussions with Mr. Burnett regarding his chronic respiratory condition. Unfortunately, he likely lacks the muscle mass necessary to maintain adequate ventilation and as evident by this admission, has very little reserve. I will further recommend palliative care and perhaps hospice care depending on the level of intervention he will desire. [id number]-old male was admitted to the ICU on 01/30 after presenting to [facility] emergency department with complaints of increased shortness of breath and sputum production for 4 days prior to presentation. He has a chronic tracheostomy and is typically able to provide his own tracheostomy care but reported being unable to adequately suction his tracheostomy, prompting call to EMS. In the emergency department, the patient was found to be hypoxemic. He was confused and combative. He was provided Ativan for sedation and then was placed on mechanical ventilatory support. 01/31: The patient did have brisk diuresis with a single dose of furosemide yesterday. This resulted in dramatic improvement in his PEEP requirement. At the time of clinical interview, the patient has been plus placed on PSV 10/5, FiO2 60%. He is awake, alert and oriented. He is interactive and is able to essentially perform his own tracheostomy care. He is requesting coming off the ventilator today. Blood cultures (01/29, 1 of 2 bottles) positive for gram-po sitive saqib, likely contaminant. Trach aspirate (01/29) showed 3+ PMNs on Gram stain but no organisms. 02/01-The patient has remained on trach collar. He is able to suction himself out. 02/03/2020-morbidly obese male comfortably in chair communicating okay. Trach in place. Not in distress. Expressing desire to go home once he is stable. 02/04/2020-patient is comfortably sitting on the edge of the bed not in distress. Communicating okay. Blood cultures came back positive for gram-positive cocci clusters presently on cefepime, levofloxacin, Flagyl. 02/04-around 1:30 PM nurse called me to notify me that patient not talking right , is confused twitching I gave order for ABG stat report came back with ABG pH 7.19/PCO2 151.7/PO2 59/bicarb 56 with bicarb of 56. I am at the bedside with respiratory therapist. Repeated suctionings we did a bagging to improve the aeration and a blow out the CO2 , patient is unable to tolerate the suctioning. Call was placed to assistant construction superintendent Dr. woods he knows the patient very well agreed to take the patient back to ICU for further management with possible ventilatory support. 02/05-pt is alert, awake and oriented .. ABG was done on 75% oxygen and BiPAP pH is 7.2, PCO2 148.9, PO2 126, bicarb is 56.9. Consultation with Dr. More was requested for lung issues. [id number]-old male with morbid obesity under trach comfortably in the bed communicating okay. Plan is to repeat the ABG this morning. 02/08/2020-morbidly obese male most likely with obstructive sleep apnea the admitted for acute on chronic respiratory failure admitted to ICU now is in IMCU at this time. BiPAP is connected to the trach. Comfortably in the edge of the bed communicating well. No concerns expressed by the patient this morning. Plan is to discharge him home tomorrow probably with a trilogy. 02/09/2020-patient is doing well. No acute events in the last 24 hours. Patient waiting for a trilogy approval. Plan is to repeat the labs and ABG this morning. Reason For Visit: RESPIRATORY FAILURE,PNEUMONIA Physical Exam Vital Signs: Temp Pulse Resp BP Pulse Ox 98.5 F 88 20 113/66 97 02/09/20 02:00 02/09/20 08:57 02/09/20 08:57 02/09/20 02:00 02/09/20 08:57 Intake & Output 02/08/20 02/09/20 02/10/20 06:59 06:59 06:59 Intake Total 2035 1260 Output Total 3675 2775 Balance -1640 -1515 Weight 247.1 kg 247.1 kg General appearance: PRESENT: no acute distress, cooperative, morbidly obese Head exam: PRESENT: atraumatic Eye exam: PRESENT: PERRLA Mouth exam: PRESENT: moist, tongue midline Teeth exam: PRESENT: poor dentation Neck exam: PRESENT: other Respiratory exam: PRESENT: decreased breath sounds Cardiovascular exam: PRESENT: RRR. ABSENT: diastolic murmur, rubs, systolic murmur GI/Abdominal exam: PRESENT: normal bowel sounds, soft. ABSENT: distended, guarding, mass, organolmegaly, rebound, tenderness Rectal exam: PRESENT: deferred Extremities exam: PRESENT: full ROM. ABSENT: calf tenderness, clubbing, pedal edema Neurological exam: PRESENT: alert, awake, oriented to person, oriented to place, oriented to time, oriented to situation, CN II-XII grossly intact. ABSENT: motor sensory deficit Psychiatric exam: PRESENT: appropriate affect, normal mood. ABSENT: homicidal ideation, suicidal ideation Results Laboratory Results: 02/08/20 05:49 02/08/20 05:49 01/30/20 01/31/20 02/01/20 16:07 04:36 04:10 Creatine Kinase CK-MB (CK-2) Troponin I NT-Pro-B Natriuret Pep 141 H 104 46 02/02/20 02/02/20 02/03/20 23:20 23:20 05:10 Creatine Kinase 95 86 CK-MB (CK-2) 1.07 Troponin I 0.018 NT-Pro-B Natriuret Pep 02/03/20 02/03/20 02/03/20 05:10 10:56 10:56 Creatine Kinase 80 CK-MB (CK-2) 1.06 1.02 Troponin I 0.014 0.022 NT-Pro-B Natriuret Pep Impressions: Chest X-Ray 02/02/20 05:00 IMPRESSION: Low lung volumes with persistent left basilar consolidation, possibly atelectasis or pneumonia. Assessment and Plan - Diagnosis (1) Acute on chronic respiratory failure with hypoxia and hypercapnia Is this a current diagnosis for this admission?: Yes Plan: Furosemide 40 mg IV every 12 hours. (Patient reports that he takes furosemide 40 mg p.o. twice daily as needed at home). Continue trach collar. Wean FiO2 as tolerated. Keep SpO2 88+%. 02/03/20-patient admitted with acute on chronic respiratory failure with hypoxia and hypercapnia. Pulse ox is 93% on 4 L. Blood culture is growing gram- positive cocci in clusters. Patient is afebrile. On cefepime, levofloxacin, Flagyl. 02/04/2020-blood cultures came back positive for gram-positive cocci in clusters. Patient is presently on IV cefepime, levofloxacin, Flagyl. Afebrile. Plan is to continue IV antibiotics at this time WBC count is 9500. 02/05/2020-patient has problems with breathing and getting confused and twitchy we did ABG and it shows pH of 7.19 with PCO2 of 152 and patient unable to tolerate the suctions. He wants uncuffed trach. Patient may need to go to the unit for ventilatory support. I spoke to the assistant construction superintendent Dr woods, he knows the patient very well and agreed to take the patient in the ICU for further management. 02/06/2020-patient is comfortably sitting on the edge of the bed communicating well. Not in distress. Attached to BiPAP machine. ABG this morning on 75% oxygen shows pH of 7.2/PCO2 148.9/PO2 126/bicarb of 57. consult with pulmonary is requested. 02/07/20-and is comfortably in the bed communicating okay. Trach is connected to BiPAP machine. Plan is to repeat the ABG to assess the PCO2 level. Patient is not in distress at this time. Cultures came back staph epidermidis plan is to discontinue IV antibiotics from today. 02/08/2020-patient is comfortably sitting in the bed communicating well. Not in distress. Patient has a trach connected to BiPAP. Tolerating the BiPAP well at this time. Not on antibiotics at this time. 02/09/20-patient is comfortably sitting at the edge of the bed communicating well. Not in distress. With a trach connected to the BiPAP. Plan is to do the basic lab work and do the ABG this morning. (2) COVID-19 ruled out by laboratory testing Is this a current diagnosis for this admission?: Yes (3) COPD exacerbation Is this a current diagnosis for this admission?: Yes Plan: Continue DuoNeb/budesonide. Continue Solu-Medrol 60 mg IV every 12 hours. 02/04/2020-pulse ox today's 95%. On IV Solu-Medrol 40 mg every 12 hours plan is to continue DuoNeb nebulizations and budesonide. 02/06/2020 -patient is on IV Solu-Medrol 40 mg daily. Patient is on BiPAP and doing well. Plan is to continue the present management at this time. 02/07/20-consultation with Dr. Clemons is done his recommendation is Provera, trilogy at the time of discharge. We will continue the present management in the meantime. (4) Normocytic anemia Is this a current diagnosis for this admission?: Yes Plan: Monitor Hgb. 02/03/2020-latest hemoglobin is 11.1. Stable. Plan is to continue to closely monitor the labs. (5) Morbid obesity Is this a current diagnosis for this admission?: No Plan: 251 kg. BMI 77. Unknown baseline weight. 02/03/2020-patient BMI is more than 77 diet exercise weight loss lifestyle modifications discussed with the patient. Morbid obesity may be associated with hypoventilation syndrome. Patient need a sleep studies as an outpatient. - Time Anticipated Discharge Disposition: Home with Home Health Anticipated Discharge Timeframe: within 24 hours
[2020-02-09 09:58] LABS: ARTERIAL BLOOD BASE EXCESS 7.3 mmol/L; ARTERIAL BLOOD H2CO3 2.66 mmol/L (1.05-1.35); ARTERIAL BLOOD HCO3 37.5 mmol/L (20-24); ARTERIAL BLOOD O2 SATURATION 90.9 % (94-98); ARTERIAL BLOOD PH 7.25 (7.35-7.45); ARTERIAL BLOOD PO2 72.5 mmHg (80-100); ARTERIAL BLOOD TOTAL CO2 40.2 mmol/L (23-27)
[2020-02-09 10:20] LABS: ABSOLUTE BASOPHILS # (AUTO) 0.1 10^3/uL (0.0-0.2); ABSOLUTE EOSINOPHILS # (AUTO) 0.2 10^3/uL (0.0-0.6); ABSOLUTE LYMPHOCYTES (AUTO) 1.4 10^3/uL (0.5-4.7); ABSOLUTE MONOCYTES (AUTO) 0.8 10^3/uL (0.1-1.4); ABSOLUTE NEUT (AUTO) 6.8 10^3/uL (1.7-8.2); BASOPHILS % (AUTO) 0.6 % (0-2); EOSINOPHILS % (AUTO) 2.5 % (0-6); HEMATOCRIT 36.9 % (37.9-51.0); LYMPHOCYTES % (AUTO) 15.2 % (13-45); MEAN CORPUSCULAR HEMOGLOBIN 26.7 pg (27.0-33.4); MEAN CORPUSCULAR HGB CONC 29.9 g/dL (32.0-36.0); MEAN CORPUSCULAR VOLUME 89 fl (80-97); PLATELET COUNT 218 10^3/uL (150-450); RED BLOOD COUNT 4.14 10^6/uL (4.35-5.55); RED CELL DISTRIBUTION WIDTH 16.8 % (11.5-14.0); SEGMENTED NEUTROPHILS % (AUTO) 72.7 % (42-78); TOTAL CELLS COUNTED % (AUTO) 100 %; WHITE BLOOD COUNT 9.4 10^3/uL (4.0-10.5)
[2020-02-09] MEDS: BUSPIRONE HCL 10 MG TABLET PO SCH ×2 (10:24→17:39)
[2020-02-09] MEDS: METHYLPREDNISOLONE INJ 40 MG/1 ML SDV IV SCH (10:24)
[2020-02-09] MEDS: HYDROCHLOROTHIAZIDE 25 MG TABLET PO SCH (10:24)
[2020-02-09 10:25] LABS: ARTERIAL BLOOD FIO2 50%
[2020-02-09 10:26] LABS: ARTERIAL BLOOD PCO2 88.5 mmHg (35-45)
[2020-02-09] MEDS: LISINOPRIL 10 MG TABLET PO SCH (10:26)
[2020-02-09] MEDS: AMLODIPINE BESYLATE 10 MG TABLET PO SCH (10:26)
[2020-02-09] MEDS: FAMOTIDINE 20 MG TABLET PO SCH ×2 (10:27→21:42)
[2020-02-09] MEDS: SERTRALINE HCL 50 MG TABLET PO SCH (10:28)
[2020-02-09] MEDS: THEOPHYLLINE ANHYDROUS 300 MG TAB.SR.12H PO SCH ×2 (10:28→21:42)
[2020-02-09 10:50] LABS: ALBUMIN 3.4 g/dL (3.5-5.0); ALKALINE PHOSPHATASE 53 U/L (38-126); ASPARTATE AMINO TRANSFERASE 32 U/L (17-59); BILIRUBIN,TOTAL 0.4 mg/dL (0.2-1.3); BLOOD UREA NITROGEN 28 mg/dL (7-20); CALCIUM 8.6 mg/dL (8.4-10.2); GLUCOSE 176 mg/dL (75-110); POTASSIUM 4.3 mmol/L (3.6-5.0); TOTAL PROTEIN 6.4 g/dL (6.3-8.2)
[2020-02-09 10:55] LABS: CARBON DIOXIDE 38 mmol/L (22-30); CHLORIDE 94 mmol/L (98-107)
[2020-02-09 10:59] LABS: ANION GAP 4 (5-19)
[2020-02-09] MEDS: ATORVASTATIN CALCIUM 40 MG TABLET PO SCH (21:42)
[2020-02-10] MEDS: NITROGLYCERIN 2% OINTMENT 1 GM PACKET TP SCH ×4 (03:56→22:01)
[2020-02-10] MEDS: MEDROXYPROGESTERONE ACET 10 MG TABLET PO SCH ×3 (05:18→21:57)
[2020-02-10] MEDS: LEVOTHYROXINE SODIUM 0.1 MG TABLET PO SCH (05:18)
[2020-02-10] MEDS: GABAPENTIN 300 MG CAPSULE PO SCH ×3 (05:18→21:57)
[2020-02-10] MEDS: HEPARIN SOD (PORCINE) 5,000 UNIT/ML 1 ML VIAL SUBCUT SCH ×3 (05:19→21:57)
[2020-02-10] MEDS: AMLODIPINE BESYLATE 10 MG TABLET PO SCH (08:06)
[2020-02-10] MEDS: HYDROCHLOROTHIAZIDE 25 MG TABLET PO SCH (08:06)
[2020-02-10] MEDS: BUDESONIDE NEB 0.25 MG/2 ML AMPUL NEB SCH ×2 (08:46→20:55)
[2020-02-10 09:43] LABS: ARTERIAL BLOOD H2CO3 2.25 mmol/L (1.05-1.35); ARTERIAL BLOOD HCO3 34.7 mmol/L (20-24); ARTERIAL BLOOD O2 SATURATION 92.1 % (94-98); ARTERIAL BLOOD PH 7.29 (7.35-7.45); ARTERIAL BLOOD PO2 72.5 mmHg (80-100)
[2020-02-10 09:44] LABS: ARTERIAL BLOOD FIO2 45%
[2020-02-10 09:46] LABS: ARTERIAL BLOOD PCO2 74.6 mmHg (35-45)
[2020-02-10] MEDS: BUSPIRONE HCL 10 MG TABLET PO SCH ×2 (10:32→18:10)
[2020-02-10] MEDS: SERTRALINE HCL 50 MG TABLET PO SCH (10:33)
[2020-02-10] MEDS: LISINOPRIL 10 MG TABLET PO SCH (10:33)
[2020-02-10] MEDS: FAMOTIDINE 20 MG TABLET PO SCH ×2 (10:33→21:57)
[2020-02-10] MEDS: THEOPHYLLINE ANHYDROUS 300 MG TAB.SR.12H PO SCH ×2 (10:35→21:57)
--- NOTE | 2020-02-10 14:18 | PDOC PROGRESS REPORT ---
Subjective Progress Note for:: 02/10/20 Subjective:: Patient states that he feels as if he is breathing relatively well today. No other complaints. Reason For Visit: RESPIRATORY FAILURE,PNEUMONIA Physical Exam Vital Signs: Temp Pulse Resp BP Pulse Ox 98.8 F 96 22 H 125/59 L 91 L 02/10/20 11:29 02/10/20 11:29 02/10/20 12:58 02/10/20 11:29 02/10/20 12:58 Intake & Output 02/09/20 02/10/20 02/11/20 06:59 06:59 06:59 Intake Total 1260 1596 Output Total 2775 3166 Balance -1515 -1570 Weight 247.1 kg 247.1 kg General appearance: PRESENT: no acute distress, morbidly obese Head exam: PRESENT: atraumatic, normocephalic Eye exam: PRESENT: conjunctiva pink Mouth exam: PRESENT: moist, tongue midline Neck exam: PRESENT: tracheostomy. ABSENT: JVD Respiratory exam: PRESENT: clear to auscultation kapil, decreased breath sounds, symmetrical, unlabored. ABSENT: accessory muscle use, crackles, rhonchi, wheezes Cardiovascular exam: PRESENT: RRR, +S1, +S2 Vascular exam: PRESENT: normal capillary refill GI/Abdominal exam: PRESENT: normal bowel sounds, soft. ABSENT: distended, tenderness Rectal exam: PRESENT: deferred Extremities exam: ABSENT: calf tenderness, pedal edema Musculoskeletal exam: PRESENT: full ROM Neurological exam: PRESENT: alert, awake, oriented to person, oriented to place, oriented to time, oriented to situation, CN II-XII grossly intact Psychiatric exam: PRESENT: appropriate affect, normal mood. ABSENT: agitated, anxious Skin exam: PRESENT: dry, normal color, vesicles Results Laboratory Results: 02/09/20 10:05 02/09/20 10:05 02/10/20 09:08 Carbonic Acid 2.25 H HCO3/H2CO3 Ratio 15:1 ABG pH 7.29 L ABG pCO2 74.6 H* ABG pO2 72.5 L ABG HCO3 34.7 H ABG O2 Saturation 92.1 L ABG Base Excess 6.0 FiO2 45% 01/30/20 01/31/20 02/01/20 16:07 04:36 04:10 Creatine Kinase CK-MB (CK-2) Troponin I NT-Pro-B Natriuret Pep 141 H 104 46 02/02/20 02/02/20 02/03/20 23:20 23:20 05:10 Creatine Kinase 95 86 CK-MB (CK-2) 1.07 Troponin I 0.018 NT-Pro-B Natriuret Pep 02/03/20 02/03/20 02/03/20 05:10 10:56 10:56 Creatine Kinase 80 CK-MB (CK-2) 1.06 1.02 Troponin I 0.014 0.022 NT-Pro-B Natriuret Pep Impressions: Chest X-Ray 02/02/20 05:00 IMPRESSION: Low lung volumes with persistent left basilar consolidation, possibly atelectasis or pneumonia. Assessment and Plan - Diagnosis (1) Acute on chronic respiratory failure with hypoxia and hypercapnia Is this a current diagnosis for this admission?: Yes Plan: Patient was admitted in acute respiratory failure. His initial work-up included blood cultures which revealed Corynebacterium species and Staph Epi in 1 bottle only. He was placed on cefepime, levofloxacin, and Flagyl. Micro screened his specimen for 26 organisms all of which were negative. Patient never appeared toxic. It was felt that the blood culture was a surface contaminant and antibiotics were discontinued on 02/07/2020 Patient sitting at side of bed breathing comfortably on vent ABG from this a.m. noted Patient's baseline PaCO2 appears to be in the 50 - 80 range and today it is 74.6. He has had a steady improvement over the last several days in his PaCO2. His PaCO2 has been stable at 72.5 past 2 days Patient has now been approved for Trilogy [facility] does well plan on discharge tomorrow provided he looks good in the a.m. (2) COPD exacerbation Is this a current diagnosis for this admission?: Yes Plan: Stop IV steroids Start prednisone 40 mg p.o. daily Continue medroxyprogesterone 10 mg p.o. every 8 hours Continue budesonide nebs 0.25 mg every 12 hours Continue theophylline 300 mg p.o. every 12 hours (3) Morbid obesity Is this a current diagnosis for this admission?: No Plan: BMI 77 Reinforced weight loss/lifestyle modifications with the patient Patient's morbid obesity likely contributing to his chronic respiratory failure with hypoventilation syndrome (4) Hypertension Qualifiers: Hypertension type: essential hypertension Qualified Code(s): I10 - Essential (primary) hypertension Is this a current diagnosis for this admission?: Yes Plan: BP adequately control Continue amlodipine 10 mg p.o. daily Continue lisinopril 40 mg p.o. daily Continue HCTZ 25 mg p.o. daily (5) Dyslipidemia Is this a current diagnosis for this admission?: Yes Plan: Continue atorvastatin 40 mg p.o. daily (6) Hypothyroidism Is this a current diagnosis for this admission?: Yes Plan: Continue with levothyroxine 0.1 mg p.o. daily (7) Anxiety and depression Is this a current diagnosis for this admission?: Yes Plan: Continue buspirone 15 mg p.o. twice daily Continue sertraline 150 mg p.o. daily (8) Normocytic anemia Is this a current diagnosis for this admission?: Yes Plan: Recheck CBC in a.m. - Time Time Spent with patient: 25-34 minutes Medications reviewed and adjusted accordingly: Yes Anticipated Discharge Disposition: Home, Self Care Anticipated Discharge Timeframe: within 36 hours
[2020-02-10] MEDS: METHYLPREDNISOLONE INJ 40 MG/1 ML SDV IV SCH (14:50)
[2020-02-10] MEDS ORDERED: PREDNISONE 20 MG TABLET PO ONE (14:51)
[2020-02-10] MEDS: ATORVASTATIN CALCIUM 40 MG TABLET PO SCH (21:57)
[2020-02-11] MEDS: NITROGLYCERIN 2% OINTMENT 1 GM PACKET TP SCH ×2 (03:43→10:35)
[2020-02-11] MEDS: MEDROXYPROGESTERONE ACET 10 MG TABLET PO SCH (06:02)
[2020-02-11] MEDS: LEVOTHYROXINE SODIUM 0.1 MG TABLET PO SCH (06:02)
[2020-02-11] MEDS: GABAPENTIN 300 MG CAPSULE PO SCH (06:02)
[2020-02-11] MEDS: HEPARIN SOD (PORCINE) 5,000 UNIT/ML 1 ML VIAL SUBCUT SCH (06:03)
[2020-02-11 07:47] LABS: ABSOLUTE EOSINOPHILS # (AUTO) 0.1 10^3/uL (0.0-0.6); ABSOLUTE LYMPHOCYTES (AUTO) 1.7 10^3/uL (0.5-4.7); ABSOLUTE MONOCYTES (AUTO) 0.9 10^3/uL (0.1-1.4); BASOPHILS % (AUTO) 0.5 % (0-2); HEMATOCRIT 36.4 % (37.9-51.0); HEMOGLOBIN 11.1 g/dL (13.5-17.0); LYMPHOCYTES % (AUTO) 17.3 % (13-45); MEAN CORPUSCULAR HEMOGLOBIN 26.7 pg (27.0-33.4); MEAN CORPUSCULAR HGB CONC 30.6 g/dL (32.0-36.0); MEAN CORPUSCULAR VOLUME 87 fl (80-97); MONOCYTES % (AUTO) 9.4 % (3-13); PLATELET COUNT 241 10^3/uL (150-450); RED BLOOD COUNT 4.17 10^6/uL (4.35-5.55); RED CELL DISTRIBUTION WIDTH 16.4 % (11.5-14.0); SEGMENTED NEUTROPHILS % (AUTO) 71.8 % (42-78); TOTAL CELLS COUNTED % (AUTO) 100 %; WHITE BLOOD COUNT 9.7 10^3/uL (4.0-10.5)
[2020-02-11 07:59] LABS: ANION GAP 8 (5-19); BLOOD UREA NITROGEN 30 mg/dL (7-20); CALCIUM 9.3 mg/dL (8.4-10.2); CARBON DIOXIDE 35 mmol/L (22-30); CHLORIDE 98 mmol/L (98-107); GLUCOSE 151 mg/dL (75-110); POTASSIUM 4.7 mmol/L (3.6-5.0)
[2020-02-11] MEDS: BUDESONIDE NEB 0.25 MG/2 ML AMPUL NEB SCH (08:26)
[2020-02-11] MEDS ORDERED: PREDNISONE 20 MG TABLET PO SCH (10:00)
[2020-02-11] MEDS: BUSPIRONE HCL 10 MG TABLET PO SCH (10:33)
[2020-02-11] MEDS: LISINOPRIL 10 MG TABLET PO SCH (10:33)
[2020-02-11] MEDS: FAMOTIDINE 20 MG TABLET PO SCH (10:33)
[2020-02-11] MEDS: AMLODIPINE BESYLATE 10 MG TABLET PO SCH (10:33)
[2020-02-11] MEDS: HYDROCHLOROTHIAZIDE 25 MG TABLET PO SCH (10:34)
[2020-02-11] MEDS: SERTRALINE HCL 50 MG TABLET PO SCH (10:34)
[2020-02-11] MEDS: THEOPHYLLINE ANHYDROUS 300 MG TAB.SR.12H PO SCH (10:37)
[2020-02-11 12:18] VITALS: BP 130/52
--- NOTE | 2020-02-11 13:01 | PDOC DISCHARGE SUMMARY ---
Impression - Admit/DC Date/PCP Admission Date/Primary Care Provider: 01/30/20 23:41 MARIALUISA HANSEN, DO Discharge Date: 02/11/20 - Discharge Diagnosis (1) Acute on chronic respiratory failure with hypoxia and hypercapnia Is this a current diagnosis for this admission?: Yes (2) COPD exacerbation Is this a current diagnosis for this admission?: Yes (3) Morbid obesity Is this a current diagnosis for this admission?: No (4) Hypertension Is this a current diagnosis for this admission?: Yes (5) Dyslipidemia Is this a current diagnosis for this admission?: Yes (6) Hypothyroidism Is this a current diagnosis for this admission?: Yes (7) Anxiety and depression Is this a current diagnosis for this admission?: Yes (8) Normocytic anemia Is this a current diagnosis for this admission?: Yes - Additional Information Resuscitation Status: Full Code Discharge Diet: As Tolerated, Regular Discharge Activity: Activity As Tolerated, Balance Activity w/Rest Referrals: AUGUSTO MORE MD [ACTIVE STAFF] - Prescriptions: Prednisone [Deltasone 5 mg Tablet] 5 mg PO DAILY #43 tablet Medroxyprogesterone Acet [Provera 10 mg Tablet] 10 mg PO Q8 #90 tablet Theophylline Anhydrous [Matthieu-Dur 300 mg Tab.sr] 300 mg PO Q12 #60 tab.sr.12h Home Medications: Buspirone HCl [Buspar 10 mg Tablet] 15 mg PO BID 03/12/18 Levothyroxine Sodium [Synthroid] 100 mcg PO Q6AM 03/12/18 Hydrochlorothiazide [Hydrodiuril 25 mg Tablet] 25 mg PO QAM 03/22/19 Atorvastatin Calcium [Lipitor 40 mg Tablet] 40 mg PO QHS tablet 03/29/19 Lisinopril [Prinivil 10 mg Tablet] 40 mg PO DAILY tablet 03/29/19 Amlodipine Besylate [Norvasc 10 mg Tablet] 10 mg PO QAM 01/31/20 Fluticasone Propion/Salmeterol [Fluticasone-Salmeterol 113-14] 2 puff IH Q12 01/31/20 Furosemide [Lasix 40 mg Tablet] 40 mg PO BIDP PRN 01/31/20 Gabapentin [Neurontin 300 mg Capsule] 300 mg PO Q8 01/31/20 Sertraline HCl [Zoloft 50 mg Tablet] 200 mg PO QAM 01/31/20 Levothyroxine Sodium [Synthroid 0.1 mg Tablet] 0.1 mg PO Q6AM tablet 02/05/20 Sertraline HCl [Zoloft 50 mg Tablet] 150 mg PO DAILY tablet 02/05/20 Medroxyprogesterone Acet [Provera 10 mg Tablet] 10 mg PO Q8 #90 tablet 02/11/20 Prednisone [Deltasone 5 mg Tablet] 5 mg PO DAILY #43 tablet 02/11/20 Theophylline Anhydrous [Matthieu-Dur 300 mg Tab.sr] 300 mg PO Q12 #60 tab.sr.12h 02/11/20 History of Present Illiness History of Present Illness: JOEY ORTEGA III is a 30 year old male with PMH significant for morbid obesity and chronic hypoxic/hypercapnic respiratory failure with chronic tracheostomy who presented to the ED with 4 days of worsening SOB and increased sputum production. In the ED he was hypoxic and combative. He was given lorazepam for sedation and placed on the ventilator via his existing tracheostomy tube. He almost immediately began to improve with saturations improving to the mid 90s. The intensive care team was consulted and he was admitted to the ICU for further evaluation and treatment. He was tested for COVID-19 which ultimately was negative. He ultimately improved to the point where he was transferred out of the intensive care unit. Hospital Course Hospital Course: Patient continues to improve once discharged from the intensive care unit. He remained on IV steroids but was ultimately transitioned to oral steroids with instructions on a steroid taper. This was also discussed with the patient's home health nurse. A pulmonology consult was obtained and they follow the patient through the time of discharge. He was ultimately approved for and placed on Trilogy. The patient was placed on theophylline CR 300 mg p.o. every 12 hours and medroxyprogesterone 10 mg p.o. 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 He was discharged on these medications with instructions to follow-up with both his PCP as well as Dr. Augusto More ([employer]) Physical Exam Vital Signs: Temp Pulse Resp BP Pulse Ox 97.9 F 81 21 H 130/52 H 94 02/11/20 11:42 02/11/20 11:42 02/11/20 11:42 02/11/20 11:42 02/11/20 11:42 Intake & Output 02/10/20 02/11/20 02/12/20 06:59 06:59 06:59 Intake Total 1596 1368 Output Total 3085 6622 Balance -1570 -1332 Weight 247.1 kg 247.1 kg General appearance: PRESENT: no acute distress, cooperative, morbidly obese Head exam: PRESENT: atraumatic Eye exam: PRESENT: conjunctiva pink Mouth exam: PRESENT: moist, tongue midline Neck exam: PRESENT: tracheostomy. ABSENT: JVD, tracheal deviation Respiratory exam: PRESENT: clear to auscultation kapil, decreased breath sounds - Air entry diminished at bases bilaterally, symmetrical, unlabored. ABSENT: accessory muscle use Cardiovascular exam: PRESENT: RRR, +S1, +S2 Pulses: PRESENT: normal carotid pulses, normal radial pulses, +1 pedal pulses bilateral Vascular exam: PRESENT: normal capillary refill GI/Abdominal exam: PRESENT: normal bowel sounds, soft. ABSENT: tenderness Rectal exam: PRESENT: deferred Extremities exam: ABSENT: calf tenderness, pedal edema Neurological exam: PRESENT: alert, awake, oriented to person, oriented to place, oriented to time, oriented to situation, CN II-XII grossly intact Psychiatric exam: PRESENT: appropriate affect, normal mood. ABSENT: agitated, anxious Skin exam: PRESENT: dry, normal color, warm Results Laboratory Results: WBC 9.7 10^3/uL (4.0-10.5) 02/11/20 06:57 RBC 4.17 10^6/uL (4.35-5.55) L 02/11/20 06:57 Hgb 11.1 g/dL (13.5-17.0) L 02/11/20 06:57 Hct 36.4 % (37.9-51.0) L 02/11/20 06:57 MCV 87 fl (80-97) 02/11/20 06:57 MCH 26.7 pg (27.0-33.4) L 02/11/20 06:57 MCHC 30.6 g/dL (32.0-36.0) L 02/11/20 06:57 RDW 16.4 % (11.5-14.0) H 02/11/20 06:57 Plt Count 241 10^3/uL (150-450) 02/11/20 06:57 Lymph % (Auto) 17.3 % (13-45) 02/11/20 06:57 [place]air % (Auto) 9.4 % (3-13) 02/11/20 06:57 Eos % (Auto) 1.0 % (0-6) 02/11/20 06:57 Baso % (Auto) 0.5 % (0-2) 02/11/20 06:57 Absolute Neuts (auto) 7.0 10^3/uL (1.7-8.2) 02/11/20 06:57 Absolute Lymphs (auto) 1.7 10^3/uL (0.5-4.7) 02/11/20 06:57 Absolute Monos (auto) 0.9 10^3/uL (0.1-1.4) 02/11/20 06:57 Absolute Eos (auto) 0.1 10^3/uL (0.0-0.6) 02/11/20 06:57 Absolute Basos (auto) 0.0 10^3/uL (0.0-0.2) 02/11/20 06:57 Total Counted 100 01/31/20 04:36 Seg Neutrophils % 71.8 % (42-78) 02/11/20 06:57 Seg Neuts % (Manual) 88 % (42-78) H 01/31/20 04:36 Lymphocytes % (Manual) 6 % (13-45) L 01/31/20 04:36 Monocytes % (Manual) 6 % (3-13) 01/31/20 04:36 Eosinophils % (Manual) 0 % (0-6) 01/31/20 04:36 Basophils % (Manual) 0 % (0-2) 01/31/20 04:36 Abs Neuts (Manual) 8.8 10^3/uL (1.7-8.2) H 01/31/20 04:36 Abs Lymphs (Manual) 0.6 10^3/uL (0.5-4.7) 01/31/20 04:36 Abs Monocytes (Manual) 0.6 10^3/uL (0.1-1.4) 01/31/20 04:36 Absolute Eos (Manual) 0.0 10^3/uL (0.0-0.6) 01/31/20 04:36 Abs Basophils (Manual) 0.0 10^3/uL (0.0-0.2) 01/31/20 04:36 Toxic Vacuolation PRESENT 01/31/20 04:36 Large Platelets PRESENT 01/30/20 16:07 Platelet Comment ADEQUATE 01/31/20 04:36 Polychromasia 1+ 01/31/20 04:36 Poikilocytosis 2+ 01/30/20 16:07 Basophilic Stippling PRESENT 01/31/20 04:36 Anisocytosis 1+ 01/31/20 04:36 Stomatocytes 1+ 01/31/20 04:36 PT 13.6 SEC (11.4-15.4) 01/30/20 16:07 INR 1.02 01/30/20 16:07 APTT 34.0 SEC (23.5-35.8) 01/30/20 16:07 Carbonic Acid 2.25 mmol/L (1.05-1.35) H 02/10/20 09:08 HCO3/H2CO3 Ratio 15:1 02/10/20 09:08 ABG pH 7.29 (7.35-7.45) L 02/10/20 09:08 ABG pCO2 74.6 mmHg (35-45) H* 02/10/20 09:08 ABG pO2 72.5 mmHg (80-100) L 02/10/20 09:08 ABG HCO3 34.7 mmol/L (20-24) H 02/10/20 09:08 ABG Total CO2 37.0 mmol/L (23-27) H 02/10/20 09:08 ABG O2 Saturation 92.1 % (94-98) L 02/10/20 09:08 ABG Base Excess 6.0 mmol/L 02/10/20 09:08 FiO2 45% 02/10/20 09:08 Sodium 140.6 mmol/L (137-145) 02/11/20 06:57 Potassium 4.7 mmol/L (3.6-5.0) 02/11/20 06:57 Chloride 98 mmol/L (98-107) 02/11/20 06:57 Carbon Dioxide 35 mmol/L (22-30) H 02/11/20 06:57 Anion Gap 8 (5-19) 02/11/20 06:57 BUN 30 mg/dL (7-20) H 02/11/20 06:57 Creatinine 0.85 mg/dL (0.52-1.25) 02/11/20 06:57 Est GFR ( Amer) > 60 (>60) 02/11/20 06:57 Est GFR (MDRD) Non-Af > 60 (>60) 02/11/20 06:57 Glucose 151 mg/dL (75-110) H 02/11/20 06:57 Lactic Acid 1.8 mmol/L (0.7-2.1) 01/30/20 16:07 Calcium 9.3 mg/dL (8.4-10.2) 02/11/20 06:57 Phosphorus 3.5 mg/dL (2.5-4.5) 02/01/20 04:10 Magnesium 2.1 mg/dL (1.6-2.3) 02/09/20 10:05 Total Bilirubin 0.4 mg/dL (0.2-1.3) 02/09/20 10:05 Direct Bilirubin 0.0 mg/dL (0.0-0.4) 02/09/20 10:05 Neonat Total Bilirubin Not Reportable 02/09/20 10:05 Neonat Direct Bilirubin Not Reportable 02/09/20 10:05 Neonat Indirect Bili Not Reportable 02/09/20 10:05 AST 32 U/L (17-59) 02/09/20 10:05 ALT 44 U/L (<50) 02/09/20 10:05 Alkaline Phosphatase 53 U/L (38-126) 02/09/20 10:05 Creatine Kinase 80 U/L (55-170) 02/03/20 10:56 CK-MB (CK-2) 1.02 ng/mL (<4.55) 02/03/20 10:56 Troponin I 0.022 ng/mL 02/03/20 10:56 NT-Pro-B Natriuret Pep 46 pg/mL (<125) 02/01/20 04:10 Total Protein 6.4 g/dL (6.3-8.2) 02/09/20 10:05 Albumin 3.4 g/dL (3.5-5.0) L 02/09/20 10:05 COVID-19 Source NASOPHARYNGEAL 01/31/20 00:21 COVID-19 (PINKY) NOT DETECTED 01/31/20 00:21 01/30/20 01/31/20 02/01/20 16:07 04:36 04:10 CK-MB (CK-2) Troponin I NT-Pro-B Natriuret Pep 141 H 104 46 02/02/20 02/03/20 02/03/20 23:20 05:10 10:56 CK-MB (CK-2) 1.07 1.06 1.02 Troponin I 0.018 0.014 0.022 NT-Pro-B Natriuret Pep Impressions: Chest X-Ray 01/30/20 16:04 IMPRESSION: Cardiomegaly without pulmonary edema. Chest X-Ray 02/01/20 05:00 IMPRESSION: Improved aeration at the lung bases. Persistent atelectasis/ consolidation at the left lung base. Chest X-Ray 02/02/20 05:00 IMPRESSION: Low lung volumes with persistent left basilar consolidation, possibly atelectasis or pneumonia. Plan Plan of Treatment: Patient will be discharged home with follow-up appointment with both his primary care provider and with manager of clinical Discharge instructions were reviewed with both the patient and the patient's home health nurse, both verbalized understanding He will need a steroid taper which was outlined with both the patient and his home health nurse, prescription sent He will have a Trilogy ventilator which she will use at at bedtime and as needed Trilogy settings AVAPS rate 4, RR 16, Vt 500 over 1 sec, IPAP 22/12, EPAP 6, FiO2 .45 Stroke Is this a Stroke Patient?: No Acute Heart Failure - Is this a Heart Failure Patient?: No
== END 2020-02-11 14:27 | disposition home health service (06) | DRG 208 ==
LOC: ER 15:43 → EH 23:41 → ICU 01-31 01:43 → 3S 02-02 20:46
PROVIDERS: ADMIT Internal Medicine Critical Care Medicine; ATTEND Nurse Practitioner
PROC: 5A1945Z Respiratory Ventilation, 24-96 Consecutive Hours (ICD-10-PCS; principal; 2020-01-30)
PROC: 0B21XFZ Change Tracheostomy Device in Trachea, External Approach (ICD-10-PCS; 2020-01-30)
PROC: 5A09557 Assistance with Respiratory Ventilation, Greater than 96 Consecutive Hours, Continuous Positive Airway Pressure (ICD-10-PCS; 2020-02-05)
DX: J96.21 Acute and chronic respiratory failure with hypoxia (principal); J18.9 Pneumonia, unspecified organism; J44.0 Chronic obstructive pulmonary disease with (acute) lower respiratory infection; Z68.45 Body mass index [BMI] 70 or greater, adult; J96.22 Acute and chronic respiratory failure with hypercapnia; E66.01 Morbid (severe) obesity due to excess calories; I10 Essential (primary) hypertension; E78.5 Hyperlipidemia, unspecified; E03.9 Hypothyroidism, unspecified; F32.9 Major depressive disorder, single episode, unspecified; F41.9 Anxiety disorder, unspecified; D64.9 Anemia, unspecified; G47.33 Obstructive sleep apnea (adult) (pediatric); Z11.59 Encounter for screening for other viral diseases; Z79.899 Other long term (current) drug therapy; Z79.890 Hormone replacement therapy; Z79.52 Long term (current) use of systemic steroids; Z93.0 Tracheostomy status; Z91.012 Allergy to eggs
CPT/HCPCS: 36415; 36600; 71045; 80048; 80053; 82550; 82553; 82803; 83605; 83735; 83880; 84100; 84484; 85025; 85027; 85610; 85730; 87040; 87070; 87077; 87150; 87186; 87205; 87635; 93005; 93010; 94002; 94003; 94640; 94660; 96365; 96368; 96375; 99291; 99292; C9803; J0692; J1644; J1940; J1956; J2060; J2920; J2930; J3475; J3490; J7050; J7060; J7120; J7512; S0028

== ENCOUNTER 2020-04-08 01:50 | Emergency (ER) | payer MEDICARE, MEDICAID ==
--- NOTE | 2020-04-08 04:49 | ER Document Report ---
ED General - General Chief Complaint: Breathing Difficulty Stated Complaint: RESPIRATORY FAILURE Time Seen by Provider: 04/08/20 02:25 Primary Care Provider: MARIALUISA HANSEN DO [Primary Care Provider] - Follow up as needed TRAVEL OUTSIDE OF THE [place] IN LAST 30 DAYS: No - HPI Notes: Patient is a 30-year-old male who presents to the emergency department for evaluation. He states he feels like there is something in his neck beside his trach. He feels like it has been there for the last 3 months. He has seen his pit tanner as well as ENT. He states he was "scoped" but he cannot tell me what was found. He denies any associated difficulty breathing. Patient further into his visit also complains to me that he has some occasional rectal burning and sometimes some blood when he moves his bowels. He states this is not with every bowel movement. His bowel movements vary and diameter. He has no fevers or chills. No nausea or vomiting. He has never had a colonoscopy. - Related Data Allergies/Adverse Reactions: egg Allergy (Verified 12/16/19 21:08) Home Medications: Amlodipine,Atorvastatin, Levothyroxine, Lisinopril, Sertraline Past Medical History - General Information source: Patient - Social History Smoking Status: Unknown if Ever Smoked Family History: Reviewed & Not Pertinent, DM, Hypertension Patient has homicidal ideation: No - Past Medical History Cardiac Medical History: Reports: Hx Hypertension Pulmonary Medical History: Reports: Hx Asthma, Hx COPD, Hx Respiratory Failure, Hx Sleep Apnea Renal/ Medical History: Denies: Hx Peritoneal Dialysis GI Medical History: Denies: Hx Crohn's Disease, Hx Ulcerative Colitis Psychiatric Medical History: Reports: Hx Anxiety, Hx Depression Past Surgical History: Reports: Other - Tracheostomy - Immunizations Hx Diphtheria, Pertussis, Tetanus Vaccination: Yes Review of Systems - Review of Systems Constitutional: No symptoms reported EENT: See HPI Cardiovascular: No symptoms reported Respiratory: No symptoms reported Gastrointestinal: See HPI Genitourinary: No symptoms reported Musculoskeletal: No symptoms reported Skin: No symptoms reported Neurological/Psychological: No symptoms reported -: Yes All other systems reviewed and negative Physical Exam - Vital signs Vitals: Resp Pulse Ox 16 93 04/08/20 02:00 04/08/20 02:00 - Notes Notes: This is a markedly obese male, who appears stated age, no acute distress. Head is normocephalic and atraumatic, pupils are equal round, reactive to light. Conjunctive are pink. Oral mucosa is moist. Trach is in place. No surrounding erythema, induration, fluctuance at the tracheostomy site. Ostomy is patent. Heart regular rate and rhythm, lungs are clear to auscultation bilaterally. Abdomen is obese, nontender, normoactive bowel sounds. Skin is warm and dry. Patient is awake and alert, oriented x3. He moves all 4 extremities spontaneously, moves about the room with ease. Rectal exam is performed with DARIO ESPINO present. He has mild external hemorrhoid noted. He has some moisture and skin breakdown in the perirectal skin, consistent with a nonspecific dermatitis, likely secondary to fungus given the moisture of the area. Course - Re-evaluation Re-evalutation: 04/08/20 04:48 Patient presents to the emergency department for evaluation. He states he is concerned there might be something in his neck. This has been ongoing for 3 months. He is already seen to specialist. I cannot CT this patient who weighs over 260 kg, as he is too large for my CT table. I do not see any need for this to be done emergently, as it has been ongoing for months, he has no signs of respiratory distress, his vitals are normal. In regards to his reports of rectal bleeding, he states this is again intermittent. He has no signs of anemia. 04/08/20 05:38 We will send patient home with nystatin for his rectal area. The simple x-ray did not show any clear or obvious foreign body. He needs to follow-up with ENT and/or pulmonology. He voiced understanding. Otherwise in regards to the rectal bleeding that he reports, I will send him with nystatin powder and he needs to follow-up with GI for possible colonoscopy. He voiced understanding. He is to return to the ED with worsening or new concerning symptoms of any sort. - Vital Signs Vital signs: Temp Pulse Resp BP Pulse Ox 99.1 F 16 106/74 94 04/08/20 02:13 04/08/20 02:03 04/08/20 02:03 04/08/20 02:13 Discharge - Discharge Clinical Impression: Foreign body sensation in throat, Rectal pain, Rectal bleeding Condition: Stable Disposition: HOME, SELF-CARE Instructions: Rectal Bleeding, Unclear Cause ([facility]) Additional Instructions: No clear cause was found for the symptoms in your neck today. You need to follow-up with ENT and pulmonology. In regards to your rectal bleeding and pain, you should follow-up with gastroenterology for a possible colonoscopy. I will also treat with nystatin powder to dry the moist area, treat any skin irritation that is external. Return to the emergency department for worsening or new concerning symptoms of any sort. Prescriptions: Nystatin [Mycostatin Topical Powder 15 gm] 1 applic TP BID #1 bottle Referrals: MARIALUISA HANSEN DO [Primary Care Provider] - Follow up as needed
--- NOTE | 2020-04-08 05:35 | RADIOLOGY REPORT (SQ) ---
EXAM DESCRIPTION: XR NECK SOFT TISSUE COMPLETED DATE/TME: 04/08/2020 04:39 CLINICAL HISTORY: 30 years, Male, feeling of "something" in neck near tracheostomy COMPARISON: 03/22/2019 soft tissue neck NUMBER OF VIEWS: 2 TECHNIQUE: 2 views of the neck with soft tissue technique LIMITATIONS: None. FINDINGS: The epiglottis is normal. Mild tonsillar enlargement. The prevertebral soft tissues are normal. The visualized portions of the subglottic airway are patent. Tracheostomy tube partially seen. No radiopaque foreign body. A somewhat limited due to patient body habitus. IMPRESSION: The airway appears patent. No radiopaque foreign body. Tracheostomy tube partially seen copyright 2010 [employer]- All Rights Reserved
[2020-04-08 15:40] VITALS: BP 139/70
== END 2020-04-08 15:39 | disposition home or self-care (01) ==
LOC: ER 01:50
DX: K62.89 Other specified diseases of anus and rectum (principal); K62.5 Hemorrhage of anus and rectum; R09.89 Other specified symptoms and signs involving the circulatory and respiratory systems; R06.00 Dyspnea, unspecified; J44.9 Chronic obstructive pulmonary disease, unspecified; I10 Essential (primary) hypertension; Z93.0 Tracheostomy status
CPT/HCPCS: 70360; 99283

== ENCOUNTER → 2020-04-23 | Outpatient (CLI) | payer MEDICARE, MEDICAID ==
[2020-04-23 13:20] LABS: ARTERIAL BLOOD BASE EXCESS 17.4 mmol/L; ARTERIAL BLOOD FIO2 4L; ARTERIAL BLOOD H2CO3 2.98 mmol/L (1.05-1.35); ARTERIAL BLOOD HCO3 47.7 mmol/L (20-24); ARTERIAL BLOOD O2 SATURATION 83.6 % (94-98); ARTERIAL BLOOD PO2 56.1 mmHg (80-100); ARTERIAL BLOOD TOTAL CO2 50.7 mmol/L (23-27)
[2020-04-23 13:25] LABS: ARTERIAL BLOOD PCO2 98.9 mmHg (35-45)
== END ==
LOC: OD 12:44
PROVIDERS: ATTEND Internal Medicine Pulmonary Disease
DX: J96.11 Chronic respiratory failure with hypoxia (principal)
CPT/HCPCS: 82803

== ENCOUNTER 2020-05-05 13:57 | Inpatient (IN) | payer MEDICARE, MEDICAID ==
[2020-05-05] MEDS ORDERED: IPRATROPIUM/ALBUTEROL 0.5-2.5 MG/3 ML AMPUL NEB ONE ×2 (14:31→17:54)
--- NOTE | 2020-05-05 14:38 | ER Document Report ---
ED Respiratory Problem - General Stated Complaint: DIFFICULTY BREATHING Time Seen by Provider: 05/05/20 14:14 Mode of Arrival: Stretcher Information source: Patient, Emergency Med Personnel Notes: Patient is a 30-year-old male was brought in emergency room by EMS with complaint of increasing shortness of breath. Patient has a long history of respiratory decline. He has morbidly obese as a tracheostomy for the past 2 and half years. Patient states over the past 3 to 4 days has become more short of breath and has been passing blood tinged phlegm through his tracheostomy. Patient self cleans at home and last time he self clean was 2 days ago. He also states he suctions himself regularly with the [employer]. He states he has had a low-grade fever for the past 3 to 4 days as well. He denies any chest pain. He denies any history of heart problems. Does state that he has had some minor swelling in his lower extremities for the past few days as well. Patient denies smoking. On last admission here approximately 1 month ago patient was placed on ventilatory support questionable history of pneumonia at the time. Currently on no antibiotics. He was also tested for coronavirus on that admission was neg ative. Denies any history of recent contact. He also denies any history of diabetes. Patient also states that he is on 6 L bleeding of oxygen at home. They had tried cutting back to 5 L but he was not able to maintain stats above 90%. On transport EMS had to adjust the flow of oxygen to 8 L bleeding. TRAVEL OUTSIDE OF THE [place] IN LAST 30 DAYS: No - HPI Patient complains to provider of: Cough, Short of breath Onset: Other - 3 days Duration: Continuous Initiating Event: No: Aspiration/Choking, URI Quality of pain: No pain Severity: Moderate Context: Hx CHF. denies: Recent surgery, Smoker Short of Breath: Moderate Cough: Productive Sputum amount: Moderate Sputum color: [place] tinged Sputum consistency: Thick. denies: Frothy, Mucoid Plug Associated symptoms: Ankle/leg swelling, Cough, Wheezing. denies: Chest pain/discomfort, Chills, Congestion Similar symptoms previously: Yes Recently seen / treated by doctor: No - Related Data Allergies/Adverse Reactions: No Known Allergies Allergy (Verified 05/05/20 15:03) Past Medical History - General Information source: Patient, Emergency Med Personnel - Social History Smoking Status: Never Smoker Cigarette use (# per day): No Chew tobacco use (# tins/day): No Smoking Education Provided: No Frequency of alcohol use: None Drug Abuse: None Family History: Reviewed & Not Pertinent, DM, Hypertension - Past Medical History Cardiac Medical History: Reports: Hx Hypertension Pulmonary Medical History: Reports: Hx Asthma, Hx COPD, Hx Respiratory Failure, Hx Sleep Apnea Renal/ Medical History: Denies: Hx Peritoneal Dialysis GI Medical History: Denies: Hx Crohn's Disease, Hx Ulcerative Colitis Psychiatric Medical History: Reports: Hx Anxiety, Hx Depression Past Surgical History: Reports: Other - Tracheostomy - Immunizations Hx Diphtheria, Pertussis, Tetanus Vaccination: Yes Review of Systems - Review of Systems Constitutional: Fever, Recent illness. denies: Weakness EENT: See HPI Cardiovascular: No symptoms reported Respiratory: See HPI, Cough, Short of breath, Sputum, Wheezing Gastrointestinal: No symptoms reported Genitourinary: No symptoms reported Male Genitourinary: No symptoms reported Musculoskeletal: No symptoms reported Skin: No symptoms reported Hematologic/Lymphatic: No symptoms reported Neurological/Psychological: No symptoms reported -: Yes All other systems reviewed and negative Physical Exam - Vital signs Vitals: Pulse Ox 90 L 05/05/20 14:19 Interpretation: Hypertensive, Hypoxic - His vital signs were taken while was in the room have not transfer over. But it showed a 136/75 with a O2 sat of 88% on 8 L trach mask., Other - Patient heart rate was never over 90 from my evaluations. Notes: PHYSICAL EXAMINATION: GENERAL: Patient is a well-nourished well-developed morbidly obese 30-year-old male who is in no apparent distress on physical examination. Patient is sitting on the edge of the rney talking by placing finger over top of tracheostomy tube. The appears slightly short of breath while doing this but it seems to readjust the rest. HEAD: Atraumatic, normocephalic. EYES: Pupils equal round and reactive to light, extraocular movements intact, sclera anicteric, conjunctiva are normal. ENT: Examination head and upper airway show nasal mucosa to have some mild erythema but are not edematous. No rhinorrhea noted. No frontal or maxillary sinus tenderness. Posterior pharynx shows oropharynx to be slightly dry tongue slightly discolored secondary to having candy in his mouth. Uvula is midline no encroachment on the deviation noted. NECK: Examination of patient's neck does show that he has a patent tracheostomy. Evaluation through the O2 mask is over top does show some pinkish tinged sputu m. Flashlight examination does not show any overt plugs. Skin around the tracheostomy appears healthy. LUNGS: Auscultation patient's lung monet bilateral breath sounds are decreased questionable as to body habitus causing the decrease or actual lung volume. There does appear to be a faint Rales in bilateral bases with questionable area of the mid right lung of some mild rhonchi on inspiration. HEART: Regular rate and rhythm without murmurs Musculoskeletal: Examination patient's lower extremities show there to be maybe 1+ edema noted on palpation. Patient does display again good pedal pulse was administered questionable secondary to body habitus. But has good cap refill. NEUROLOGICAL: . Normal speech, normal gait. Normal sensory, motor exams PSYCH: Normal mood, normal affect. SKIN: Warm, Dry, normal turgor, no rashes or lesions noted. - Notes Notes: PHYSICAL EXAMINATION: GENERAL: Patient is a well-nourished well-developed severely morbid obese 30-year-old male who is in mild respiratory discomfort on examination today. HEAD: Atraumatic, normocephalic. EYES: Pupils equal round and reactive to light, extraocular movements intact, sclera anicteric, conjunctiva are normal. ENT: Examination head and upper airway show nasal mucosa to be mildly erythematous with some rhinorrhea noted. No frontal or maxillary sinus tenderness to palpation. Examination posterior pharynx and oral mucosa shows moderate dryness and slight discoloration secondary to chewing candy. NECK: Normal range of motion, examination of patient's neck and tracheostomy tube shows moderate erythema surrounding the tube itself. Although there is no sign of infection. Examination with flashlight shows moderate amount of some pinkish productive cough. Does not appear dark bloody red. There does not appear to be any leaking around the cuff that I can tell. LUNGS: Auscultation patient's lungs show bilateral breath sounds decreased throughout not certain whether this is secondary to body habitus or patient having difficulty moving air. Does sound like there might be some right upper lobe rhonchi clearing oncology account specialist. No wheezes at this time auscultated. HEART: Regular rate and rhythm without murmurs ABDOMEN: Patient does display bowel sounds present all 4 quads. Is difficult to ascertain further evaluation of the abdomen secondary to patient sitting position on the edge of the gurney. No tenderness is palpable at this time. Musculoskeletal: Normal range of motion, patient currently displays maybe 1+ edema in the lower extremities although again secondary to body habitus is hard to tell if it is edema or fatty tissue. NEUROLOGICAL: Normal speech, normal gait. Normal sensory, motor exams patient is currently awake alert and oriented to time place and events. PSYCH: Normal mood, normal affect. SKIN: Warm, Dry, normal turgor, no rashes or lesions noted. Course - Re-evaluation Re-evalutation: 05/06/20 01:36 Patient had a long length of stay secondary to me attempting to get respiratory to do good pulmonary toilet. I also to get a ABG accomplished after that pulmonary toilet. And then waiting after discussing the case with Dr. Perrin to get a lactic acid back. I did discuss the case with the hospitalist and after further review he felt admission would be appropriate. Patient and review showed similar presentation in January of this year where he had respiratory collapse and ended up on a ventilator. Given those for short time until he can get his tidal volumes back up to where he was supporting his own ventilation. Patient actually requested to come in to make sure that he would not do that same type of a presentation again. - Vital Signs Vital signs: Temp Pulse Resp BP Pulse Ox 98.4 F 22 H 110/76 91 L 05/05/20 23:00 05/06/20 00:00 05/05/20 23:00 05/06/20 00:00 - Laboratory Result Diagrams: 05/05/20 15:10 05/05/20 15:10 Laboratory results interpreted by me: 05/05/20 05/05/20 05/05/20 15:10 15:10 17:40 RBC 3.46 L Hgb 9.8 L Hct 30.7 L MCHC 31.9 L RDW 17.1 H Lymph % (Auto) 7.5 L Seg Neutrophils % 82.0 H Carbonic Acid 2.99 H ABG pH 7.31 L ABG pCO2 99.4 H* ABG HCO3 48.7 H ABG Total CO2 51.8 H Chloride 86 L Carbon Dioxide 43 H* BUN 23 H Glucose 126 H Discharge - Discharge Clinical Impression: Hypoxemia, Hypercapnia, Acute on chronic respiratory failure with hypoxemia Condition: Stable Disposition: ADMITTED INPATIENT Admitting Provider: Juan C (Hospitalist) Unit Admitted: [facility]
--- NOTE | 2020-05-05 15:22 | RADIOLOGY REPORT (SQ) ---
EXAM DESCRIPTION: CHEST SINGLE VIEW IMAGES COMPLETED DATE/TIME: 05/05/2020 3:05 pm REASON FOR STUDY: SOB COMPARISON: 02/02/2020 EXAM PARAMETERS: NUMBER OF VIEWS: One view. TECHNIQUE: Single frontal radiographic view of the chest acquired. RADIATION DOSE: NA LIMITATIONS: None. FINDINGS: LUNGS AND PLEURA: Right lower lobe airspace disease either atelectasis or pneumonia. No p neumothorax. Tracheostomy tube remains in place. MEDIASTINUM AND HILAR STRUCTURES: No masses. Contour normal. HEART AND VASCULAR STRUCTURES: Persistent cardiomegaly. No failure. BONES: No acute findings. HARDWARE: None in the chest. OTHER: No other significant finding. IMPRESSION: Right lower lobe airspace disease either atelectasis or pneumonia. No other interval ch nayda. TECHNICAL DOCUMENTATION: JOB ID: [id number] 2010 [employer]- All Rights Reserved Reading location - IP/workstation name: [email or web address]
[2020-05-05 15:26] LABS: ABSOLUTE EOSINOPHILS # (AUTO) 0.2 10^3/uL (0.0-0.6); ABSOLUTE LYMPHOCYTES (AUTO) 0.7 10^3/uL (0.5-4.7); ABSOLUTE MONOCYTES (AUTO) 0.8 10^3/uL (0.1-1.4); BASOPHILS % (AUTO) 0.3 % (0-2); EOSINOPHILS % (AUTO) 1.7 % (0-6); HEMATOCRIT 30.7 % (37.9-51.0); HEMOGLOBIN 9.8 g/dL (13.5-17.0); LYMPHOCYTES % (AUTO) 7.5 % (13-45); MEAN CORPUSCULAR HEMOGLOBIN 28.3 pg (27.0-33.4); MEAN CORPUSCULAR HGB CONC 31.9 g/dL (32.0-36.0); MEAN CORPUSCULAR VOLUME 89 fl (80-97); MONOCYTES % (AUTO) 8.5 % (3-13); PLATELET COUNT 253 10^3/uL (150-450); RED BLOOD COUNT 3.46 10^6/uL (4.35-5.55); RED CELL DISTRIBUTION WIDTH 17.1 % (11.5-14.0); TOTAL CELLS COUNTED % (AUTO) 100 %; WHITE BLOOD COUNT 9.7 10^3/uL (4.0-10.5)
[2020-05-05 15:48] LABS: ALBUMIN 3.9 g/dL (3.5-5.0); ALKALINE PHOSPHATASE 60 U/L (38-126); ASPARTATE AMINO TRANSFERASE 30 U/L (17-59); BILIRUBIN,DIRECT 0.1 mg/dL (0.0-0.4); BILIRUBIN,TOTAL 0.4 mg/dL (0.2-1.3); BLOOD UREA NITROGEN 23 mg/dL (7-20); CALCIUM 9.1 mg/dL (8.4-10.2); CHLORIDE 86 mmol/L (98-107); GLUCOSE 126 mg/dL (75-110); POTASSIUM 4.5 mmol/L (3.6-5.0); TOTAL PROTEIN 7.9 g/dL (6.3-8.2)
[2020-05-05 15:56] LABS: ANION GAP 11 (5-19)
[2020-05-05 15:58] LABS: CARBON DIOXIDE 43 mmol/L (22-30)
[2020-05-05 15:59] LABS: NT PRO BNP 76 pg/mL (<125)
[2020-05-05 16:00] LABS: TROPONIN I < 0.012 ng/mL
[2020-05-05 16:19] LABS: INTERNATIONAL RATION (INR) 1.09; PROTHROMBIN TIME 14.3 SEC (11.4-15.4)
[2020-05-05 16:20] LABS: APPEARANCE,URINE CLEAR; BILIRUBIN,URINE NEGATIVE (NEGATIVE); COLOR,URINE STRAW; GLUCOSE, URINE NEGATIVE (NEGATIVE); KETONES,URINE NEGATIVE (NEGATIVE); LEUKOCYTE ESTERASE,URINE NEGATIVE (NEGATIVE); NITRITE,URINE NEGATIVE (NEGATIVE); PROTEIN,URINE NEGATIVE (NEGATIVE); URINE SPECIFIC GRAVITY 1.008; UROBILINOGEN,URINE NEGATIVE mg/dL (<2.0)
--- NOTE | 2020-05-05 17:52 | EKG REPORT ---
SEVERITY:- ABNORMAL ECG - SINUS RHYTHM NONSPECIFIC INTRAVENTRICULAR CONDUCTION DELAY BORDERLINE INFERIOR Q WAVES : Confirmed by: Rohini Vargas 05-May-2020 17:51:56
[2020-05-05 18:07] LABS: ARTERIAL BLOOD BASE EXCESS 18.4 mmol/L; ARTERIAL BLOOD H2CO3 2.99 mmol/L (1.05-1.35); ARTERIAL BLOOD HCO3 48.7 mmol/L (20-24); ARTERIAL BLOOD O2 SATURATION 94.2 % (94-98); ARTERIAL BLOOD PH 7.31 (7.35-7.45); ARTERIAL BLOOD PO2 82.7 mmHg (80-100); ARTERIAL BLOOD TOTAL CO2 51.8 mmol/L (23-27)
[2020-05-05 18:12] LABS: ARTERIAL BLOOD FIO2 8L
[2020-05-05 18:16] LABS: ARTERIAL BLOOD PCO2 99.4 mmHg (35-45)
[2020-05-05] MEDS ORDERED: PIPERACILLIN/TAZOBACTAM 3.375 GM VIAL IV ONE (18:39)
[2020-05-05] MEDS ORDERED: VANCOMYCIN HCL INJ 1000 MG VIAL IV ONE (18:40)
[2020-05-05] MEDS ORDERED: ACETAMINOPHEN 325 MG TABLET PO PRN (20:58)
[2020-05-05] MEDS ORDERED: ONDANSETRON HCL INJ/PF 4 MG/2 ML SDV IV PRN (20:58)
[2020-05-05] MEDS ORDERED: ONDANSETRON 4 MG TAB.RAPDIS PO PRN (20:58)
[2020-05-05] MEDS ORDERED: IPRATROPIUM/ALBUTEROL 0.5-2.5 MG/3 ML AMPUL NEB PRN (20:58)
[2020-05-05] MEDS ORDERED: FUROSEMIDE 40 MG TABLET PO PRN (21:18)
--- NOTE | 2020-05-05 21:18 | PDOC H&P ---
History of Present Illness Admission Date/PCP: 05/05/20 20:41 MARIALUISA HANSEN DO History of Present Illness: JOEY ORTEGA III is a 30 year old male with past medical history significant for severe morbid obesity BMI 78, OSH, TERRANCE, tracheostomy and ventilator support dependency, chronic hypoxemic and hypercarbic respiratory failure, COPD, hypertension, asthma who presents with a 3-day history of progressive shortness of breath/KING/productive cough. Patient denies fever/chills/nausea/vom iting/diarrhea/abdominal pain. Patient denies any COVID-19 contacts and states that he lives at home alone completely quarantined. Patient states he came to the ED a few days ago and was told he has "probably early pneumonia" but was not given any antibiotics per patient. EMS found patient to have an oxygen saturation in the low 80s and he was increased from his home oxygen of 5 L up to 8 L. Patient follows with Dr. More outpatient in pulmonology. Consult ordered. Patient's ABG showed severe hypercarbic respiratory failure with a CO2 of 99.4 and a pH of 7.31. Of note, patient has high CO2 at baseline but this is quite a bit higher than his usual elevated CO2. Patient started on Levaquin given that he requires ventilator support at home and may have ventilator associated pneumonia. Chest x-ray showed right lower lobe infiltrate nonspecific. White blood cell count is normal at 9.7. He is admitted to [facility] under observation. Past Medical History Cardiac Medical History: Reports: Hypertension Pulmonary Medical History: Reports: Asthma, Chronic Obstructive Pulmonary Disease (COPD), Respiratory Failure, Sleep Apnea EENT Medical History: Reports: None GI Medical History: Denies: Crohn's Disease, Ulcerative Colitis Psychiatric Medical History: Reports: Depression Past Surgical History Past Surgical History: Reports: Other - Tracheostomy Social History Information Source: Patient, Emergency Med Personnel Smoking Status: Former Smoker Frequency of Alcohol Use: Occasional Hx Recreational Drug Use: No Drugs: None Hx Prescription Drug Abuse: No - Advance Directive Resuscitation Status: Full Code Surrogate healthcare decision maker:: Admitting diagnosis: Acute on chronic hypercarbic respiratory failure All aspects of code status discussed with patient/POA including cardioversion, chest compressions, and intubation and the patient/POA indicated they wish to be full code MPOA is designated as: juan c Hairston Time spent: Greater than 16 minutes Family History Family History: Reviewed & Not Pertinent, DM, Hypertension Parental Family History Reviewed: Yes Children Family History Reviewed: Yes Sibling(s) Family History Reviewed.: Yes Medication/Allergy Home Medications: Buspirone HCl [Buspar 10 mg Tablet] 15 mg PO BID 03/12/18 Levothyroxine Sodium [Synthroid] 100 mcg PO Q6AM 03/12/18 Hydrochlorothiazide [Hydrodiuril 25 mg Tablet] 25 mg PO QAM 03/22/19 Atorvastatin Calcium [Lipitor 40 mg Tablet] 40 mg PO QHS tablet 03/29/19 Lisinopril [Prinivil 10 mg Tablet] 40 mg PO DAILY tablet 03/29/19 Amlodipine Besylate [Norvasc 10 mg Tablet] 10 mg PO QAM 01/31/20 Fluticasone Propion/Salmeterol [Fluticasone-Salmeterol 113-14] 2 puff IH Q12 01/31/20 Furosemide [Lasix 40 mg Tablet] 40 mg PO BIDP PRN 01/31/20 Gabapentin [Neurontin 300 mg Capsule] 300 mg PO Q8 01/31/20 Sertraline HCl [Zoloft 50 mg Tablet] 200 mg PO QAM 01/31/20 Levothyroxine Sodium [Synthroid 0.1 mg Tablet] 0.1 mg PO Q6AM tablet 02/05/20 Sertraline HCl [Zoloft 50 mg Tablet] 150 mg PO DAILY tablet 02/05/20 Medroxyprogesterone Acet [Provera 10 mg Tablet] 10 mg PO Q8 #90 tablet 02/11/20 Prednisone [Deltasone 5 mg Tablet] 5 mg PO DAILY #43 tablet 02/11/20 Theophylline Anhydrous [Matthieu-Dur 300 mg Tab.sr] 300 mg PO Q12 #60 tab.sr.12h 02/11/20 Nystatin [Mycostatin Topical Powder 15 gm] 1 applic TP BID #1 bottle 04/08/20 Allergies/Adverse Reactions: No Known Allergies Allergy (Verified 05/05/20 15:03) Review of Systems All systems: reviewed and no additional remarkable complaints except as stated - Per HPI otherwise negative Physical Exam Vital Signs: Temp Pulse Resp BP Pulse Ox 98.4 F 22 H 113/81 90 L 05/05/20 20:39 05/05/20 20:39 05/05/20 20:39 05/05/20 20:39 Intake & Output 05/04/20 05/05/20 05/06/20 06:59 06:59 06:59 Weight 240.404 kg Exam: General appearance: PRESENT: no acute distress, well-developed, well-nourished, super morbidly obese with BMI 78 Head exam: PRESENT: atraumatic, normocephalic Eye exam: PRESENT: conjunctiva pink. ABSENT: scleral icterus Mouth exam: PRESENT: moist Respiratory exam: PRESENT: Perhaps very scant crackles at the bases otherwise clear. ABSENT: rales, wheezes Cardiovascular exam: PRESENT: RRR. ABSENT: diastolic murmur, rubs, systolic murmur GI/Abdominal exam: PRESENT: normal bowel sounds, soft. ABSENT: distended, guarding, mass, organolmegaly, rebound, tenderness Neurological exam: PRESENT: alert, awake, oriented to person, oriented to place, oriented to time, oriented to situation Psychiatric exam: PRESENT: appropriate affect, normal mood Skin exam: PRESENT: dry, intact, warm; chronic skin changes Results Laboratory Results: 05/05/20 15:10 05/05/20 15:10 05/05/20 05/05/20 05/05/20 15:10 15:10 15:10 WBC 9.7 RBC 3.46 L Hgb 9.8 L Hct 30.7 L MCV 89 MCH 28.3 MCHC 31.9 L RDW 17.1 H Plt Count 253 Seg Neutrophils % 82.0 H Carbonic Acid HCO3/H2CO3 Ratio ABG pH ABG pCO2 ABG pO2 ABG HCO3 ABG O2 Saturation ABG Base Excess FiO2 Sodium 139.7 Potassium 4.5 Chloride 86 L Carbon Dioxide 43 H* Anion Gap 11 BUN 23 H Creatinine 0.73 Est GFR ( Amer) > 60 Glucose 126 H Lactic Acid Calcium 9.1 Total Bilirubin 0.4 AST 30 Alkaline Phosphatase 60 Total Protein 7.9 Albumin 3.9 Urine Color STRAW Urine Appearance CLEAR Urine pH 5.0 Ur Specific Sneads 1.008 Urine Protein NEGATIVE Urine Glucose (UA) NEGATIVE Urine Ketones NEGATIVE Urine Blood NEGATIVE Urine Nitrite NEGATIVE Ur Leukocyte Esterase NEGATIVE Urine WBC (Auto) 0 05/05/20 05/05/20 17:40 19:50 WBC RBC Hgb Hct MCV MCH MCHC RDW Plt Count Seg Neutrophils % Carbonic Acid 2.99 H HCO3/H2CO3 Ratio 16:1 ABG pH 7.31 L ABG pCO2 99.4 H* ABG pO2 82.7 ABG HCO3 48.7 H ABG O2 Saturation 94.2 ABG Base Excess 18.4 FiO2 8L Sodium Potassium Chloride Carbon Dioxide Anion Gap BUN Creatinine Est GFR ( Amer) Glucose Lactic Acid 1.3 Calcium Total Bilirubin AST Alkaline Phosphatase Total Protein Albumin Urine Color Urine Appearance Urine pH Ur Specific Sneads Urine Protein Urine Glucose (UA) Urine Ketones Urine Blood Urine Nitrite Ur Leukocyte Esterase Urine WBC (Auto) 05/05/20 15:10 Troponin I < 0.012 NT-Pro-B Natriuret Pep 76 Impressions: Chest X-Ray 05/05/20 14:29 IMPRESSION: Right lower lobe airspace disease either atelectasis or pneumonia. No other interval change. Assessment and Plan - Diagnosis (1) Ventilator associated pneumonia Is this a current diagnosis for this admission?: Yes Plan: Chronic vent support through tracheostomy, increasingly requires more and more use of this per patient Levaquin 250 mg daily Sputum culture Blood cultures Ventilator support per RT (2) Acute on chronic respiratory failure with hypoxia and hypercapnia Is this a current diagnosis for this admission?: Yes Plan: PCO2 on admission 99.4 Ventilator support Nebs scheduled and as needed Treat underlying cause which is ventilator associated pneumonia as above (3) COPD (chronic obstructive pulmonary disease) Qualifiers: COPD type: unspecified COPD Qualified Code(s): J44.9 - Chronic obstructive pulmonary disease, unspecified Is this a current diagnosis for this admission?: Yes Plan: No exacerbation on exam, no wheezing Home medications continued (4) Hypertension Qualifiers: Is this a current diagnosis for this admission?: Yes Plan: Stable Home meds (5) Hypoventilation associated with obesity syndrome Is this a current diagnosis for this admission?: Yes Plan: Counseled on weight loss, encouraged patient to adopt a vegan diet (6) TERRANCE (obstructive sleep apnea) Is this a current diagnosis for this admission?: Yes - Time Time Spent with patient: 35 or more minutes Medications reviewed and adjusted accordingly: Yes Anticipated Discharge Disposition: Home, Self Care Anticipated Discharge Timeframe: within 24 hours
[2020-05-05] MEDS ORDERED: [UNRECOGNIZED DRUG - OTHER] IH SCH (22:00)
[2020-05-05] MEDS ORDERED: SALMETEROL IH SCH (22:00)
[2020-05-05] MEDS ORDERED: FLUTICASONE PROPION IH SCH (22:00)
[2020-05-05] MEDS ORDERED: VANCOMYCIN HCL INJ 1000 MG VIAL ONE (22:02)
[2020-05-05] MEDS ORDERED: VANCOMYCIN HCL INJ 500 MG VIAL ONE (22:02)
[2020-05-05] MEDS: IPRATROPIUM/ALBUTEROL 0.5-2.5 MG/3 ML AMPUL NEB SCH (22:14)
[2020-05-05] MEDS: ENOXAPARIN SODIUM INJ 40 MG/0.4 ML DISP.SYRIN SUBCUT SCH (22:14)
[2020-05-05] MEDS: GABAPENTIN 300 MG CAPSULE PO SCH (22:14)
[2020-05-05] MEDS: ATORVASTATIN CALCIUM 40 MG TABLET PO SCH (22:14)
[2020-05-05] MEDS: THEOPHYLLINE ANHYDROUS 300 MG TAB.SR.12H PO SCH (22:14)
[2020-05-06 07:03] LABS: HEMATOCRIT 32.2 % (37.9-51.0); HEMOGLOBIN 10.1 g/dL (13.5-17.0); MEAN CORPUSCULAR HEMOGLOBIN 28.3 pg (27.0-33.4); MEAN CORPUSCULAR HGB CONC 31.4 g/dL (32.0-36.0); MEAN CORPUSCULAR VOLUME 90 fl (80-97); RED BLOOD COUNT 3.58 10^6/uL (4.35-5.55); RED CELL DISTRIBUTION WIDTH 17.3 % (11.5-14.0); WHITE BLOOD COUNT 7.8 10^3/uL (4.0-10.5)
[2020-05-06] MEDS: GABAPENTIN 300 MG CAPSULE PO SCH ×3 (07:03→23:32)
[2020-05-06] MEDS: LEVOTHYROXINE SODIUM 0.1 MG TABLET PO SCH (07:03)
[2020-05-06 07:48] LABS: ABSOLUTE LYMPHOCYTES# (MANUAL) 1.4 10^3/uL (0.5-4.7); ABSOLUTE MONOCYTES # (MANUAL) 0.4 10^3/uL (0.1-1.4); BAND NEUTROPHILS % (MANUAL) 1 % (3-5); BASOPHILS % (MANUAL) 0 % (0-2); EOSINOPHILS % (MANUAL) 1 % (0-6); LYMPHOCYTES % (MANUAL) 15 % (13-45); METAMYELOCYTES % (MANUAL) 2 % (0-1); MONOCYTES % (MANUAL) 5 % (3-13); NUCLEATED RED BLOOD CELLS 1 /100 WBC (0); SEGMENTED NEUTROPHILS % (MAN) 72 % (42-78); TOTAL CELLS COUNTED 100
[2020-05-06 07:52] LABS: ANISOCYTOSIS 1+; PLATELET CLUMPS PRESENT; PLATELET COMMENT ADEQUATE; POLYCHROMASIA 1+
[2020-05-06 07:53] LABS: OVALOCYTES 1+; POIKILOCYTOSIS 1+; PROMYELOCYTES % (MANUAL) 1 % (0); TEAR DROP CELLS 1+
[2020-05-06 07:55] LABS: PLATELET COUNT 259 10^3/uL (150-450)
[2020-05-06] MEDS ORDERED: SERTRALINE HCL 50 MG TABLET PO SCH (08:00)
[2020-05-06 08:06] LABS: BLOOD UREA NITROGEN 24 mg/dL (7-20); CALCIUM 9.4 mg/dL (8.4-10.2); CHLORIDE 87 mmol/L (98-107); GLUCOSE 144 mg/dL (75-110); PHOSPHORUS 4.1 mg/dL (2.5-4.5); POTASSIUM 4.1 mmol/L (3.6-5.0)
[2020-05-06] MEDS: HYDROCHLOROTHIAZIDE 25 MG TABLET PO SCH (08:07)
[2020-05-06] MEDS: AMLODIPINE BESYLATE 10 MG TABLET PO SCH (08:07)
[2020-05-06] MEDS: IPRATROPIUM/ALBUTEROL 0.5-2.5 MG/3 ML AMPUL NEB SCH ×4 (08:08→20:28)
[2020-05-06 08:12] LABS: ANION GAP 13 (5-19)
[2020-05-06 08:34] LABS: CARBON DIOXIDE 40 mmol/L (22-30)
[2020-05-06] MEDS: SERTRALINE HCL 50 MG TABLET PO SCH (09:10)
[2020-05-06] MEDS: BUSPIRONE HCL 10 MG TABLET PO SCH ×2 (09:10→18:18)
[2020-05-06] MEDS: LISINOPRIL 10 MG TABLET PO SCH (09:11)
[2020-05-06] MEDS: DOCUSATE SODIUM 100 MG CAPSULE PO SCH (09:11)
[2020-05-06] MEDS: THEOPHYLLINE ANHYDROUS 300 MG TAB.SR.12H PO SCH ×2 (09:11→23:33)
[2020-05-06] MEDS: LEVOFLOXACIN 750 MG TABLET PO SCH (09:12)
[2020-05-06] MEDS: ENOXAPARIN SODIUM INJ 40 MG/0.4 ML DISP.SYRIN SUBCUT SCH ×2 (09:12→23:32)
[2020-05-06] MEDS: NYSTATIN TOPICAL POWDER 15 GM TP SCH ×2 (09:12→18:18)
[2020-05-06] MEDS: ACETAZOLAMIDE SODIUM INJ 500 MG VIAL IV SCH ×2 (12:11→23:31)
[2020-05-06 12:52] LABS: PATH REVIEW PATHOLOGIST REVIEWED
--- NOTE | 2020-05-06 13:35 | PDOC CONSULTATION ---
Consultation Consult Date: 05/06/20 Provider Consulted: DANIELLE BARRAZA Consult reason:: Ventilatory failure in a patient with morbid obesity History of Present Illness Admission Date/PCP: 05/05/20 20:41 MARIALUISA HANSEN DO History of Present Illness: JOEY ORTEGA III is a 30 year old male Past Medical History Cardiac Medical History: Reports: Hypertension Pulmonary Medical History: Reports: Asthma, Chronic Obstructive Pulmonary Disease (COPD), Respiratory Failure, Sleep Apnea EENT Medical History: Reports: None GI Medical History: Denies: Crohn's Disease, Ulcerative Colitis Psychiatric Medical History: Reports: Depression Past Surgical History Past Surgical History: Reports: Other - Tracheostomy Social History Smoking Status: Never Smoker Frequency of Alcohol Use: Occasional Hx Recreational Drug Use: No Drugs: None Hx Prescription Drug Abuse: No - Advance Directive Resuscitation Status: Full Code Family History Family History: Reviewed & Not Pertinent, DM, Hypertension Parental Family History Reviewed: No Children Family History Reviewed: No Sibling(s) Family History Reviewed.: No Medication/Allergy Home Medications: Levothyroxine Sodium [Synthroid] 100 mcg PO Q6AM 03/12/18 Hydrochlorothiazide [Hydrodiuril 25 mg Tablet] 25 mg PO QAM 03/22/19 Atorvastatin Calcium [Lipitor 40 mg Tablet] 40 mg PO QHS tablet 03/29/19 Lisinopril [Prinivil 10 mg Tablet] 40 mg PO DAILY tablet 03/29/19 Amlodipine Besylate [Norvasc 10 mg Tablet] 10 mg PO QAM 01/31/20 Furosemide [Lasix 40 mg Tablet] 40 mg PO BIDP PRN 01/31/20 Gabapentin [Neurontin 300 mg Capsule] 300 mg PO Q8 01/31/20 Sertraline HCl [Zoloft 50 mg Tablet] 200 mg PO QAM 01/31/20 Theophylline Anhydrous [Matthieu-Dur 300 mg Tab.sr] 300 mg PO Q12 #60 tab.sr.12h 02/11/20 Buspirone HCl 15 mg PO BID 05/06/20 Nystatin [Mycostatin 066621 Unit/1 ml Susp 60 ml Btl] 5 ml PO QID 05/06/20 Allergies/Adverse Reactions: No Known Allergies Allergy (Verified 05/05/20 15:03) Physical Exam Vital Signs: Temp Pulse Resp BP Pulse Ox 98.3 F 87 18 142/79 H 90 L 05/06/20 05:17 05/06/20 05:17 05/06/20 08:30 05/06/20 08:30 05/06/20 08:30 Intake & Output 05/05/20 05/06/20 05/07/20 06:59 06:59 06:59 Intake Total 18 Balance 18 Weight 240.404 kg Results Laboratory Results: 05/06/20 06:18 05/06/20 06:18 05/05/20 05/05/20 05/05/20 15:10 15:10 15:10 WBC 9.7 RBC 3.46 L Hgb 9.8 L Hct 30.7 L MCV 89 MCH 28.3 MCHC 31.9 L RDW 17.1 H Plt Count 253 Seg Neutrophils % 82.0 H Carbonic Acid HCO3/H2CO3 Ratio ABG pH ABG pCO2 ABG pO2 ABG HCO3 ABG O2 Saturation ABG Base Excess FiO2 Sodium 139.7 Potassium 4.5 Chloride 86 L Carbon Dioxide 43 H* Anion Gap 11 BUN 23 H Creatinine 0.73 Est GFR ( Amer) > 60 Glucose 126 H Lactic Acid Calcium 9.1 Phosphorus Magnesium Total Bilirubin 0.4 AST 30 Alkaline Phosphatase 60 Total Protein 7.9 Albumin 3.9 Urine Color STRAW Urine Appearance CLEAR Urine pH 5.0 Ur Specific [place] 1.008 Urine Protein NEGATIVE Urine Glucose (UA) NEGATIVE Urine Ketones NEGATIVE Urine Blood NEGATIVE Urine Nitrite NEGATIVE Ur Leukocyte Esterase NEGATIVE Urine WBC (Auto) 0 05/05/20 05/05/20 05/06/20 17:40 19:50 06:18 WBC 7.8 RBC 3.58 L Hgb 10.1 L Hct 32.2 L MCV 90 MCH 28.3 MCHC 31.4 L RDW 17.3 H Plt Count 259 Seg Neutrophils % Not Reportable Carbonic Acid 2.99 H HCO3/H2CO3 Ratio 16:1 ABG pH 7.31 L ABG pCO2 99.4 H* ABG pO2 82.7 ABG HCO3 48.7 H ABG O2 Saturation 94.2 ABG Base Excess 18.4 FiO2 8L Sodium Potassium Chloride Carbon Dioxide Anion Gap BUN Creatinine Est GFR ( Amer) Glucose Lactic Acid 1.3 Calcium Phosphorus Magnesium Total Bilirubin AST Alkaline Phosphatase Total Protein Albumin Urine Color Urine Appearance Urine pH Ur Specific [place] Urine Protein Urine Glucose (UA) Urine Ketones Urine Blood Urine Nitrite Ur Leukocyte Esterase Urine WBC (Auto) 05/06/20 06:18 WBC RBC Hgb Hct MCV MCH MCHC RDW Plt Count Seg Neutrophils % Carbonic Acid HCO3/H2CO3 Ratio ABG pH ABG pCO2 ABG pO2 ABG HCO3 ABG O2 Saturation ABG Base Excess FiO2 Sodium 139.8 Potassium 4.1 Chloride 87 L Carbon Dioxide 40 H* Anion Gap 13 BUN 24 H Creatinine 0.85 Est GFR ( Amer) > 60 Glucose 144 H Lactic Acid Calcium 9.4 Phosphorus 4.1 Magnesium 2.2 Total Bilirubin AST Alkaline Phosphatase Total Protein Albumin Urine Color Urine Appearance Urine pH Ur Specific [place] Urine Protein Urine Glucose (UA) Urine Ketones Urine Blood Urine Nitrite Ur Leukocyte Esterase Urine WBC (Auto) 05/05/20 15:10 Troponin I < 0.012 NT-Pro-B Natriuret Pep 76 Impressions: Chest X-Ray 05/05/20 14:29 IMPRESSION: Right lower lobe airspace disease either atelectasis or pneumonia. No other interval change. Status: Image reviewed by me - This patient's admission chest x-ray was reviewed. He has impressive cardiomegaly without obvious infiltrative process. Assessment & Plan - Diagnosis (1) Acute on chronic respiratory failure with hypoxia and hypercapnia Is this a current diagnosis for this admission?: Yes (2) Hypoventilation associated with obesity syndrome Is this a current diagnosis for this admission?: Yes (3) Morbid obesity Is this a current diagnosis for this admission?: Yes - Plan Summary Plan Summary: This patient presents with acute ventilatory failure in the setting of chronic obesity, chronic alveolar hypoventilation and chronic hypoxemia. He has been managed as an outpatient with extreme difficulty in part because of intermittent noncompliance. For now we will begin Diamox and medroxyprogesterone. These have worked in the past during his hospitalization. Would also continue his theophylline preparation for now. Unfortunately his chronic baseline resp iratory state represents severe impairment on the precipice of complete failure. We will assist as possible during this hospital admission.
[2020-05-06] MEDS: MEDROXYPROGESTERONE ACET 10 MG TABLET PO SCH ×2 (14:08→18:19)
--- NOTE | 2020-05-06 18:03 | PDOC PROGRESS REPORT ---
Subjective Date:: 05/06/20 Subjective:: As per admitting physician's note JOEY ORTEGA III is a 30 year old male with past medical history significant for severe morbid obesity BMI 78, OSH, TERRANCE, tracheostomy and ventilator support dependency, chronic hypoxemic and hypercarbic respiratory failure, COPD, hypertension, asthma who presents with a 3-day history of progressive shortness of breath/KING/productive cough. Patient denies fever/chills/nausea/vomiting/diarrhea/abdominal pain. Patient denies any COVID-19 contacts and states that he lives at home alone completely quarantined. Patient states he came to the ED a few days ago and was told he has "probably early pneumonia" but was not given any antibiotics per patient. EMS found patient to have an oxygen saturation in the low 80s and he was increased from or s home oxygen of 5 L up to 8 L. Patient follows with Dr. More outpatient in pulmonology. Consult ordered. Patient's ABG showed severe hypercarbic respiratory failure with a CO2 of 99.4 and a pH of 7.31. Of note, patient has high CO2 at baseline but this is quite a bit higher than his usual elevated CO2. Patient started on Levaquin given that he requires ventilator support at home and may have ventilator associated pneumonia. Chest x-ray showed right lower lobe infiltrate nonspecific. White blood cell count is normal at 9.7. He is admitted to [facility] under observation. 05/06/2020. No acute events overnight. Saw patient in the afternoon in ED, currently sitting on edge of his bed, on supplemental oxygen, reporting mild improvement of his symptoms, denies any fever, chills, nausea, vomiting. Reason For Visit: COPD AND OSH EXACERBATION,ACUTE ON CHRONIC Physical Exam Vital Signs: Temp Pulse Resp BP Pulse Ox 98.7 F 86 21 H 139/86 H 96 05/06/20 14:50 05/06/20 14:50 05/06/20 14:50 05/06/20 14:50 05/06/20 14:50 Intake & Output 05/05/20 05/06/20 05/07/20 06:59 06:59 06:59 Intake Total 18 Balance 18 Weight 240.404 kg General appearance: PRESENT: no acute distress, morbidly obese, well-developed, well-nourished Head exam: PRESENT: atraumatic, normocephalic Respiratory exam: PRESENT: clear to auscultation kapil, other - Trach collar in place.. ABSENT: rales, rhonchi, wheezes Cardiovascular exam: PRESENT: RRR. ABSENT: diastolic murmur, rubs, systolic murmur GI/Abdominal exam: PRESENT: normal bowel sounds, soft. ABSENT: distended, guarding, mass, organolmegaly, rebound, tenderness Extremities exam: PRESENT: full ROM. ABSENT: calf tenderness, clubbing, pedal edema Neurological exam: PRESENT: alert, awake, oriented to person, oriented to place, oriented to time, oriented to situation, CN II-XII grossly intact. ABSENT: motor sensory deficit Results Laboratory Results: 05/06/20 06:18 05/06/20 06:18 05/05/20 05/05/20 05/06/20 17:40 19:50 06:18 WBC 7.8 RBC 3.58 L Hgb 10.1 L Hct 32.2 L MCV 90 MCH 28.3 MCHC 31.4 L RDW 17.3 H Plt Count 259 Seg Neutrophils % Not Reportable Carbonic Acid 2.99 H HCO3/H2CO3 Ratio 16:1 ABG pH 7.31 L ABG pCO2 99.4 H* ABG pO2 82.7 ABG HCO3 48.7 H ABG O2 Saturation 94.2 ABG Base Excess 18.4 FiO2 8L Sodium Potassium Chloride Carbon Dioxide Anion Gap BUN Creatinine Est GFR ( Amer) Glucose Lactic Acid 1.3 Calcium Phosphorus Magnesium 05/06/20 06:18 WBC RBC Hgb Hct MCV MCH MCHC RDW Plt Count Seg Neutrophils % Carbonic Acid HCO3/H2CO3 Ratio ABG pH ABG pCO2 ABG pO2 ABG HCO3 ABG O2 Saturation ABG Base Excess FiO2 Sodium 139.8 Potassium 4.1 Chloride 87 L Carbon Dioxide 40 H* Anion Gap 13 BUN 24 H Creatinine 0.85 Est GFR ( Amer) > 60 Glucose 144 H Lactic Acid Calcium 9.4 Phosphorus 4.1 Magnesium 2.2 05/05/20 15:10 Troponin I < 0.012 NT-Pro-B Natriuret Pep 76 Impressions: Chest X-Ray 05/05/20 14:29 IMPRESSION: Right lower lobe airspace disease either atelectasis or pneumonia. No other interval change. Assessment and Plan - Diagnosis (1) Ventilator associated pneumonia Is this a current diagnosis for this admission?: Yes Plan: Chronic vent support through tracheostomy, increasingly requires more and more use of this per patient Levaquin 250 mg daily Sputum culture Blood cultures Ventilator support per RT (2) COPD (chronic obstructive pulmonary disease) Qualifiers: COPD type: unspecified COPD Qualified Code(s): J44.9 - Chronic obstructive pulmonary disease, unspecified Is this a current diagnosis for this admission?: Yes Plan: No exacerbation on exam, no wheezing Home medications continued (3) Hypertension Qualifiers: Is this a current diagnosis for this admission?: Yes Plan: Stable Home meds (4) Hypoventilation associated with obesity syndrome Is this a current diagnosis for this admission?: Yes Plan: Counseled on weight loss, encouraged patient to adopt a vegan diet (5) Acute on chronic respiratory failure with hypoxia and hypercapnia Is this a current diagnosis for this admission?: Yes Plan: PCO2 on admission 99.4 Ventilator support Nebs scheduled and as needed Treat underlying cause which is ventilator associated pneumonia as above - Time Time Spent with patient: 25-34 minutes Medications reviewed and adjusted accordingly: Yes Anticipated Discharge Disposition: Home with Home Health Anticipated Discharge Timeframe: within 72 hours
[2020-05-06] MEDS ORDERED: ACETAZOLAMIDE SODIUM INJ 500 MG VIAL ONE (22:58)
[2020-05-06] MEDS: ATORVASTATIN CALCIUM 40 MG TABLET PO SCH (23:32)
[2020-05-07 07:20] LABS: ABSOLUTE EOSINOPHILS # (AUTO) 0.2 10^3/uL (0.0-0.6); ABSOLUTE LYMPHOCYTES (AUTO) 1.1 10^3/uL (0.5-4.7); ABSOLUTE MONOCYTES (AUTO) 0.6 10^3/uL (0.1-1.4); ABSOLUTE NEUT (AUTO) 6.6 10^3/uL (1.7-8.2); BASOPHILS % (AUTO) 0.3 % (0-2); EOSINOPHILS % (AUTO) 2.8 % (0-6); HEMATOCRIT 33.7 % (37.9-51.0); HEMOGLOBIN 10.3 g/dL (13.5-17.0); LYMPHOCYTES % (AUTO) 12.5 % (13-45); MEAN CORPUSCULAR HEMOGLOBIN 27.1 pg (27.0-33.4); MEAN CORPUSCULAR HGB CONC 30.5 g/dL (32.0-36.0); MEAN CORPUSCULAR VOLUME 89 fl (80-97); MONOCYTES % (AUTO) 7.4 % (3-13); PLATELET COUNT 301 10^3/uL (150-450); RED BLOOD COUNT 3.79 10^6/uL (4.35-5.55); RED CELL DISTRIBUTION WIDTH 17.5 % (11.5-14.0); TOTAL CELLS COUNTED % (AUTO) 100 %; WHITE BLOOD COUNT 8.6 10^3/uL (4.0-10.5)
[2020-05-07] MEDS: GABAPENTIN 300 MG CAPSULE PO SCH ×3 (07:22→22:33)
[2020-05-07] MEDS: LEVOTHYROXINE SODIUM 0.1 MG TABLET PO SCH (07:22)
[2020-05-07] MEDS: AMLODIPINE BESYLATE 10 MG TABLET PO SCH (07:26)
[2020-05-07] MEDS: HYDROCHLOROTHIAZIDE 25 MG TABLET PO SCH (07:26)
[2020-05-07 07:38] LABS: ALBUMIN 4.2 g/dL (3.5-5.0); ALKALINE PHOSPHATASE 64 U/L (38-126); ASPARTATE AMINO TRANSFERASE 29 U/L (17-59); BILIRUBIN,DIRECT 0.1 mg/dL (0.0-0.4); BILIRUBIN,TOTAL 0.4 mg/dL (0.2-1.3); BLOOD UREA NITROGEN 21 mg/dL (7-20); CALCIUM 9.8 mg/dL (8.4-10.2); CHLORIDE 87 mmol/L (98-107); GLUCOSE 107 mg/dL (75-110); POTASSIUM 4.3 mmol/L (3.6-5.0); TOTAL PROTEIN 8.5 g/dL (6.3-8.2)
[2020-05-07 07:59] LABS: ANION GAP 13 (5-19)
[2020-05-07 08:06] LABS: CARBON DIOXIDE 43 mmol/L (22-30)
[2020-05-07] MEDS: IPRATROPIUM/ALBUTEROL 0.5-2.5 MG/3 ML AMPUL NEB SCH ×4 (08:29→19:59)
--- NOTE | 2020-05-07 09:39 | PDOC PROGRESS REPORT ---
Subjective Date:: 05/07/20 Reason For Visit: COPD AND OSH EXACERBATION,ACUTE ON CHRONIC Physical Exam Vital Signs: Temp Pulse Resp BP Pulse Ox 97.9 F 102 H 20 130/69 H 96 05/07/20 08:00 05/07/20 08:00 05/07/20 08:00 05/07/20 08:00 05/07/20 08:00 Intake & Output 05/06/20 05/07/20 05/08/20 06:59 06:59 06:59 Intake Total 681 Output Total 850 Balance -169 Weight 240.404 kg 240 kg Exam: Exam today is largely unchanged he continues to have coarse breath sounds with rhonchi noted in all monet. Results Laboratory Results: 05/07/20 06:31 05/07/20 06:31 05/07/20 05/07/20 06:31 06:31 WBC 8.6 RBC 3.79 L Hgb 10.3 L Hct 33.7 L MCV 89 MCH 27.1 MCHC 30.5 L RDW 17.5 H Plt Count 301 Seg Neutrophils % 77.0 Sodium 142.9 Potassium 4.3 Chloride 87 L Carbon Dioxide 43 H* Anion Gap 13 BUN 21 H Creatinine 1.07 Est GFR ( Amer) > 60 Glucose 107 Calcium 9.8 Magnesium 2.2 Total Bilirubin 0.4 AST 29 Alkaline Phosphatase 64 Total Protein 8.5 H Albumin 4.2 05/05/20 17:45 Tracheal Aspirate Gram Stain - Final 05/05/20 15:10 Troponin I < 0.012 NT-Pro-B Natriuret Pep 76 Impressions: Chest X-Ray 05/05/20 14:29 IMPRESSION: Right lower lobe airspace disease either atelectasis or pneumonia. No other interval change. Assessment & Plan - Diagnosis (1) Acute on chronic respiratory failure with hypoxia and hypercapnia Is this a current diagnosis for this admission?: Yes (2) Hypoventilation associated with obesity syndrome Is this a current diagnosis for this admission?: Yes (3) Morbid obesity Is this a current diagnosis for this admission?: Yes (4) Pseudomonas aeruginosa infection Is this a current diagnosis for this admission?: Yes - Time Time Spent with patient: 35 or more minutes - Plan Summary Plan Summary: Today this patient appears largely unchanged. Unfortunately his cultures now indicate that he is at least colonized if not potentially infected with Pseudomonas aeruginosa. This is an ominous finding in a patient with chronic respiratory insufficiency and a tracheostomy in place. I suspect that in the future he will develop multidrug-resistant Pseudomonas at least is a colonization of his trachea and we will have to deal with intermittent episodes of pneumonia related to Pseudomonas. At some point we may also need to give consideration to inhaled tobramycin if he has repeated exacerbations of his Pseudomonas infections. This however is further down the road. For this hospitalization he needs a prolonged course of antipseudomonal therapy, good pulmonary toilet, and adjustment of all his home medications. I will check a theophylline level at some point so that we can adjust his theophylline dose.
[2020-05-07] MEDS: BUSPIRONE HCL 10 MG TABLET PO SCH ×2 (10:29→17:28)
[2020-05-07] MEDS: THEOPHYLLINE ANHYDROUS 300 MG TAB.SR.12H PO SCH ×2 (10:29→22:33)
[2020-05-07] MEDS: LEVOFLOXACIN 750 MG TABLET PO SCH (10:29)
[2020-05-07] MEDS: LISINOPRIL 10 MG TABLET PO SCH (10:30)
[2020-05-07] MEDS: DOCUSATE SODIUM 100 MG CAPSULE PO SCH (10:30)
[2020-05-07] MEDS: SERTRALINE HCL 50 MG TABLET PO SCH (10:30)
--- NOTE | 2020-05-07 10:31 | PDOC PROGRESS REPORT ---
Subjective Date:: 05/07/20 Subjective:: As per admitting physician's note JOEY ORTEGA III is a 30 year old male with past medical history significant for severe morbid obesity BMI 78, OSH, TERRANCE, tracheostomy and ventilator support dependency, chronic hypoxemic and hypercarbic respiratory failure, COPD, hypertension, asthma who presents with a 3-day history of progressive shortness of breath/KING/productive cough. Patient denies fever/chills/nausea/vomiting/diarrhea/abdominal pain. Patient denies any COVID-19 contacts and states that he lives at home alone completely quarantined. Patient states he came to the ED a few days ago and was told he has "probably early pneumonia" but was not given any antibiotics per patient. EMS found patient to have an oxygen saturation in the low 80s and he was increased from [place] home oxygen of 5 L up to 8 L. Patient follows with Dr. More outpatient in pulmonology. Consult ordered. Patient's ABG showed severe hypercarbic respiratory failure with a CO2 of 99.4 and a pH of 7.31. Of note, patient has high CO2 at baseline but this is quite a bit higher than his usual elevated CO2. Patient started on Levaquin given that he requires ventilator support at home and may have ventilator associated pneumonia. Chest x-ray showed right lower lobe infiltrate nonspecific. White blood cell count is normal at 9.7. He is admitted to [facility] under observation. 05/06/2020. No acute events overnight. Saw patient in the afternoon in ED, currently sitting on edge of his bed, on supplemental oxygen, reporting mild improvement of his symptoms, denies any fever, chills, nausea, vomiting. 05/24/2020. No acute events overnight. Patient is still complaining of excessive secretion from tracheostomy overall he is reporting mild improvement, denies any fever, chills, nausea, vomiting. Reason For Visit: COPD AND OSH EXACERBATION,ACUTE ON CHRONIC Physical Exam Vital Signs: Temp Pulse Resp BP Pulse Ox 97.9 F 83 20 130/69 H 90 L 05/07/20 08:00 05/07/20 08:29 05/07/20 08:29 05/07/20 08:00 05/07/20 09:34 Intake & Output 05/06/20 05/07/20 05/08/20 06:59 06:59 06:59 Intake Total 681 Output Total 850 Balance -169 Weight 240.404 kg 240 kg General appearance: PRESENT: no acute distress, obese, well-developed, well- nourished Head exam: PRESENT: atraumatic, normocephalic Respiratory exam: PRESENT: clear to auscultation kapil, other - Tracheostomy in place.. ABSENT: rales, rhonchi, wheezes Cardiovascular exam: PRESENT: RRR. ABSENT: diastolic murmur, rubs, systolic murmur GI/Abdominal exam: PRESENT: normal bowel sounds, soft. ABSENT: distended, guarding, mass, organolmegaly, rebound, tenderness Neurological exam: PRESENT: alert, awake, oriented to person, oriented to place, oriented to time, oriented to situation, CN II-XII grossly intact. ABSENT: motor sensory deficit Results Laboratory Results: 05/07/20 06:31 05/07/20 06:31 05/07/20 05/07/20 06:31 06:31 WBC 8.6 RBC 3.79 L Hgb 10.3 L Hct 33.7 L MCV 89 MCH 27.1 MCHC 30.5 L RDW 17.5 H Plt Count 301 Seg Neutrophils % 77.0 Sodium 142.9 Potassium 4.3 Chloride 87 L Carbon Dioxide 43 H* Anion Gap 13 BUN 21 H Creatinine 1.07 Est GFR ( Amer) > 60 Glucose 107 Calcium 9.8 Magnesium 2.2 Total Bilirubin 0.4 AST 29 Alkaline Phosphatase 64 Total Protein 8.5 H Albumin 4.2 05/05/20 17:45 Tracheal Aspirate Gram Stain - Final 05/05/20 15:10 Troponin I < 0.012 NT-Pro-B Natriuret Pep 76 Impressions: Chest X-Ray 05/05/20 14:29 IMPRESSION: Right lower lobe airspace disease either atelectasis or pneumonia. No other interval change. Assessment and Plan - Diagnosis (1) Ventilator associated pneumonia Is this a current diagnosis for this admission?: Yes Plan: Due to Pseudomonas aeruginosa. Pansensitive. 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 Chronic vent support through tracheostomy, increasingly requires more and more use of this per patient Day 3 p.o. antibiotics. Day 3 p.o. levofloxacin. Continue aggressive pulmonary toileting, duo nebs, flutter valve, incentive parameter, broad-spectrum p.o. antibiotics, vent management. Patient advised on contacting his pain management company to make sure that his bed is properly cleaned. (2) COPD (chronic obstructive pulmonary disease) Qualifiers: COPD type: unspecified COPD Qualified Code(s): J44.9 - Chronic obstructive pulmonary disease, unspecified Is this a current diagnosis for this admission?: Yes Plan: Does not appear to be acutely exacerbated. No wheezing on physical examination. Continue current meds. Plan as per #1. (3) Hypertension Qualifiers: Is this a current diagnosis for this admission?: Yes Plan: Euvolemic. Normotensive. Resume home meds. Adjust meds as needed. Outpatient PCP follow-up. (4) Hypoventilation associated with obesity syndrome Is this a current diagnosis for this admission?: Yes Plan: Patient morbidly obese. Tracheostomy in place. Vent dependent. Advised on diet and lifestyle modification. Likely candidate for bariatric inte rvention. (5) Acute on chronic respiratory failure with hypoxia and hypercapnia Is this a current diagnosis for this admission?: Yes Plan: History of chronic hypercarbia due to obesity hypoventilation syndrome. Baseline bicarb 80 to 90 mmHg. Plan as per #1. - Time Time Spent with patient: 25-34 minutes Anticipated Discharge Disposition: Home with Home Health Anticipated Discharge Timeframe: within 48 hours
[2020-05-07] MEDS: ENOXAPARIN SODIUM INJ 40 MG/0.4 ML DISP.SYRIN SUBCUT SCH ×2 (10:39→22:27)
[2020-05-07] MEDS: NYSTATIN TOPICAL POWDER 15 GM TP SCH ×2 (14:25→18:55)
[2020-05-07] MEDS: MEDROXYPROGESTERONE ACET 10 MG TABLET PO SCH ×3 (14:34→17:28)
--- OUTSIDE RECORDS SUMMARY | 2020-05-07 14:41 | XMS REPORT ---
:1990 [facility] [address] [place] [id number] Care Team Providers Name Role Phone PILY ESPINAL Primary Care Physician Unavailable Esperanza NIEVES Attending Clinician Unavailable Aiyana Attending Clinician Unavailable Aiyana Attending Clinician Unavailable Juanpablo PIERCE Attending Clinician Unavailable Lyly PASTOR Attending Clinician Unavailable SILVIA CASTILLO Attending Clinician Unavailable Yony Attending Clinician Unavailable Wilver Attending Clinician Unavailable SILVIA CASTILLO Admitting Clinician Unavailable Allergies, Adverse Reactions, Alerts Allergy Allergy Status Severity Reaction(s) Onset Inactive Treating C omments Name Type Date Date Clinician EGG YOLK Drug Active U 2017-01 allergy -08 00:00:0 0 Medications Ordered Filled Start Stop Current Ordering Indication Dosage Frequency Signature Comments Components Medication Medication Date Date Medication? Clinician (SIG) Name Name levothyroxi 2017-06 Yes 100ug QD Take 1 Tab ne 1-28 by mouth (LEVOXYL) 00:00: daily at 6 100 mcg 00 am. Oral Tablet levothyroxi 2017-06 2018- No 100ug QD Take 1 Tab ne 1-28 11-27 by mouth (LEVOXYL) 00:00: 00:00 daily at 6 100 mcg 00 :00 am. Oral Tablet albuterol 2017-06 Yes 2{puff} Q6H Take 2 HFA 1-27 Puffs by (PROVENTIL 00:00: inhalation HFA;VENTOLI 00 every 6 N HFA) 90 hours as mcg/actuati needed for on Wheezing. Inhalation HFA Aerosol Inhaler budesonide 2017-06 Yes Q.5D Take by (PULMICORT) 1-27 inhalation 0.5 mg/2 mL 00:00: twice a Inhalation 00 day. Suspension for Nebulizatio n amLODIPine 2017-06 Yes 10mg QD Take 1 Tab (NORVASC) 1-27 by mouth 10 mg Oral 00:00: daily. Tablet 00 atorvastati 2017-06 Yes 40mg Take 1 Tab n (LIPITOR) - by mouth 40 mg Oral 00:00: at Tablet 00 bedtime. lisinopril 2017-06 Yes 40mg QD Take 1 Tab (PRINIVIL,Z -27 by mouth ESTRIL) 40 00:00: daily. mg Oral 00 Tablet hydroCHLORO 2017-06 Yes 25mg QD Take 1 Tab thiazide -27 by mouth (HYDRODIURI 00:00: daily. L) 25 mg 00 Oral Tablet busPIRone 2017-06 Yes 30mg QD Take 1 Tab (BUSPAR) 30 -27 by mouth mg Oral 00:00: daily. Tablet 00 busPIRone 2017-06 Yes 25mg Take 5 (BUSPAR) 5 - Tabs by mg Oral 00:00: mouth at Tablet 00 bedtime. sertraline 2017-06 Yes 150mg QD Take 3 (ZOLOFT) 50 - Tabs by mg Oral 00:00: mouth Tablet 00 daily. albuterol 2017-06- No 2{puff} Q6H Take 2 HFA 07-21 Puffs by (PROVENTIL 00:00: 00:00 inhalation HFA;VENTOLI 00 :00 every 6 N HFA) 90 hours as mcg/actuati needed for on Wheezing. Inhalation HFA Aerosol Inhaler budesonide 2017-06- No Q.5D Take by (PULMICORT) 07-21 inhalation 0.5 mg/2 mL 00:00: 00:00 twice a Inhalation 00 :00 day. Suspension for Nebulizatio n amLODIPine 2017-06 No 10mg QD Take 1 Tab (NORVASC) 07-21 by mouth 10 mg Oral 00:00: 00:00 daily. Tablet 00 :00 atorvastati 2017-06- No 40mg Take 1 Tab n (LIPITOR) -21 05- by mouth 40 mg Oral 00:00: 00:00 at Tablet 00 :00 bedtime. lisinopril 2017-06- No 40mg QD Take 1 Tab (PRINIVIL,Z -27 -27 by mouth ESTRIL) 40 00:00: 00:00 daily. mg Oral 00 :00 Tablet hydroCHLORO 2017-06- No 25mg QD Take 1 Tab thiazide 07-21 by mouth (HYDRODIURI 00:00: 00:00 daily. L) 25 mg 00 :00 Oral Tablet busPIRone 2017-06- No 30mg QD Take 1 Tab (BUSPAR) 30 07-21 by mouth mg Oral 00:00: 00:00 daily. Tablet 00 :00 busPIRone 2017-06 No 25mg Take 5 (BUSPAR) 5 07-21 Tabs by mg Oral 00:00: 00:00 mouth at Tablet 00 :00 bedtime. sertraline 2017-06 No 150mg QD Take 3 (ZOLOFT) 50 07-21 Tabs by mg Oral 00:00: 00:00 mouth Tablet 00 :00 daily. albuterol 2017-06- No 2{puff} [Order 1 HFA 07-14 Start] (PROVENTIL 16:00: 15:59 Name: HFA;VENTOLI 00 :00 albuterol N HFA) 90 HFA mcg/actuati (PROVENTIL on inhaler HFA;VENTOL 2 Puff IN HFA) 90 mcg/actuat ion inhaler 2 Puff Signed Summary: 2 Puff, Inhalation , RT EVERY 6 HOURS, First dose on Sun05/14/18 at 1600, For 30 days
Nu rsing to administer . Shake well.&nbsp ;Med Disposal - Aerosol
[Order 1 End] [Order 2 Start] Name: ADMINISTRA TION, EVALUATION AND EDUCATION OF MDI OR DPI BY RT ORDERED Signed Summary: ORDERED - RT ONLY, Starting Sun05/14/18 at 1221, Until Specified, Routine [Order 2 End] potassium 2017-06 No 40meq 40 mEq, chloride 40 07-14 Intravenou mEq in 07:15: 13:57 s, at 130 sodium 00 :00 mL/hr, chloride Administer 0.9 % 500 over 4 mL Hours, peripheral ONCE, Sun bolus 05/14/18 at 0715, For 1 dose
Do NOT exceed 20 mEq of potassium chloride per hour.&nbsp ; Max imum peripheral line concentrat ion of potassium chloride is 20 mEq per 250 mL.
potassium 2017-06 No 40meq Q.5D 40 mEq, chloride 07-13 Oral, (KLOR-CON 10:00: 21:35 TWICE A M20) CR 00 :00 DAY, First tablet 40 dose on mEq 05/13/18 at 1000, For 2 doses
T o suspend:&n bsp;* Place the whole tablet in approximat ya 120 mL of cold water or juice to reduce stomach irritation or laxative effects.&n bsp;* Allow approximat ya 2 minutes for the contents to dissolve.& nbsp;* Stir for about half a minute after the contents have dissolved. * Swirl the suspension and administer orally.&nb sp;* Add another 30 mL of water, swirl, and administer immediatel y.&nbs p;
budesonide 2017-06- No .5mg Q.5D 0.5 mg, (PULMICORT) 07-1218 Inhalation 0.5 mg/2 mL 22:00: 21:59 , TWICE A nebulizer 00 :00 DAY, First solution dose on 0.5 mg [place] 05/12/18 at 2200, For 30 days
RE SPIRATORY to administer . &nb sp;Protect from light.
albuterol 2017-06- No 2.5mg 2.5 mg, (PROVENTIL) 07-12 Inhalation 2.5 mg /3 16:00: 12:21 , RT EVERY mL (0.083 00 :22 6 HOURS, %) First dose nebulizer on Sun solution 05/12/18 2.5 mg at 1600, For 30 days
RE SPIRATORY to administer .
famotidine 2017-06- No 20mg Q.5D 20 mg, (PEPCID) 07-12 Oral, tablet 20 10:00: 09:51 TWICE A mg 00 :42 DAY, First dose on 05/12/18 at 1000, For 30 days fentaNYL 2017-06- No 50ug 50 mcg (SUBLIMAZE) 07-11 (0.244 injection 13:20: 12:21 mcg/kg), 50 mcg 00 :00 Intravenou s, ONCE, 05/11/18 at 1320, For 1 dose
Fa ll Risk Medication
midazolam 2017-06- No 2mg 2 mg (PF) 07-11 (0.10049 (VERSED) 13:15: 12:23 mg/kg), injection 2 00 :00 Intravenou mg s, ONCE, 05/11/18 at 1320, For 1 dose
Fa ll Risk Medication
fentaNYL 2017-06- No Starting (SUBLIMAZE) 07-11 Sat 50 mcg/mL 12:05: 12:21 05/11/18 injection 03 :00 at 1205, - Pyxis For 1 Override dose
Cr Pull eated by cabinet override<b r> hydroCHLORO 2017-06- No 25mg QD 25 mg, thiazide 07-11 Oral, (HYDRODIURI 10:00: 09:59 DAILY, L) tablet 00 :00 First dose 25 mg on 05/11/18 at 1000, For 22 doses
F all Risk Medication
budesonide 2017-06- No .5mg 0.5 mg, (PULMICORT) 07-09 Inhalation 0.5 mg/2 mL 20:00: 08:27 , RT TWICE nebulizer 00 :58 A DAY, solution First dose 0.5 mg on Tanya 05/09/18 at 2000, For 64 doses
R ESPIRATORY to administer . &nb sp;Protect from light.
levothyroxi 2017-06- No 100ug QD 100 mcg, ne 07-09 Oral, (SYNTHROID, 09:05: 05:59 DAILY AT LEVOXYL) 00 :00 0600, tablet 100 First dose mcg on Tanya 05/09/18 at 0905, For 30 days
Ta ke on an empty stomach at least 30 minutes before food. Administer antacids, cholestyra mine, or any medicine that contains calcium or iron at least 4 hours before or 4 hours after levothyrox ine.
guaiFENesin 2017-06- No 10mL Q4H 200 mg (10 (ROBITUSSIN 1-14 12-14 mL), Oral, ) 100 mg/5 23:45: 23:44 EVERY 4 mL syrup 16 :16 HOURS 200 mg NEEDED, Cough, Starting Sun05/08/18 at 2345, For 30 days albuterol 2017-06- No 2.5mg 2.5 mg, (PROVENTIL) 07-08 Inhalation 2.5 mg /3 16:00: 13:13 , RT EVERY mL (0.083 00 :10 6 HOURS, %) First dose nebulizer on Sun solution 05/08/18 2.5 mg at 1600, For 20 doses
R ESPIRATORY to administer .
sodium 2017-06- No 4mL Q4H 4 mL, chloride 3 07-08 Inhalation % nebulizer 06:55: 06:54 , EVERY 4 solution 4 00 :00 HOURS mL NEEDED, Thick Secretions , Starting Sun05/08/18 at 0655, For 720 hours
R ESPIRATORY to administer .
sodium 2017-06- No 4mL 4 mL, chloride 3 07-06 Inhalation % nebulizer 17:08: 06:54 , RT EVERY solution 4 00 :47 4 HOURS, mL First dose on Sun05/06/18 at 1710, For 5 days
RE SPIRATORY to administer .
ipratropium 2017-06- No 3mL Q6H 3 mL, -albuterol 07-06 Inhalation (DUO-NEB) 16:55: 13:50 , EVERY 6 0.5 mg-3 00 :58 HOURS mg(2.5 mg NEEDED, base)/3 mL Wheezing, nebulizer Starting solution 3 Mon mL 05/06/18 at 1655, For 96 hours
R ESPIRATORY to administer . Equivalent to 2.5 mg of Albuterol as the base.
ibuprofen 2017-06- No 800mg [id number] 800 mg, (ADVIL,MOTR 07-06 [id number] Oral, IN) tablet 14:00: 12:07 3D THREE 800 mg 00 :11 TIMES A DAY, First dose on Sun05/06/18 at 1400, For 21 doses
M aximum dose is 3200 mg/day.&nb sp; < br> oxyCODONE 2017-06 No 5mg 5 mg, (ROXICODONE 07-06 Oral, ) immediate 11:55: 12:01 ONCE, Mon release 00 :00 05/06/18 tablet 5 mg at 1155, For 1 dose
FA LL RISK MEDICATION .
sodium 2017-06- No 4mL 4 mL, chloride 3 07-06 Inhalation % nebulizer 08:00: 16:51 , RT EVERY solution 4 00 :12 4 HOURS, mL First dose on Sun05/06/18 at 0800, For 8 doses
R ESPIRATORY to administer .
sodium 2017-06- No 4mL 4 mL, chloride 3 07-05 Inhalation % nebulizer 16:00: 06:39 , RT EVERY solution 4 00 :11 6 HOURS, mL First dose on Sun05/05/18 at 1600, For 3 days
RE SPIRATORY to administer .
ipratropium 2017-06- No 3mL Q4H 3 mL, -albuterol 07-05 Inhalation (DUO-NEB) 10:50: 16:51 , EVERY 4 0.5 mg-3 00 :12 HOURS mg(2.5 mg NEEDED, base)/3 mL Shortness nebulizer of Breath, solution 3 Starting mL Sun05/05/18 at 1050, For 264 hours
R ESPIRATORY to administer . Equivalent to 2.5 mg of Albuterol as the base.
sertraline 2017-06 No 150mg QD 150 mg, (ZOLOFT) 07-04 Oral, tablet 150 10:00: 09:59 DAILY, mg 00 :00 First dose on Sun05/04/18 at 1000, For 30 doses
F all Risk Medication
lisinopril 2017-06 No 40mg QD 40 mg, (PRINIVIL,Z 07-03 Oral, ESTRIL) 10:00: 09:59 DAILY, tablet 40 00 :00 First dose mg on Sun05/03/18 at 1000, For 28 doses
U se for Prinivil and Zestril
hydroCHLORO 2017-06- No 12.5mg QD 12.5 mg, thiazide 07-03 Oral, (HYDRODIURI 10:00: 12:14 DAILY, L) tablet 00 :10 First dose 12.5 mg on Sun05/03/18 at 1000, For 30 days
Fa ll Risk Medication
sodium 2017-06 No 4mL 4 mL, chloride 3 07-02 Inhalation % nebulizer 20:00: 10:45 , RT TWICE solution 4 00 :14 A DAY, mL First dose on Sun05/02/18 at 2000, For 7 doses
R ESPIRATORY to administer .
guaiFENesin 2017-06- No 600mg Q.5D 600 mg, (MUCINEX) 07-01 Oral, 12 hr 22:00: 23:45 TWICE A tablet 600 00 :19 DAY, First mg dose on Sun05/01/18 at 2200, For 30 days
Do NOT crush, break, or chew.
lisinopril 2017-06- No 20mg QD 20 mg, (PRINIVIL,Z 07-01 Oral, ESTRIL) 10:35: 11:40 DAILY, tablet 20 00 :02 First dose mg on Sun05/01/18 at 1035, For 30 days
Us e for Prinivil and Zestril
magnesium 2017-06- No 2g 2 g, sulfate in 07-01 Intravenou D5W 2 08:05: 12:30 s, at 12.5 gram/50 mL 00 :00 mL/hr, IVPB Administer (premix) 2 over 4 g Hours, ONCE, Sun05/01/18 at 0805, For 1 dose potassium, 2017-06- No 2{packe 2 Packet, sodium 07-01 t} Oral, phosphates 08:05: 08:32 ONCE, Sun (PHOS-NAK) 00 :00 05/01/18 at [phone], For mg packet 2 1 Packet dose
Us e for Neutra-Tarun s. &n bsp;Dissol ve in 90 mL water, stir well and drink promptly.< br> sodium 2017-06 No 4mL 4 mL, chloride 3 06-30 Inhalation % nebulizer 16:00: 13:50 , RT EVERY solution 4 00 :29 6 HOURS, mL First dose on Sun04/30/18 at 1600, For 12 doses
R ESPIRATORY to administer .
sodium 2017-06- No 4mL Q6H 4 mL, chloride 3 06-30 Inhalation % nebulizer 11:53: 12:47 , EVERY 6 solution 4 20 :12 HOURS mL NEEDED, thick secretions , Starting Sun04/30/18 at 1153, For 30 days
RE SPIRATORY to administer .
amLODIPine 2017-06- No 10mg QD 10 mg, (NORVASC) 06-30 Oral, tablet 10 10:00: 09:59 DAILY, mg 00 :00 First dose on Sun04/30/18 at 1000, For 76 doses sertraline 2017-06- No 150mg QD 150 mg, (ZOLOFT) 06-30 Oral, tablet 150 10:00: 09:19 DAILY, mg 00 :00 First dose on Sun04/30/18 at 1000, For 4 doses
F all Risk Medication
levothyroxi 2017-06- No 100ug QD 100 mcg, ne 06-30 Oral, (SYNTHROID, 06:00: 06:13 DAILY AT LEVOXYL) 00 :00 0600, tablet 100 First dose mcg on Sun04/30/18 at 0600, For 9 doses
P lease hold tube feeds one hour before and one hour after administra tion Administer antacids, cholestyra mine, or any medicine that contains calcium or iron at least 4 hours before or 4 hours after levothyrox ine.
atorvastati 2017-06- No 40mg 40 mg, n (LIPITOR) 06-29 Oral, AT tablet 40 22:00: 21:59 BEDTIME, mg 00 :00 First dose on Sun04/29/18 at 2200, For 29 doses famotidine 2017-06- No 20mg Q.5D 20 mg, (PEPCID) 06-29 Oral, tablet 20 22:00: 08:23 TWICE A mg 00 :01 DAY, First dose on Sun04/29/18 at 2200, For 27 doses docusate 2017-06 2018- No 100mg Q.5D 100 mg, sodium 06-29 Oral, (COLACE) 12:45: 09:51 TWICE A capsule 100 00 :46 DAY, First mg dose on Sun04/29/18 at 1245, For 30 days oxyCODONE 2017-06- No 10mg Q6H 10 mg, (ROXICODONE 06-29 Oral, ) immediate 12:41: 13:36 EVERY 6 release 45 :48 HOURS tablet 10 NEEDED, mg Severe Pain, Starting Sun04/29/18 at 1241, For 30 days<br&gt ;FALL RISK MEDICATION .
acetaminoph 2017-06- No 500mg Q6H 500 mg, en 06-29 Oral, (TYLENOL) 12:39: 12:38 EVERY 6 tablet 500 48 :48 HOURS mg NEEDED, Mild Pain, Starting Sun04/29/18 at 1239, For 30 days
Pe diatrics:& nbsp;&nbsp ;Do not exceed 5 doses of acetaminop hen in 24 hours.
ipratropium 2017-06- No 3mL 3 mL, -albuterol 05-05 Inhalation (DUO-NEB) 22:00: 10:45 , RT EVERY 0.5 mg-3 00 :44 6 HOURS, mg(2.5 mg First dose base)/3 mL on Sun nebulizer 04/24/18 solution 3 at 2200, mL For 30 days
RE SPIRATORY to administer . Equivalent to 2.5 mg of Albuterol as the base.
acetaminoph 2017-06- No 650mg Q4H 650 mg en 05-17 (3.15 (TYLENOL) 16:24: 11:01 mg/kg), solution 46 :22 PER TUBE, 650 mg EVERY 4 HOURS NEEDED, Moderate Pain, Starting Sun04/22/18 at 1624, For 30 days
Pe diatrics:& nbsp;&nbsp ;Do not exceed 5 doses of acetaminop hen in 24 hours.
oxyCODONE 2017-06- No 10mg Q6H 10 mg (ROXICODONE 11-05 (0.0484 ) 5 mg/5 mL 16:20: 12:44 mg/kg), solution 10 00 :51 PER TUBE, mg EVERY 6 HOURS NEEDED, Severe Pain, Starting 04/22/18 at 1620, For 720 hours
F ALL RISK MEDICATION .
ipratropium 2017-06- No 3mL 3 mL, -albuterol 04-24 Inhalation (DUO-NEB) 08:00: 15:41 , RT TWICE 0.5 mg-3 00 :15 A DAY, mg(2.5 mg First dose base)/3 mL on Mon nebulizer 04/22/18 solution 3 at 0800, mL For 6 doses
R ESPIRATORY to administer . Equivalent to 2.5 mg of Albuterol as the base.
potassium 2017-06- No 40meq 40 mEq, chloride 40 04-22 Intravenou mEq in 07:35: 10:45 s, at 260 sodium 00 :00 mL/hr, chloride Administer 0.9 % 500 over 2 mL Hours, peripheral ONCE, Mon bolus 04/22/18 at 0735, For 1 dose
Do NOT exceed 20 mEq of potassium chloride per hour.&nbsp ; Max imum peripheral line concentrat ion of potassium chloride is 20 mEq per 250 mL.
nystatin 2017-06 2018- No [id number] Topical, (MYCOSTATIN 0- [id number] THREE ) cream 14:00: 13:59 3D TIMES A 00 :00 DAY, First dose on 04/21/18 at 1400, For 7 days
Ap ply to affected areas
I ndications : rash ipratropium 2017-06- No 3mL 3 mL, -albuterol 04-21 Inhalation (DUO-NEB) 16:00: 16:38 , RT EVERY 0.5 mg-3 00 :53 6 HOURS, mg(2.5 mg First dose base)/3 mL on Sat nebulizer 04/20/18 solution 3 at 1600, mL For 3 days
RE SPIRATORY to administer . Equivalent to 2.5 mg of Albuterol as the base.
phenol 2017-06- No 1{spray Q1D 1 [place], (CHLORASEPT 04-29 } Mucous IC) 1.4 % 10:12: 12:44 Membrane, oral spray 49 :51 NEEDED, 1 [place] Sore throat, Starting 04/20/18 at 1012, For 30 days<br&gt ;Same as Chlorasept ic [place].
docusate 2017-06- No 100mg Q.5D 100 mg, (COLACE) 50 04-29 Gastric mg/5 mL 10:00: 12:44 Tube, liquid 100 00 :51 TWICE A mg DAY, First dose on 04/20/18 at 1000, For 30 days QUEtiapine 2017-06 No 200mg QD 200 mg, (SEROquel) 04-28 Oral, tablet 200 10:00: 08:31 DAILY, mg 00 :46 First dose on 04/20/18 at 1000, For 24 doses
F all Risk Medication
mupirocin 2017-06- No 1{raz} Q.5D 1 (BACTROBAN) 04-23 Applicatio 2 % 22:00: 22:01 n, ointment 1 00 :00 Topical, Application TWICE A DAY, First dose on Sun04/19/18 at 2200, For 9 doses
A pply with sterile cotton applicator twice a day, (use one-fourth inch) to inside of each nare, press and release nares for 1 minute to disperse ointment.& nbsp;&nbsp ;Use separate cotton tip applicator per nare.&nbsp ; Use for five days.&nbsp ; (Pl ease send remainder home with patient.)& nbsp;&nbsp ;Qty: One 22 gm tube.
N o refill.
mupirocin 2017-06 No 1{raz} Q.5D 1 (BACTROBAN) 04-19 Applicatio 2 % 11:40: 12:40 n, Nasal, ointment 1 00 :53 TWICE A Application DAY, First dose on Sun04/19/18 at 1140, For 5 days
Ap ply with sterile cotton applicator twice a day, (use one-fourth inch) to inside of each nare, press and release nares for 1 minute to disperse ointment.& nbsp;&nbsp ;Use separate cotton tip applicator per nare.&nbsp ; Use for five days.&nbsp ; (Pl ease send remainder home with patient.)& nbsp;&nbsp ;Qty: One 22 gm tube.
N o refill.
QUEtiapine 2017-06- No 100mg 100 mg, (SEROquel) 0-26 10-26 Oral, tablet 100 10:50: 12:16 ONCE, Fri mg 00 :00 04/19/18 at 1050, For 1 dose
Fa ll Risk Medication <br& gt; oxyCODONE 2017-06- No 10mg Q.25D 10 mg (ROXICODONE 004-22 (0.0487 ) 5 mg/5 mL 18:00: 16:19 mg/kg), solution 10 00 :10 PER TUBE, mg EVERY 6 HOURS, First dose on Sun04/18/18 at 1800, For 30 days<br&gt ;FALL RISK MEDICATION .
busPIRone 2017-06- No 25mg 25 mg, (BUSPAR) 0-07-15 Oral, AT tablet 25 22:00: 09:15 BEDTIME, mg 00 :16 First dose on Sun04/17/18 at 2200, For 89 doses
F all Risk Medication
busPIRone 2017-06- No 30mg QD 30 mg, (BUSPAR) 007-15 Oral, tablet 30 09:50: 09:15 DAILY, mg 00 :23 First dose on Sun04/17/18 at 0950, For 89 doses
F all Risk Medication
busPIRone 2017-06- No 25mg Q.5D 25 mg, PER (BUSPAR) 0-16 04-24 TUBE, tablet 25 10:00: 09:48 TWICE A mg 00 :20 DAY, First dose on Sun04/16/18 at 1000, For 36 doses
F all Risk Medication
atorvastati 2017-06- No 40mg 40 mg, PER n (LIPITOR) 05 TUBE, AT tablet 40 22:00: 12:44 BEDTIME, mg 00 :56 First dose on 04/14/18 at 2200, For 30 days cephALEXin 2017-06- No 2318 1000mg Q.5D 1,000 mg, (KEFELX) 04-21 Gastric 250 mg/5 mL 22:00: 13:19 Tube, suspension 00 :00 TWICE A 1,000 mg DAY, First dose on 04/14/18 at 2200, For 7 days
Re frigerate. &nbs p; Shake well.&nbsp ; Giv e with food if GI upset occurs.
Indicatio ns: Skin and Skin Structure Infection QUEtiapine 2017-06 No 200mg QD 200 mg, (SEROquel) 08 Oral, tablet 200 20:00: 08:54 EVERY mg 00 :08 EVENING, First dose on 04/14/18 at 2000, For 30 doses
F all Risk Medication . GIVE DAILY AT 2000. NEEDS TO BE ASLEEP BY 2200.
lidocaine 2017-06- No 30mL 30 mL, PF 04-14 Subcutaneo (XYLOCAINE) 16:50: 17:32 us, ONCE, 10 mg/mL (1 00 :00 Sun %) 04/14/18 injection at 1650, 30 mL For 1 dose
To bedside for MD admin<br&g t; haloperidol 2017-06 No 5mg Q8H 5 mg, lactate 05-13 Intravenou (HALDOL) 15:00: 09:46 s, EVERY 8 injection 5 00 :34 HOURS mg NEEDED, Agitation, Starting 04/14/18 at 1500, For 30 days
Fa ll Risk Medication
QUEtiapine 2017-06- No 100mg QD 100 mg, (SEROquel) 04-19 Oral, tablet 100 10:40: 10:46 DAILY, mg 00 :16 First dose on 04/14/18 at 1040, For 30 days
Fa ll Risk Medication
haloperidol 2017-06- No 5mg 5 mg, lactate 0-21 - Intravenou (HALDOL) 10:10: 10:41 s, ONCE, injection 5 00 :00 Sun mg 04/14/18 at 1010, For 1 dose
Fa ll Risk Medication
furosemide 2017-06- No 40mg 40 mg, (LASIX) 0-20 10-20 Intravenou injection 18:30: 21:52 s, ONCE, 40 mg 00 :00 04/13/18 at 1830, For 1 dose
Fa ll Risk Medication &amp ;nbsp;1 mg Bumetanide = 40 mg Furosemide .
QUEtiapine 2017-06- No 50mg 50 mg, (SEROquel) 0-20 10-20 Oral, tablet 50 13:55: 14:03 ONCE, Sat mg 00 :00 04/13/18 at 1355, For 1 dose
Fa ll Risk Medication
lidocaine 2017-06- No 1{patch QD 1 Patch, (ASPERCREME 0-20 -20 } Transderma ) 4 % patch 12:30: 09:52 l, 1 Patch 00 :50 Administer over 12 Hours, DAILY, First dose on 04/13/18 at 1230, For 58 doses
A pply to intact skin at source of pain for 12 hours, then remove. Wait 12 hours to apply next patch. Patch may be cut to size prior to removal of release liner.&nbs p;If patch contains metal, remove patch PRIOR to MRI.
acetaminoph 2017-06- No 500mg Q4H 500 mg en 0-04-29 (2.35 (TYLENOL) 12:17: 12:44 mg/kg), solution 51 :51 Gastric 500 mg Tube, EVERY 4 HOURS NEEDED, Fever, Mild Pain, Please notify MD if patient febrile., Starting 04/13/18 at 1217, For 30 days
Pe diatrics:& nbsp;&nbsp ;Do not exceed 5 doses of acetaminop hen in 24 hours.
amLODIPine 2017-06- No 10mg QD 10 mg, PER (NORVASC) 0-20 11-05 TUBE, tablet 10 10:00: 12:44 DAILY, mg 00 :56 First dose on 04/13/18 at 1000, For 27 doses QUEtiapine 2017-06 No 50mg 50 mg, (SEROquel) 0-20 10-20 Oral, tablet 50 02:35: 04:04 ONCE, Sat mg 00 :00 04/13/18 at 0235, For 1 dose
Fa ll Risk Medication
traZODone 2017-06 No 50mg QD 50 mg, (DESYREL) 0-19 10-20 Oral, tablet 50 22:00: 07:24 EVERY mg 00 :35 EVENING, First dose on Sun04/12/18 at 2200, For 30 days
Fa ll Risk Medication
sertraline 2017-06 No 150mg QD 150 mg, (ZOLOFT) 004-29 PER TUBE, tablet 150 10:00: 12:44 DAILY, mg 00 :56 First dose on Sun04/12/18 at 1000, For 22 doses
F all Risk Medication
QUEtiapine 2017-06 No 100mg Q.5D 100 mg, (SEROquel) 04-12 PER TUBE, tablet 100 10:00: 12:48 TWICE A mg 00 :00 DAY, First dose on Sun04/12/18 at 1000, For 46 doses
F all Risk Medication
pneumococca 2017-06- No .5mL 0.5 mL, l 18 Intramuscu polysacchar 07:54: 07:53 lar, genoveva 39 :39 DURING (PNEUMOVAX HOSPITALIZ 23) 25 ATION, mcg/0.5 mL Starting vaccine 0.5 Fri mL 04/12/18 at 0754, For 1 dose
Us e for Pneumovax 23. Refrigerat e.
influenza 2017-06- No 1{dose} 0.5 mL (1 virus (3 06-11 Dose), YRS & 07:46: 07:45 Intramuscu OLDER) 60 37 :37 lar, mcg/0.5 mL DURING vaccine 0.5 HOSPITALIZ mL ATION, Starting Sun04/12/18 at 0746, For 1 dose
Re frigerate. &nbs p;Shake well.&nbsp ; Med Disposal - [facility]
busPIRone 2017-06- No 20mg Q.5D 20 mg, PER (BUSPAR) 04-16 TUBE, tablet 20 22:00: 09:05 TWICE A mg 00 :13 DAY, First dose on Tanya 04/11/18 at 2200, For 45 doses
F all Risk Medication
QUEtiapine 2017-06- No 50mg Q.5D 50 mg, PER (SEROquel) 04-12 TUBE, tablet 50 22:00: 08:35 TWICE A mg 00 :05 DAY, First dose on Tanya 04/11/18 at 2200, For 47 doses
F all Risk Medication
furosemide 2017-06- No 80mg 80 mg, (LASIX) 04-11 Intravenou injection 17:25: 19:25 s, ONCE, 80 mg 00 :00 [place]anya 04/11/18 at 1725, For 1 dose
Fa ll Risk Medication &amp ;nbsp;1 mg Bumetanide = 40 mg Furosemide .
labetalol 2017-06- No 10mg Q4H 10 mg (NORMODYNE; 04-22 (0.0487 TRANDATE) 16:45: 00:20 mg/kg), injection 07 :35 Intravenou 10 mg s, EVERY 4 HOURS NEEDED, Elevated BP, Starting Tanya 04/11/18 at 1645, For 89 hours
M aximum of 300 mg in 24 hours.
LORazepam 2017-06- No 2mg 2 mg (ATIVAN) 2 04-11 (0.46176 mg/mL 13:20: 13:23 mg/kg), injection 2 00 :00 Intravenou mg s, ONCE, Tanya 04/11/18 at 1320, For 1 dose
Fa ll Risk Medication . Dilute 1:1 with 0.9% sodium chloride or D5W for IV administra tion.&nbsp ; Adm inistratio n rate should NOT exceed 2 mg/minute.
potassium 2017-06- No 50meq 50 mEq, bicarbonate 04-11 PER TUBE, (K-LYTE) 25 07:50: 09:19 ONCE, Tanya mEq 00 :00 04/11/18 effervescen at 0750, t tablet 50 For 1 mEq dose
Di lute with 3-4 oz of water or juice prior to administra tion.
oxyCODONE 2017-06- No 15mg [id number] 15 mg (ROXICODONE 04-18 [id number] (0.0684 ) 5 mg/5 mL 12:00: 10:06 7D mg/kg), solution 15 00 :08 PER TUBE, mg EVERY 4 HOURS (0000, 0400, 0800, 1200, 1600, 2000), First dose on Sun04/10/18 at 1200, For 84 doses
F ALL RISK MEDICATION .
amLODIPine 2017-06- No 5mg QD 5 mg, PER (NORVASC) 04-13 TUBE, tablet 5 mg 10:00: 07:24 DAILY, 00 :35 First dose on Sun04/10/18 at 1000, For 30 days furosemide 2017-06- No 80mg 80 mg, (LASIX) 04-10 Intravenou injection 09:55: 10:46 s, ONCE, 80 mg 00 :00 Sun04/10/18 at 0955, For 1 dose
Fa ll Risk Medication &amp ;nbsp;1 mg Bumetanide = 40 mg Furosemide .
fentaNYL 2017-06- No 25ug Q2H 25 mcg (SUBLIMAZE) 04-16 (0.114 injection 09:49: 07:26 mcg/kg), 25 mcg 23 :19 Intravenou s, EVERY 2 HOURS NEEDED, Severe Pain, Unrelieved Pain, Starting Sun04/10/18 at 0949, For 30 days
Fa ll Risk Medication
metOLazone 2017-06- No 10mg 10 mg, PER (ZAROXOLYN) 004-10 TUBE, tablet 10 22:10: 00:09 ONCE, Tue mg 00 :00 04/09/18 at 2210, For 1 dose
Fa ll Risk Medication . &nb sp;Should be given 30 minutes prior to furosemide .
furosemide 2017-06- No 80mg 80 mg, (LASIX) 004-10 Intravenou injection 22:10: 00:09 s, ONCE, 80 mg 00 :00 Sun04/09/18 at 2210, For 1 dose
Fa ll Risk Medication &amp ;nbsp;1 mg Bumetanide = 40 mg Furosemide .
enoxaparin 2017-06- No 60mg Q.5D 60 mg (LOVENOX) 006-07 (0.293 60 mg/0.6 22:00: 09:10 mg/kg), mL 00 :08 Subcutaneo injection us, EVERY 60 mg 12 HOURS, First dose on Sun04/09/18 at 2200, For 117 doses<b r>Inject at a 90 degree angle.&nbs p; Do NOT expel air bubble at tip of syringe.&a mp;nbsp;&n bsp;Do NOT massage injection site.&nbsp ; Alt ernate between the left and right anterolate ral and left and right posterolat eral abdominal wall.&nbsp ; Doc ument administra tion site.
ipratropium 2017-06- No 3mL 3 mL, -albuterol 004-12 Inhalation (DUO-NEB) 22:00: 21:59 , RT EVERY 0.5 mg-3 00 :00 6 HOURS, mg(2.5 mg First dose base)/3 mL on Sun nebulizer 04/09/18 solution 3 at 2200, mL For 3 days
RE SPIRATORY to administer . Equivalent to 2.5 mg of Albuterol as the base.
furosemide 2017-06- No 80mg 80 mg, (LASIX) 004-09 Intravenou injection 14:25: 17:58 s, ONCE, 80 mg 00 :00 Sun04/09/18 at 1425, For 1 dose
Fa ll Risk Medication &amp ;nbsp;1 mg Bumetanide = 40 mg Furosemide .
clonazePAM 2017-06- No .25mg Q.5D 0.25 mg, (KlonoPIN) 0-16 19 PER TUBE, tablet 0.25 10:00: 12:48 TWICE A mg 00 :00 DAY, First dose on Sun04/09/18 at 1000, For 30 days
Fa ll Risk Medication
sodium 2017-06- No 3mL Q1D 3 mL, citrate 4 % 0-16 04-11 Intravenou (3 mL) 08:00: 16:45 s, injection 3 27 :08 NEEDED, mL Starting Sun04/09/18 at 0800, For 30 days oxyCODONE 2017-06- No 10mg [id number] 10 mg (ROXICODONE 0-15 - [id number] (0.0431 ) 5 mg/5 mL 12:00: 09:52 7D mg/kg), solution 10 00 :31 PER TUBE, mg EVERY 4 HOURS (0000, 0400, 0800, 1200, 1600, 2000), First dose on Sun04/08/18 at 1200, For 16 days
FA LL RISK MEDICATION .
labetalol 2017-06- No 10mg Q2H 10 mg (NORMODYNE; 0-15 -18 (0.0431 TRANDATE) 10:30: 16:45 mg/kg), injection 00 :12 Intravenou 10 mg s, EVERY 2 HOURS NEEDED, Elevated BP, Starting Sun04/08/18 at 1030, For 168 hours
M aximum of 300 mg in 24 hours.
labetalol 2017-06- No 10mg Q6H 10 mg (NORMODYNE; 0-15 10-15 (0.0431 TRANDATE) 03:55: 10:26 mg/kg), injection 39 :14 Intravenou 10 mg s, EVERY 6 HOURS NEEDED, Elevated BP, Starting Sun04/08/18 at 0355, For 30 days
Ma ximum of 300 mg in 24 hours.
sodium 2017-06- No 3mL 3 mL, citrate 4 % 0-14 10-14 Intravenou (3 mL) 14:45: 15:07 s, ONCE, injection 3 00 :00 Sun mL 04/07/18 at 1445, For 1 dose lidocaine 2017-06- No Starting PF 0-14 - Sun (XYLOCAINE) 14:15: 14:15 04/07/18 20 mg/mL (2 56 :00 at 1415, %) For 1 injection dose
Cr - Pyxis eated by Override cabinet Pull override<b r> lidocaine 2017-06- No 5mL 5 mL, PF 004-07 Intraderma (XYLOCAINE) 14:00: 14:15 l, ONCE, 20 mg/mL (2 00 :00 Sun %) 04/07/18 injection 5 at 1400, mL For 1 dose
Fo r vasc cath
nxstage 2017-06- No 5000mL/ 5,000 4K/3CA 0- 10-17 h mL/hr, formula #2 12:55: 06:43 Dialysate CRRT 00 :45 bath, at solution 5,000 mL/hr, CONTINUOUS , Starting 04/07/18 at 1255, For 30 days
*This is a manufactur ed formula which does NOT allow for customizat ion.*&nbsp ; NxS tage 4K/3Ca:&nb sp; Bicarbonat e 35 mEq/L;&nbs p; &n bsp; Potassium 4 mEq/L;&nbs p; &n bsp; Sodium 140 mEq/L;&nbs p; &n bsp;&n bsp;Calciu m 3 mEq/L;&nbs p; &n bsp; Magnesium 1 mEq/L;&nbs p; &n bsp; Chloride 113 mEq/L;&nbs p; &n bsp; Glucose 100 mg/dl& nbsp;
sertraline 2017-06- No 100mg QD 100 mg, (ZOLOFT) 04-11 PER TUBE, tablet 100 10:00: 10:22 DAILY, mg 00 :16 First dose on 04/07/18 at 1000, For 27 doses
F all Risk Medication
QUEtiapine 2017-06- No 100mg Q.5D 100 mg, (SEROquel) 04-11 PER TUBE, tablet 100 22:00: 10:22 TWICE A mg 00 :16 DAY, First dose on 04/06/18 at 2200, For 57 doses
F all Risk Medication
busPIRone 2017-06- No 10mg Q.5D 10 mg, PER (BUSPAR) 04-11 TUBE, tablet 10 22:00: 10:22 TWICE A mg 00 :16 DAY, First dose on 04/06/18 at 2200, For 55 doses
F all Risk Medication
enoxaparin 2017-06- No 50mg Q.5D 50 mg (LOVENOX) 04-09 (0.21 60 mg/0.6 22:00: 06:40 mg/kg), mL 00 :23 Subcutaneo injection us, EVERY 50 mg 12 HOURS, First dose on 04/06/18 at 2200, For 30 days
In ject at a 90 degree angle.&nbs p; Do NOT expel air bubble at tip of syringe.&n bsp; Do NOT massage injection site.&nbsp ; Alt ernate between the left and right anterolate ral and left and right posterolat eral abdominal wall.&nbsp ; Doc ument administra tion site.
oxyCODONE 2017-06- No 10mg Q.25D 10 mg (ROXICODONE 0- 10-15 (0.042 ) 5 mg/5 mL 18:00: 10:30 mg/kg), solution 10 00 :53 PER TUBE, mg EVERY 6 HOURS, First dose on 04/06/18 at 1800, For 24 doses<br&g t;FALL RISK MEDICATION .
oxyCODONE 2017-06- No 20mg Q.25D 20 mg (ROXICODONE 0-13 10- (0.084 ) 5 mg/5 mL 12:00: 12:49 mg/kg), solution 20 00 :14 PER TUBE, mg EVERY 6 HOURS, First dose on 04/06/18 at 1200, For 25 doses<br&g t;FALL RISK MEDICATION .
senna 2017-06- No 2{tbl} QD 2 Tab, PER (SENOKOT) 04-11 TUBE, tablet 2 10:20: 10:24 DAILY, Tab 00 :48 First dose on 04/06/18 at 1020, For 30 days
1 tablet = 8.6 mg Sennosides is equivalent to 187 mg of Senokot.<b r> midazolam 2017-06- No 2mg/h 2 mg/hr (2 (VERSED) 013 10-17 mL/hr), 125 mg in 10:15: 09:50 Intravenou sodium 00 :57 s, at 2 chloride mL/hr, 0.9 % IVPB CONTINUOUS , Starting 04/06/18 at 1015, For 30 days
Concentra tion: 1 mg / mL.
Int ensive Care Unit (Nurse to Patient Ratio 1:2) Instructio ns:
Tit rate by 1 mg/hr every 1 hours to achieve RASS goal of -3 to -4. When at goal for 2 hours, consider decrease by 1 mg/hr every 1 hour(s) to maintain goal.&nbsp ; Max 10mg/hr
Fal l risk medication .
Call IV additives or send notificati on by In Basket 1 hour prior to needing next bag.
rocuronium 2017-06- No 100mg 100 mg (ZEMURON) 0-12 10-12 (0.42 injection 16:40: 16:30 mg/kg), 100 mg 00 :00 Intravenou s, ONCE, Sun04/05/18 at 1640, For 1 dose vasopressin 2017-06- No .03U/mi 0.03 (VASOSTRICT 0-12 10-15 n Units/min ) 0.2 10:05: 10:17 (9 mL/hr), Units/mL in 00 :22 Intravenou dextrose 5% s, at 9 100 mL mL/hr, infusion CONTINUOUS , Starting Sun04/05/18 at 1005, For 30 days
Do se: 0.03. Do not titrate
QUEtiapine 2017-06- No 50mg Q.5D 50 mg, PER (SEROquel) 004-06 TUBE, tablet 50 10:00: 10:25 TWICE A mg 00 :36 DAY, First dose on Sun04/05/18 at 1000, For 30 days
Fa ll Risk Medication
sodium 2017-06 No 500mL 500 mL, chloride 004-05 Central (HYPERTONIC 08:30: 20:19 Venous 500 mL) 3 % 00 :00 Line, at infusion 20 mL/hr, 500 mL CONTINUOUS , Starting Sun04/05/18 at 0830, For 11 hours
I f &nb sp;less than 500ml, fluid will be dispensed in an evacuated container bottle.&nb sp; S odium Chloride 3% should be infused via a Central or PICC line if possible, if not, a large bore vein should be used with frequent monitoring . ### CAUTION: EXTREMELY HYPERTONIC ### S odium Chloride 256.6 mEq/500 mL
norepinephr 2017-06- No 2ug/min 2 mcg/min ine 04-08 (1.875 (LEVOPHED) 08:10: 10:17 mL/hr, 64 mcg/mL 00 :22 rounded to in dextrose 1.88 5% 250 mL mL/hr), infusion Intravenou s, at 1.88 mL/hr, CONTINUOUS , Starting Sun04/05/18 at 0810, For 7 days
Pr otect from light. Inte nsive Care Unit (Nurse to Patient Ratio 1:2) Instructio ns: T itrate by 2 mcg/min every 5 minutes to achieve MAP (mmHg) greater than 65. When at goal for 2 hours, consider decrease by 2 mcg/min every 5 minutes to maintain goal. Maximum dose is 30 mcg/min.&n bsp;Norepi nephrine should be infused via a Central or PICC line, if possible, if not a large bore vein should be used with frequent monitoring . &nb sp;Should extravasat ion occur, use of Phentolami ne is recommende d. Ca ll IV additives or send notificati on by In Basket 1 hr prior to needing next bag.
norepinephr 2017-06 2018- No Starting ine 04-05 bitartrate- 07:52: 08:00 04/05/18 D5W 4 02 :00 at 0752, mg/250 mL For 1 (16 mcg/mL) dose
Cr infusion eated by (premix) - cabinet Pyxis override<b Override r> Pull sodium 2017-06- No 500mL 500 mL chloride 04-05 (2.1 0.9 % bolus 07:05: 08:29 mL/kg), 500 mL 00 :00 Intravenou s, Administer over 30 Minutes, ED ONCE, Sun04/05/18 at 0705, For 1 dose
Or lindsey per Dr. Golden
levothyroxi 2017-06- No 100ug QD 100 mcg, ne 04-29 PER TUBE, (SYNTHROID, 06:00: 12:44 DAILY AT LEVOXYL) 00 :56 0600, tablet 100 First dose mcg on Sun04/05/18 at 0600, For [address] ease hold tube feeds one hour before and one hour after administra tion Administer antacids, cholestyra mine, or any medicine that contains calcium or iron at least 4 hours before or 4 hours after levothyrox ine.
famotidine 2017-06- No 20mg Q.5D 20 mg, PER (PEPCID) 04-29 TUBE, tablet 20 22:00: 12:44 TWICE A mg 00 :56 DAY, First dose on Sun04/04/18 at 2200, For 30 days enoxaparin 2017-06- No 40mg Q.5D 40 mg (LOVENOX) 04-06 (0.168 40 mg/0.4 22:00: 17:35 mg/kg), mL 00 :41 Subcutaneo injection us, EVERY 40 mg 12 HOURS, First dose on Sun04/04/18 at 2200, For 30 days
Inject at a 90 degree angle.&nbs p; Do NOT expel air bubble at tip of syringe.&a mp;nbsp;&n bsp;Do NOT massage injection site.&nbsp ; Alt ernate between the left and right anterolate ral and left and right posterolat eral abdominal wall.&nbsp ; Doc ument administra tion site.
metOLazone 2017-06- No 10mg 10 mg, PER (ZAROXOLYN) 004-04 TUBE, tablet 10 17:55: 18:35 ONCE, Tanya mg 00 :00 04/04/18 at 1755, For 1 dose
Fa ll Risk Medication . &nb sp;Should be given 30 minutes prior to furosemide .
sodium 2017-06- No 10mL 10 mL, chloride 004-04 Intravenou bacteriosta 15:05: 14:38 s, CRD tic (SODIUM 00 :00 ONCE, Tanya CHLORIDE 04/04/18 0.9% at 1505, BACTERIOSTA For 1 dose TIC) 0.9 % injection 10 mL perflutren 2017-06- No 1.43mg 1.43 mg, lipid 004-04 Intravenou microsphere 15:05: 14:38 s, ONCE, (DEFINITY) 00 :00 Tanya 10 mL 04/04/18 injection at 1505, For 1 dose
Di lute 1.3 mL of perflutren lipid microspher es with 8.7 mL of sodium chloride and slowly administer as needed for visualizat ion.&n bsp; Use for DEFINITY.< br> furosemide 2017-06- No 5mg/h 5 mg/hr (1 (LASIX) 250 0 10-13 mL/hr), mg in 14:55: 10:19 Intravenou sodium 00 :54 s, at 1 chloride mL/hr, 0.9 % CONTINUOUS infusion , Starting Tanya 04/04/18 at 1455, For 30 days
Concentra tion: 5 mg / mL. & nbsp;&nbsp ;Fall risk medication . &nb sp; P rotect from light.&nbs p;DO NOT TITRATE. Maximum dose is 40 mg/hr.&nbs p;Call IV additives or send notificati on by In Basket 1 hour prior to needing next bag.
furosemide 2017-06- No 40mg 40 mg, (LASIX) 004-04 Intravenou injection 14:55: 15:08 s, ONCE, 40 mg 00 :00 Tanya 04/04/18 at 1455, For 1 dose
Fa ll Risk Medication &amp ;nbsp;1 mg Bumetanide = 40 mg Furosemide .
docusate 2017-06- No 100mg Q.5D 100 mg, (COLACE) 50 - PER TUBE, mg/5 mL 12:40: 02:55 TWICE A liquid 100 00 :29 DAY, First mg dose on Sun04/04/18 at 1240, For 30 days polyethylen 2017-06- No 17g QD 17 g e glycol 04-11 (0.0714 (GLYCOLAX) 12:40: 10:24 g/kg), packet 17 g 00 :49 Gastric Tube, DAILY, First dose on Sun04/04/18 at 1240, For 30 days
Us e for Miralax. 17 grams = 1 packet.&nb sp; M ix in 8 ounces of juice or water.
epoprosteno 2017-06 2018- No .05ug/k 0.05 l (FLOLAN) 0 10-13 g/min mcg/kg/min 40,000 12:00: 04:07 ng/mL in 00 :28 66.8 kg glycine Marion diluent for weight epoprostern (5.01 ol (FLOLAN mL/hr, DILUENT), rounded to syringe 1 5 mL/hr), Each 50 mL Inhalation nebulizer , at 5 solution mL/hr, CONTINUOUS , Starting Sun04/04/18 at 1200, For 30 days
RE SPIRATORY THERAPY to administer according to Inhaled Epoprosten ol for Pulmonary Hypertensi on protocol.& nbsp;&nbsp ;Same as Flolan. Protect from light. Do NOT tube - Respirator y Therapy to mushroom picker from IV Additives. &nbs p;Call IV additives [phone] with any questions. ###EACH SYRINGE MUST BE CHANGED EVERY 6 HOURS AT 0000, 0600, 1200, AND 1800 EVEN IF NOT EMPTY.###< br> oxyCODONE 2017-06 2018- No 10mg Q.25D 10 mg (ROXICODONE 04-06 (0.042 ) 5 mg/5 mL 12:00: 10:26 mg/kg), solution 10 00 :07 PER TUBE, mg EVERY 6 HOURS, First dose on Tanya 04/04/18 at 1200, For 33 doses<br&g t;FALL RISK MEDICATION .
fentaNYL 2017-06- No 100ug/h 100 mcg/hr (SUBLIMAZE) 04-10 (4 mL/hr), 25 mcg/mL 10:35: 09:50 Intravenou in dextrose 00 :57 s, at 4 5% 100 mL mL/hr, infusion CONTINUOUS , Starting Tanya 04/04/18 at 1035, For 30 days
Co ncentratio n: 25 mcg / mL In tensive Care Unit (Nurse to Patient Ratio 1:2) Instructio ns: T itrate by 10 mcg/hr every 10 minutes to achieve BPS score less than 6. When at goal for 2 hours, consider decrease by 10 mcg/hr every 10 minutes to maintain goal. Maxi mum dose is 150 mcg/hr.&nb sp;Fall risk medication . Dangelo l IV additives or send notificati on by In Basket 1 hour prior to needing next bag.
sertraline 2017-06- No 150mg QD 150 mg, (ZOLOFT) 04-06 PER TUBE, tablet 150 10:30: 10:19 DAILY, mg 00 :55 First dose on Tanya 04/04/18 at 1030, For 30 days
Fa ll Risk Medication
busPIRone 2017-06- No 20mg Q.5D 20 mg, PER (BUSPAR) 04-06 TUBE, tablet 20 10:30: 10:19 TWICE A mg 00 :55 DAY, First dose on Tanya 04/04/18 at 1030, For 30 days
Fa ll Risk Medication
predniSONE 2017-06 No 40mg 40 mg (DELTASONE) 04-06 (0.168 tablet 40 10:30: 08:18 mg/kg), mg 00 :00 PER TUBE, WITH BREAKFAST, First dose on Sun04/04/18 at 1030, For 3 days<br&gt ;Give with food and a full glass of water to reduce GI upset.&nbs p;
enoxaparin 2017-06- No 40mg QD 40 mg (LOVENOX) 04-04 (0.168 40 mg/0.4 10:00: 13:45 mg/kg), mL 00 :01 Subcutaneo injection us, DAILY, 40 mg First dose on Sun04/04/18 at 1000, For 30 days
In ject at a 90 degree angle.&nbs p; Do NOT expel air bubble at tip of syringe.&n bsp;&n bsp;Do NOT massage injection site.&nbsp ; Alt ernate between the left and right anterolate ral and left and right posterolat eral abdominal wall.&nbsp ; Doc ument administra tion site.
linezolid 2017-06- No 1698 600mg Q.[id number] 600 mg in dextrose 04-06 [id number] (2.52 5% (ZYVOX) 06:10: 10:19 3D mg/kg), 600 mg/300 00 :54 Intravenou mL infusion s, at 150 (premix) mL/hr, 600 mg Administer over 120 Minutes, EVERY 8 HOURS, First dose on Sun04/04/18 at 0610, For 7 days
Pr otect from light.
Indication s: Lower Respirator y Infections piperacilli 2017-06- No 1698 4.5g Q8H 4.5 g n-tazobacta 04-07 (0.0189 m (ZOSYN) 06:00: 10:17 g/kg), 4.5 g IVPB 00 :07 Intravenou s, at 25 mL/hr, Administer over 240 Minutes, EVERY 8 HOURS FREE TIMES, First dose on Sun04/04/18 at 0600, For 7 days
Ac tivate Mini-Bag Plus vial prior to patient infusion.< br>Indicat ions: Lower Respirator y Infections iohexol 2017-06- No 100mL 35,000 mg (OMNIPAQUE) 004-05 (100 mL), 350 mg 03:56: 03:55 Intravenou iodine/mL 06 :06 s, RAD injection ONCE, 35,000 mg Other, Starting Sun04/04/18 at 0356, For 1 day
Is patient able to answer these questions? No moxifloxaci 2017-06- No 400mg Q24H 400 mg, n-water 004-04 Intravenou (AVELOX) 22:35: 05:38 s, at 250 400 mg/250 00 :45 mL/hr, mL IVPB Administer (premix) over 60 400 mg Minutes, EVERY 24 HOURS, First dose on Sun04/03/18 at 2235, For 7 days
Do not administer with other drugs or additives. Do not refrigerat e. Use for Avelox.
Indicatio ns: Pneumonia electrolyte 2017-06- No 500mL 500 mL -r (PH 7.4) 0-10 (2.1 (NORMOSOL) 22:35: 23:11 mL/kg), bolus 500 00 :00 Intravenou mL s, at 1,000 mL/hr, Administer over 30 Minutes, ONCE, [facility] 04/03/18 at 2235, For 1 dose famotidine 2017-06- No 20mg Q.5D 20 mg, (PF)-NaCl 004-04 Intravenou (iso-os) 22:00: 10:23 s, at 200 (PEPCID) 20 00 :48 mL/hr, mg/50 mL Administer IVPB over 15 (premix) 20 Minutes, mg EVERY 12 HOURS, First dose on Sun04/03/18 at 2200, For 30 days propofol 2017-06- No 20ug/kg 20 (DIPRIVAN) 0-10 10-13 /min mcg/kg/min infusion 21:35: 10:19 (premix) 00 :54 238 kg (28.56 mL/hr, rounded to 28.6 mL/hr), Intravenou s, at 28.6 mL/hr, CONTINUOUS , Starting Sun04/03/18 at 2135, For 30 days
In tensive Care Unit (Nurse to Patient Ratio 1:2) Instructio ns: T itrate by 5 mcg/kg/min every 5 minutes to achieve RASS goal of -4 Wh en at goal for 2 hours, consider decrease by 5 mcg/kg/min every 5 minutes to maintain goal. Maximum dose is 80 mcg/kg/min . Tub ing should be changed every 12 hours.
fentaNYL 2017-06- No 100ug 100 mcg (SUBLIMAZE) 004-03 (0.42 injection 21:35: 21:35 mcg/kg), 100 mcg 00 :00 Intravenou s, ONCE, Sun04/03/18 at 2135, For 1 dose
Fa ll Risk Medication
propofol 2017-06- No Starting (DIPRIVAN) 004-03 Wed 10 mg/mL 21:31: 21:56 04/03/18 infusion 05 :00 at 213, (premix) - For 1 Pyxis dose
Cr Override eated by Pull cabinet override<b r> white 2017-06- No .25[in_ Q.[id number] 0.25 Inch, petrolatum- 004-11 us] [id number] Both Eyes , mineral oil 20:00: 16:45 7D EVERY 4 ophthalmic 00 :08 HOURS ointment (0000, 0.25 Inch 0400, 0800, 1200, 1600, 2000), First dose on Sun04/03/18 at 2000, For 30 days
Al ternate with artificial tears.
ipratropium 2017-06 2018- No 3mL 3 mL, -albuterol 004-09 Inhalation (DUO-NEB) 20:00: 10:17 , RT EVERY 0.5 mg-3 00 :04 4 HOURS, mg(2.5 mg First dose base)/3 mL on Sun nebulizer 04/03/18 solution 3 at 2000, mL For 34 doses
R ESPIRATORY to administer . Equivalent to 2.5 mg of Albuterol as the base.
midazolam 2017-06- No 10mg/h 10 mg/hr (VERSED) 0-11 (10 125 mg in 19:10: 05:46 mL/hr), sodium 00 :50 Intravenou chloride s, at 10 0.9 % IVPB mL/hr, CONTINUOUS , Starting 04/03/18 at 1910, For 30 days
Co ncentratio n: 1 mg / mL. I ntensive Care Unit (Nurse to Patient Ratio 1:2) Instructio ns: D o not titrate Fall risk medication . Dangelo l IV additives or send notificati on by In Basket 1 hour prior to needing next bag.
fentaNYL 2017-06- No 100ug/h 100 mcg/hr (SUBLIMAZE) 011 (4 mL/hr), 25 mcg/mL 19:05: 10:28 Intravenou in dextrose 00 :20 s, at 4 5% 100 mL mL/hr, infusion CONTINUOUS , Starting 04/03/18 at 1905, For 30 days
Co ncentratio n: 25 mcg / mL In tensive Care Unit (Nurse to Patient Ratio 1:2) Instructio ns: Do not titrate Fall risk medication . Dangelo l IV additives or send notificati on by In Basket 1 hour prior to needing next bag.
midazolam 2017-06- No 4mg 4 mg (PF) 0-10 (0.0168 (VERSED) 19:05: 19:07 mg/kg), injection 4 00 :00 Intravenou mg s, ONCE, 04/03/18 at 1905, For 1 dose
Fa ll Risk Medication
albuterol 2017-06- No 2.5mg 2.5 mg, sulfate 0-10 10-10 Inhalation (PROVENTIL) 19:03: 20:00 , 2.5 mg/0.5 52 :11 DIRECTED, mL (0.5%) Starting nebulizer Wed solution 04/03/18 2.5 mg at 1903, For 2 days
RE SPIRATORY to administer .
midazolam 2017-06- No 4mg 4 mg, (PF) 0-10 10-10 Intravenou (VERSED) 18:55: 18:57 s, ONCE, injection 4 00 :00 Wed mg 04/03/18 at 1855, For 1 dose
Fa ll Risk Medication
rocuronium 2017-06- No 80mg 80 mg, (ZEMURON) 0- 10-10 Intravenou injection 18:50: 18:42 s, ONCE, 80 mg 00 :00 04/03/18 at 1850, For 1 dose albuterol 2017-06- No 20mg/h 20 mg/hr (PROVENTIL) 0-04 03-10 (4 mL/hr), 5 mg/mL 18:50: 20:00 Inhalation (0.5%) 00 :11 , at 4 nebulizer mL/hr, solution CONTINUOUS , Starting Sun04/03/18 at 1850, For 2 days
RE SPIRATORY to administer .
midazolam 2017-06- No 4mg 4 mg, (PF) 0-04 03- Intravenou (VERSED) 18:45: 18:42 s, ONCE, injection 4 00 :00 Wed mg 04/03/18 at 1845, For 1 dose
Fa ll Risk Medication
midazolam 2017-06- No Starting (PF) 0-04 03- Wed (VERSED) 1 18:36: 18:42 04/03/18 mg/mL 55 :00 at 1836, injection For 1 - Pyxis dose
Cr Override eated by Pull cabinet override<b r> albuterol 2017-06- No Starting (PROVENTIL) 0-04-03 Wed 2.5 mg /3 18:31: 18:30 04/03/18 mL (0.083 00 :00 at 1831, %) For 1 nebulizer dose
Cr solution - eated by Pyxis cabinet Override override<b Pull r> albuterol 2017-06- No Starting (PROVENTIL) 0-10 10- Wed 5 mg/mL 18:30: 18:45 04/03/18 (0.5%) 55 :00 at 1830, nebulizer For 1 solution - dose
Cr Pyxis eated by Override cabinet Pull override<b r> polyvinyl 2017-06- No 1[drp] [id number] 1 Drop, alcohol-pov 004-11 [id number] Both Eyes , idone 18:30: 16:45 7D EVERY 4 (CLEAR 00 :08 HOURS EYES) (0200, 0.5-0.6 % 0600, ophthalmic 1000, solution 1 1400, Drop 1800, 2200), First dose on Sun04/03/18 at 1830, For 30 days
Al ternate with Ophthalmic Lubricant.
magnesium 2017-06- No 2g 2 g, sulfate in 0-10 Intravenou SWI 2 18:30: 19:30 s, at 50 gram/50 mL 00 :00 mL/hr, IVPB Administer (premix) 2 over 1 g Hours, ONCE, Sun04/03/18 at 1830, For 1 dose methylPREDN 2017-06 No 60mg 60 mg, ISolone sod 0-04 03-10 Intravenou suc(PF) 18:30: 19:18 s, ONCE, (SOLU-MEDRO 00 :00 Sun L) 125 mg/2 04/03/18 mL at 1830, injection For 1 dose 60 mg busPIRone 2017- No 20mg Q.5D Take 20 mg (BUSPAR) 10 12-31- by mouth mg Oral 00:00: 00:00 twice a Tablet 00 :00 day. hydroCHLORO 2017- No 12.5mg QD Take 12.5 thiazide 12-31- mg by (HYDRODIURI 00:00: 00:00 mouth L) 12.5 mg 00 :00 daily. Oral Tablet levothyroxi 2017- No 100ug QD Take 100 ne 12-31- mcg by (SYNTHROID, 00:00: 00:00 mouth LEVOXYL) 00 :00 daily. 100 mcg Oral Tablet lisinopril No 20mg QD Take 20 mg (PRINIVIL,Z 12-31 by mouth ESTRIL) 20 00:00: 00:00 daily. mg Oral 00 :00 Tablet sertraline No 150mg QD Take 150 (ZOLOFT) 12-31 mg by 100 mg Oral 00:00: 00:00 mouth Tablet 00 :00 daily. 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 dependent 07-21 00:00: 00 Morbid Morbid [id number] Active 2017-06 obesity obesity 0-14 00:00: 00 Hypothyroid Hypothyroid [id number] Active 2017-06 ism ism 0-14 00:00: 00 Hypertensio Hypertensio [id number] Active n n Respiratory Respiratory [id number] Resolve 2017-062018-05-21 2018-05-21 failure failure d 07-21 00:00:00 09:06:20 00:00: 00 Cutaneous Cutaneous [id number] Resolve 2017-062018-05-21 2018-05-21 abscess of abscess of d 0-21 00:00:00 09:05:36 abdominal abdominal 00:00: wall wall 00 Shock Shock [id number] Resolve 2017-062018-05-19 2018-05-19 d 0-14 00:00:00 06:45:12 00:00: 00 Acute on Acute on [id number] Resolve 2017-062018-05-19 2018-05-19 chronic chronic d 0-11 00:00:00 06:45:30 respiratory respiratory 00:00: failure failure 00 YOLI (acute YOLI (acute [id number] Resolve 2017-062018-04-28 2018-04-28 kidney kidney d 0-14 00:00:00 07:12:33 injury) injury) 00:00: 00 Procedures Procedure Date / Time Performed Performing Clinician Ashelyc e OFFICE/OUTPATIENT VISIT EST 2020-02-17 16:15:00 [facility] MED/CURRENT MED MERGE 2020-02-17 16:15:00 OFFICE/OUTPATIENT VISIT EST 2019-12-11 13:30:00 [facility] MED/CURRENT MED MERGE 2019-12-11 13:30:00 OFFICE/OUTPATIENT VISIT EST 2019-05-06 14:15:00 OFFICE/OUTPATIENT VISIT EST 2019-02-18 15:45:00 OFFICE/OUTPATIENT VISIT EST 2019-01-21 15:00:00 OFFICE/OUTPATIENT VISIT EST 2018-10-29 10:15:00 OFFICE/OUTPATIENT VISIT EST 2018-06-06 11:00:00 EKGSCAN 2018-05-21 05:00:00 Unassign, Doctor PHOSPHORUS 2018-05-19 08:36:00 LambIleana sterling MAGNESIUM 2018-05-19 08:36:00 Lambert, Ileana Jocelin CBC WITH DIFF 2018-05-19 08:36:00 Lambert, Ileana Jocelin BASIC METABOLIC PANEL 2018-05-19 08:36:00 Lambert, Ileana Clay kai EKGSCAN 2018-05-18 05:00:00 Unassign, Doctor BLOOD GAS, ARTERIAL 2018-05-17 10:43:00 Steff Nieves PHOSPHORUS 2018-05-16 11:00:00 LambertIleana Jocelin MAGNESIUM 2018-05-16 11:00:00 Lambert, Ileana Jocelin CBC WITH DIFF 2018-05-16 11:00:00 Lambert, Ileana Jocelin BASIC METABOLIC PANEL 2018-05-16 11:00:00 LambertIleana Clay kai CBC WITH DIFF 2018-05-13 08:47:00 Lambert, Ileana Jocelin BASIC METABOLIC PANEL 2018-05-13 08:47:00 LambIleana sterling Clay kai EKGSCAN 2018-05-13 05:00:00 Unassign, Doctor EKGSCAN 2018-05-11 05:00:00 Unassign, Doctor CBC WITH DIFF 2018-05-10 08:29:00 Lambert Ileana Jocelin BASIC METABOLIC PANEL 2018-05-10 08:29:00 LambIleana sterling Clay kai EKG 12 LEAD 2018-05-09 05:00:00 Leonard Doe CBC WITH DIFF 2018-05-07 09:10:00 Lambert, Ileana Jocelin BASIC METABOLIC PANEL 2018-05-07 09:10:00 Lambert, Ileana Clay kai CBC WITH DIFF 2018-05-06 10:54:00 Derbal, Ouassim BLOOD GAS, ARTERIAL 2018-05-06 10:52:00 Derbal, Ouassim XRAY CHEST 1 VIEW 2018-05-06 10:21:35 Derbal, Ouassim CBC WITH DIFF 2018-05-04 07:09:00 LambIleana sterlingene BASIC METABOLIC PANEL 2018-05-04 07:09:00 LambIleana sterling kai EKGSCAN 2018-05-02 05:00:00 Unassign, Doctor PHOSPHORUS 2018-05-01 09:25:00 Kristen Chambers MAGNESIUM 2018-05-01 09:25:00 Kristen Chambers CBC WITH DIFF 2018-05-01 09:25:00 Lambert, Ileana Jocelin BASIC METABOLIC PANEL 2018-05-01 09:25:00 Lambert, Ileana Williamson kai XRAY CHEST 1 VIEW 2018-04-30 21:35:24 LucasSherrie EKGSCAN 2018-04-29 05:00:00 Unassign, Doctor GLUCOSE, POC (GLUCOMETER) 2018-04-28 16:46:00 Uddin, Deebah A. GLUCOSE, POC (GLUCOMETER) 2018-04-28 10:16:00 Uddin, Deebah A. CBC WITH DIFF 2018-04-28 08:37:00 Lambert, Ileana Williamsonene BASIC METABOLIC PANEL 2018-04-28 08:37:00 Lambert, Ileana Williamson kai EKG 12 LEAD 2018-04-28 04:26:00 Lawson Mariaaniamerari EKGSCAN 2018-04-28 04:00:00 Unassign, Doctor GLUCOSE, POC (GLUCOMETER) 2018-04-28 03:48:00 Uddin, Deebah A. GLUCOSE, POC (GLUCOMETER) 2018-04-27 21:56:00 Uddin, Deebah A. XRAY ABDOMEN SINGLE VIEW (KUB) 2018-04-27 19:15:58 Uddin, Deebah A. GLUCOSE, POC (GLUCOMETER) 2018-04-27 15:42:00 Uddin, Deebah A. GLUCOSE, POC (GLUCOMETER) 2018-04-27 09:56:00 Uddin, Deebah A. GLUCOSE, POC (GLUCOMETER) 2018-04-27 05:03:00 Uddin, Deebah A. GLUCOSE, POC (GLUCOMETER) 2018-04-26 21:40:00 Uddin, Deebah A. GLUCOSE, POC (GLUCOMETER) 2018-04-26 16:23:00 Uddin, Deebah A. GLUCOSE, POC (GLUCOMETER) 2018-04-26 10:29:00 Uddin, Deebah A. GLUCOSE, POC (GLUCOMETER) 2018-04-26 04:03:00 Uddin, Deebah A. GLUCOSE, POC (GLUCOMETER) 2018-04-25 21:27:00 Uddin, Deebah A. GLUCOSE, POC (GLUCOMETER) 2018-04-25 15:57:00 Uddin, Deebah A. GLUCOSE, POC (GLUCOMETER) 2018-04-25 10:07:00 Uddin, Deebah A. CBC WITH DIFF 2018-04-25 09:20:00 Ileana Cheek BASIC METABOLIC PANEL 2018-04-25 09:20:00 Ileana Cheek GLUCOSE, POC (GLUCOMETER) 2018-04-25 03:59:00 Uddin, Deebah A. GLUCOSE, POC (GLUCOMETER) 2018-04-24 21:09:00 Uddin, Deebah A. XRAY ABDOMEN SINGLE VIEW (KUB) 2018-04-24 20:17:00 Uddin, Deebah A. GLUCOSE, POC (GLUCOMETER) 2018-04-24 15:48:00 Uddin, Deebah A. GLUCOSE, POC (GLUCOMETER) 2018-04-24 09:18:00 Uddin, Deebah A. EKGSCAN 2018-04-24 04:00:00 Unassign, Doctor GLUCOSE, POC (GLUCOMETER) 2018-04-24 03:16:00 Uddin, Deebah A. GLUCOSE, POC (GLUCOMETER) 2018-04-23 21:51:00 Uddin, Deebah A. GLUCOSE, POC (GLUCOMETER) 2018-04-23 15:29:00 Uddin, Deebah A. GLUCOSE, POC (GLUCOMETER) 2018-04-23 09:07:00 Uddin, Deebah A. BASIC METABOLIC PANEL 2018-04-23 08:44:00 Ileana Cheek kai GLUCOSE, POC (GLUCOMETER) 2018-04-23 04:01:00 Uddin, Deebah A. EKGSCAN 2018-04-23 04:00:00 Unassign, Doctor GLUCOSE, POC (GLUCOMETER) 2018-04-22 21:54:[address] SOFT TISSUE NECK W/O IV 2018-04-22 18:03:03 Chambers, Kristen gallegos CONTRAST CT 3D IMAGING W POSTPROCESS 2018-04-22 18:03:03 ChambersNita pappaslv Watson ra GLUCOSE, POC (GLUCOMETER) 2018-04-22 15:53:00 Sotero Chavez GLUCOSE, POC (GLUCOMETER) 2018-04-22 10:01:00 Sotero Chavez BASIC METABOLIC PANEL 2018-04-22 07:46:00 Ileana Cheeke GLUCOSE, POC (GLUCOMETER) 2018-04-22 05:04:00 Sotero Chavez XRAY ABDOMEN SINGLE VIEW (KUB) 2018-04-21 23:15:04 Sotero Chavez. GLUCOSE, POC (GLUCOMETER) 2018-04-21 17:37:00 Mandan, Lacy GLUCOSE, POC (GLUCOMETER) 2018-04-21 10:11:00 Mandan, Lacy CBC WITH DIFF 2018-04-21 09:06:00 Ileana Cheek BASIC METABOLIC PANEL 2018-04-21 09:06:00 Ileana Cheek EKGSCAN 2018-04-21 04:00:00 Unassign, Doctor GLUCOSE, POC (GLUCOMETER) 2018-04-21 03:39:00 Mandan, Lacy GLUCOSE, POC (GLUCOMETER) 2018-04-20 22:38:00 Mandan, Lacy GLUCOSE, POC (GLUCOMETER) 2018-04-20 15:54:00 Mandan, Lacy BASIC METABOLIC PANEL 2018-04-20 09:43:00 Ileana Cheeke GLUCOSE, POC (GLUCOMETER) 2018-04-20 09:29:00 Mandan, Lacy GLUCOSE, POC (GLUCOMETER) 2018-04-20 03:26:00 Mandan, Lacy GLUCOSE, POC (GLUCOMETER) 2018-04-19 21:39:00 Mandan, Lacy GLUCOSE, POC (GLUCOMETER) 2018-04-19 15:55:00 Mandan, Lacy GLUCOSE, POC (GLUCOMETER) 2018-04-19 10:07:00 Mandan, Lacy CBC WITH DIFF 2018-04-19 08:07:00 Ielana Cheek BASIC METABOLIC PANEL 2018-04-19 08:07:00 HamIleana GLUCOSE, POC (GLUCOMETER) 2018-04-19 04:16:00 Mandan, Lacy GLUCOSE, POC (GLUCOMETER) 2018-04-18 21:37:00 Mandan, Lacy CBC WITH DIFF 2018-04-18 16:01:00 Jaren Maria GLUCOSE, POC (GLUCOMETER) 2018-04-18 15:46:00 Mandan, Lacy GLUCOSE, POC (GLUCOMETER) 2018-04-18 09:29:00 Mandan, Lacy BASIC METABOLIC PANEL 2018-04-18 06:51:00 Ileana Cheeke EKG 12 LEAD 2018-04-18 05:38:00 Helen Mukherjee GLUCOSE, POC (GLUCOMETER) 2018-04-18 04:39:00 Mandan, Lacy EKGSCAN 2018-04-18 04:00:00 Unassign, Doctor GLUCOSE, POC (GLUCOMETER) 2018-04-17 20:38:00 Mandan, Lacy GLUCOSE, POC (GLUCOMETER) 2018-04-17 17:04:00 Mandan, Lacy XRAY CHEST 1 VIEW 2018-04-17 13:20:00 Ileana Cheek XRAY ABDOMEN SINGLE VIEW (KUB) 2018-04-17 13:20:00 Ham Emelyyenny Williamsonene PHOSPHORUS 2018-04-17 11:53:00 Ileana Cheek MAGNESIUM 2018-04-17 11:53:00 Ileana Cheek BASIC METABOLIC PANEL 2018-04-17 11:53:00 Ileana Cheek GLUCOSE, POC (GLUCOMETER) 2018-04-17 10:10:00 Mandan, Lacy XRAY ABDOMEN SINGLE VIEW (KUB) 2018-04-17 09:38:01 Mandan, Lacy CBC WITH DIFF 2018-04-17 08:48:00 Campos Walden GLUCOSE, POC (GLUCOMETER) 2018-04-17 04:34:00 Mandan, Lacy EKGSCAN 2018-04-17 04:00:00 Unassign, Doctor GLUCOSE, POC (GLUCOMETER) 2018-04-16 21:31:00 Mandan, Lacy SODIUM 2018-04-16 20:08:00 Ileana Cheek GLUCOSE, POC (GLUCOMETER) 2018-04-16 15:51:00 Mandan, Lacy XRAY ABDOMEN SINGLE VIEW (KUB) 2018-04-16 08:07:26 Keith Guevara CBC WITH DIFF 2018-04-16 07:53:00 Iram, Campos Tho BASIC METABOLIC PANEL 2018-04-16 07:53:00 Angela Nolan XRAY ABDOMEN SINGLE VIEW (KUB) 2018-04-16 03:41:33 Mandan, Lacy VAT US GUIDED PERIPHERAL IV 2018-04-15 20:05:59 Mandan, Lacy PLACEMENT US DUPLEX LOWER EXTREMITY 2018-04-15 14:48:56 Hafiz Suzie VEINS BILATERAL/COMPLETE CBC WITH DIFF 2018-04-15 09:50:00 Iram, Campos Tho BASIC METABOLIC PANEL 2018-04-15 09:50:00 Angela Nolan EKGSCAN 2018-04-15 04:00:00 Unassign, Doctor LIPID PANEL 2018-04-14 17:59:00 Jocelynn Schofield BASIC METABOLIC PANEL 2018-04-14 17:59:00 Jocelynn Schofield PROCALCITONIN 2018-04-14 17:59:00 Jocelynn Schofield CBC WITH DIFF 2018-04-14 07:11:00 Iram, Campos Tho XRAY CHEST 1 VIEW 2018-04-14 05:22:33 Velasquez Ribeiro EKG 12 LEAD 2018-04-14 04:31:00 Deangelo Lizama EKGSCAN 2018-04-14 04:00:00 Unassign, Doctor BLOOD GAS, ARTERIAL 2018-04-13 12:40:00 Jocelynn Schofield URINALYSIS, COMPLETE 2018-04-13 08:19:00 Gera Cheema CULTURE, URINE 2018-04-13 08:19:00 CheemaNic maino PHOSPHORUS 2018-04-13 08:19:00 Hamed, Ahmed MAGNESIUM 2018-04-13 08:19:00 Hamed, Ahmed CBC WITH DIFF 2018-04-13 08:19:00 Iram, Campos Tho BASIC METABOLIC PANEL 2018-04-13 08:19:00 Hamed, Ahmed CULTURE, BLOOD 2018-04-13 04:05:00 Jae Altamirano EKGSCAN 2018-04-13 04:00:00 Unassign, Doctor CULTURE, BLOOD 2018-04-13 02:45:00 Jae Altamirano XRAY ABDOMEN SINGLE VIEW (KUB) 2018-04-12 19:16:00 Gabriel Schofield GLUCOSE, POC (GLUCOMETER) 2018-04-12 15:59:00 Chandu Jocelynn PHOSPHORUS 2018-04-12 07:18:00 Hamed, Ahmed MAGNESIUM 2018-04-12 07:18:00 Hamed, Ahmed CBC WITH DIFF 2018-04-12 07:18:00 Campos Walden BASIC METABOLIC PANEL 2018-04-12 07:18:00 Hamed, Ahmed LOW MOLECULAR HEPARIN 2018-04-11 17:25:00 Prema Sam ANTI-FACTOR XA ASSAY PHOSPHORUS 2018-04-11 09:13:00 Hamed, Ahmed TRIGLYCERIDE 2018-04-11 09:13:00 Dawley, Felisa Geovanna MAGNESIUM 2018-04-11 09:13:00 Hamed, Ahmed CBC WITH DIFF 2018-04-11 09:13:00 Iram Camposbruce Nettles BASIC METABOLIC PANEL 2018-04-11 09:13:00 Hamed, Ahmed BLOOD GAS, ARTERIAL 2018-04-11 04:24:00 Apolinar Malik EKGSCAN 2018-04-11 04:00:00 Unassign, Doctor VAT US GUIDED PERIPHERAL IV 2018-04-10 21:16:18 Hamed, Ahmed PLACEMENT XRAY CHEST 1 VIEW 2018-04-10 14:19:25 Prema Sam PHOSPHORUS 2018-04-10 09:07:00 Dawley, Felisa Geovanna BLOOD GAS, ARTERIAL 2018-04-10 09:07:00 Helen Golden LD (LDH) 2018-04-10 09:07:00 Dawley, Felisa Geovanna TRIGLYCERIDE 2018-04-10 09:07:00 Dawley, Felisa Geovanna MAGNESIUM 2018-04-10 09:07:00 Dawley, Felisa Geovanna CBC WITH DIFF 2018-04-10 09:07:00 Iram Campos Tho BASIC METABOLIC PANEL 2018-04-10 09:07:00 Dawley, Felisa Geovanna EKG 12 LEAD 2018-04-10 05:36:00 Margret Gillis EKGSCAN 2018-04-10 04:00:00 Unassign, Doctor XRAY ABDOMEN SINGLE VIEW (KUB) 2018-04-10 01:59:00 Julio Malik catherine PHOSPHORUS 2018-04-09 22:25:00 Cristofer Marcano MAGNESIUM 2018-04-09 22:25:00 Cristofer Marcano BASIC METABOLIC PANEL 2018-04-09 22:25:00 Cristofer Marcano CULTURE, BLOOD 2018-04-09 22:16:00 Sam, Prema URINALYSIS, COMPLETE 2018-04-09 22:06:00 Sam, Prema CULTURE, URINE 2018-04-09 22:06:00 Sam, Prema CULTURE, BLOOD 2018-04-09 22:06:00 Sam, Prema CULTURE, RESPIRATORY 2018-04-09 21:44:00 Sam, Prema TRACHEOSTOMY 2018-04-09 17:23:00 Ric Betts PHOSPHORUS 2018-04-09 16:51:00 Cristofer Marcano MAGNESIUM 2018-04-09 16:51:00 Cristofer Marcano BASIC METABOLIC PANEL 2018-04-09 16:51:00 Cristofer Marcano PHOSPHORUS 2018-04-09 08:52:00 Cristofer Marcano BLOOD GAS, ARTERIAL 2018-04-09 08:52:00 Campos Walden TRIGLYCERIDE 2018-04-09 08:52:00 Cristofer Marcano MAGNESIUM 2018-04-09 08:52:00 Cristofer Marcano CBC WITH DIFF 2018-04-09 08:52:00 Campos Walden BASIC METABOLIC PANEL 2018-04-09 08:52:00 Cristofer Marcano PT (PROTHROMBIN TIME) WITH INR 2018-04-09 08:52:00 Narda Walden PTT 2018-04-09 08:52:00 Campos Walden TYPE & SCREEN 2018-04-09 08:52:00 Navjot Lanier PHOSPHORUS 2018-04-09 02:56:00 Cristofer Marcano MAGNESIUM 2018-04-09 02:56:00 Cristfoer Marcano BASIC METABOLIC PANEL 2018-04-09 02:56:00 Cristofer Marcano PHOSPHORUS 2018-04-08 21:20:00 Cristofer Marcano BLOOD GAS, ARTERIAL 2018-04-08 21:20:00 Hamed, Ahmed MAGNESIUM 2018-04-08 21:20:00 Cristofer Marcano BASIC METABOLIC PANEL 2018-04-08 21:20:00 Cristofer Marcano CULTURE, MRSA SCREENING 2018-04-08 18:22:00 Sam, Prema CULTURE, VRE SCREENING 2018-04-08 18:22:00 Sam, Prema LOW MOLECULAR HEPARIN 2018-04-08 18:22:00 Sam, Prema ANTI-FACTOR XA ASSAY PHOSPHORUS 2018-04-08 15:14:00 Cristofer Marcano BLOOD GAS, ARTERIAL 2018-04-08 15:14:00 Hamed, Ahmed MAGNESIUM 2018-04-08 15:14:00 Cristofer Marcano BASIC METABOLIC PANEL 2018-04-08 15:14:00 Cristofer Marcano GLUCOSE, POC (GLUCOMETER) 2018-04-08 09:23:00 Cristofer Marcano CK (CPK) 2018-04-08 09:16:00 Sam, Prema PHOSPHORUS 2018-04-08 09:15:00 Cristofer Marcano BLOOD GAS, ARTERIAL 2018-04-08 09:15:00 Hamvinay, Ahmed TRIGLYCERIDE 2018-04-08 09:15:00 Cristofer Marcano MAGNESIUM 2018-04-08 09:15:00 Cristofer Marcano CBC WITH DIFF 2018-04-08 09:15:00 Campos Walden BASIC METABOLIC PANEL 2018-04-08 09:15:00 Cristofer Marcano PHOSPHORUS 2018-04-08 04:44:00 Florence Moeller BLOOD GAS, ARTERIAL 2018-04-08 04:44:00 Cristofer Marcano MAGNESIUM 2018-04-08 04:44:00 Karthik Moellertha ELECTROLYTES 2018-04-08 04:44:00 Sajan, Florence PHOSPHORUS 2018-04-08 01:01:00 Cristofer Marcano BLOOD GAS, ARTERIAL 2018-04-08 01:01:00 Hamed, Ahmed MAGNESIUM 2018-04-08 01:01:00 Cristofer Marcano BASIC METABOLIC PANEL 2018-04-08 01:01:00 Cristofer Marcano PHOSPHORUS 2018-04-07 21:16:00 Sajan Florence MAGNESIUM 2018-04-07 21:16:00 Florence Moeller ELECTROLYTES 2018-04-07 21:16:00 SajanKarthikFlorence XRAY CHEST 1 VIEW 2018-04-07 19:21:39 Cristofer Marcano PHOSPHORUS 2018-04-07 19:18:00 Cristofer Marcano BLOOD GAS, ARTERIAL 2018-04-07 19:18:00 JaxvinayThimed MAGNESIUM 2018-04-07 19:18:00 Cristofer Marcano BASIC METABOLIC PANEL 2018-04-07 19:18:00 Cristofer Marcano BLOOD GAS, ARTERIAL 2018-04-07 15:39:00 Cristofer Marcano CK (CPK) 2018-04-07 15:39:00 Marlon Black PHOSPHORUS 2018-04-07 12:24:00 Cristofer Marcano BLOOD GAS, ARTERIAL 2018-04-07 12:24:00 Margret Gillis MAGNESIUM 2018-04-07 12:24:00 Cristofer Marcano BASIC METABOLIC PANEL 2018-04-07 12:24:00 Cristofer Marcano PHOSPHORUS 2018-04-07 07:38:00 Cristofer Marcano BLOOD GAS, ARTERIAL 2018-04-07 07:38:00 Margret Gillis TRIGLYCERIDE 2018-04-07 07:38:00 Felisa Dove MAGNESIUM 2018-04-07 07:38:00 Cristofer Marcano CBC WITH DIFF 2018-04-07 07:38:00 Campos Walden BASIC METABOLIC PANEL 2018-04-07 07:38:00 Cristofer Marcano EKGSCAN 2018-04-07 04:00:00 JollyssDoctor urbano PHOSPHORUS 2018-04-07 01:26:00 Cristofer Marcano BLOOD GAS, ARTERIAL 2018-04-07 01:26:00 Margret Gillis MAGNESIUM 2018-04-07 01:26:00 Cristofer Marcano BASIC METABOLIC PANEL 2018-04-07 01:26:00 Cristofer Marcano VENOUS BLOOD GAS 2018-04-06 23:46:00 Cristofer Marcano ABG,POC 2018-04-06 22:15:00 Cristofer Macrano PHOSPHORUS 2018-04-06 21:19:00 Cristofer Marcano HEPATIC FUNCTION PANEL 2018-04-06 21:19:00 Cristofer Marcano LACTIC ACID 2018-04-06 21:19:00 Cristofer Marcano MAGNESIUM 2018-04-06 21:19:00 Cristofer Marcano BASIC METABOLIC PANEL 2018-04-06 21:19:00 Cristofer Marcano BLOOD GAS, ARTERIAL 2018-04-06 19:07:00 Cristofer Marcano LOW MOLECULAR HEPARIN 2018-04-06 19:07:00 Cristofer Marcano ANTI-FACTOR XA ASSAY PHOSPHORUS 2018-04-06 15:47:00 Cristofer Marcano MAGNESIUM 2018-04-06 15:47:00 Cristofer Marcano BASIC METABOLIC PANEL 2018-04-06 15:47:00 Cristofer Marcano BLOOD GAS, ARTERIAL 2018-04-06 15:24:00 Cristofer Marcano GLUCOSE, POC (GLUCOMETER) 2018-04-06 13:11:00 Cristofer Marcano BLOOD GAS, ARTERIAL 2018-04-06 12:59:00 Cristofer Marcano CK (CPK) 2018-04-06 12:59:00 Apolinar Malik BLOOD GAS, ARTERIAL 2018-04-06 10:11:00 ChantelKeiraludy Lacey BLOOD GAS, ARTERIAL 2018-04-06 08:50:00 Cristofer Marcano BLOOD GAS, ARTERIAL 2018-04-06 08:11:00 Lala Guerin PHOSPHORUS 2018-04-06 07:33:00 Cristofer Marcano TRIGLYCERIDE 2018-04-06 07:33:00 Cristofer Marcano MAGNESIUM 2018-04-06 07:33:00 Cristofer Marcano BASIC METABOLIC PANEL 2018-04-06 07:33:00 Cristofer Marcano PHOSPHORUS 2018-04-06 02:48:00 Cristofer Marcano MAGNESIUM 2018-04-06 02:48:00 Cristofer Marcano BASIC METABOLIC PANEL 2018-04-06 02:48:00 Cristofer Marcano BLOOD GAS, ARTERIAL 2018-04-06 02:47:00 Cristofer Marcano BLOOD GAS, ARTERIAL 2018-04-05 23:29:00 Cristofer Marcano CULTURE, VIRUS, RESPIRATORY 2018-04-05 20:13:00 Socorro Malik r CULTURE, QUANTITATIVE BAL 2018-04-05 20:13:00 Apolinar Malik CULTURE, FUNGUS 2018-04-05 20:13:00 Apolinar Malik FUNGUS STAIN 2018-04-05 20:13:00 Apolinar Malik TRANSESOPHAGEAL ECHO (BENJY) 2018-04-05 19:27:45 Lala Andersen PHOSPHORUS 2018-04-05 18:50:00 Cristofer Marcano MAGNESIUM 2018-04-05 18:50:00 Cristofer Marcano BASIC METABOLIC PANEL 2018-04-05 18:50:00 Cristofer Marcano GLUCOSE, POC (GLUCOMETER) 2018-04-05 17:08:00 Cristofer Marcano BLOOD GAS, ARTERIAL 2018-04-05 16:55:00 Cristofer Marcano SODIUM 2018-04-05 16:54:00 Cristofer Marcano BLOOD GAS, ARTERIAL 2018-04-05 15:16:00 Cristofer Marcano BNP 2018-04-05 14:54:00 Lala Andersen GLUCOSE, POC (GLUCOMETER) 2018-04-05 13:18:00 Cristofer Marcano BLOOD GAS, ARTERIAL 2018-04-05 13:05:00 Cristofer Marcano XRAY CHEST 1 VIEW 2018-04-05 10:58:22 Cristofer Marcano PHOSPHORUS 2018-04-05 04:13:00 Lala Andersen BLOOD GAS, ARTERIAL 2018-04-05 04:13:00 Cristofer Marcano TRIGLYCERIDE 2018-04-05 04:13:00 DerrellFelisa Geovanna MAGNESIUM 2018-04-05 04:13:00 Lala Andersen CBC WITH DIFF 2018-04-05 04:13:00 Lala Andersen BASIC METABOLIC PANEL 2018-04-05 04:13:00 Lala Andersen NON-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 2018-04-05 04:00:00 Lashay Malik her REQUEST EKGSCAN 2018-04-05 04:00:00 Unassign, Doctor BLOOD GAS, ARTERIAL 2018-04-05 00:53:00 Cristofer Marcano XRAY CHEST 1 VIEW 2018-04-04 22:17:20 Apolinar Malik BLOOD GAS, ARTERIAL 2018-04-04 19:13:00 Cristofer Marcano LACTIC ACID 2018-04-04 19:13:00 Cristofer Marcano ECHO 2018-04-04 18:15:02 FairfieldLeonard perez VENOUS BLOOD GAS 2018-04-04 13:28:00 Snehal Tran XRAY ABDOMEN SINGLE VIEW (KUB) 2018-04-04 11:02:00 Ynes Guerin ed CTA CHEST W & W/O IV CONTRAST 2018-04-04 07:55:22 Yuli Guerin PHOSPHORUS 2018-04-04 07:05:00 Lala Andersen CK (CPK) 2018-04-04 07:05:00 Lala Andersen TRIGLYCERIDE 2018-04-04 07:05:00 Snehal Tran MAGNESIUM 2018-04-04 07:05:00 Lala Andersen CBC WITH DIFF 2018-04-04 07:05:00 Lala Andersen BASIC METABOLIC PANEL 2018-04-04 07:05:00 Lala Andersen XRAY OUTSIDE CD 2018-04-04 03:59:30 Unassign, Doctor XRAY OUTSIDE CD 2018-04-04 03:58:37 Unassign, Doctor XRAY OUTSIDE CD 2018-04-04 03:57:46 Unassign, Doctor XRAY OUTSIDE CD 2018-04-04 03:56:48 Unassign, Doctor XRAY OUTSIDE CD 2018-04-04 03:55:29 Unassign, Doctor VENOUS BLOOD GAS 2018-04-04 03:01:00 Lala Guerin BLOOD GAS, ARTERIAL 2018-04-04 00:05:00 Lala Andersen LACTIC ACID 2018-04-04 00:05:00 Lala Andersen URINALYSIS, COMPLETE 2018-04-03 23:38:00 Hamed, med CULTURE, RESPIRATORY 2018-04-03 23:38:00 Hamed, Ahmed PHOSPHORUS 2018-04-03 23:38:00 Hamed, med HEPATIC FUNCTION PANEL 2018-04-03 23:38:00 Hamed, Ahmed MAGNESIUM 2018-04-03 23:38:00 Hamed, med CBC WITH DIFF 2018-04-03 23:38:00 Hamed, med BASIC METABOLIC PANEL 2018-04-03 23:38:00 Hamed, med TROPONIN I 2018-04-03 23:38:00 Hamed, med PT (PROTHROMBIN TIME) WITH INR 2018-04-03 23:38:00 Hamed, med D-DIMER 2018-04-03 23:38:00 Hamed, med LEGIONELLA ANTIGEN, URINE 2018-04-03 23:38:00 Odalis King ujanya CULTURE, BLOOD 2018-04-03 23:38:00 Hamed, med MRSA ADMIT SCREEN 2018-04-03 23:38:00 Hamed, med S. PNEUMONIAE AG,URINE 2018-04-03 23:38:00 Odalis King ilia RESPIRATORY PANEL, RAPID 2018-04-03 23:38:00 Hamed, med MOLECULAR TSH 2018-04-03 23:38:00 Hamed, med CULTURE, BLOOD 2018-04-03 23:30:00 Hamed, med XRAY CHEST 1 VIEW 2018-04-03 22:50:06 Hamed, med OFFICE/OUTPATIENT VISIT EST 2017-10-01 13:30:00 OFFICE/OUTPATIENT VISIT EST 2017-03-29 13:00:00 OFFICE/OUTPATIENT VISIT EST 2017-02-15 16:00:00 OFFICE OUTPATIENT NEW 30 2017-02-06 15:10:00 MINUTES Results Test Description Test Time Test Comments Text Results Atomic Results Result Comments COMPREHENSIVE METABOLIC PANEL 2019-05-06 14:49:00 Test Item Value Reference Range Comments GLOBULIN (test code = 64643801) 3.4 g/dL (calc) 1.9-3.7 eGFR (test code = 91482610) 129 mL/min/1.73m2 > OR = 60 CHLORIDE (test code = 10298911) 95 mmol/L 98-110 AST (test code = 57593721) 25 U/L 10-40 CARBON DIOXIDE (test code = 04311719) 41 mmol/L 20-32 PROTEIN, TOTAL (test code = 01813312) 7.3 g/dL 6.1-8.1 CREATININE (test code = 44704957) 0.92 mg/dL 0.60-1.35 GLUCOSE (test code = 75654447) 117 mg/dL 65-99 eGFR NON-AFR. MICRONESIAN (test code = 49593868) 111 mL/min/1.73m2 > OR = 60 ALBUMIN (test code = 76136903) 3.9 g/dL 3.6-5.1 POTASSIUM (test code = 86134437) 4.0 mmol/L 3.5-5.3 SODIUM (test code = 86630614) 142 mmol/L 135-146 ALKALINE PHOSPHATASE (test code = 47917002) 64 U/L 40-1 15 ALBUMIN/GLOBULIN RATIO (test code = 75832494) 1.1 (calc) 1. 0-2.5 BILIRUBIN, TOTAL (test code = 09660869) 0.2 mg/dL 0.2-1.2 ALT (test code = 50548224) 39 U/L 9-46 BUN/CREATININE RATIO (test code = 14039620) NOT APPLICABLE (calc ) 6-22 UREA NITROGEN (BUN) (test code = 78815264) 19 mg/dL 7-25 CALCIUM (test code = 71796281) 8.9 mg/dL 8.6-10.3 CBC (INCLUDES DIFF/PLT)2019-05-06 14:49:00 Test Item Value Reference Range Comments BASOPHILS (test code = 05687389) 0.4 % NEUTROPHILS (test code = 08988538) 76.1 % ABSOLUTE NEUTROPHILS (test code = 64327822) 5708 cells/uL 1500 -7800 HEMATOCRIT (test code = 19349574) 32.6 % 38.5-50.0 MCV (test code = 06282379) 87.9 fL 80.0-100.0 ABSOLUTE BASOPHILS (test code = 31777613) 30 cells/uL 0-200 MPV (test code = 20829850) 11.4 fL 7.5-12.5 MONOCYTES (test code = 67651395) 8.8 % HEMOGLOBIN (test code = 69142225) 10.2 g/dL 13.2-17.1 EOSINOPHILS (test code = 58353374) 2.0 % ABSOLUTE EOSINOPHILS (test code = 97487105) 150 cells/uL 15-5 00 ABSOLUTE LYMPHOCYTES (test code = 33511623) 953 cells/uL 850- 3900 LYMPHOCYTES (test code = 03811472) 12.7 % RDW (test code = 60707564) 13.8 % 11.0-15.0 MCHC (test code = 67314533) 31.3 g/dL 32.0-36.0 MCH (test code = 89618640) 27.5 pg 27.0-33.0 RED BLOOD CELL COUNT (test code = 06647319) 3.71 Million/uL 4.20 -5.80 PLATELET COUNT (test code = 45048381) 256 Thousand/uL 140-400 ABSOLUTE MONOCYTES (test code = 79133841) 660 cells/uL 200-95 0 WHITE BLOOD CELL COUNT (test code = 7.5 Thousand/uL 3.8-10.8 49966776) [id number] 14:49:003.773.77LIPID PANEL WITH REFLEX TO DIRECT [id number] 14:49:00 Test Item Value Reference Range Comments NON HDL CHOLESTEROL (test code = 10424862) 139 mg/dL (calc) <130 CHOLESTEROL, TOTAL (test code = 95699204) 178 mg/dL <200 HDL CHOLESTEROL (test code = 88830881) 39 mg/dL >40 CHOL/HDLC RATIO (test code = 35934544) 4.6 (calc) <5.0 LDL-CHOLESTEROL (test code = 10392840) 102 mg/dL (calc) TRIGLYCERIDES (test code = 07133742) 243 mg/dL <150 HEMOGLOBIN A1c WITH [id number] 14:49:00 Test Item Value Reference Range Comments eAG (mmol/L) (test code = 13876848) 6.5 (calc) HEMOGLOBIN A1c (test code = 62327198) 5.75.7 % of total Hgb <5.7 eAG (mg/dL) (test code = 91094458) 607865 (calc) NEGATIVE COMBO PANEL 51\\[id number]\\[id number] 13:25:00 Test Item Value Reference Range Comments NEGATIVE COMBO PANEL 51 (test code = NUC51) See Comment SPUTUM CULTURE + GRAM STAIN\\S\\[id number] 13:25:00 Test Item Value Reference Range Comments ACINETOBACTER BAUMANNII/HAEM (test code = ACAA) GREATLY REDUCED NORMAL ALHAJI (test code = GRNF) CORYNEBACTERIUM STRIATUM (test code = CYS) SPUTUM CULTURE + GRAM STAIN (test code = SPTC) See Comment BASIC METABOLIC [id number] 12:03:00 Test Item Value Reference Range Comments eGFR NON-AFR. MICRONESIAN (test code = 96 mL/min/1.73m2 > OR = 60 69289577) GLUCOSE (test code = 67250734) 140 mg/dL 65-99 POTASSIUM (test code = 41065998) 4.6 mmol/L 3.5-5.3 CALCIUM (test code = 17332717) 8.5 mg/dL 8.6-10.3 BUN/CREATININE RATIO (test code = NOT APPLICABLE (calc) 6-22 24174142) CARBON DIOXIDE (test code = 95399593) 39 mmol/L 20-32 eGFR (test code = 111 mL/min/1.73m2 > OR = 60 69952757) CREATININE (test code = 77695375) 1.04 mg/dL 0.60-1.35 UREA NITROGEN (BUN) (test code = 25 mg/dL 7-25 33361559) CHLORIDE (test code = 93457347) 94 mmol/L 98-110 SODIUM (test code = 45026152) 141 mmol/L 135-146 CULTURE, SPUTUM/LOWER [id number] 15:30:00[facility] 16:38:003.84LIPID PANEL WITH REFLEX TO DIRECT [id number] 16:38:00 Test Item Value Reference Range Comments CHOL/HDLC RATIO (test code = 46768950) 3.0 (calc) <5.0 HDL CHOLESTEROL (test code = 63742218) 45 mg/dL >40 TRIGLYCERIDES (test code = 98431017) 182 mg/dL <150 CHOLESTEROL, TOTAL (test code = 97633158) 136 mg/dL <200 NON HDL CHOLESTEROL (test code = 07323736) 91 mg/dL (calc) <130 LDL-CHOLESTEROL (test code = 66206718) 65 mg/dL (calc) T4, [id number] 16:38:000.8COMPREHENSIVE METABOLIC [id number] 16:38:00 Test Item Value Reference Range Comments BILIRUBIN, TOTAL (test code = 63933520) 0.2 mg/dL 0.2-1.2 PROTEIN, TOTAL (test code = 48115839) 7.4 g/dL 6.1-8.1 UREA NITROGEN (BUN) (test code = 87036203) 29 mg/dL 7-25 CALCIUM (test code = 37313043) 9.3 mg/dL 8.6-10.3 GLUCOSE (test code = 39417159) 79 mg/dL 65-99 SODIUM (test code = 18926174) 139 mmol/L 135-146 POTASSIUM (test code = 91247587) 4.7 mmol/L 3.5-5.3 ALKALINE PHOSPHATASE (test code = 25787953) 66 U/L 40-1 15 CREATININE (test code = 95939517) 1.38 mg/dL 0.60-1.35 eGFR NON-AFR. MICRONESIAN (test code = 68 mL/min/1.73m2 > OR = 60 36208416) GLOBULIN (test code = 74690436) 3.2 g/dL (calc) 1.9-3.7 AST (test code = 10839740) 20 U/L 10-40 eGFR (test code = 79 mL/min/1.73m2 > OR = 60 80532236) ALT (test code = 88500191) 25 U/L 9-46 CHLORIDE (test code = 00960318) 94 mmol/L 98-110 ALBUMIN (test code = 73044822) 4.2 g/dL 3.6-5.1 CARBON DIOXIDE (test code = 44167825) 36 mmol/L 20-32 BUN/CREATININE RATIO (test code = 88649757) 21 (calc) 6-22 ALBUMIN/GLOBULIN RATIO (test code = 1.3 (calc) 1.0-2.5 58169616) CBC (INCLUDES DIFF/PLT)2019-01-21 16:38:00 Test Item Value Reference Range Comments MPV (test code = 75729903) 10.8 fL 7.5-12.5 NEUTROPHILS (test code = 72889205) 73.2 % MONOCYTES (test code = 96430255) 7.3 % RDW (test code = 45636836) 13.9 % 11.0-15.0 ABSOLUTE EOSINOPHILS (test code = 39649029) 162 cells/uL 15-5 00 BASOPHILS (test code = 40093916) 0.5 % MCHC (test code = 85222239) 30.5 g/dL 32.0-36.0 PLATELET COUNT (test code = 71770357) 283 Thousand/uL 140-400 WHITE BLOOD CELL COUNT (test code = 8.1 Thousand/uL 3.8-10.8 47604620) MCV (test code = 78255226) 92.4 fL 80.0-100.0 HEMATOCRIT (test code = 53795465) 40.3 % 38.5-50.0 ABSOLUTE BASOPHILS (test code = 48608182) 41 cells/uL 0-200 MCH (test code = 66431528) 28.2 pg 27.0-33.0 ABSOLUTE LYMPHOCYTES (test code = 29456538) 1377 cells/uL 850- 3900 ABSOLUTE MONOCYTES (test code = 17785564) 591 cells/uL 200-95 0 LYMPHOCYTES (test code = 93979586) 17.0 % ABSOLUTE NEUTROPHILS (test code = 52094581) 5929 cells/uL 1500 -7800 EOSINOPHILS (test code = 76927317) 2.0 % RED BLOOD CELL COUNT (test code = 16531707) 4.36 Million/uL 4.20 -5.80 HEMOGLOBIN (test code = 20517732) 12.3 g/dL 13.2-17.1 T3, [id number] 16:38:003.1Hemoglobin A1C\\S\\2019-01-21 15:00:00 Test Item Value Reference Range Comments HgbA1C, Fingerstick (test code = 4548-4) 5.5 % 4-5.6 CBC WITH [id number] 06:50:32 Test Item Value Reference Range Comments WBC (test code = 6690-2) 12.50 k/uL 4.5- 11.0 k/uL RBC (test code = 789-8) 3.44 M/uL 4.4- 5.9 M/uL Hemoglobin (test code = 718-7) 10.0 g/dL 13-18 Hematocrit (calc.) (test code = 30.8 % 40-52 4544-3) MCV (test code = 787-2) 90 fL 80-100 MCH (test code = 785-6) 29.0 pg 26-34 MCHC (calc.) (test code = 32.4 g/dL 32-36 786-4) RDW (test code = 788-0) 15.9 % <14.5 Platelet (test code = 777-3) 237 k/uL 150- 440 k/uL Mean Platelet Volume (test code 9.5 fL 7.4-10.6 = 53337-3) Neutrophil (%) (test code = 75 % 67471-9) Lymphocyte (%) (test code = 16 % 736-9) Monocyte (%) (test code = 6 % 5905-5) Eosinophil (%) (test code = 3 % 713-8) Basophil (%) (test code = 0 % 706-2) Neutrophil (#) (test code = 9.50 k/uL 1.8- 7.7 k/uL 03830-9) Lymphocyte (#) (test code = 2.00 k/uL 1.0- 4.8 k/uL 731-0) Monocyte (#) (test code = 0.70 k/uL 0.0- 0.8 k/uL 742-7) Eosinophil (#) (test code = 0.30 k/uL 0.0- 0.5 k/uL 711-2) Basophil (#) (test code = 0.00 k/uL 0.0- 0.2 k/uL 704-7) Band (est.) (test code = <10% <10 % 37590-1) RBC Morphology (test code = NO SIGNIFICANT RBC 6742-1) MORPHOLOGIC ABNORMALITIES SEEN Lab Interpretation (test code = Abnormal 04041-9) BASIC METABOLIC [id number] 06:21:16 Test Item Value Reference Range Comments BUN (test code = 3094-0) 14 mg/dL 9-21 Sodium (test code = 2951-2) 139 mEq/L 136- 145 mEq/L Potassium (test code = 2823-3) 4.0 mEq/L 3.5- 5.0 mEq/L Chloride (test code = 2075-0) 100 mEq/L 98- 107 mEq/L Bicarbonate (TCO2) (test code = 2027-9) 29 mEq/L 22- 29 m Eq/L Glucose (test code = 2345-7) 78 mg/dL 70-108 Creatinine (test code = 2160-0) 0.83 mg/dL 0.72-1.25 Anion Gap (calc.) (test code = 69300-2) 10 mEq/L 4- 12 mE q/L Calcium (test code = 21729-8) 9.8 mg/dL 8.4-10.2 GFR, non-AA, (est.) (test code = 85585-1) >90 >59 mL /Min/1.73 m2 GFR, AA, (est.) (test code = 48949-3) >90 >59 mL/Min /1.73 m2 [id number] 06:21:16 Test Item Value Reference Range Comments Magnesium (test code = 42657-1) 2.0 mg/dL 1.6-2.6 [id number] 06:21:16 Test Item Value Reference Range Comments Phosphorus (test code = 2777-1) 3.7 mg/dL 2.3-4.7 BLOOD GAS, [id number] 06:24:30 Test Item Value Reference Range Comments pCO2, arterial (test code = 2018-) 49 mm Hg 31- 42 mm Hg pH, arterial (test code = 2744-1) 7.38 7.37-7.47 pO2, arterial (test code = 2703-7) 95 mm Hg 80- 90 mm Hg Bicarbonate, arterial (calc.) (test code = 27 mmol/L 2025-08) O2 Saturation, arterial (test code = 2708-6) 98 % 94- 97 Base EXCESS, arterial (calc.) (test code = 3.3 mmol/L 0-3 1924-7) FIO2 (L/min) (test code = 3151-8) 6.0 L FIO2 (%) (test code = 3150-0) 28 % pO2 Ratio, arterial/Alveolar (test code = 0.63 >0.8 ) Lab Interpretation (test code = 15270-6) Abnormal CULTURE, [id number] 08:47:50 Test Item Value Reference Range Comments Specimen (test code = BRONCHIAL LAVAGE 96791-0) Information (test code = 36CC R BAL 06766-1) Culture (test code = 1 COLONYYEAST SPECIES, NOT 31194-1) CRYPTOCOCCUS NEOFORMANS1+ YEAST SPECIES, NOT CRYPTOCOCCUS NEOFORMANS,second morphotypeCONSULT MICROBIOLOGY IF FURTHER WORKUP IS CLINICALLY WARRANTED. Report Status (test code = FINAL05/06/2018 424771) XRAY CHEST 1 [id number] 05:26:00Impression: No significant interval change. Reading Doctor: Sofia Bishop Electronic Signature by:Sofia Bishop ONE VIEW CHEST Clinical Indication:Shortness of breath. Technique: Single frontal view of the chest was obtained. Comparison: Multiple priors, most recently 04/30/2018. Findings: Tracheostomy tube terminates above the danny below the clavicles. Cardiomediastinal silhouette is unchanged with mild cardiomegaly redemonstrated. There is mild pulmonary vascular prominence with interstitial congestion. Bibasilar opacities may relate to atelectasis, infiltrates and/or effusion. Visualized bones are intact. Interface, Radresults_Incoming - 05/06/2018 5:29 AM EST ONE VIEW CHEST Clinical Indication: Shortness of breath. Technique: Single frontal view of the chest was obtained. Comparison: Multiple priors, most recently 04/30/2018. Findings: Tracheostomy tube terminates above the danny below the clavicles. Cardiomediastinal silhouette is unchanged with mild cardiomegaly redemonstrated. There is mild pulmonary vascular prominence with interstitial congestion. Bibasilar opacities may relate to atelectasis, infiltrates and/or effusion. Visualized bones are intact. IMPRESSION Impression: No significant interval change. Reading Doctor: Sofia Bishop Electronic Signature by: Ping Bishop, POC (GLUCOMETER)2018-04-28 11:51:18 Test Item Value Reference Range Comments Glucose (poct) (test code = 2339-0) 105 mg/dL 70-100 Lab Interpretation (test code = 78318-2) Abnormal XRAY ABDOMEN SINGLE VIEW (KUB)2018-04-27 16:46:00Impression: Interval retraction of enteric feeding tube with tip projecting to the expected locationof the stomach. Reading Doctor: Scarlett Millan Electronic Signature by: Scarlett Millan XRAY ABDOMEN SINGLE VIEW (KUB) dated 04/27/2018 3:17 PM Indication:verify position after readjustment Comparison: Abdominal radiograph dated 04/24/2018 Technique:Single AP view of the abdomen Findings: Tip ofenteric feeding tube projects to the expected location of the stomach, retracted since prior study. Nonobstructive bowel gas pattern. Osseous structures unremarkable. Interface, Radresults_Incoming - 04/27/2018 4:50 PM EDT XRAY ABDOMEN SINGLE VIEW (KUB) dated 04/27/2018 3:17 PM Indication: verify position after readjustment Comparison: Abdominal radiograph dated 04/24/2018 Technique:Single AP view of the abdomen Findings: Tip of enteric feeding tube projects to the expected location of the stomach, retracted since prior study. Nonobstructive bowel gas pattern. Osseous structures unremarkable. IMPRESSION Impression: Interval retraction of enteric feeding tube with tip projecting to the expected location of the stomach. Reading Doctor: Scarlett Millan Electronic Signature by: Bucky Millan 3D IMAGING W [id number] 08:20:00IMPRESSION: 1. Tracheostomy tube in satisfactory position 4 cm above the danny. No CT evidence of complication. Reading Doctor: Pasquale Lazar Electronic Signature by: Pasquale Lazar CT NECK, WITHOUT CONTRAST Indication: Evaluate tracheostomy tube placement. Comparison: None available. Technique: Helical CT imaging of the neck was performed without contrast. Coronal and sagittal reconstructions were obtained. 3-D volume rending and minIP reconstructions were also obtained. Noncontrast only imaging was performed at the direction of the referring doctor. 19 sequences are submitted. Findings: The patient is status post tracheostomy, and a tracheostomy tube is in satisfactory position with the tip 4 cm above the danny. There is no significant airway narrowing. There is no evidence of hemorrhage, fluid collection, or significant gas along the tracheostomy tube tract. An NG tube is in positionpassing through the esophagus. This study is somewhat limited due to the patient's large body habitus and lack of IV contrast, but there is no gross abnormality at the thyroid gland, vocal cords, submandibular glands, or visualized portions of the parotid glands. There is no gross evidence of mass, fluid collection, hemorrhage, or adenopathy throughout the neck. Interface, Radresults_Incoming - 04/23/2018 8:[address] NECK, WITHOUT CONTRAST Indication: Evaluate tracheostomy tube placement. Comparison: None available. Technique: Helical CT imaging of the neck was performed without contrast. Coronal and sagittal reconstructions were obtained. 3-D volume rending and minIP reconstructions were also obtained. Noncontrast only imaging was performed at the direction of the referring doctor. 19 sequences are submitted. Findings: The patient is status post tracheostomy, and a tracheostomy tube is in satisfactory position with the tip 4 cm above the danny. There is no significant airway narrowing. There is no evidence of hemorrhage, fluid collection, or significant gas along the tracheostomy tube tract. An NG tube is in position passing through the esophagus. This study is somewhat limited due to the patient's large body habitus and lack of IV contrast, but there is no gross abnormality at the thyro id gland, vocal cords, submandibular glands, or visualized portions of the parotid glands. There is no gross evidence of mass, fluid collection, hemorrhage, or adenopathy throughout the neck. IMPRESSION IMPRESSION: 1. Tracheostomy tube in satisfactory position 4 cm above the danny. No CT evidence of complication. Reading Doctor: Pasquale Lazar Electronic Signature by: Pasquale LazarCT SOFT TISSUE NECK W/O IV [id number] 14:30:00 IMPRESSION: 1. Tracheostomy tube in satisfactory position 4 cm above the danny. No CT evidence of complication. Reading Doctor: Pasquale Lazar Electronic Signature by: Pasquale Lazar CT NECK, WITHOUT CONTRAST Indication: Evaluate tracheostomy tube placement. Comparison: None available. Technique: Helical CT imaging of the neck was performed without contrast. Coronal and sagittal reconstructions were obtained. 3-D volume rending and minIP reconstructions were also obtained. Noncontrast only imaging was performed at the direction of the referring doctor. 19 sequences are submitted. Findings: The patient is status post tracheostomy, and a tracheostomy tube is in satisfactory position with the tip 4 cm above the danny. There is no significant airway narrowing. There is no evidence of hemorrhage, fluid collection, or significant gas along the tracheostomy tube tract. An NG tube is in positionpassing through the esophagus. This study is somewhat limited due to the patient's large body habitus and lack of IV contrast, but there is no gross abnormality at the thyroid gland, vocal cords, submandibular glands, or visualized portions of the parotid glands. There is no gross evidence of mass, fluid collection, hemorrhage, or adenopathy throughout the neck. Interface, Radresults_Incoming - 04/22/2018 2:[address] NECK, WITHOUT CONTRAST Indication: Evaluate tracheostomy tube placement. Comparison: None available. Technique: Helical CT imaging of the neck was performed without contrast. Coronal and sagittal reconstructions were obtained. 3-D volume rending and minIP reconstructions were also obtained. Noncontrast only imaging was performed at the direction of the referring doctor. 19 sequence s are submitted. Findings: The patient is status post tracheostomy, and a tracheostomy tube is in satisfactory position with the tip 4 cm above the danny. There is no significant airway narrowing. There is no evidence of hemorrhage, fluid collection, or significant gas along the tracheostomy tube tract. An NG tube is in position passing through the esophagus. This study is somewhat limited due to the patient's large body habitus and lack of IV contrast, but there is no gross abnormality at the thyroid gland, vocal cords, submandibular glands, or visualized portions of the parotid glands. There is no gross evidence of mass, fluid collection, hemorrhage, or adenopathy throughout the neck. IMPRESSION IMPRESSION: 1. Tracheostomy tube in satisfactory position 4 cm above the danny. No CT evidence of complication. Reading Doctor: Pasquale Lazar Electronic Signature by: Pasquale LazarCUKARLY, [id number] 03:28:56 Test Item Value Reference Range Comments Specimen (test code = 40015-9) BLOOD Information (test code = 99058-9) LH [id number] Culture (test code = 49974-9) NO GROWTH 5 DAYS Report Status (test code = 113468) FINAL04/18/2018 CULTURE, VIRUS, [id number] 15:50:35 Test Item Value Reference Range Comments Specimen (test code = 42582-5) BRONCHIAL LAVAGE Information (test code = 42796-4) 36CC R BAL Culture (test code = 90685-6) NO VIRUS ISOLATED Report Status (test code = 642434) FINAL04/17/2018 [id number] 17:24:01 Test Item Value Reference Range Comments Sodium (test code = 2951-2) 151 mEq/L 136- 145 mEq/L Lab Interpretation (test code = 46616-1) Abnormal VAT US GUIDED PERIPHERAL IV [id number] 16:06:10Impression: The Peripheral IV line was placed by the Vascular Access Team (VAT). Please see progressnotes for full report.US DUPLEX LOWER EXTREMITY VEINS BILATERAL/COMPLETE 2018-04-15 11:21:00Impression: No definite sonographic evidence of deep venous thrombosis within the visualized right or left lower extremity. Reading Doctor: Gigi Padilla Electronic Signature by: Gigi Padilla Bilateral lower extremity ultrasound History: Concern for pulmonary embolism. Evaluate for deep venous thrombosis. Comparison:None Procedure: Sonographic evaluation of the lower extremity venous vasculature wasperformed utilizing aponte scale imaging along with color doppler and spectral analysis imaging. Findings: The right and left common femoral, superficial femoral, and popliteal veins demonstrate normal co mpressibility and venous blood flow with no definite intraluminal filling defect to suggest deep venous thrombosis. Visualization central and lower components of the superficial femoral veins slightly limited. Visualized posterior tibial and peroneal veins within the upper calf appear patent. No focalfluid collection within the popliteal fossa to suggest a Pastrana's cyst. Interface, Radresults_Incoming - 04/15/2018 11:24 AM EDT Bilateral lower extremity ultrasound History: Concern for pulmonary embolism. Evaluate for deep venous thrombosis. Comparison:None Procedure: Sonographic evaluation of the lower extremity venous vasculature was performed utilizing aponte scale imaging along with color doppler and spectral analysis imaging. Findings: The right and left common femoral, superficial femoral, and popliteal veins demonstrate normal compressibility and venous blood flow with no definite intraluminal filling defect to suggest deep venous thrombosis. Visualization central and lower components of thesuperficial femoral veins slightly limited. Visualized posterior tibial and peroneal veins within the upper calf appear patent. No focal fluid collection within the popliteal fossa to suggest a Pastrana'scyst. IMPRESSION Impression: No definite sonographic evidence of deep venous thrombosis within the visualized right or left lower extremity. Reading Doctor: Gigi Padilla Electronic Signature by: Gigi [id number] 15:15:19 Test Item Value Reference Range Comments Procalcitonin (test code = 0.08 ng/mL 0-0.5 Syste tino infection (sepsis) 00981-2) is not likely. Local bacterial infect ion is possible. LIPID [id number] 14:43:37 Test Item Value Reference Range Comments Cholesterol, Total (test code = 313 mg/dL REFERENCE RANGES: 2093-3) THALIA RABLE:< 200 mg/dL BORDER LINE HIGH: 200-239 mg/dL HIGH: >239 mg/dL Triglycerides (test code = 219 mg/dL <150 2571-8) Cholesterol, HDL (test code = 18 mg/dL 40-60 RE FERENCE RANGES: 2085-9) LOW:<40 mg/d L HIGH: >=60 mg/dL Cholesterol, LDL (test code = 251 mg/dL RE FERENCE RANGES: 18819-8) OPTIMAL:<10 0 mg/dL NEAR OR ABOVE OP TIMAL: 100-129 mg/dL BORD ELVIRA HIGH: 130-159 mg /dL HIGH: 160- 189 mg/dL SONA Y HIGH: >=190 mg /dL Lab Interpretation (test code = Abnormal 88032-5) CULTURE, [id number] 09:27:26 Test Item Value Reference Range Comments Specimen (test code = 46984-1) URINE Information (test code = NONE 69791-9) Culture (test code = 71331-8) <10,000 CFU/ml growth insufficient to satisfy clinical/microbiologic criteriafor further workup. Report Status (test code = FINAL04/14/2018 002555) URINALYSIS, [id number] 05:50:38 Test Item Value Reference Range Comments Appearance, urine (test code = 5767-9) CLEAR CLEAR^LALITO AR Color, urine (test code = 5778-6) YELLOW YEL^YELLOW Specific [place], urine (test code = 5811-5) 1.015 1.0 05-1.030 pH, urine (test code = 5803-2) 5.5 4.5-8.0 Protein, urine (test code = 5804-0) 1+ NEG^NEG Glucose, urine (test code = 5792-7) NEG NEG^NEG Ketones, urine (test code = 5797-6) TRACE NEG^NEG Hemoglobin, urine (test code = 5794-3) 1+ NEG^NEG Urobilinogen, urine (test code = 29334-9) NORM NORM^N ORM Bilirubin, urine (test code = 5770-3) NEG NEG^NEG Nitrites, urine (test code = 5802-4) NEG NEG^NEG Leukocyte Esterase, urine (test code = 5799-2) NEG N EG^NEG RBC, urine (test code = 04922-6) 1-4 0 /HPF WBC, urine (test code = 5821-4) 1-4 0 /HPF Epithelial Cells, urine (test code = 5787-7) FEW /HP F Epithelial Cells, Non-Squamous, urine (test code = FEW /HPF 13371-5) Bacteria, urine (test code = 20593-4) NONE SEEN NNSN^NONE SEEN Lab Interpretation (test code = 90708-0) Abnormal CULTURE, [id number] 15:47:21 Test Item Value Reference Range Comments Specimen (test code = 79456-3) TRACHEAL ASPIRATE Information (test code = NONE 53648-0) Gram Stain (test code = 664-3) >=15/LPFWBCs <15/LPFSQUAMOUS EPITHELIAL CELLSNO ORGANISMS SEEN Culture (test code = 16792-6) NO GROWTH 2 DAYS Report Status (test code = FINAL04/11/2018 662937) LOW MOLECULAR HEPARIN ANTI-FACTOR XA [id number] 14:27:39 Test Item Value Reference Range Comments Heparin LMW (test code = 0.33 U/mL 3270-6) Hep Therapeutic Range (test Low Molecular Weight Heparin code = 398806) Anti-Factor Xa Assay(Anti-Factor Xa LMWH)Expected therapeutic range: 0.5-1 U/mL(twice daily dosing) or 1-2 U/mL(oncedaily dosing) [id number] 06:35:55 Test Item Value Reference Range Comments Triglycerides (test code = 2571-8) 274 mg/dL <150 Lab Interpretation (test code = 99054-2) Abnormal CULTURE, VRE [id number] 16:50:28 Test Item Value Reference Range Comments Specimen (test code = 89399-4) RECTAL SWAB Information (test code = 05290-9) SCREEN FOR VRE ONLY Culture (test code = 72481-6) NO VRE ISOLATED Report Status (test code = 930601) FINAL04/10/2018 CULTURE, MRSA [id number] 16:30:57 Test Item Value Reference Range Comments Specimen (test code = 51060-9) NARES Information (test code = 94752-7) SCREEN FOR MRSA ONLY Culture (test code = 37242-1) NO MRSA ISOLATED Report Status (test code = 497569) FINAL04/10/2018 TRANSESOPHAGEAL ECHO (BENJY)2018-04-10 16:00:17Reason for Exam: Pulmonary HTN Date of Service: 04/05/2018 Patient Yscght913.0cm Patient Bob [id number] Systolic Uxasxopi432vzCn Diastolic Pglobybe46erIu Study LocationECH BSA3.1m^2 Procedure: A 2D transesophageal echocardiogram was performed. A 2D transesophageal echocardiogram with Doppler and color flow Doppler was performed. Informed cons ent for Transesophageal Echocardiogram, and use of a contrast agent as needed, was obtained prior tothe procedure. A multifrequency, multiplane transesopheageal echocardiographic endoscope was inserted and manipulated in the standard fashion to achieve multiplane views. The usual views were obtained; basal, mid-esophageal, transgastric and aortic views. The patient's vital signs, including blood pressure, heart rate, pulse oximetry and cardiac rhythm were monitored throughout the procedure and remained stable. The patient tolerated the procedure well without evidence of orophangeal or esophageal trauma. There were no complications. Left Ventricle: The left ventricle is normal in size. The LV ejection fraction is normal. Ejection Fraction = 55-60%. Left Atrium: The left atrial size is normal. There is no Doppler evidence for an atrial septal defect. Injection of contrast documented an interatrial shunt. Right Atrium: Right atrial size is normal. Right Ventricle: The right ventricle is normal siz e. The right ventricular systolic function is normal. Aortic Valve: Structurally normal aortic valve. The aortic valve is trileaflet. No aortic regurgitation is present. Mitral Valve: Both leaflets arepliable and mobile. There is trace mitral regurgitation. Tricuspid Valve: Structurally normal tricuspid valve. There is no tricuspid stenosis. No tricuspid regurgitation. Pulmonic Valve: Structurally normal pulmonic valve. There is no pulmonic valvular regurgitation. Arteries: No obvious dissection could be visualized. Pericardium/Pleura: There is no pericardial effusion. Reviewing Fellow: Hermelindo Ortega MD Conclusion Normal LV function with visual LVEF 55-60%. No valvular abnormalities. No echocardiographic evidenc of pulmonary HTN. InterpretingPhysician:Interpreting Physician: Gale Dubois electronically signed on 2018-04-10 16:00:17.39 Rad, Results - 04/10/2018 4:00 PM EDT Reason for Exam: Pulmonary HTN Date of Service: 04/05/2018 Patient Height 171.0 cm Patient Weight 237. [id number] kg Systolic Pressure 110 mmHg Diastolic Pressure 45 mmHg Study Location ECH BSA 3.1 m^2 Procedure: A 2D transesophageal echocardiogram was performed. A 2D transesophageal echocardiogram with Doppler and color flow Doppler was performed. Informed consent for Transesophageal Echocardiogram, and use of a contrast agent as needed, was obtained prior to the procedure. A multifrequency, multiplane transesopheageal echocardiographic endoscope was inserted and manipulated in the standard fashion to achieve multiplane views. The usual views were obtained; basal, mid-esophageal, transgastric and aortic views. The patient's vital signs, including blood pressure, heart rate, pulse oximetry and cardiac rhythm were monitored throughout the procedure and remained stable. The patient tolerated theprocedure well without evidence of orophangeal or esophageal trauma. There were no complications. Left Ventricle: The left ventricle is normal in size. The LV ejection fraction is normal. Ejection Fract ion = 55-60%. Left Atrium: The left atrial size is normal. There is no Doppler evidence for an atrial septal defect. Injection of contrast documented an interatrial shunt. Right Atrium: Right atrial size is normal. Right Ventricle: The right ventricle is normal size. The right ventricular systolic function is normal. Aortic Valve: Structurally normal aortic valve. The aortic valve is trileaflet. No aortic regurgitation is present. Mitral Valve: Both leaflets are pliable and mobile. There is trace mitral regurgitation. Tricuspid Valve: Structurally normal tricuspid valve. There is no tricuspid stenosis. No tricuspid regurgitation. Pulmonic Valve: Structurally normal pulmonic valve. There is no pulmonic valvular regurgitation. Arteries: No obvious dissection could be visualized. Pericardium/Pleura:There is no pericardial effusion. Reviewing Fellow: Hermelindo Ortega MD Conclusion Normal LV functionwith visual LVEF 55-60%. No valvular abnormalities. No echocardiographic evidenc of pulmonary HTN. InterpretingPhysician:Interpreting Physician: Leo Espinoza M.D. electronically signed on 2018-04-10 16:00:17.39LD (LDH)2018-04-10 06:28:26 Test Item Value Reference Range Comments Lactate Dehydrogenase (LD; LDH) (test code = 374 U/L 125 -220 12372-3) Lab Interpretation (test code = 81979-8) Abnormal PT (PROTHROMBIN TIME) WITH [id number] 08:01:16 Test Item Value Reference Range Comments PT (test code = 5902-2) 14.1 sec 10.2- 12.9 sec INR (test code = 6301-6) 1.2 INR, Therapeutic Range (test code = STD THER RANGE 2-3 560421) Lab Interpretation (test code = 39763-6) Abnormal [id number] 08:01:16 Test Item Value Reference Range Comments aPTT (test code = 94314-8) 37.2 sec 25.1- 36.5 sec Lab Interpretation (test code = 49254-5) Abnormal TYPE & [id number] 07:22:35 Test Item Value Reference Range Comments PRODUCT CODE (test code = COMPONENT GROUP FOR RED CELLS 933-2) Blood Type ABO, Rh (test code O POS = 882-1) Antibody Screen (test code = NEG 890-4) NON-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 [id number] 16:20:00Transcription Rpt [facility] CYTOLOGY PATHOLOGY REPORT PATIENT: JOEY ORTEGA CASE: [id number] REQUESTINGPHYSICIAN: MICHAEL MCMAHON RECEIVED: 04/08/2018 7:46:36 AM DATE COLLECTED: 04/05/2018 COPY TO PHYSICIAN(S):MD EDUARD CLINICAL DIAGNOSIS: Hypoxic Respiratory Failure HISTORY AND CLINICALINFORMATION:Hypoxic Respiratory Failure. TISSUE BIOPSY TAKEN? No WERE CULTURES TAKEN? No SPECIMEN(S) SUBMITTED: A. Bronchoalveolar lavage GROSS:Received are 15 cc of thick, beige fluid, from which 1 air dried, Diff Quik stained cytospin and 1 BD PrepStain Papanicolaou stained monolayer are prepared. MICROSCOPIC: Microscopic examination is performed. DIAGNOSIS: BRONCHIAL LAVAGE CYTOLOGY: Marked acute inflammation. Macrophages identified. Cells diagnostic of malignancy are not identified. Diagnosis performed by Erna Gonsalez MD.Electronically signed 04/08/2018 4:19:07PM My signature is attestation that I have personally reviewed the submitted material(s) and the above diagnosis reflects that evaluation. [facility] 2018-[facility] 08:52:58 Test Item Value Reference Range Comments CK (K), Total (test code = 2157-6) 3342 U/L 30-200 Lab Interpretation (test code = 56950-5) Abnormal [id number] 02:10:42 Test Item Value Reference Range Comments Sodium (test code = 2951-2) 137 mEq/L 136- 145 mEq/L Potassium (test code = 2823-3) 4.3 mEq/L 3.5- 5.0 mEq/L Chloride (test code = 2075-0) 101 mEq/L 98- 107 mEq/L Bicarbonate (TCO2) (test code = 2027-) 22 mEq/L 22- 29 m Eq/L Anion Gap (calc.) (test code = 06293-6) 14 mEq/L 4- 12 mE q/L Lab Interpretation (test code = 11984-6) Abnormal CULTURE, QUANTITATIVE [id number] 11:16:12 Test Item Value Reference Range Comments Specimen (test code = 27937-5) BRONCHIAL LAVAGE Information (test code = 36CC R BAL 55741-1) Gram Stain (test code = 664-3) >=15/LPFWBCs <15/LPFSQUAMOUS EPITHELIAL CELLSNO ORGANISMS SEEN Culture (test code = 75336-4) <1,000 CFU/mLOropharyngeal alhaji Report Status (test code = 04/07/2018 660774) VENOUS BLOOD [id number] 20:23:20 Test Item Value Reference Range Comments PCO2, venous (test code = 2020-) 80 mm Hg 38- 50 mm Hg pH, venous (test code = 2746-6) 7.14 7.33-7.43 PO2, venous (test code = 2705-2) 53 mm Hg 30- 50 mm Hg Bicarbonate, venous (calc.) (test code = 2026-1) 20 mmol/L 24-28 O2 Saturation, venous (%) (test code = 64540-9) 83 % 60-85 Base DEFICIT, venous (calc.) (test code = 1927-3) 2.1 mmol/L 0-2 FIO2 Percent, Venous (test code = 3150-0) 60 % Lab Interpretation (test code = 49224-3) Abnormal HEPATIC FUNCTION [id number] 18:41:14 Test Item Value Reference Range Comments Albumin (test code = 1751-7) 3.3 g/dL 3.5-5.2 Bilirubin, Total (test code = 1974-2) 1.4 mg/dL 0.1-1.2 Bilirubin, Direct (test code = 1967-7) 1.0 mg/dL <0.5 Alkaline Phosphatase (test code = 6768-6) 58 U/L 40-150 AST (SGOT) (test code = 1920-8) 75 U/L <55 ALT (SGPT) (test code = 1742-6) 97 U/L 5-34 Protein, Total (test code = 2885-2) 7.2 g/dL 6.4-8.3 Lab Interpretation (test code = 98815-3) Abnormal ABG,[id number] 18:20:53 Test Item Value Reference Range Comments pCO2, arterial (test code = 74 mm Hg 31- 42 mm Hg 2019-01) pH, arterial (test code = 7.20 7.37-7.47 2743-1) pO2, arterial (test code = 80 mm Hg 80- 90 mm Hg 2702-7) Bicarbonate, arterial (calc.) 29 mmol/L 20-25 (test code = 2025-3) O2 Saturation, arterial (test 92 % 97-100 code = 8-6) Base EXCESS, arterial (calc.) 0.5 mmol/L 0-3 (test code = 5-7) FIO2 (%) (test code = 3150-0) INFORMATION NOT PROVIDED BY % UNIT Critical Action, Blood Gas (test Notify physician code = 734407) Critical Notify, Blood Gas (test dr Brooks code = 803461) Lab Interpretation (test code = Abnormal 46786-8) LACTIC [id number] 17:47:24 Test Item Value Reference Range Comments Lactic Acid (test code = 2524-7) 0.9 mmol/L 0.5-2 FUNGUS [id number] 11:02:51 Test Item Value Reference Range Comments Specimen (test code = 66127-3) BRONCHIAL LAVAGE Information (test code = 36410-8) 36CC R BAL Fungal Stain (test code = 60368-7) NO FUNGAL ELEMENTS SEEN Report Status (test code = 844530) FINAL04/06/2018 LEGIONELLA ANTIGEN, [id number] 03:42:17Legionella Ag, urine Not Detected Reference range: Not Detected (NOTE) This assay is specific for Legionella pneumophila serogroup 1 which causes more than 50% of all Legionella infections. This assay will not detect infections caused by other Legionella species/serogrps. Antigenuria may persist for prolonged periods of time. Legionella pneumophila serogroup 1 antigen can be detected in urine within 2-3 days of infection and may persist even after treatment.This assay does not detect other Legionella species or serogroups. Test Performed by [facility] [place], [employer] [facility],[address] [place] [address] Tyrone Bloom M.D., Ph.D., Director of Laboratories , [place] [id number] [place] [address] [id number] 12:44:00 Test Item Value Reference Range Comments EKG Text (test code = [facility] 673982) [facility]- NORMAL ECG -Sinus rhythmnormal P axis, V-rate 50-99No previous ECG available for comparisonReading PhysicianYoel 36198 Heart Rate (test code = 86 BPM BPM 182553) P [place] (test code = 75 degrees degrees 460325) I-40 [place] (test code = -32 degrees degrees 401360) T-40 [place] (test code = 139 degrees degrees 392005) QRS [place] (test code = 74 degrees degrees 142617) ST [place] (test code = 21 degrees degrees 971906) T Wave [place] (test code = 39 degrees degrees 298385) [id number] 12:01:24 Test Item Value Reference Range Comments Brain Natriuretic Peptide (BNP) (test code = 26 pg/mL <10 0 60885-9) [id number] 16:11:35 Test Item Value Reference Range Comments EC LVIDd (test code = 20380630) 4 cm EC LVIDs (test code = 20380701) 2.2 cm EC FS (test code = 20400128) 45.6 % EC EDV(Teich) (test code = 20380929) 69.6 ml EC ESV(Teich) (test code = 20380930) 15.7 ml EC EF(Teich) (test code = 20400127) 77.5 % EC EDV(cubed) (test code = 803886) 63.5 ml EC ESV(cubed) (test code = 20390925) 10.2 ml EC EF(cubed) (test code = 20391231) 83.9 % EC SV(Teich) (test code = 252089) 53.9 ml EC SI(Teich) (test code = 448005) 17.7 ml/m\\S\\2 ml/m\\S\\2 EC SV(cubed) (test code = 810776) 53.3 ml EC SI(cubed) (test code = 639892) 17.5 ml/m\\S\\2 ml/m\\S\\2 EC MVEmaxvel (test code = 285567) 90.2 cm/sec cm/sec EC MVAmaxvel (test code = 569289) 44.1 cm/sec cm/sec EC MV E/A (test code = 523661) 2 EC MV dec slope (test code = 494251) 301 cm/sec\\S\\2 cm/sec\\S\\2 EC MV dec time (test code = 219146) 0.3 sec sec EC LVOTmaxgradient (test code = 561950) 3.1 mmHg mmHg EC LVOTmaxvel (test code = 030413) 88.3 cm/sec cm/sec MAURI (test code = MAURI) PXN (test code = PXN) MRSA ADMIT [id number] 06:40:11 Test Item Value Reference Range Comments MRSA DNA (PCR) (test RESULT: NEGATIVE This assay uses polymerase code = 18041-3) chain reaction w ith DNA probes targeted against a region near the insertion si te of the SCCmec gene of S taphylococcus aureus. S. PNEUMONIAE AG,[id number] 04:38:49 Test Item Value Reference Range Comments Specimen (test code = 79488-5) URINE Information (test code = This test has not been found 89467-1) to consistently correlate with culture. S.pneumoniae ag, urine (test PRESUMPTIVE NEGATIVE for code = 83746-9) pneumococcal pneumonia, suggesting no current orrecent pneumococcal infection. Infection due to S.pneumoniae cannot be ruledout since the antigen present in the sample may be below the detection limit ofthe test. Report Status (test code = FINAL04/04/2018 679266) CTA CHEST W & W/O IV [id number] 04:17:00Impression: 1. No evidence of pulmonary embolism. 2. Minimal bilateral groundglass opacities, small pleural effusions, mild body wall anasarca. 3. Moderate bilateral dependent and basilar atelectasis with mucoid impaction lower lobe bronchi. Aspiration is a differential consideration. 4. Borderline cardiomegaly. Enlarged main pulmonary artery consistent with pulmonary arterial hypertension. 5. Fatty infiltration liver with possible early cirrhosis. 6. Possible nonocclusive thrombus or fibrin sheath SVC with right anterior chest wall collateral vessels. Reading Doctor: Hollis Singh Electronic Signature by: Hollis Singh Clinical History: Respiratory distress. Acute respiratory failure, evaluate for pulmonary embolism. Technique: Multidetector CT through chest with IV contrast using CT angiographic technique. Multiplanar and maximum intensity projection 3D reconstructions performed. Contrast:100 cc of Omnipaque 350 IV left antecubital fossa without incident. Comparison: Chest radiograph 04/03/2018. Findings: No filling defect seen in visualized pulmonary artery branches. Main pulmonary artery is enlarged. Moderate bilateral dependent and basilar atelectasis with mucoid impaction bilateral lower lobe bronchi. Small bilateral pleural effusions, right greater than left. Nasogastric tube tip in gastric body. Borderline heart size. Endotracheal tube tip in distal trachea. No evidence of pneumothorax, pericardial effusion, or significant adenopathy. Right anterior chest wall collateral vessels. Atherosclerosis thoracic aorta without evidence of dissection or aneurysm. Mild heterogeneous bilateral groundglass opacities. Possible nonocclusive filling defect in SVC versus mixing artifact. Moderate fatty infiltration liver with slightly nodular hepatic contour and hypertrophy of caudate lobe raising possibility of early cirrhosis. Calcified granuloma right lobe of liver. Obesity. Mild body wall anasarca. Spondylosis thoracic spine. Interface, Radresults_Incoming - 04/04/2018 4:21 AM EDT Clinical History: Respiratory distress. Acute respiratory failure, evaluate for pulmonary embolism. Technique: Multidetector CT through chest with IV contrast using CT angiographic technique. Multiplanar and maximum intensity projection 3D reconstructions performed. Contrast: 100 cc of Omnipaque 350 IV left antecubital fossa without incident. Comparison: Chest radiograph 04/03/2018. Findings: No filling defect seen in visualized pulmonary artery branches. Main pulmonary artery is enlarged. Moderate bilateral dependent and basilar atelectasis with mucoid impaction bilateral lower lobe bronchi. Small bilateral pleural effusions, right greater than left. Nasogastric tube tip in gastric body. Borderline heart size. Endotracheal tube tip in distal trachea. No evidence of pneumothorax, pericardial effusion,or significant adenopathy. Right anterior chest wall collateral vessels. Atherosclerosis thoracic aorta without evidence of dissection or aneurysm. Mild heterogeneous bilateral groundglass opacities. Possible nonocclusive filling defect in SVC versus mixing artifact. Moderate fatty infiltration liver with slightly nodular hepatic contour and hypertrophy of caudate lobe raising possibility of early cirrhosis. Calcified granuloma right lobe of liver. Obesity. Mild body wall anasarca. Spondylosis thoracic spine. IMPRESSION Impression: 1. No evidence of pulmonary embolism. 2. Minimal bilateral groundglass opacities, small pleural effusions, mild body wall anasarca. 3. Moderate bilateral dependent and basilar atelectasis with mucoid impaction lower lobe bronchi. Aspiration is a differential consideration. 4. Borderline cardiomegaly. Enlarged main pulmonary artery consistent with pulmonary arterial hypertension. 5. Fatty infiltration liver with possible early cirrhosis. 6. Possible nonocclusive thrombus or fibrin sheath SVC with right anterior chest wall collateral vessels. Reading Doctor: Hollis Singh Electronic Signature by: Hollis SinghXRAY OUTSIDE [id number] 23:59:30Impression: Outside images; no interpretation rendered.RESPIRATORY PANEL, RAPID MOLECULAR 2018-04-03 22:18:31 Test Item Value Reference Range Comments Adenovirus (test code = NOT DETECTED NOTD^NOT DETECTED 52000-1) Coronavirus 229E (test NOT DETECTED NOTD^NOT DETECTED code = 01827-3) Coronavirus NL63 (test NOT DETECTED NOTD^NOT DETECTED code = 40603-0) Coronavirus OC43 (test NOT DETECTED NOTD^NOT DETECTED code = 38196-9) Human Metapneumovirus NOT DETECTED NOTD^NOT DETECTED (test code = 25288-3) Human DETECTED NOTD^NOT DETECTED Rhinovirus/Enterovirus (test code = 05765-5) Influenza A (test code = NOT DETECTED NOTD^NOT DETECTED 18988-8) Influenza B (test code = NOT DETECTED NOTD^NOT DETECTED 67527-5) Parainfluenza virus 1 NOT DETECTED NOTD^NOT DETECTED (test code = 41823-2) Parainfluenza virus 2 NOT DETECTED NOTD^NOT DETECTED (test code = 48338-1) Parainfluenza virus 3 NOT DETECTED NOTD^NOT DETECTED (test code = 76312-4) Parainfluenza virus 4 NOT DETECTED NOTD^NOT DETECTED (test code = 11878-9) Respiratory syncytial NOT DETECTED NOTD^NOT DETECTED virus (test code = 22489-1) Bordetella pertussis NOT DETECTED NOTD^NOT DETECTED (test code = 87755-6) Chlamydophila pneumoniae NOT DETECTED NOTD^NOT DETECTED (test code = 91312-8) Mycoplasma pneumoniae NOT DETECTED NOTD^NOT DETECTED (test code = 55088-1) Comments (test code = This assay uses an amplified 8251-1) multiplex nucleic acid test for the simultaneousqualitative detection and identification of multiple respiratory viruses and 3atypical bacteria (Bordetella pertussis, Chlamydophila pneumoniae andMycoplasma pneumoniae). Specimen Type: (test code SWAB = 13416-8) Specimen Source (test NASOPHARYNX code = 52701-5) Lab Interpretation (test Abnormal code = 70099-2) TSH WITH REFLEX TO FREE [id number] 21:15:57 Test Item Value Reference Range Comments TSH with Reflex (test code = 37855-5) 2.18 uIU/mL 0.35- 4.94 uIU/mL TROPONIN [id number] 21:01:56 Test Item Value Reference Range Comments Troponin I (test code = 34683-5) <0.03 0-0.03 [id number] 20:27:42 Test Item Value Reference Range Comments d-Dimer (test code = 47879-4) 627 ng/mL <590 Th is test (Thinglink D-D david assay) has been cleared by the FDA and is intended for use in conjunction with a non-high clinical pre-anna t probability asse ssment model to exclude deep vein thrombosis (DVT) and pulmonary embolu s (PE).A D-dimer result o f 500 ng/mL (FEU) is conside red negative and a D-dimer re sult greater than or equal to 500 ng/mL (FEU) is conside red positive. Result s of this test must always be interpreted in c onjunction with the patient 's medical history, clinica l presentation, ad ditional laboratory tests and other findings. Any use of the age-adjus parvin cutoff value is a post- analytic modification of this FDA-approved anna t and is considered "off- label" use of the test resu lt. The [facility] does not have literature to parson pport the validity of an a ge-adjusted cutoff for our s pecific assay. Lab Interpretation (test code = Abnormal 43722-3) [id number] 13:44:003.43COMPREHENSIVE METABOLIC [id number] 13:44:00 Test Item Value Reference Range Comments PROTEIN, TOTAL (test code = 96103950) 7.5 g/dL 6.1-8.1 CALCIUM (test code = 44712005) 9.2 mg/dL 8.6-10.3 SODIUM (test code = 40556859) 143 mmol/L 135-146 CHLORIDE (test code = 71866973) 102 mmol/L 98-110 ALT (test code = 41494820) 31 U/L 9-46 eGFR NON-AFR. MICRONESIAN (test code = 119 mL/min/1.73m2 > OR = 60 81620732) BILIRUBIN, TOTAL (test code = 0.2 mg/dL 0.2-1.2 88382098) ALKALINE PHOSPHATASE (test code = 59 U/L 40-115 39887918) POTASSIUM (test code = 49741438) 4.8 mmol/L 3.5-5.3 ALBUMIN (test code = 88082595) 4.4 g/dL 3.6-5.1 UREA NITROGEN (BUN) (test code = 15 mg/dL 7-25 28305059) CREATININE (test code = 04782185) 0.84 mg/dL 0.60-1.35 AST (test code = 22292431) 24 U/L 10-40 GLOBULIN (test code = 89298515) 3.1 g/dL (calc) 1.9-3.7 ALBUMIN/GLOBULIN RATIO (test code = 1.4 (calc) 1.0-2.5 75008098) CARBON DIOXIDE (test code = 21467857) 34 mmol/L 20-31 BUN/CREATININE RATIO (test code = NOT APPLICABLE (calc) 6-22 57169785) GLUCOSE (test code = 67499579) 82 mg/dL 65-99 eGFR (test code = 138 mL/min/1.73m2 > OR = 60 62377213) T4, [id number] 13:44:001.1HEMOGLOBIN A1c WITH [id number] 13:44:00 Test Item Value Reference Range Comments eAG (mmol/L) (test code = 03830244) 5.8 (calc) HEMOGLOBIN A1c (test code = 14310550) 5.3 % of total Hgb <5.7 eAG (mg/dL) (test code = 31121373) 105 (calc) HEPATIC FUNCTION [id number] 13:44:00 Test Item Value Reference Range Comments AST (test code = 97235930) 24 U/L 10-40 ALT (test code = 33579355) 31 U/L 9-46 BILIRUBIN, INDIRECT (test code = 82738384) 0.1 mg/dL (calc) 0.2- 1.2 ALBUMIN (test code = 32832101) 4.4 g/dL 3.6-5.1 GLOBULIN (test code = 96308095) 3.1 g/dL (calc) 1.9-3.7 PROTEIN, TOTAL (test code = 95545330) 7.5 g/dL 6.1-8.1 ALKALINE PHOSPHATASE (test code = 95802730) 59 U/L 40-1 15 ALBUMIN/GLOBULIN RATIO (test code = 1.4 (calc) 1.0-2.5 31234050) BILIRUBIN, TOTAL (test code = 53194005) 0.2 mg/dL 0.2-1.2 BILIRUBIN, DIRECT (test code = 15495653) 0.1 mg/dL < OR = 0.2 CBC (H/H, RBC, INDICES, WBC, PLT)2017-10-01 13:44:00 Test Item Value Reference Range Comments MCH (test code = 50993988) 28.0 pg 27.0-33.0 HEMATOCRIT (test code = 57826365) 47.4 % 38.5-50.0 RED BLOOD CELL COUNT (test code = 70446312) 5.47 Million/uL 4.20 -5.80 RDW (test code = 34389458) 13.1 % 11.0-15.0 PLATELET COUNT (test code = 04077441) 259 Thousand/uL 140-400 MCV (test code = 90004959) 86.7 fL 80.0-100.0 MCHC (test code = 50901418) 32.3 g/dL 32.0-36.0 WHITE BLOOD CELL COUNT (test code = 8.3 Thousand/uL 3.8-10.8 12158430) HEMOGLOBIN (test code = 49943391) 15.3 g/dL 13.2-17.1 MPV (test code = 57890760) 11.5 fL 7.5-12.5 Hemoglobin A1c with [id number] 17:08:00 Test Item Value Reference Range Comments Hemoglobin A1C (test code = 760398) 5.2 % <5.7 eAG (calc) (test code = 298133) 103 mg/dL CMP with Estimated [id number] 17:08:00 Test Item Value Reference Range Comments Bilirubin, Total (test code = 967259) 0.7 mg/dL 0.2-1.2 Glucose (test code = 671035) 101 mg/dL 65-99 Alkaline Phosphatase (test code = 509661) 52 U/L 40-115 Total Protein (test code = 932204) 7.2 g/dL 6.1-8.1 Creatinine (test code = 117938) 0.78 mg/dL 0.60-1.35 Est GFR, NonAfrican [place]an (test code = 506368) >89 mL/min >=60 Potassium (test code = 556291) 4.8 mmol/L 3.5-5.3 Albumin (test code = 384683) 4.2 g/dL 3.6-5.1 Est GFR, (test code = 426122) >89 mL/min > =60 AST/SGOT (test code = 839781) 26 U/L 10-40 CO2 (test code = 098024) 31 mmol/L 20-31 Calcium (test code = 954515) 9.5 mg/dL 8.6-10.3 BUN (test code = 471093) 18 mg/dL 7-25 Chloride (test code = 870105) 96 mmol/L 98-110 ALT/SGPT (test code = 340282) 50 U/L 9-46 Sodium (test code = 249176) 142 mmol/L 135-146 T4 Free (FT4)2017-02-15 17:08:00 Test Item Value Reference Range Comments Free T4 (test code = 969249) 1.0 ng/dL 0.8-1.8 [id number] 17:08:00 Test Item Value Reference Range Comments TSH (test code = 315052) 0.85 mIU/L 0.40-4.50 CBC NO Diff (Complete Blood Count)2017-02-15 17:08:00 Test Item Value Reference Range Comments Hemoglobin (test code = 772148) 16.0 g/dL 13.2-17.1 RDW (test code = 586295) 15.5 % 11.0-15.0 Platelet Count (test code = 980671) 275 K/uL 140-400 WBC (test code = 190083) 12.6 K/uL 3.8-10.8 MCHC (test code = 487825) 31.8 g/dL 32.0-36.0 MCV (test code = 476189) 88.9 fL 80.0-100.0 MPV (test code = 092282) 11.9 fL 7.5-12.5 MCH (test code = 227398) 28.3 pg 27.0-33.0 RBC (test code = 308589) 5.66 MIL/uL 4.20-5.80 Hematocrit (test code = 413147) 50.3 % 38.5-50.0 CBC WITH DIFF\\[id number] 15:29:00 Test Item Value Reference Range Comments ABSOLUTE NEUT (AUTO) (test code = NE#) 5.8 10 3/uL 1.7-8.2 ABSOLUTE LYMPHOCYTES (AUTO) (test code = LY#) 1.6 10 3/uL 0. 5-4.7 WHITE BLOOD COUNT (test code = WBC) 8.6 10 3/uL 4.0-10.5 PLATELET COUNT (test code = PLT) 211 10 3/uL 150-450 ABSOLUTE BASOPHILS # (AUTO) (test code = BA#) 0.1 10 3/uL 0. 0-0.2 MEAN CORPUSCULAR VOLUME (test code = MCV) 87 fl 80-97 EOSINOPHILS % (AUTO) (test code = EO%) 3.3 % 0-6 SEGMENTED NEUTROPHILS % (AUTO) (test code = 67.5 % 42-7 8 SEG%) HEMATOCRIT (test code = HCT) 47.8 % 37.9-51.0 HEMOGLOBIN (test code = HGB) 15.3 g/dL 13.5-17.0 ABSOLUTE EOSINOPHILS # (AUTO) (test code = EO#) 0.3 10 3/uL 0.0-0.6 MEAN CORPUSCULAR HEMOGLOBIN (test code = MCH) 27.9 pg 27 .0-33.4 MEAN CORPUSCULAR HGB CONC (test code = MCHC) 32.0 g/dL 32. 0-36.0 LYMPHOCYTES % (AUTO) (test code = LY%) 18.8 % 13-45 RED BLOOD COUNT (test code = RBC) 5.49 10 6/uL 4.35-5.55 ABSOLUTE MONOCYTES (AUTO) (test code = MO#) 0.8 10 3/uL 0.1- 1.4 BASOPHILS % (AUTO) (test code = BA%) 0.6 % 0-2 RED CELL DISTRIBUTION WIDTH (test code = RDW) 16.2 % 11 .5-14.0 MONOCYTES % (AUTO) (test code = MO%) 9.8 % 3-13 COMPREHENSIVE METABOLIC PANEL\\[id number] 15:29:00 Test Item Value Reference Range Comments POTASSIUM (test code = K) 4.0 mmol/L 3.6-5.0 CALCIUM (test code = CA) 9.0 mg/dL 8.4-10.2 BILIRUBIN,DIRECT (test code = BC) 0.4 mg/dL 0.0-0.4 ALBUMIN (test code = ALB) 4.2 g/dL 3.5-5.0 GLUCOSE (test code = GLU) 102 mg/dL 75-110 BILIRUBIN,TOTAL (test code = TBIL) 0.5 mg/dL 0.2-1.3 ALKALINE PHOSPHATASE (test code = ALKP) 66 U/L 38-126 SODIUM (test code = NA) 144.9 mmol/L 137-145 ANION GAP (test code = ANION) 7 5-19 ALANINE AMINOTRANSFERASE (test code = ALT) 46 U/L 21-72 BLOOD UREA NITROGEN (test code = BUN) 14 mg/dL 7-20 ASPARTATE AMINO TRANSFERASE (test code = AST) 30 U/L 17 -59 CARBON DIOXIDE (test code = CO2) 38 mmol/L 22-30 CHLORIDE (test code = CL-1) 100 mmol/L 98-107 CREATININE RESULT (test code = CREA) 0.80 mg/dL 0.52-1.25 EGFR,NON (test code = GFRN) > 60 >60 EGFR, (test code = GFRAA) > 60 >60 TOTAL PROTEIN (test code = TP) 7.5 g/dL 6.3-8.2 Assessments Condition Name Status Diagnosis Date Treating Clinici an Chronic obstructive pulmonary disease, Active unspecified Morbid (severe) obesity due to excess Active calories Hypertensive heart disease without heart Active failure Body mass index (BMI) 70 or greater, adult Active Infection of tracheostomy stoma Active Venous insufficiency (chronic) (peripheral) Active Morbid (severe) obesity due to excess Active calories Body mass index (BMI) 70 or greater, adult Active Chronic obstructive pulmonary disease w Active (acute) exacerbation Candidiasis of skin and nail Active Major depressv disorder, recurrent severe 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 psych features Body mass index (BMI) 70 or greater, adult Active Morbid (severe) obesity due to excess Active calories Body mass index (BMI) 70 or greater, adult Active Venous insufficiency (chronic) (peripheral) Active Chronic obstructive pulmonary disease, Active unspecified Morbid (severe) obesity due to excess Active calories Body mass index (BMI) 70 or greater, adult Active Candidiasis of skin and nail Active Panlobular emphysema Active Chronic obstructive pulmonary disease w Active (acute) exacerbation Edema, unspecified Active Morbid (severe) obesity due to excess Active calories Body mass index (BMI) 60.0-69.9, adult Active Chronic obstructive pulmonary disease, Active unspecified Morbid (severe) obesity due to excess Active calories Venous insufficiency (chronic) (peripheral) Active Contact with and (suspected) exposure to Active viral hepatitis Hypothyroidism, unspecified Active Chronic obstructive pulmonary disease, Active unspecified Essential (primary) hypertension Active Dysthymic disorder Active Major depressive disorder, single episode, Active unspecified Anxiety disorder, unspecified Active Chronic obstructive pulmonary disease, Active unspecified Dependence on supplemental oxygen Active Body mass index (BMI) 70 or greater, adult Active Essential (primary) hypertension Active Chronic obstructive pulmonary disease, Active unspecified Apnea, not elsewhere classified Active Right lower quadrant abdominal mass Active Sleep apnea in adult Active Sleep apnea, central Active Hypoxia Active Chronic respiratory failure with hypoxia, on Active home O2 therapy LVH (left ventricular hypertrophy) Active Obesity, morbid Active COPD (chronic obstructive pulmonary disease) Active with emphysema Adult body mass index 70 and over Active Encounter for health education Active Encounters Start End Encounter Admission Attending Care Care Encounter Date/Time Date/Time Type Type Clinicians Facility Department ID 2018-04-03 Inpatient X PATRICK NIEVESNT [id number] 18:15:00 [facility] 2020-02-17 2020[facility]02[id number]:15:00 16:15:00 Dhruv Wilkes [id number] s [id number] [id number]11 2019[facility]12[facility] [id number] 13:30:00 13:30:00 Dhruv Children???s [id number] and [id number] Multispec[facility]ty [id number] Clini 2019-05-06 2019-05-06 [facility] [id number] 14:15:00 14:15:00 Dhruv Children [id number] s [id number] [id number]18 2019[facility]02-18 [facility] [id number] 15:45:00 15:45:00 Dhruv Wilkes???s [id number] and [id number] Multispecialty [id number] Clini 2019-01-21 2019-01-21 [facility] [id number] 15:00:00 15:00:00 Dhruv Children???s [id number] and [id number] Multispecialty [id number] Clini 2018-11-19 2018-11-19 Outpatient [facility] [id number] 00:00:00 00:00:00 2018-11-19 2018-11-19 Outpatient VIDANT VIDANT [id number] 00:00:00 00:00:00 2018-10-29 2018-10-29 [facility] [id number] 10:15:00 10:15:00 Dhruv Wilkes [id number] s [id number] and [id number] [facility], 2018-06-06 2018-06-06 Outpatient Aiyana [facility] 6 [id number] 11:00:00 11:00:00 Dhruv Wilkes [id number] s [id number] and [id number] [facility], [place] 2018-05-21 2018-05-21 Outpatient U KARI VIDANT VIDANT [id number] 11:29:31 23:59:00 MARC 2018-04-03 2018-05-21 Inpatient VIDANT VIDANT [id number] 18:15:00 11:44:00 2018-04-03 2018-05-21 Inpatient X DAWIT VIDANT VIDANT [id number] 18:15:00 11:44:00 SURESH 2018-04-03 2018-04-03 Outpatient X JONATHAN VIDANT VIDANT [id number] 14:58:26 18:14:00 DOMINGA 2018-04-03 2018-04-03 Outpatient VIDANT VIDANT [id number] 14:58:26 18:14:00 2017-10-01 2017-10-01 Outpatient Yony [facility] 69 [id number] 13:30:00 13:30:00 [facility] Children [id number] s [id number] and [id number] [facility], [place] 2017-03-29 2017-03-29 Outpatient Yony [facility] A9 [id number] 13:00:00 13:00:00 [facility] [id number] s [id number] and [id number] [facility], [place] 2017-02-15 2017-02-15 Outpatient Yony [facility] 02 [id number] 16:00:00 16:00:00 [facility] [id number] s [id number] and [id number] [facility], [place] 2017-02-06 2017-02-06 [id number] 15:10:00 15:10:00 [facility] Immunizations Ordered Filled Immunization Date Status Comments Refus al Immunization Name Name Reason Influenza Virus 2018-05-21 Cancelled Deferred: Vaccine, Injection 00:00:00 Patient Refused Pneumococcal 2018-05-21 Cancelled Deferred: Vaccine, 23-HAVEN 00:00:00 Patient Polysac Refused Payers Payer Name Policy Type Policy Number Effective Date Expiration D ate MEDICAID [employer] ACCESS [id number] MEDICAIDMEDICAID [place] xxxxxxxxxx ACCESSxxxxxxxxxxEffective for all [phone] Plan of Treatment Planned Activity Planned Date Details Comments Future Scheduled Test [code = ] Future Scheduled Test [code = ] Future Scheduled Test [code = ] Future Scheduled Test [code = ] Future Scheduled Test [code = ] Social History Smoking Status Start Date Stop Date Unknown if ever smoked Smoker, current status unknown 2018-04-29 00:00:00 00:00:00 Vital Signs Vital Name Observation Time Observation Value Comments Systolic blood pressure 2018-05-21 08:05:00 152 mm[Hg] Diastolic blood pressure 2018-05-21 08:05:00 76 mm[Hg] Heart rate 2018-05-21 08:05:00 88 /min Body temperature 2018-05-21 08:05:00 36.28 Yisel Respiratory rate 2018-05-21 08:05:00 18 /min Oxygen saturation in Arterial blood by 2018-05-21 08:05:00 99 % Pulse oximetry Body weight Measured 2018-05-12 20:00:00 204.9 kg BMI 2018-05-12 20:00:00 70.75 kg/m2 Body height 2018-05-06 18:33:00 170.2 cm
[2020-05-07] MEDS: ACETAZOLAMIDE SODIUM INJ 500 MG VIAL IV SCH ×2 (15:18→22:33)
[2020-05-07] MEDS ORDERED: ACETAZOLAMIDE SODIUM INJ 500 MG VIAL ONE (22:27)
[2020-05-07] MEDS: ATORVASTATIN CALCIUM 40 MG TABLET PO SCH (22:33)
[2020-05-08] MEDS: LEVOTHYROXINE SODIUM 0.1 MG TABLET PO SCH (05:35)
[2020-05-08] MEDS: GABAPENTIN 300 MG CAPSULE PO SCH ×3 (05:35→22:09)
[2020-05-08 05:45] LABS: ARTERIAL BLOOD BASE EXCESS 12.1 mmol/L; ARTERIAL BLOOD H2CO3 2.74 mmol/L (1.05-1.35); ARTERIAL BLOOD O2 SATURATION 84.7 % (94-98); ARTERIAL BLOOD PH 7.28 (7.35-7.45); ARTERIAL BLOOD PO2 57.9 mmHg (80-100); ARTERIAL BLOOD TOTAL CO2 44.8 mmol/L (23-27)
[2020-05-08 05:48] LABS: ARTERIAL BLOOD PCO2 90.9 mmHg (35-45)
[2020-05-08 06:39] LABS: ABSOLUTE EOSINOPHILS # (AUTO) 0.3 10^3/uL (0.0-0.6); ABSOLUTE LYMPHOCYTES (AUTO) 1.3 10^3/uL (0.5-4.7); ABSOLUTE NEUT (AUTO) 8.4 10^3/uL (1.7-8.2); BASOPHILS % (AUTO) 0.1 % (0-2); EOSINOPHILS % (AUTO) 2.5 % (0-6); HEMATOCRIT 30.6 % (37.9-51.0); HEMOGLOBIN 9.5 g/dL (13.5-17.0); LYMPHOCYTES % (AUTO) 11.5 % (13-45); MEAN CORPUSCULAR HEMOGLOBIN 27.7 pg (27.0-33.4); MEAN CORPUSCULAR HGB CONC 31.2 g/dL (32.0-36.0); MEAN CORPUSCULAR VOLUME 89 fl (80-97); MONOCYTES % (AUTO) 8.9 % (3-13); PLATELET COUNT 298 10^3/uL (150-450); RED BLOOD COUNT 3.45 10^6/uL (4.35-5.55); RED CELL DISTRIBUTION WIDTH 17.4 % (11.5-14.0); TOTAL CELLS COUNTED % (AUTO) 100 %
[2020-05-08 07:00] LABS: ALBUMIN 3.9 g/dL (3.5-5.0); ALKALINE PHOSPHATASE 60 U/L (38-126); ASPARTATE AMINO TRANSFERASE 26 U/L (17-59); BILIRUBIN,DIRECT 0.1 mg/dL (0.0-0.4); BILIRUBIN,TOTAL 0.3 mg/dL (0.2-1.3); BLOOD UREA NITROGEN 24 mg/dL (7-20); CALCIUM 9.8 mg/dL (8.4-10.2); CHLORIDE 89 mmol/L (98-107); GLUCOSE 110 mg/dL (75-110); POTASSIUM 4.2 mmol/L (3.6-5.0); TOTAL PROTEIN 7.6 g/dL (6.3-8.2)
[2020-05-08 07:13] LABS: ANION GAP 11 (5-19)
[2020-05-08 07:14] LABS: CARBON DIOXIDE 41 mmol/L (22-30)
[2020-05-08] MEDS ORDERED: INFLUENZA QUAD (6MOS+) 2020-21 VAC 0.5 ML SYR IM ONE (08:00)
[2020-05-08] MEDS: IPRATROPIUM/ALBUTEROL 0.5-2.5 MG/3 ML AMPUL NEB SCH ×4 (08:21→21:48)
[2020-05-08] MEDS: HYDROCHLOROTHIAZIDE 25 MG TABLET PO SCH (08:31)
[2020-05-08] MEDS: AMLODIPINE BESYLATE 10 MG TABLET PO SCH (08:31)
[2020-05-08] MEDS: DOCUSATE SODIUM 100 MG CAPSULE PO SCH (10:08)
[2020-05-08] MEDS: BUSPIRONE HCL 10 MG TABLET PO SCH ×2 (10:08→17:40)
[2020-05-08] MEDS: ENOXAPARIN SODIUM INJ 40 MG/0.4 ML DISP.SYRIN SUBCUT SCH ×2 (10:08→22:09)
[2020-05-08] MEDS: SERTRALINE HCL 50 MG TABLET PO SCH (10:08)
[2020-05-08] MEDS: LEVOFLOXACIN 750 MG TABLET PO SCH (10:08)
[2020-05-08] MEDS: THEOPHYLLINE ANHYDROUS 300 MG TAB.SR.12H PO SCH ×2 (10:10→22:09)
[2020-05-08] MEDS: MEDROXYPROGESTERONE ACET 10 MG TABLET PO SCH ×3 (10:10→17:40)
[2020-05-08] MEDS: LISINOPRIL 10 MG TABLET PO SCH (10:14)
[2020-05-08] MEDS: ACETAZOLAMIDE SODIUM INJ 500 MG VIAL IV SCH ×3 (10:14→23:24)
[2020-05-08] MEDS: NYSTATIN TOPICAL POWDER 15 GM TP SCH ×2 (10:14→17:47)
--- NOTE | 2020-05-08 15:45 | PDOC PROGRESS REPORT ---
Subjective Date:: 05/08/20 Subjective:: As per admitting physician's note JOEY ORTEGA III is a 30 year old male with past medical history significant for severe morbid obesity BMI 78, OSH, TERRANCE, tracheostomy and ventilator support dependency, chronic hypoxemic and hypercarbic respiratory failure, COPD, hypertension, asthma who presents with a 3-day history of progressive shortness of breath/KING/productive cough. Patient denies fever/chills/nausea/vomiting/diarrhea/abdominal pain. Patient denies any COVID-19 contacts and states that he lives at home alone completely quarantined. Patient states he came to the ED a few days ago and was told he has "probably early pneumonia" but was not given any antibiotics per patient. EMS found patient to have an oxygen saturation in the low 80s and he was increased from [place] s home oxygen of 5 L up to 8 L. Patient follows with Dr. More outpatient in pulmonology. Consult ordered. Patient's ABG showed severe hypercarbic respiratory failure with a CO2 of 99.4 and a pH of 7.31. Of note, patient has high CO2 at baseline but this is quite a bit higher than his usual elevated CO2. Patient started on Levaquin given that he requires ventilator support at home and may have ventilator associated pneumonia. Chest x-ray showed right lower lobe infiltrate nonspecific. White blood cell count is normal at 9.7. He is admitted to [facility] under observation. 05/06/2020. No acute events overnight. Saw patient in the afternoon in ED, currently sitting on edge of his bed, on supplemental oxygen, reporting mild improvement of his symptoms, denies any fever, chills, nausea, vomiting. 05/24/2020. No acute events overnight. Patient is still complaining of excessive secretion from tracheostomy overall he is reporting mild improvement, denies any fever, chills, nausea, vomiting. 05/08/2020. Unfortunately patient did not use his ventilator overnight indicating that he could not sleep, this morning his ABG shows that he is more hypoxemic and his hypercarbia has not improved much, otherwise patient sitting at the edge of the bed in no apparent distress, denies any fever, chills, nausea, vomiting, diarrhea, constipation. Reason For Visit: COPD EXACERBATION,ACUTE ON CHRONIC Physical Exam Vital Signs: Temp Pulse Resp BP Pulse Ox 98.3 F 85 16 96/52 L 95 11/14/20 08:58 05/08/20 14:00 05/08/20 12:48 05/08/20 10:25 05/08/20 12:48 Intake & Output 05/07/20 05/08/20 05/09/20 06:59 06:59 06:59 Intake Total 681 1371 275 Output Total 850 1550 1300 Balance -169 179 -1025 Weight 240 kg 219.2 kg General appearance: PRESENT: no acute distress, morbidly obese, well-developed, well-nourished Head exam: PRESENT: atraumatic, normocephalic Respiratory exam: PRESENT: clear to auscultation kapil, other - Trach in place. ABSENT: rales, rhonchi, wheezes Cardiovascular exam: PRESENT: RRR. ABSENT: diastolic murmur, rubs, systolic murmur GI/Abdominal exam: PRESENT: normal bowel sounds, soft. ABSENT: distended, guar ding, mass, organolmegaly, rebound, tenderness Extremities exam: PRESENT: full ROM. ABSENT: calf tenderness, clubbing, pedal edema Neurological exam: PRESENT: alert, awake, oriented to person, oriented to place, oriented to time, oriented to situation, CN II-XII grossly intact. ABSENT: motor sensory deficit Results Laboratory Results: 05/08/20 06:12 05/08/20 06:12 05/08/20 05/08/20 05/08/20 05:30 06:12 06:12 WBC 11.0 H RBC 3.45 L Hgb 9.5 L Hct 30.6 L MCV 89 MCH 27.7 MCHC 31.2 L RDW 17.4 H Plt Count 298 Seg Neutrophils % 77.0 Carbonic Acid 2.74 H HCO3/H2CO3 Ratio 15:1 ABG pH 7.28 L ABG pCO2 90.9 H* ABG pO2 57.9 L ABG HCO3 42.0 H ABG O2 Saturation 84.7 L ABG Base Excess 12.1 FiO2 55% Sodium 141.4 Potassium 4.2 Chloride 89 L Carbon Dioxide 41 H* Anion Gap 11 BUN 24 H Creatinine 1.15 Est GFR ( Amer) > 60 Glucose 110 Calcium 9.8 Total Bilirubin 0.3 AST 26 Alkaline Phosphatase 60 Total Protein 7.6 Albumin 3.9 05/05/20 16:38 Blood Blood Culture - Final Staphylococcus Epidermidis Staphylococcus Epidermidis#2 05/05/20 17:45 Tracheal Aspirate Gram Stain - Final 05/05/20 17:45 Tracheal Aspirate Sputum Culture - Final Pseudomonas Aeruginosa Corynebacterium Striatum Normal Judie Absent 05/05/20 15:10 Troponin I < 0.012 NT-Pro-B Natriuret Pep 76 Impressions: Chest X-Ray 05/05/20 14:29 IMPRESSION: Right lower lobe airspace disease either atelectasis or pneumonia. No other interval change. Assessment and Plan - Diagnosis (1) Ventilator associated pneumonia Is this a current diagnosis for this admission?: Yes Plan: Patient is becoming more hypoxemic due to noncompliance. Refused to to use ventilator stating that he could not sleep. Due to Pseudomonas aeruginosa. Pansensitive. 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 Chronic vent support through tracheostomy, increasingly requires more and more use of this per patient Day 4 p.o. antibiotics. Day 4 p.o. levofloxacin. Continue aggressive pulmonary toileting, duo nebs, flutter valve, incentive parameter, broad-spectrum p.o. antibiotics, vent management. Advised on ventilator compliance. Patient advised on contacting his pain management company to make sure that his bed is properly cleaned. (2) COPD (chronic obstructive pulmonary disease) Qualifiers: COPD type: unspecified COPD Qualified Code(s): J44.9 - Chronic obstructive pulmonary disease, unspecified Is this a current diagnosis for this admission?: Yes Plan: Does not appear to be acutely exacerbated. No wheezing on physical examination. Continue current meds. Plan as per #1. (3) Hypertension Qualifiers: Is this a current diagnosis for this admission?: Yes Plan: Euvolemic. Normotensive. Resume home meds. Adjust meds as needed. Outpatient PCP follow-up. (4) Hypoventilation associated with obesity syndrome Is this a current diagnosis for this admission?: Yes Plan: Patient morbidly obese. Tracheostomy in place. Vent dependent. Advised on diet and lifestyle modification. Likely candidate for bariatric intervention. (5) Acute on chronic respiratory failure with hypoxia and hypercapnia Is this a current diagnosis for this admission?: Yes Plan: History of chronic hypercarbia due to obesity hypoventilation syndrome. Baseline bicarb 80 to 90 mmHg. Plan as per #1. - Time Time Spent with patient: 25-34 minutes Medications reviewed and adjusted accordingly: Yes Anticipated Discharge Disposition: Home with Home Health Anticipated Discharge Timeframe: within 48 hours
[2020-05-08] MEDS ORDERED: TEMAZEPAM 15 MG CAPSULE PO PRN (15:48)
[2020-05-08] MEDS: ATORVASTATIN CALCIUM 40 MG TABLET PO SCH (22:09)
[2020-05-09] MEDS: GABAPENTIN 300 MG CAPSULE PO SCH ×3 (05:42→21:58)
[2020-05-09] MEDS: LEVOTHYROXINE SODIUM 0.1 MG TABLET PO SCH (05:42)
[2020-05-09 06:37] LABS: ARTERIAL BLOOD BASE EXCESS 9.5 mmol/L; ARTERIAL BLOOD H2CO3 2.55 mmol/L (1.05-1.35); ARTERIAL BLOOD HCO3 38.9 mmol/L (20-24); ARTERIAL BLOOD O2 SATURATION 93.9 % (94-98); ARTERIAL BLOOD PH 7.28 (7.35-7.45); ARTERIAL BLOOD PO2 81.5 mmHg (80-100); ARTERIAL BLOOD TOTAL CO2 41.5 mmol/L (23-27)
[2020-05-09 06:44] LABS: ARTERIAL BLOOD FIO2 50%; ARTERIAL BLOOD PCO2 84.7 mmHg (35-45)
[2020-05-09 07:20] LABS: HEMATOCRIT 31.4 % (37.9-51.0); HEMOGLOBIN 9.7 g/dL (13.5-17.0); MEAN CORPUSCULAR HEMOGLOBIN 27.7 pg (27.0-33.4); MEAN CORPUSCULAR HGB CONC 30.9 g/dL (32.0-36.0); MEAN CORPUSCULAR VOLUME 90 fl (80-97); PLATELET COUNT 301 10^3/uL (150-450); RED CELL DISTRIBUTION WIDTH 17.3 % (11.5-14.0); WHITE BLOOD COUNT 8.9 10^3/uL (4.0-10.5)
[2020-05-09 07:43] LABS: ALBUMIN 3.9 g/dL (3.5-5.0); ALKALINE PHOSPHATASE 63 U/L (38-126); ASPARTATE AMINO TRANSFERASE 25 U/L (17-59); BILIRUBIN,DIRECT 0.2 mg/dL (0.0-0.4); BILIRUBIN,TOTAL 0.4 mg/dL (0.2-1.3); BLOOD UREA NITROGEN 24 mg/dL (7-20); CALCIUM 9.6 mg/dL (8.4-10.2); CHLORIDE 89 mmol/L (98-107); GLUCOSE 121 mg/dL (75-110); POTASSIUM 4.4 mmol/L (3.6-5.0); TOTAL PROTEIN 7.7 g/dL (6.3-8.2)
[2020-05-09 07:50] LABS: ANION GAP 11 (5-19)
[2020-05-09 07:51] LABS: CARBON DIOXIDE 39 mmol/L (22-30)
[2020-05-09] MEDS: IPRATROPIUM/ALBUTEROL 0.5-2.5 MG/3 ML AMPUL NEB SCH ×4 (08:04→20:00)
[2020-05-09] MEDS: HYDROCHLOROTHIAZIDE 25 MG TABLET PO SCH (08:39)
[2020-05-09] MEDS: AMLODIPINE BESYLATE 10 MG TABLET PO SCH (08:39)
[2020-05-09 09:02] LABS: ABSOLUTE LYMPHOCYTES# (MANUAL) 2.5 10^3/uL (0.5-4.7); ABSOLUTE MONOCYTES # (MANUAL) 0.4 10^3/uL (0.1-1.4); BASOPHILS % (MANUAL) 1 % (0-2); EOSINOPHILS % (MANUAL) 1 % (0-6); LYMPHOCYTES % (MANUAL) 28 % (13-45); MONOCYTES % (MANUAL) 5 % (3-13); SEGMENTED NEUTROPHILS % (MAN) 65 % (42-78); TOTAL CELLS COUNTED 100
[2020-05-09 09:03] LABS: ANISOCYTOSIS 1+; PLATELET COMMENT ADEQUATE
[2020-05-09] MEDS: THEOPHYLLINE ANHYDROUS 300 MG TAB.SR.12H PO SCH ×2 (09:56→21:58)
[2020-05-09] MEDS: MEDROXYPROGESTERONE ACET 10 MG TABLET PO SCH ×3 (09:56→17:11)
[2020-05-09] MEDS: BUSPIRONE HCL 10 MG TABLET PO SCH ×2 (09:56→17:11)
[2020-05-09] MEDS: DOCUSATE SODIUM 100 MG CAPSULE PO SCH (09:56)
[2020-05-09] MEDS: LEVOFLOXACIN 750 MG TABLET PO SCH (09:57)
[2020-05-09] MEDS: ENOXAPARIN SODIUM INJ 40 MG/0.4 ML DISP.SYRIN SUBCUT SCH ×2 (09:57→21:58)
[2020-05-09] MEDS: SERTRALINE HCL 50 MG TABLET PO SCH (09:57)
[2020-05-09] MEDS: ACETAZOLAMIDE SODIUM INJ 500 MG VIAL IV SCH ×2 (10:29→21:56)
[2020-05-09] MEDS: NYSTATIN TOPICAL POWDER 15 GM TP SCH ×2 (10:30→17:11)
[2020-05-09] MEDS: LISINOPRIL 10 MG TABLET PO SCH (10:30)
--- NOTE | 2020-05-09 12:36 | PDOC PROGRESS REPORT ---
Subjective Date:: 05/09/20 Subjective:: As per admitting physician's note JOEY ORTEGA III is a 30 year old male with past medical history significant for severe morbid obesity BMI 78, OSH, TERRANCE, tracheostomy and ventilator support dependency, chronic hypoxemic and hypercarbic respiratory failure, COPD, hypertension, asthma who presents with a 3-day history of progressive shortness of breath/KING/productive cough. Patient denies fever/chills/nausea/vomiting/diarrhea/abdominal pain. Patient denies any COVID-19 contacts and states that he lives at home alone completely quarantined. Patient states he came to the ED a few days ago and was told he has "probably early pneumonia" but was not given any antibiotics per patient. EMS found patient to have an oxygen saturation in the low 80s and he was increased from nm s home oxygen of 5 L up to 8 L. Patient follows with Dr. More outpatient in pulmonology. Consult ordered. Patient's ABG showed severe hypercarbic respiratory failure with a CO2 of 99.4 and a pH of 7.31. Of note, patient has high CO2 at baseline but this is quite a bit higher than his usual elevated CO2. Patient started on Levaquin given that he requires ventilator support at home and may have ventilator associated pneumonia. Chest x-ray showed right lower lobe infiltrate nonspecific. White blood cell count is normal at 9.7. He is admitted to [facility] under observation. 05/06/2020. No acute events overnight. Saw patient in the afternoon in ED, currently sitting on edge of his bed, on supplemental oxygen, reporting mild improvement of his symptoms, denies any fever, chills, nausea, vomiting. 05/24/2020. No acute events overnight. Patient is still complaining of excessive secretion from tracheostomy overall he is reporting mild improvement, denies any fever, chills, nausea, vomiting. 05/08/2020. Unfortunately patient did not use his ventilator overnight indicating that he could not sleep, this morning his ABG shows that he is more hypoxemic and his hypercarbia has not improved much, otherwise patient sitting at the edge of the bed in no apparent distress, denies any fever, chills, nausea, vomiting, diarrhea, constipation. 05/09/2020. No acute events overnight. Patient used his ventilator overnight, ABG shows significant improvement of hypoxemia patient is still hypercarbic has any fever, chills, nausea, vomiting. Reason For Visit: COPD EXACERBATION,ACUTE ON CHRONIC Physical Exam Vital Signs: Temp Pulse Resp BP Pulse Ox 98.6 F 84 17 101/40 L 95 05/09/20 07:54 05/09/20 08:05 05/09/20 08:05 05/09/20 07:54 05/09/20 08:05 Intake & Output 05/08/20 05/09/20 05/10/20 06:59 06:59 06:59 Intake Total 1371 1160 Output Total 1550 3250 Balance -179 -2090 Weight 219.2 kg 275.3 kg General appearance: PRESENT: no acute distress, morbidly obese, well-developed, well-nourished Head exam: PRESENT: atraumatic, normocephalic Respiratory exam: PRESENT: clear to auscultation kapil, other - Tracheostomy in place. ABSENT: rales, rhonchi, wheezes Cardiovascular exam: PRESENT: RRR. ABSENT: diastolic murmur, rubs, systolic murmur GI/Abdominal exam: PRESENT: normal bowel sounds, soft. ABSENT: distended, guard ing, mass, organolmegaly, rebound, tenderness Neurological exam: PRESENT: alert, awake, oriented to person, oriented to place, oriented to time, oriented to situation, CN II-XII grossly intact. ABSENT: motor sensory deficit Results Laboratory Results: 05/09/20 06:29 05/09/20 06:29 05/09/20 05/09/20 05/09/20 06:15 06:29 06:29 WBC 8.9 RBC 3.50 L Hgb 9.7 L Hct 31.4 L MCV 90 MCH 27.7 MCHC 30.9 L RDW 17.3 H Plt Count 301 Seg Neutrophils % Not Reportable Carbonic Acid 2.55 H HCO3/H2CO3 Ratio 15:1 ABG pH 7.28 L ABG pCO2 84.7 H* ABG pO2 81.5 ABG HCO3 38.9 H ABG O2 Saturation 93.9 L ABG Base Excess 9.5 FiO2 50% Sodium 139.1 Potassium 4.4 Chloride 89 L Carbon Dioxide 39 H Anion Gap 11 BUN 24 H Creatinine 1.24 Est GFR ( Amer) > 60 Glucose 121 H Calcium 9.6 Total Bilirubin 0.4 AST 25 Alkaline Phosphatase 63 Total Protein 7.7 Albumin 3.9 05/05/20 16:38 Blood Blood Culture - Final Staphylococcus Epidermidis Staphylococcus Epidermidis#2 05/05/20 15:10 Troponin I < 0.012 NT-Pro-B Natriuret Pep 76 Impressions: Chest X-Ray 05/05/20 14:29 IMPRESSION: Right lower lobe airspace disease either atelectasis or pneumonia. No other interval change. Assessment and Plan - Diagnosis (1) Ventilator associated pneumonia Is this a current diagnosis for this admission?: Yes Plan: Mild improvement of hypoxemia and hypercarbia. Patient is adherent with his ventilator. Due to Pseudomonas aeruginosa. Pansensitive. 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 Chronic vent support through tracheostomy, increasingly requires more and more use of this per patient Day 5 p.o. antibiotics. Day 5 p.o. levofloxacin. Continue aggressive pulmonary toileting, duo nebs, flutter valve, incentive parameter, broad-spectrum p.o. antibiotics, vent management. Advised on ventilator compliance. Patient advised on contacting his pain management company to make sure that his bed is properly cleaned. (2) COPD (chronic obstructive pulmonary disease) Qualifiers: COPD type: unspecified COPD Qualified Code(s): J44.9 - Chronic obstructive pulmonary disease, unspecified Is this a current diagnosis for this admission?: Yes Plan: Does not appear to be acutely exacerbated. No wheezing on physical examination. Continue current meds. Plan as per #1. (3) Hypertension Qualifiers: Is this a current diagnosis for this admission?: Yes Plan: Euvolemic. Normotensive. Resume home meds. Adjust meds as needed. Outpatient PCP follow-up. (4) Hypoventilation associated with obesity syndrome Is this a current diagnosis for this admission?: Yes Plan: Patient morbidly obese. Tracheostomy in place. Vent dependent. Advised on diet and lifestyle modification. Likely candidate for bariatric intervention. (5) Acute on chronic respiratory failure with hypoxia and hypercapnia Is this a current diagnosis for this admission?: Yes Plan: History of chronic hypercarbia due to obesity hypoventilation syndrome. B aseline bicarb 80 to 90 mmHg. Plan as per #1. - Time Time Spent with patient: 25-34 minutes Medications reviewed and adjusted accordingly: Yes Anticipated Discharge Disposition: Home with Home Health Anticipated Discharge Timeframe: within 48 hours
[2020-05-09] MEDS ORDERED: METOPROLOL TARTRATE PF/INJ 5 MG/5 ML SDV IV PRN (15:37)
[2020-05-09] MEDS: ATORVASTATIN CALCIUM 40 MG TABLET PO SCH (21:58)
[2020-05-10] MEDS: GABAPENTIN 300 MG CAPSULE PO SCH ×3 (06:00→22:04)
[2020-05-10] MEDS: LEVOTHYROXINE SODIUM 0.1 MG TABLET PO SCH (06:00)
[2020-05-10 06:55] LABS: ARTERIAL BLOOD BASE EXCESS 9.2 mmol/L; ARTERIAL BLOOD H2CO3 2.81 mmol/L (1.05-1.35); ARTERIAL BLOOD HCO3 40.6 mmol/L (20-24); ARTERIAL BLOOD O2 SATURATION 95.9 % (94-98); ARTERIAL BLOOD PH 7.26 (7.35-7.45); ARTERIAL BLOOD PO2 96.8 mmHg (80-100); ARTERIAL BLOOD TOTAL CO2 43.5 mmol/L (23-27)
[2020-05-10 06:56] LABS: ARTERIAL BLOOD FIO2 50%
[2020-05-10 06:57] LABS: ARTERIAL BLOOD PCO2 93.4 mmHg (35-45)
[2020-05-10] MEDS: HYDROCHLOROTHIAZIDE 25 MG TABLET PO SCH (08:48)
[2020-05-10] MEDS: AMLODIPINE BESYLATE 10 MG TABLET PO SCH (08:49)
[2020-05-10] MEDS: IPRATROPIUM/ALBUTEROL 0.5-2.5 MG/3 ML AMPUL NEB SCH ×4 (09:49→21:20)
[2020-05-10] MEDS: DOCUSATE SODIUM 100 MG CAPSULE PO SCH (10:50)
[2020-05-10] MEDS: SERTRALINE HCL 50 MG TABLET PO SCH (10:50)
[2020-05-10] MEDS: LEVOFLOXACIN 750 MG TABLET PO SCH (10:50)
[2020-05-10] MEDS: BUSPIRONE HCL 10 MG TABLET PO SCH ×2 (10:50→17:07)
[2020-05-10] MEDS: MEDROXYPROGESTERONE ACET 10 MG TABLET PO SCH ×3 (10:51→17:07)
[2020-05-10] MEDS: THEOPHYLLINE ANHYDROUS 300 MG TAB.SR.12H PO SCH ×2 (10:51→22:03)
[2020-05-10] MEDS: ENOXAPARIN SODIUM INJ 40 MG/0.4 ML DISP.SYRIN SUBCUT SCH ×2 (10:51→22:04)
[2020-05-10] MEDS: ACETAZOLAMIDE SODIUM INJ 500 MG VIAL IV SCH (10:52)
[2020-05-10] MEDS: NYSTATIN TOPICAL POWDER 15 GM TP SCH ×2 (10:52→17:12)
[2020-05-10] MEDS: LISINOPRIL 10 MG TABLET PO SCH (10:52)
--- NOTE | 2020-05-10 14:54 | PDOC PROGRESS REPORT ---
Subjective Date:: 05/10/20 Subjective:: As per admitting physician's note JOEY ORTEGA III is a 30 year old male with past medical history significant for severe morbid obesity BMI 78, OSH, TERRANCE, tracheostomy and ventilator support dependency, chronic hypoxemic and hypercarbic respiratory failure, COPD, hypertension, asthma who presents with a 3-day history of progressive shortness of breath/KING/productive cough. Patient denies fever/chills/nausea/vomiting/diarrhea/abdominal pain. Patient denies any COVID-19 contacts and states that he lives at home alone completely quarantined. Patient states he came to the ED a few days ago and was told he has "probably early pneumonia" but was not given any antibiotics per patient. EMS found patient to have an oxygen saturation in the low 80s and he was increased from [facility] home oxygen of 5 L up to 8 L. Patient follows with Dr. More outpatient in pulmonology. Consult ordered. Patient's ABG showed severe hypercarbic respiratory failure with a CO2 of 99.4 and a pH of 7.31. Of note, patient has high CO2 at baseline but this is quite a bit higher than his usual elevated CO2. Patient started on Levaquin given that he requires ventilator support at home and may have ventilator associated pneumonia. Chest x-ray showed right lower lobe infiltrate nonspecific. White blood cell count is normal at 9.7. He is admitted to [facility] under observation. 05/06/2020. No acute events overnight. Saw patient in the afternoon in ED, currently sitting on edge of his bed, on supplemental oxygen, reporting mild improvement of his symptoms, denies any fever, chills, nausea, vomiting. 05/24/2020. No acute events overnight. Patient is still complaining of excessive secretion from tracheostomy overall he is reporting mild improvement, denies any fever, chills, nausea, vomiting. 05/08/2020. Unfortunately patient did not use his ventilator overnight indicating that he could not sleep, this morning his ABG shows that he is more hypoxemic and his hypercarbia has not improved much, otherwise patient sitting at the edge of the bed in no apparent distress, denies any fever, chills, nausea, vomiting, diarrhea, constipation. 05/09/2020. No acute events overnight. Patient used his ventilator overnight, ABG shows significant improvement of hypoxemia patient is still hypercarbic has any fever, chills, nausea, vomiting. 05/10/2020. No acute events overnight. Patient has been adherent with his ventilator overnight but unfortunately his hypercarbia is getting worse, leukocytosis has resolved, denies any fever, chills, nausea, vomiting. States secretions improving. Reason For Visit: COPD EXACERBATION,ACUTE ON CHRONIC Physical Exam Vital Signs: Temp Pulse Resp BP Pulse Ox 97.9 F 94 18 125/55 L 96 05/10/20 11:24 05/10/20 14:00 05/10/20 11:24 05/10/20 11:24 05/10/20 11:24 Intake & Output 05/09/20 05/10/20 05/11/20 06:59 06:59 06:59 Intake Total 1160 222 Output Total 3250 3100 Balance -2089 -2878 Weight 275.3 kg 283.1 kg General appearance: PRESENT: no acute distress, morbidly obese, well-developed, well-nourished Head exam: PRESENT: atraumatic, normocephalic Respiratory exam: PRESENT: clear to auscultation kapil, other - Trach in place. ABSENT: rales, rhonchi, wheezes Cardiovascular exam: PRESENT: RRR. ABSENT: diastolic murmur, rubs, systolic murmur GI/Abdominal exam: PRESENT: normal bowel sounds, soft. ABSENT: distended, guarding, mass, organolmegaly, rebound, tenderness Neurological exam: PRESENT: alert, awake, oriented to person, oriented to place, oriented to time, oriented to situation, CN II-XII grossly intact. ABSENT: motor sensory deficit Results Laboratory Results: 05/09/20 06:29 05/09/20 06:29 05/10/20 05:30 Carbonic Acid 2.81 H HCO3/H2CO3 Ratio 14:1 ABG pH 7.26 L ABG pCO2 93.4 H* ABG pO2 96.8 ABG HCO3 40.6 H ABG O2 Saturation 95.9 ABG Base Excess 9.2 FiO2 50% 05/05/20 15:10 Troponin I < 0.012 NT-Pro-B Natriuret Pep 76 Impressions: Chest X-Ray 05/05/20 14:29 IMPRESSION: Right lower lobe airspace disease either atelectasis or pneumonia. No other interval change. Assessment and Plan - Diagnosis (1) Ventilator associated pneumonia Is this a current diagnosis for this admission?: Yes Plan: Hypoxemia resolved. Worsening hypercarbia. Patient is adherent with his ventilator. Due to Pseudomonas aeruginosa. Pansensitive. 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 Chronic vent support through tracheostomy, increasingly requires more and more use of this per patient Day 6 p.o. antibiotics. Day 6 p.o. levofloxacin. Continue aggressive pulmonary toileting, duo nebs, flutter valve, incentive parameter, broad-spectrum p.o. antibiotics, vent management. Advised on ventilator compliance. Patient advised on contacting his pain management company to make sure that his bed is properly cleaned. (2) COPD (chronic obstructive pulmonary disease) Qualifiers: COPD type: unspecified COPD Qualified Code(s): J44.9 - Chronic obstructive pulmonary disease, unspecified Is this a current diagnosis for this admission?: Yes Plan: Does not appear to be acutely exacerbated. No wheezing on physical examination. Continue current meds. Plan as per #1. (3) Hypertension Qualifiers: Is this a current diagnosis for this admission?: Yes Plan: Euvolemic. Normotensive. Resume home meds. Adjust meds as needed. Outpatient PCP follow-up. (4) Hypoventilation associated with obesity syndrome Is this a current diagnosis for this admission?: Yes Plan: Patient morbidly obese. Tracheostomy in place. Vent dependent. Advised on diet and lifestyle modification. Likely candidate for bariatric intervention. (5) Acute on chronic respiratory failure with hypoxia and hypercapnia Is this a current diagnosis for this admission?: Yes Plan: History of chronic hypercarbia due to obesity hypoventilation syndrome. Baseline bicarb 80 to 90 mmHg. Plan as per #1. On acetazolamide, theophylline, medroxyprogesterone. Unfortunately no IV acetazolamide available. Will switch to p.o. Will obtain theophylline level. Continue medroxyprogesterone. Pulmonology following. - Time Time Spent with patient: 25-34 minutes Anticipated Discharge Disposition: Home with Home Health Anticipated Discharge Timeframe: within 48 hours
--- NOTE | 2020-05-10 15:41 | PDOC PROGRESS REPORT ---
Subjective Date:: 05/10/20 Reason For Visit: COPD EXACERBATION,ACUTE ON CHRONIC Physical Exam Vital Signs: Temp Pulse Resp BP Pulse Ox 97.9 F 94 18 125/55 L 96 05/10/20 11:24 05/10/20 14:00 05/10/20 11:24 05/10/20 11:24 05/10/20 11:24 Intake & Output 05/09/20 05/10/20 05/11/20 06:59 06:59 06:59 Intake Total 1160 222 Output Total 3250 3100 Balance -2089 -2877 Weight 275.3 kg 283.1 kg Exam: Largely unchanged he continues with morbid obesity. Results Laboratory Results: 05/09/20 06:29 05/09/20 06:29 05/10/20 05:30 Carbonic Acid 2.81 H HCO3/H2CO3 Ratio 14:1 ABG pH 7.26 L ABG pCO2 93.4 H* ABG pO2 96.8 ABG HCO3 40.6 H ABG O2 Saturation 95.9 ABG Base Excess 9.2 FiO2 50% 05/05/20 15:10 Blood Blood Culture - Final NO GROWTH IN 5 DAYS 05/05/20 15:10 Troponin I < 0.012 NT-Pro-B Natriuret Pep 76 Impressions: Chest X-Ray 05/05/20 14:29 IMPRESSION: Right lower lobe airspace disease either atelectasis or pneumonia. No other interval change. Assessment & Plan - Diagnosis (1) Acute on chronic respiratory failure with hypoxia and hypercapnia Is this a current diagnosis for this admission?: Yes (2) Hypoventilation associated with obesity syndrome Is this a current diagnosis for this admission?: Yes (3) Morbid obesity Is this a current diagnosis for this admission?: Yes (4) Pseudomonas aeruginosa infection Is this a current diagnosis for this admission?: Yes - Time Time Spent with patient: 35 or more minutes - Plan Summary Plan Summary: This patient's Pseudomonas sensitivities are now available. Pseudomonas appears pansensitive at this point. Hopefully we can eradicate this colonization and it does not become a chronic colonization with multi drug-resistant Pseudomonas. Patient appears largely back to baseline. We will continue to follow with you during this hospitalization.
[2020-05-10] MEDS: ATORVASTATIN CALCIUM 40 MG TABLET PO SCH (22:04)
[2020-05-10] MEDS: ACETAZOLAMIDE 250 MG TABLET PO SCH (22:04)
[2020-05-11] MEDS: LEVOTHYROXINE SODIUM 0.1 MG TABLET PO SCH (05:14)
[2020-05-11] MEDS: GABAPENTIN 300 MG CAPSULE PO SCH ×3 (05:14→21:10)
[2020-05-11 06:46] LABS: ARTERIAL BLOOD HCO3 39.7 mmol/L (20-24); ARTERIAL BLOOD O2 SATURATION 94.6 % (94-98); ARTERIAL BLOOD PH 7.32 (7.35-7.45); ARTERIAL BLOOD PO2 81.9 mmHg (80-100); ARTERIAL BLOOD TOTAL CO2 42.2 mmol/L (23-27)
[2020-05-11 06:50] LABS: ARTERIAL BLOOD FIO2 50%
[2020-05-11 06:52] LABS: ARTERIAL BLOOD PCO2 79.6 mmHg (35-45)
[2020-05-11] MEDS: IPRATROPIUM/ALBUTEROL 0.5-2.5 MG/3 ML AMPUL NEB SCH ×4 (08:33→21:21)
[2020-05-11] MEDS ORDERED: BUSPIRONE HCL 10 MG TABLET PO SCH (10:00)
[2020-05-11] MEDS: NYSTATIN TOPICAL POWDER 15 GM TP SCH ×2 (10:42→18:18)
[2020-05-11] MEDS: DOCUSATE SODIUM 100 MG CAPSULE PO SCH (10:47)
[2020-05-11] MEDS: BUSPIRONE HCL 10 MG TABLET PO SCH ×2 (10:48→18:19)
[2020-05-11] MEDS: AMLODIPINE BESYLATE 10 MG TABLET PO SCH (10:48)
[2020-05-11] MEDS: LISINOPRIL 10 MG TABLET PO SCH (10:48)
[2020-05-11] MEDS: HYDROCHLOROTHIAZIDE 25 MG TABLET PO SCH (10:48)
[2020-05-11] MEDS: LEVOFLOXACIN 750 MG TABLET PO SCH (10:48)
[2020-05-11] MEDS: ENOXAPARIN SODIUM INJ 40 MG/0.4 ML DISP.SYRIN SUBCUT SCH ×2 (10:48→21:12)
[2020-05-11] MEDS: SERTRALINE HCL 50 MG TABLET PO SCH (10:48)
[2020-05-11] MEDS: ACETAZOLAMIDE 250 MG TABLET PO SCH ×2 (10:49→21:12)
[2020-05-11] MEDS: THEOPHYLLINE ANHYDROUS 300 MG TAB.SR.12H PO SCH ×2 (10:49→21:12)
[2020-05-11] MEDS: MEDROXYPROGESTERONE ACET 10 MG TABLET PO SCH ×3 (10:49→18:19)
[2020-05-11] MEDS: CEFTAZIDIME PENTAHYDRATE 1 GM in DEXTROSE 5%-WATER 50 ML IV SCH ×2 (15:19→21:13)
--- NOTE | 2020-05-11 17:05 | PDOC PROGRESS REPORT ---
Subjective Date:: 05/11/20 Subjective:: Is a 30-year-old male with a past medical history significant for severe morbid obesity (BMI 78), obesity hypoventilation syndrome, TERRANCE, tracheostomy and ventilator support dependency, chronic hypoxemic and hypercapnic respiratory failure, COPD, hypertension, asthma, and depression who was admitted on 05/05/2020 with Ventilator associated pneumonia. Patient was seen on morning rounds. He was found resting in recliner; sleeping with trach collar. He was arousable but quickly fell back to sleep. Per nursing, the patient has been fully awake, conversational, and ate 100% of his breakfast shortly prior to my arrival. He does appear to be comfortable and is not noted to be in any acute distress. No concerns per nursing. Reason For Visit: COPD EXACERBATION,ACUTE ON CHRONIC Physical Exam Vital Signs: Temp Pulse Resp BP Pulse Ox 97.7 F 90 16 123/62 92 05/11/20 11:25 05/11/20 16:10 05/11/20 16:10 05/11/20 11:25 05/11/20 16:10 Intake & Output 05/10/20 05/11/20 05/12/20 06:59 06:59 06:59 Intake Total 222 120 Output Total 3100 1570 Balance -2878 -1450 Weight 283.1 kg General appearance: PRESENT: no acute distress, morbidly obese, well-developed, well-nourished Head exam: PRESENT: atraumatic, normocephalic Eye exam: PRESENT: conjunctiva pink, EOMI, PERRLA. ABSENT: scleral icterus Mouth exam: PRESENT: moist, tongue midline Neck exam: PRESENT: tracheostomy. ABSENT: carotid bruit, JVD, lymphadenopathy, thyromegaly Respiratory exam: PRESENT: clear to auscultation kapil - Anterior, decreased breath sounds - Throughout secondary to body habitus and inspiratory effort, symmetrical, unlabored, other - Supplemental oxygen via trach collar; ventilator while sleeping. ABSENT: rales, rhonchi, wheezes Cardiovascular exam: PRESENT: RRR. ABSENT: diastolic murmur, rubs, systolic murmur Vascular exam: PRESENT: normal capillary refill Extremities exam: PRESENT: full ROM. ABSENT: calf tenderness, clubbing, pedal edema Neurological exam: PRESENT: alert, awake, oriented to person, oriented to place, oriented to time, oriented to situation, CN II-XII grossly intact, other - Sleeping soundly. ABSENT: motor sensory deficit Psychiatric exam: PRESENT: appropriate affect, normal mood. ABSENT: homicidal ideation, suicidal ideation Skin exam: PRESENT: dry, intact, warm. ABSENT: cyanosis, rash Results Laboratory Results: 05/09/20 06:29 05/09/20 06:29 05/11/20 06:16 Carbonic Acid 2.40 H HCO3/H2CO3 Ratio 16:1 ABG pH 7.32 L ABG pCO2 79.6 H* ABG pO2 81.9 ABG HCO3 39.7 H ABG O2 Saturation 94.6 ABG Base Excess 11.0 FiO2 50% 05/05/20 15:10 Blood Blood Culture - Final NO GROWTH IN 5 DAYS 05/05/20 15:10 Troponin I < 0.012 NT-Pro-B Natriuret Pep 76 Impressions: Chest X-Ray 05/05/20 14:29 IMPRESSION: Right lower lobe airspace disease either atelectasis or pneumonia. No other interval change. Assessment and Plan - Diagnosis (1) Ventilator associated pneumonia Is this a current diagnosis for this admission?: Yes Plan: Hypoxemia resolved. Now at baseline acidosis and hypercapnia. Patient is adherent with his ventilator with persistent encouragement. Due to Pseudomonas aeruginosa. Pansensitive. 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 Chronic vent support through tracheostomy, increasingly requires more and more use of this per patient Day 7 p.o. levofloxacin. Continue for total 21 day course. Continue aggressive pulmonary toileting, duo nebs, vent management. Advised on ventilator compliance. Pulmonology consulted. Discussed with Dr. More today; recommends discharge on 3 weeks of antibiotic therapy for treatment of Pseudomonas and hopeful prevention of colonization. Recommends continued with Levaquin and third-generation cephalosporin. Initially planned for IV Fortaz, however, patient's home health service is available only 12 hours out of the day. Patient currently resistant to SNF/LTAC although LTAC may be beneficial from a pulmonary rehab standpoint. We will ask discharge planning to evaluate availability of Cefobid as this can be administered q12 and would work w/ patient's home nursing service. Plan for PICC tomorrow. Disposition pending confirmation of Cefobid 1 gm infusion availability and patient agreeability to plan of care. Outpatient pulmonology follow up. (2) Acute on chronic respiratory failure with hypoxia and hypercapnia Is this a current diagnosis for this admission?: Yes Plan: Discussed with the patient's established automotive alignment specialist and reviewed historic labs; now at baseline respiratory status. History of chronic hypercarbia due to obesity hypoventilation syndrome. Baseline bicarb 80 to 90 mmHg. Plan as per #1. Theophylline level pending. On acetazolamide, theophylline, medroxyprogesterone. Continue acetazolamide. Pulmonology following. (3) Hypoventilation associated with obesity syndrome Is this a current diagnosis for this admission?: Yes Plan: Patient morbidly obese. Tracheostomy in place. Vent dependent. Advised on diet and lifestyle modification. Encouraged ventilator use when sleeping. (4) COPD (chronic obstructive pulmonary disease) Qualifiers: COPD type: unspecified COPD Qualified Code(s): J44.9 - Chronic obstructive pulmonary disease, unspecified Is this a current diagnosis for this admission?: Yes Plan: Does not appear to be acutely exacerbated. No wheezing on physical examination. Continue current meds. Plan as per #1. (5) TERRANCE (obstructive sleep apnea) Is this a current diagnosis for this admission?: Yes Plan: As above. (6) Hypertension Qualifiers: Hypertension type: essential hypertension Qualified Code(s): I10 - Essential (primary) hypertension Is this a current diagnosis for this admission?: Yes Plan: Continue home dose amlodipine, lisinopril, hydrochlorothiazide, and furosemide. Cardiac diet (7) Morbid obesity Is this a current diagnosis for this admission?: Yes Plan: BMI 92.2 Cardiac diet. Registered dietitian consulted. - Time Time Spent with patient: 35 or more minutes Medications reviewed and adjusted accordingly: Yes Anticipated Discharge Disposition: Home with Home Health Anticipated Discharge Timeframe: within 24 hours - pending IV antibiotic availability
[2020-05-11] MEDS: ATORVASTATIN CALCIUM 40 MG TABLET PO SCH (21:11)
[2020-05-12] MEDS: CEFTAZIDIME PENTAHYDRATE 1 GM in DEXTROSE 5%-WATER 50 ML IV SCH (05:12)
[2020-05-12] MEDS: LEVOTHYROXINE SODIUM 0.1 MG TABLET PO SCH (05:12)
[2020-05-12] MEDS: GABAPENTIN 300 MG CAPSULE PO SCH (05:12)
[2020-05-12] MEDS: IPRATROPIUM/ALBUTEROL 0.5-2.5 MG/3 ML AMPUL NEB SCH ×2 (08:14→12:49)
[2020-05-12 08:18] VITALS: BP 130/52
[2020-05-12] MEDS: HYDROCHLOROTHIAZIDE 25 MG TABLET PO SCH (08:19)
[2020-05-12] MEDS: AMLODIPINE BESYLATE 10 MG TABLET PO SCH (08:20)
[2020-05-12] MEDS: BUSPIRONE HCL 10 MG TABLET PO SCH (09:24)
[2020-05-12] MEDS: MEDROXYPROGESTERONE ACET 10 MG TABLET PO SCH (09:25)
[2020-05-12] MEDS: LISINOPRIL 10 MG TABLET PO SCH (09:25)
[2020-05-12] MEDS: LEVOFLOXACIN 750 MG TABLET PO SCH (09:25)
[2020-05-12] MEDS: SERTRALINE HCL 50 MG TABLET PO SCH (09:25)
[2020-05-12] MEDS: THEOPHYLLINE ANHYDROUS 300 MG TAB.SR.12H PO SCH (09:25)
[2020-05-12] MEDS: ACETAZOLAMIDE 250 MG TABLET PO SCH (09:25)
[2020-05-12] MEDS: ENOXAPARIN SODIUM INJ 40 MG/0.4 ML DISP.SYRIN SUBCUT SCH (09:30)
[2020-05-12] MEDS ORDERED: MUPIROCIN 2% OINTMENT 22 GM TP SCH (10:00)
--- NOTE | 2020-05-12 10:18 | Progress Note ---
Provider Note Provider Note: [facility] Telephone Advice Consultation Chart reviewed, patient not examined. This is a 30-year-old man with morbid obesity, TERRANCE, trach for 2.5 years, who required ventilatory support 1 month ago due to pneumonia. He has regular follow up with design quality engineer who ahs recommended theophylline, diamox and hydroxyprogesterone in the past with good response, although patient has had issues with noncompliance associated with decompensation. Patient also has had previous tracheal aspirates positive for Pseudomonas aeruginosa in 09/2018, 07/2019 and now tracheal aspirate culture was positive for Pseudomonas. He has b een experiencing worsening shortness of breath, KING and per notes, worsening respiratory secretions as well. He had a recent visit to the ED but no antibiotics were prescribed. He was now admitted, afebrile, no leukocytosis, CXR with RLL infiltrate atelectasis vs pneumonia. He was started on levo floxacin. He was evaluated by design quality engineer and recommended 3 weeks of antibiotics. ID consulted for recommendations. Allergies: No Known Allergies Allergy (Verified 05/05/20 15:03) Medications: Levothyroxine Sodium [Synthroid] 100 mcg PO Q6AM 03/12/18 Hydrochlorothiazide [Hydrodiuril 25 mg Tablet] 25 mg PO QAM 03/22/19 Amlodipine Besylate [Norvasc 10 mg Tablet] 10 mg PO QAM 01/31/20 Furosemide [Lasix 40 mg Tablet] 40 mg PO BIDP PRN 01/31/20 Gabapentin [Neurontin 300 mg Capsule] 300 mg PO Q8 01/31/20 Sertraline HCl [Zoloft 50 mg Tablet] 200 mg PO QAM 01/31/20 Buspirone HCl 15 mg PO BID 05/06/20 Nystatin [Mycostatin 090969 Unit/1 ml Susp 60 ml Btl] 5 ml PO QID 05/06/20 Vital Signs: Temp Pulse Resp BP Pulse Ox 98.5 F 88 16 130/52 H 93 05/12/20 08:00 05/12/20 08:14 05/12/20 08:14 05/12/20 08:00 05/12/20 08:14 Intake & Output 05/11/20 05/12/20 05/13/20 06:59 06:59 06:59 Intake Total 120 909 Output Total 1570 1975 Balance -1450 -1066 Weight/Height Weight 283.1 kg Height 5 ft 9 in Laboratories: 05/09/20 06:29 05/09/20 06:29 MCV 90 fl (80-97) 05/09/20 06:29 MCH 27.7 pg (27.0-33.4) 05/09/20 06:29 MCHC 30.9 g/dL (32.0-36.0) L 05/09/20 06:29 RDW 17.3 % (11.5-14.0) H 05/09/20 06:29 Seg Neutrophils % Not Reportable 05/09/20 06:29 Carbonic Acid 2.40 mmol/L (1.05-1.35) H 05/11/20 06:16 HCO3/H2CO3 Ratio 16:1 05/11/20 06:16 ABG pH 7.32 (7.35-7.45) L 05/11/20 06:16 ABG pCO2 79.6 mmHg (35-45) H* 05/11/20 06:16 ABG pO2 81.9 mmHg (80-100) 05/11/20 06:16 ABG HCO3 39.7 mmol/L (20-24) H 05/11/20 06:16 ABG O2 Saturation 94.6 % (94-98) 05/11/20 06:16 ABG Base Excess 11.0 mmol/L 05/11/20 06:16 FiO2 50% 05/11/20 06:16 Chloride 89 mmol/L (98-107) L 05/09/20 06:29 Carbon Dioxide 39 mmol/L (22-30) H 05/09/20 06:29 Anion Gap 11 (5-19) 05/09/20 06:29 Est GFR ( Amer) > 60 (>60) 05/09/20 06:29 Glucose 121 mg/dL (75-110) H 05/09/20 06:29 Lactic Acid 1.3 mmol/L (0.7-2.1) 05/05/20 19:50 Calcium 9.6 mg/dL (8.4-10.2) 05/09/20 06:29 Phosphorus 4.1 mg/dL (2.5-4.5) 05/06/20 06:18 Magnesium 2.2 mg/dL (1.6-2.3) 05/07/20 06:31 Total Bilirubin 0.4 mg/dL (0.2-1.3) 05/09/20 06:29 AST 25 U/L (17-59) 05/09/20 06:29 Alkaline Phosphatase 63 U/L (38-126) 05/09/20 06:29 Total Protein 7.7 g/dL (6.3-8.2) 05/09/20 06:29 Albumin 3.9 g/dL (3.5-5.0) 05/09/20 06:29 Urine Color STRAW 05/05/20 15:10 Urine Appearance CLEAR 05/05/20 15:10 Urine pH 5.0 (5.0-9.0) 05/05/20 15:10 Ur Specific [place] 1.008 05/05/20 15:10 Urine Protein NEGATIVE mg/dL (NEGATIVE) 05/05/20 15:10 Urine Glucose (UA) NEGATIVE mg/dL (NEGATIVE) 05/05/20 15:10 Urine Ketones NEGATIVE mg/dL (NEGATIVE) 05/05/20 15:10 Urine Blood NEGATIVE (NEGATIVE) 05/05/20 15:10 Urine Nitrite NEGATIVE (NEGATIVE) 05/05/20 15:10 Ur Leukocyte Esterase NEGATIVE (NEGATIVE) 05/05/20 15:10 Urine WBC (Auto) 0 /HPF 05/05/20 15:10 05/05/20 15:10 Troponin I < 0.012 NT-Pro-B Natriuret Pep 76 Microbiology: Blood cultures 05/05 Staphylococcus epidermidis x 2 morphotypes 05/07 NGTD Respiratory culture: 05/05 Pseudomonas aeruginosa Radiology: Chest X-Ray 05/05/20 14:29 IMPRESSION: Right lower lobe airspace disease either atelectasis or pneumonia. No other interval change. Assessment and Recommendations: Patient evaluated for tracheal aspirate cultures positive for Pseudomonas aeruginosa. He has had a trach for the past 2.5 years and has had OSeudomonas isolated form cultures before. 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 Colonization increases the risk of infection. His initial presentation was not typical for pneumonia as he did not have fever or leukocytosis, but he did have increased secretions, increased oxygen requirement and a questionable infiltrate in the RLL per CXR. Given these findings and considering that he is colonized with Pseudomonas, it is reasonable to treat for pneumonia. Duration of therapy would be 14 days. As he is colonized, it is difficult to predict eradication of this with antibiotics. Will focus on treating the pneumonia with levofloxacin monotherapy to avoid exposure to beta lactams and prevent development of bet alactamases/ESBL as he is already high risk for development of MDRO. Please call if questions. Osiris Santamaria MD [facility] [phone]
[2020-05-12] MEDS: NYSTATIN TOPICAL POWDER 15 GM TP SCH (10:35)
[2020-05-12] MEDS: DOCUSATE SODIUM 100 MG CAPSULE PO SCH (10:35)
--- NOTE | 2020-05-12 18:56 | PDOC DISCHARGE SUMMARY ---
Impression - Admit/DC Date/PCP Admission Date/Primary Care Provider: 05/05/20 20:41 MARIALUISA HANSEN, Discharge Date: 05/12/20 - Discharge Diagnosis (1) Ventilator associated pneumonia Is this a current diagnosis for this admission?: Yes (2) Acute on chronic respiratory failure with hypoxia and hypercapnia Is this a current diagnosis for this admission?: Yes (3) Hypoventilation associated with obesity syndrome Is this a current diagnosis for this admission?: Yes (4) COPD (chronic obstructive pulmonary disease) Is this a current diagnosis for this admission?: Yes (5) TERRANCE (obstructive sleep apnea) Is this a current diagnosis for this admission?: Yes (6) Hypertension Is this a current diagnosis for this admission?: Yes (7) Morbid obesity Is this a current diagnosis for this admission?: Yes - Additional Information Resuscitation Status: Full Code Discharge Diet: Cardiac Discharge Activity: Activity As Tolerated, Balance Activity w/Rest, Slowly Increase Activity Referrals: DANIELLE MORE MD [ACTIVE PROVISIONAL STAFF] - 06/03/20 11:00 am () Prescriptions: Mupirocin [Bactroban 2% Ointment 22 gm] 1 applic TP BID #1 tube Levofloxacin [Levaquin 750 mg Tablet] 750 mg PO DAILY #14 tablet Medroxyprogesterone Acet [Provera 10 mg Tablet] 10 mg PO TID #42 tablet Home Medications: Levothyroxine Sodium [Synthroid] 100 mcg PO Q6AM 03/12/18 Hydrochlorothiazide [Hydrodiuril 25 mg Tablet] 25 mg PO QAM 03/22/19 Atorvastatin Calcium [Lipitor 40 mg Tablet] 40 mg PO QHS tablet 03/29/19 Lisinopril [Prinivil 10 mg Tablet] 40 mg PO DAILY tablet 03/29/19 Amlodipine Besylate [Norvasc 10 mg Tablet] 10 mg PO QAM 01/31/20 Furosemide [Lasix 40 mg Tablet] 40 mg PO BIDP PRN 01/31/20 Gabapentin [Neurontin 300 mg Capsule] 300 mg PO Q8 01/31/20 Sertraline HCl [Zoloft 50 mg Tablet] 200 mg PO QAM 01/31/20 Theophylline Anhydrous [Matthieu-Dur 300 mg Tab.sr] 300 mg PO Q12 #60 tab.sr.12h 02/11/20 Buspirone HCl 15 mg PO BID 05/06/20 Nystatin [Mycostatin 201128 Unit/1 ml Susp 60 ml Btl] 5 ml PO QID 05/06/20 Acetaminophen [Tylenol 325 mg Tablet] 650 mg PO Q4HP PRN tablet 05/12/20 Fluticasone Propion/Salmeterol [Fluticasone-Salmeterol 113-14] 2 puff IH .Q12 05/12/20 Levofloxacin [Levaquin 750 mg Tablet] 750 mg PO DAILY #14 tablet 05/12/20 Medroxyprogesterone Acet [Provera 10 mg Tablet] 10 mg PO TID #42 tablet 05/12/20 Mupirocin [Bactroban 2% Ointment 22 gm] 1 applic TP BID #1 tube 05/12/20 History of Present Illiness History of Present Illness: Per H&P by Dr. Irizarry: JOEY ORTEGA III is a 30 year old male with past medical history significant for severe morbid obesity BMI 78, OSH, TERRANCE, tracheostomy and ventilator support dependency, chronic hypoxemic and hypercarbic respiratory failure, COPD, hypertension, asthma who presents with a 3-day history of progressive shortness of breath/KING/productive cough. Patient denies fever/chills/nausea/vomiting/diarrhea/abdominal pain. Patient denies any COVID- 19 contacts and states that he lives at home alone completely quarantined. Patient states he came to the ED a few days ago and was told he has "probably early pneumonia" but was not given any antibiotics per patient. EMS found patient to have an oxygen saturation in the low 80s and he was increased from his home oxygen of 5 L up to 8 L. Patient follows with Dr. More outpatient in pulmonology. Consult ordered. Patient's ABG showed severe hypercarbic respiratory failure with a CO2 of 99.4 and a pH of 7.31. Of note, patient has high CO2 at baseline but this is quite a bit higher than his usual elevated CO2. Patient started on Levaquin given that he requires ventilator support at home and may have ventilator associated pneumonia. Chest x-ray showed right lower lobe infiltrate nonspecific. White blood cell count is normal at 9.7. He is admitted to [facility] under observation. Hospital Course Hospital Course: (1) Ventilator associated pneumonia Hypoxemia resolved. Now at baseline acidosis and hypercapnia. Patient has improved adherence with his ventilator with persistent encouragement. Due to Pseudomonas aeruginosa. Pansensitive. 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 Chronic vent support through tracheostomy, increasingly requires more and more use of this per patient Day 7 p.o. levofloxacin. Continue for total 21 day course. Continue aggressive pulmonary toileting, duo nebs, vent management. Advised on ventilator compliance. Pulmonology consulted. Discussed with Dr. More; initially recommended discharge on 3 weeks of antibiotic therapy for treatment of Pseudomonas and hopeful prevention of colonization. Recommends continued with Levaquin and third-generation cephalosporin. However, Infectious Disease recommended Levaquin only to prevent development of MDRO. Discussed ID's recommendations with Dr. Clemons; he is agreeable w/ recommendations. Patient is advised of change in antibiotic recommendations; agreeable to oral antibiotic option and desires discharge to home. Discharge planning was consulted to resume prior Home health service. (2) Acute on chronic respiratory failure with hypoxia and hypercapnia Discussed with the patient's established diamond die maker and reviewed historic labs; now at baseline respiratory status. History of chronic hypercarbia due to obesity hypoventilation syndrome. Baseline bicarb 80 to 90 mmHg. Plan as per #1. Theophylline level low; 4.2 On acetazolamide, theophylline, medroxyprogesterone. Received acetazolamide. Pulmonology consulted; discussed with Dr. More. Patient cleared for discharge w/ close outpatient follow up. (3) Hypoventilation associated with obesity syndrome Patient morbidly obese. Tracheostomy in place. Vent dependent. Advised on diet and lifestyle modification. Encouraged ventilator use when sleeping. Outpatient follow up with established diamond die maker. (4) COPD (chronic obstructive pulmonary disease) Not acutely exacerbated. No wheezing on physical examination. Continue current meds. Plan as per #1. (5) TERRANCE (obstructive sleep apnea) As above. (6) Hypertension Continue home dose amlodipine, lisinopril, hydrochlorothiazide, and furosemide. Cardiac diet (7) Morbid obesity BMI 92.2 Cardiac diet. Dietary compliance and lifestyle modification are strongly encouraged. Registered dietitian consulted. Physical Exam Vital Signs: Temp Pulse Resp BP Pulse Ox 98.5 F 88 16 130/52 H 93 05/12/20 12:51 05/12/20 12:51 05/12/20 12:51 05/12/20 12:51 05/12/20 12:51 Intake & Output 05/11/20 05/12/20 05/13/20 06:59 06:59 06:59 Intake Total 120 909 Output Total 1570 [facility] Balance -1450 -1066 General appearance: PRESENT: no acute distress, disheveled - poor hygiene, morbidly obese, well-developed, well-nourished Head exam: PRESENT: atraumatic, normocephalic Eye exam: PRESENT: conjunctiva pink, EOMI, PERRLA. ABSENT: scleral icterus Mouth exam: PRESENT: moist, tongue midline Neck exam: PRESENT: tracheostomy Respiratory exam: PRESENT: clear to auscultation kapil, decreased breath sounds - Throughout secondary to body habitus and inspiratory effort, symmetrical, unlabored, other - Supplemental oxygen via trach collar; ventilator while sleeping. ABSENT: rales, rhonchi, wheezes Cardiovascular exam: PRESENT: RRR. ABSENT: diastolic murmur, rubs, systolic murmur Pulses: PRESENT: normal dorsalis pedis pul Vascular exam: PRESENT: normal capillary refill GI/Abdominal exam: PRESENT: normal bowel sounds, soft. ABSENT: distended, guarding, mass, organolmegaly, rebound, tenderness Rectal exam: PRESENT: deferred Extremities exam: PRESENT: full ROM. ABSENT: calf tenderness, clubbing, pedal edema Neurological exam: PRESENT: alert, awake, oriented to person, oriented to place, oriented to time, oriented to situation, CN II-XII grossly intact. ABSENT: motor sensory deficit Psychiatric exam: PRESENT: appropriate affect, normal mood. ABSENT: homicidal ideation, suicidal ideation Skin exam: PRESENT: dry, intact, warm. ABSENT: cyanosis, rash Results Laboratory Results: WBC 8.9 10^3/uL (4.0-10.5) 05/09/20 06:29 RBC 3.50 10^6/uL (4.35-5.55) L 05/09/20 06:29 Hgb 9.7 g/dL (13.5-17.0) L 05/09/20 06:29 Hct 31.4 % (37.9-51.0) L 05/09/20 06:29 MCV 90 fl (80-97) 05/09/20 06:29 MCH 27.7 pg (27.0-33.4) 05/09/20 06:29 MCHC 30.9 g/dL (32.0-36.0) L 05/09/20 06:29 RDW 17.3 % (11.5-14.0) H 05/09/20 06:29 Plt Count 301 10^3/uL (150-450) 05/09/20 06:29 Lymph % (Auto) Not Reportable 05/09/20 06:29 [place] % (Auto) Not Reportable 05/09/20 06:29 Eos % (Auto) Not Reportable 05/09/20 06:29 Baso % (Auto) Not Reportable 05/09/20 06:29 Absolute Neuts (auto) Not Reportable 05/09/20 06:29 Absolute Lymphs (auto) Not Reportable 05/09/20 06:29 Absolute Monos (auto) Not Reportable 05/09/20 06:29 Absolute Eos (auto) Not Reportable 05/09/20 06:29 Absolute Basos (auto) Not Reportable 05/09/20 06:29 Total Counted 100 05/09/20 06:29 Seg Neutrophils % Not Reportable 05/09/20 06:29 Seg Neuts % (Manual) 65 % (42-78) 05/09/20 06:29 Band Neutrophils % 1 % (3-5) L 05/06/20 06:18 Lymphocytes % (Manual) 28 % (13-45) 05/09/20 06:29 Atypical Lymphs % 3 % (0) 05/06/20 06:18 Monocytes % (Manual) 5 % (3-13) 05/09/20 06:29 Eosinophils % (Manual) 1 % (0-6) 05/09/20 06:29 Basophils % (Manual) 1 % (0-2) 05/09/20 06:29 Metamyelocytes % 2 % (0-1) H 05/06/20 06:18 Promyelocytes % 1 % (0) H 05/06/20 06:18 Abs Neuts (Manual) 5.8 10^3/uL (1.7-8.2) 05/09/20 06:29 Abs Lymphs (Manual) 2.5 10^3/uL (0.5-4.7) 05/09/20 06:29 Abs Monocytes (Manual) 0.4 10^3/uL (0.1-1.4) 05/09/20 06:29 Absolute Eos (Manual) 0.1 10^3/uL (0.0-0.6) 05/09/20 06:29 Abs Basophils (Manual) 0.1 10^3/uL (0.0-0.2) 05/09/20 06:29 Nucleated RBCs 1 /100 WBC (0) 05/06/20 06:18 Clumped Platelets PRESENT 05/06/20 06:18 Platelet Comment ADEQUATE 05/09/20 06:29 Polychromasia 1+ 05/06/20 06:18 Poikilocytosis 1+ 05/06/20 06:18 Anisocytosis 1+ 05/09/20 06:29 Tear Drop Cells 1+ 05/06/20 06:18 Ovalocytes 1+ 05/06/20 06:18 PT 14.3 SEC (11.4-15.4) 05/05/20 15:10 INR 1.09 05/05/20 15:10 APTT 35.0 SEC (23.5-35.8) 05/05/20 15:10 Carbonic Acid 2.40 mmol/L (1.05-1.35) H 05/11/20 06:16 HCO3/H2CO3 Ratio 16:1 05/11/20 06:16 ABG pH 7.32 (7.35-7.45) L 05/11/20 06:16 ABG pCO2 79.6 mmHg (35-45) H* 05/11/20 06:16 ABG pO2 81.9 mmHg (80-100) 05/11/20 06:16 ABG HCO3 39.7 mmol/L (20-24) H 05/11/20 06:16 ABG Total CO2 42.2 mmol/L (23-27) H 05/11/20 06:16 ABG O2 Saturation 94.6 % (94-98) 05/11/20 06:16 ABG Base Excess 11.0 mmol/L 05/11/20 06:16 FiO2 50% 05/11/20 06:16 Sodium 139.1 mmol/L (137-145) 05/09/20 06:29 Potassium 4.4 mmol/L (3.6-5.0) 05/09/20 06:29 Chloride 89 mmol/L (98-107) L 05/09/20 06:29 Carbon Dioxide 39 mmol/L (22-30) H 05/09/20 06:29 Anion Gap 11 (5-19) 05/09/20 06:29 BUN 24 mg/dL (7-20) H 05/09/20 06:29 Creatinine 1.24 mg/dL (0.52-1.25) 05/09/20 06:29 Est GFR ( Amer) > 60 (>60) 05/09/20 06:29 Est GFR (MDRD) Non-Af > 60 (>60) 05/09/20 06:29 Glucose 121 mg/dL (75-110) H 05/09/20 06:29 Hemoglobin A1c % 5.3 % (4.7-6.0) 05/06/20 06:18 Lactic Acid 1.3 mmol/L (0.7-2.1) 05/05/20 19:50 Calcium 9.6 mg/dL (8.4-10.2) 05/09/20 06:29 Phosphorus 4.1 mg/dL (2.5-4.5) 05/06/20 06:18 Magnesium 2.2 mg/dL (1.6-2.3) 05/07/20 06:31 Total Bilirubin 0.4 mg/dL (0.2-1.3) 05/09/20 06:29 Direct Bilirubin 0.2 mg/dL (0.0-0.4) 05/09/20 06:29 Neonat Total Bilirubin Not Reportable 05/09/20 06:29 Neonat Direct Bilirubin Not Reportable 05/09/20 06:29 Neonat Indirect Bili Not Reportable 05/09/20 06:29 AST 25 U/L (17-59) 05/09/20 06:29 ALT 27 U/L (<50) 05/09/20 06:29 Alkaline Phosphatase 63 U/L (38-126) 05/09/20 06:29 Troponin I < 0.012 ng/mL 05/05/20 15:10 NT-Pro-B Natriuret Pep 76 pg/mL (<125) 05/05/20 15:10 Total Protein 7.7 g/dL (6.3-8.2) 05/09/20 06:29 Albumin 3.9 g/dL (3.5-5.0) 05/09/20 06:29 Urine Color STRAW 05/05/20 15:10 Urine Appearance CLEAR 05/05/20 15:10 Urine pH 5.0 (5.0-9.0) 05/05/20 15:10 Ur Specific [place] 1.008 05/05/20 15:10 Urine Protein NEGATIVE mg/dL (NEGATIVE) 05/05/20 15:10 Urine Glucose (UA) NEGATIVE mg/dL (NEGATIVE) 05/05/20 15:10 Urine Ketones NEGATIVE mg/dL (NEGATIVE) 05/05/20 15:10 Urine Blood NEGATIVE (NEGATIVE) 05/05/20 15:10 Urine Nitrite NEGATIVE (NEGATIVE) 05/05/20 15:10 Urine Bilirubin NEGATIVE (NEGATIVE) 05/05/20 15:10 Urine Urobilinogen NEGATIVE mg/dL (<2.0) 05/05/20 15:10 Ur Leukocyte Esterase NEGATIVE (NEGATIVE) 05/05/20 15:10 Urine WBC (Auto) 0 /HPF 05/05/20 15:10 Squamous Epi Cells Auto <1 /HPF 05/05/20 15:10 Urine Mucus (Auto) RARE /LPF 05/05/20 15:10 Urine Ascorbic Acid NEGATIVE (NEGATIVE) 05/05/20 15:10 Theophylline 4.2 ug/mL (10.0-20.0) L 05/11/20 06:38 Slides for Path Review PATHOLOGIST REVIEWED 05/06/20 06:18 05/05/20 15:10 Troponin I < 0.012 NT-Pro-B Natriuret Pep 76 Impressions: Chest X-Ray 05/05/20 14:29 IMPRESSION: Right lower lobe airspace disease either atelectasis or pneumonia. No other interval change. Plan Plan of Treatment: Patient is discharged home in stable condition. He is advised follow-up with his primary care provider within 1 week. He is instructed to follow-up with his established diamond die maker, Dr. More, as scheduled. Home health services are resumed. He is strongly encouraged to maintain compliance with his ventilator. Dietary compliance and lifestyle modification are encouraged. Return to the emergency department, as needed, for concerning symptoms. Time Spent: Greater than 30 Minutes Stroke Is this a Stroke Patient?: No Acute Heart Failure Is this a Heart Failure Patient?: No
== END 2020-05-12 13:22 | disposition other institution (70) | DRG 207 ==
LOC: ER 13:57 → EH 20:41 → UNDOADMIN 20:41 → INTOOBSV 20:41 → OBSVTOIN 20:41 → 3S 05-06 20:40 → EH 05-06 20:40 → 3S 05-07 16:31 → UNDODISIN 05-12 13:22
PROVIDERS: ADMIT Internal Medicine; ATTEND Registered Nurse
PROC: 5A1955Z Respiratory Ventilation, Greater than 96 Consecutive Hours (ICD-10-PCS; principal; 2020-05-06)
PROC: 3E02340 Introduction of Influenza Vaccine into Muscle, Percutaneous Approach (ICD-10-PCS; 2020-05-07)
DX: J96.21 Acute and chronic respiratory failure with hypoxia (principal); J95.851 Ventilator associated pneumonia; E66.2 Morbid (severe) obesity with alveolar hypoventilation; Z68.45 Body mass index [BMI] 70 or greater, adult; J96.22 Acute and chronic respiratory failure with hypercapnia; Z23 Encounter for immunization; Y84.8 Other medical procedures as the cause of abnormal reaction of the patient, or of later complication, without mention of misadventure at the time of the procedure; I10 Essential (primary) hypertension; B96.5 Pseudomonas (aeruginosa) (mallei) (pseudomallei) as the cause of diseases classified elsewhere; Z91.19 Patient's noncompliance with other medical treatment and regimen; J44.9 Chronic obstructive pulmonary disease, unspecified; F41.9 Anxiety disorder, unspecified; Z79.899 Other long term (current) drug therapy; Z79.890 Hormone replacement therapy; Z99.81 Dependence on supplemental oxygen; Z87.891 Personal history of nicotine dependence
CPT/HCPCS: 36415; 36600; 71045; 80048; 80053; 80198; 81001; 82803; 83036; 83605; 83735; 83880; 84100; 84484; 85025; 85610; 85730; 87040; 87070; 87077; 87186; 87205; 90471; 90686; 93005; 93010; 94002; 94003; 94640; 96374; 99285; G0008; G0378; J0713; J1120; J1650; J2543; J3370; J3490; J7060

== ENCOUNTER 2020-07-16 09:07 | Inpatient (IN) | payer MEDICARE, MEDICAID ==
--- NOTE | 2020-07-16 10:08 | RADIOLOGY REPORT (SQ) ---
EXAM DESCRIPTION: CHEST SINGLE VIEW IMAGES COMPLETED DATE/TIME: 07/16/2020 9:58 am REASON FOR STUDY: SOB COMPARISON: AP view of the chest from 05/05/2020. EXAM PARAMETERS: NUMBER OF VIEWS: One view. TECHNIQUE: An AP view of the chest was obtained. RADIATION DOSE: NA LIMITATIONS: None. FINDINGS: LUNGS AND PLEURA: Low inspiratory lung volumes with patchy bilateral basilar predominant o pacities that are unchanged compared to the radiograph from 05/05/2020. MEDIASTINUM AND HILAR STRUCTURES: No mediastinal or hilar contour abnormality. HEART AND VASCULAR STRUCTURES: The cardiac silhouette is enlarged. BONES: No acute findings. HARDWARE: Tracheostomy tube. OTHER: Unchanged elevation of the right hemidiaphragm. IMPRESSION: Low inspiratory lung volumes and cardiomegaly with patchy bilateral basilar predominant opacities that are unchanged compared to the radiograph from 05/05/2020. TECHNICAL DOCUMENTATION: JOB ID: [id number] 2010 [employer]- All Rights Reserved Reading location - IP/workstation name: [email or web address]
[2020-07-16 10:12] LABS: HEMATOCRIT 32.5 % (37.9-51.0); HEMOGLOBIN 10.1 g/dL (13.5-17.0); MEAN CORPUSCULAR HGB CONC 31.2 g/dL (32.0-36.0); MEAN CORPUSCULAR VOLUME 87 fl (80-97); PLATELET COUNT 291 10^3/uL (150-450); RED BLOOD COUNT 3.74 10^6/uL (4.35-5.55)
[2020-07-16 10:13] LABS: VENOUS BLOOD BASE EXCESS 18.1 mmol/L; VENOUS BLOOD HCO3 50.5 mmol/L (20-32); VENOUS BLOOD PH 7.23 (7.30-7.42)
[2020-07-16] MEDS ORDERED: ALBUTEROL SULFATE 0.083% NEB 2.5 MG/3 ML AMPUL NEB ONE (10:21)
--- NOTE | 2020-07-16 10:29 | ER Document Report ---
ED General - General Chief Complaint: Shortness Of Breath Stated Complaint: WEAKNESS Time Seen by Provider: 07/16/20 10:18 Primary Care Provider: MARIALUISA HASNEN DO [Primary Care Provider] - Follow up as needed Mode of Arrival: Medic Information source: Patient TRAVEL OUTSIDE OF THE [place] IN LAST 30 DAYS: No - HPI Notes: Morbidly obese patient with pickwickian syndrome, chronic tracheostomy, chronic respiratory failure, presents from home complaining of increasing shortness of breath and cough over the past week. Denies fever or chills. Unknown if any exposure to Covid or other respiratory pathogens. No increased sputum production from his trach. States his back hurts when he coughs. Denies other acute symptoms and is otherwise in his usual state of health. - Related Data Allergies/Adverse Reactions: No Known Allergies Allergy (Verified 05/05/20 15:03) Past Medical History - General Information source: Patient - Social History Smoking Status: Unknown if Ever Smoked Family History: Reviewed & Not Pertinent, DM, Hypertension - Medical History Medical History: Other Notes: Past medical history as documented in the E HR is reviewed. - Past Medical History Cardiac Medical History: Reports: Hx Hypertension Pulmonary Medical History: Reports: Hx Asthma, Hx COPD, Hx Respiratory Failure, Hx Sleep Apnea Renal/ Medical History: Denies: Hx Peritoneal Dialysis GI Medical History: Denies: Hx Crohn's Disease, Hx Ulcerative Colitis Psychiatric Medical History: Reports: Hx Anxiety, Hx Depression Past Surgical History: Reports: Other - Tracheostomy - Immunizations Hx Diphtheria, Pertussis, Tetanus Vaccination: Yes Review of Systems - Review of Systems Notes: All other systems were reviewed and are negative or noncontributory except as noted the present illness. Physical Exam - Vital signs Vitals: Pulse Ox 76 L 07/16/20 09:18 - Notes Notes: General: Morbidly obese male tracheostomy on oxygen 93%, no acute distress. Vital signs are reviewed. HEENT: Grossly normal to inspection. Neck: Tracheostomy is in place is functioning well. No adenopathy. Chest: Normal configuration mild tachypnea. No accessory muscle usage. Coarse rhonchi throughout all lung monet. No wheezes or rales heard. Heart: Distant tones regular rate and rhythm no murmur. Abdomen: Morbidly obese exam is essentially limited to tenderness which is not present. Extremities: Fixed edema of obesity. Some venous stasis changes nothing acute. Skin: Warm dry good turgor no rashes. Neuro: Patient is alert oriented. Cranial nerves appear intact. There are no focal motor or sensory deficits. Course - Re-evaluation Re-evalutation: 07/16/20 10:27 Patient was placed on oxygen and his saturations came up to 93%. Nebulizer was ordered. Appropriate chest x-rays and labs were ordered and are pending. Given the patient's very high PCO2 on his venous blood gas admission will likely be required for mechanical ventilation. 07/16/20 15:14 Patient was reassessed. Blood gases really have not changed very much on mechanical ventilation. His blood pressure has been somewhat labile and low. I discussed the case with Dr. Christopher, our velvet weaver. We agreed to decrease his pressure support and PEEP a little bit thinking that perhaps we had caused some impairment in cardiac return. Dr. Christopher accepted the patient for admission to the ICU. - Vital Signs Vital signs: Temp Pulse Resp BP Pulse Ox 99.0 F 21 H 154/140 H 98 07/16/20 13:14 07/16/20 09:35 07/16/20 14:59 07/16/20 14:59 - Laboratory Results Result Diagrams: 07/16/20 09:45 07/16/20 09:45 Laboratory Results Interpreted: 07/16/20 07/16/20 07/16/20 09:45 09:45 09:45 RBC 3.74 L Hgb 10.1 L Hct 32.5 L MCHC 31.2 L RDW 17.0 H Seg Neuts % (Manual) 79 H Band Neutrophils % 2 L Lymphocytes % (Manual) 9 L Carbonic Acid ABG pH ABG pCO2 ABG pO2 ABG HCO3 ABG Total CO2 ABG O2 Saturation VBG pH 7.23 L VBG pCO2 123.0 H* VBG HCO3 50.5 H Chloride 86 L Carbon Dioxide 46 H* BUN 37 H Creatinine 1.57 H Est GFR (MDRD) Non-Af 52 L Glucose 121 H 07/16/20 07/16/20 10:45 14:35 RBC Hgb Hct MCHC RDW Seg Neuts % (Manual) Band Neutrophils % Lymphocytes % (Manual) Carbonic Acid 3.67 H 3.60 H ABG pH 7.23 L 7.23 L ABG pCO2 121.8 H* 119.6 H* ABG pO2 75.9 L ABG HCO3 50.1 H 48.5 H ABG Total CO2 53.8 H 52.2 H ABG O2 Saturation 90.9 L 93.4 L VBG pH VBG pCO2 VBG HCO3 Chloride Carbon Dioxide BUN Creatinine Est GFR (MDRD) Non-Af Glucose Discharge - Discharge Clinical Impression: Acute on chronic respiratory failure with hypoxia and hypercapnia Condition: Serious Disposition: ADMITTED INPATIENT Admitting Provider: Jakub (Mechanical Spreader Operator) Unit Admitted: ICU Referrals: MARIALUISA HANSEN DO [Primary Care Provider] - Follow up as needed
[2020-07-16 10:34] LABS: ALKALINE PHOSPHATASE 65 U/L (38-126); ASPARTATE AMINO TRANSFERASE 27 U/L (17-59); BILIRUBIN,DIRECT 0.2 mg/dL (0.0-0.4); BILIRUBIN,TOTAL 0.3 mg/dL (0.2-1.3); BLOOD UREA NITROGEN 37 mg/dL (7-20); CALCIUM 9.1 mg/dL (8.4-10.2); CHLORIDE 86 mmol/L (98-107); GLUCOSE 121 mg/dL (75-110); POTASSIUM 4.8 mmol/L (3.6-5.0); TOTAL PROTEIN 7.9 g/dL (6.3-8.2)
[2020-07-16 10:39] LABS: ABSOLUTE LYMPHOCYTES# (MANUAL) 0.9 10^3/uL (0.5-4.7); ANISOCYTOSIS 1+; BAND NEUTROPHILS % (MANUAL) 2 % (3-5); BASOPHILS % (MANUAL) 0 % (0-2); EOSINOPHILS % (MANUAL) 0 % (0-6); LYMPHOCYTES % (MANUAL) 9 % (13-45); MONOCYTES % (MANUAL) 10 % (3-13); NUCLEATED RED BLOOD CELLS 1 /100 WBC (0); PLATELET COMMENT ADEQUATE; POIKILOCYTOSIS 3+; SEGMENTED NEUTROPHILS % (MAN) 79 % (42-78); STOMATOCYTES 3+; TOTAL CELLS COUNTED 100; TOXIC GRANULATION 1+
[2020-07-16 10:41] LABS: ANION GAP 7 (5-19)
[2020-07-16 10:44] LABS: CARBON DIOXIDE 46 mmol/L (22-30)
[2020-07-16 11:05] LABS: ARTERIAL BLOOD BASE EXCESS 18.3 mmol/L; ARTERIAL BLOOD FIO2 100%; ARTERIAL BLOOD H2CO3 3.67 mmol/L (1.05-1.35); ARTERIAL BLOOD HCO3 50.1 mmol/L (20-24); ARTERIAL BLOOD O2 SATURATION 90.9 % (94-98); ARTERIAL BLOOD PH 7.23 (7.35-7.45); ARTERIAL BLOOD PO2 75.9 mmHg (80-100); ARTERIAL BLOOD TOTAL CO2 53.8 mmol/L (23-27)
[2020-07-16 11:06] LABS: ARTERIAL BLOOD PCO2 121.8 mmHg (35-45)
--- NOTE | 2020-07-16 12:03 | EKG REPORT ---
SEVERITY:- ABNORMAL ECG - SINUS RHYTHM NONSPECIFIC INTRAVENTRICULAR CONDUCTION DELAY : Confirmed by: Vincent Meyer MD 16-Jul-2020 12:02:16
[2020-07-16] MEDS ORDERED: NORMAL SALINE 1000 ML 1,000 ML IV ONE ×2 (12:11→15:00)
[2020-07-16 14:49] LABS: ARTERIAL BLOOD BASE EXCESS 16.9 mmol/L; ARTERIAL BLOOD HCO3 48.5 mmol/L (20-24); ARTERIAL BLOOD O2 SATURATION 93.4 % (94-98); ARTERIAL BLOOD PH 7.23 (7.35-7.45); ARTERIAL BLOOD PO2 85.4 mmHg (80-100); ARTERIAL BLOOD TOTAL CO2 52.2 mmol/L (23-27)
[2020-07-16 14:54] LABS: ARTERIAL BLOOD FIO2 80%
[2020-07-16 14:58] LABS: ARTERIAL BLOOD PCO2 119.6 mmHg (35-45)
[2020-07-16] MEDS ORDERED: ONDANSETRON HCL INJ/PF 4 MG/2 ML SDV IV PRN (15:35)
[2020-07-16] MEDS ORDERED: ACETAMINOPHEN 325 MG TABLET PO PRN (15:35)
--- NOTE | 2020-07-16 15:35 | CRITICAL CARE ADMISSION REPORT ---
HPI Date:: 07/16/20 Time:: 15:00 Reason for ICU Reason:: On ventilator for hypercarbia Admission Date/Time & PCP: Admission Date/Time: Primary Care Provider: MARIALUISA HANSEN DO HPI: This patient is a 30 yo man who is morbidly obese with a tracheotomy for Pickwickian syndrome. He has felt SOB for the last week. No secretions, fever or signs of infection/PNA. He was found to be hypercarbic in the ED and was tried on PSV but his pCO2 did not drop. It is still about 121 with a pH around 7.23. He will need a rate on the ventilator and although he has a ventilator at home it is too risky to send him back. His BP also began to drop and resolved somewhat with IVF. History obtained from:: Patient, Dr. Alcantar and records. - Diagnosis/Plan (1) Acute and chronic respiratory failure with hypercapnia Is this a current diagnosis for this admission?: Yes Plan: His pCO2 did not drop on PSV up to 20. He will need a rate of 10 or so to start. The possibility of a burgeoning PNA exists but no evidence as yet. (2) Morbid obesity Is this a current diagnosis for this admission?: Yes Plan: This is likely the cause of his hypoventilation, hypercarbia and non-compliance with home vent. (3) TERRANCE (obstructive sleep apnea) Is this a current diagnosis for this admission?: Yes Plan: On removal from RR on vent he will likely need to go back on it at night. Plan Summary: Place him on a set vent rate and recheck ABG Past Medical History Cardiac Medical History: Reports: Hypertension Pulmonary Medical History: Reports: Asthma, Chronic Obstructive Pulmonary Disease (COPD), Respiratory Failure, Sleep Apnea GI Medical History: Denies: Crohn's Disease, Ulcerative Colitis Psychiatric Medical History: Reports: Depression Past Surgical History Past Surgical History: Reports: Other - Tracheostomy Social/Family History - Social History Smoking Status: Unknown if Ever Smoked Frequency of Alcohol Use: Occasional Hx Recreational Drug Use: No Drugs: None Hx Prescription Drug Abuse: No - Medication/Allergies Home Medications: Levothyroxine Sodium [Synthroid] 100 mcg PO Q6AM 03/12/18 Hydrochlorothiazide [Hydrodiuril 25 mg Tablet] 25 mg PO QAM 03/22/19 Atorvastatin Calcium [Lipitor 40 mg Tablet] 40 mg PO QHS tablet 03/29/19 Lisinopril [Prinivil 10 mg Tablet] 40 mg PO DAILY tablet 03/29/19 Amlodipine Besylate [Norvasc 10 mg Tablet] 10 mg PO QAM 01/31/20 Furosemide [Lasix 40 mg Tablet] 40 mg PO BIDP PRN 01/31/20 Gabapentin [Neurontin 300 mg Capsule] 300 mg PO Q8 01/31/20 Sertraline HCl [Zoloft 50 mg Tablet] 200 mg PO QAM 01/31/20 Theophylline Anhydrous [Matthieu-Dur 300 mg Tab.sr] 300 mg PO Q12 #60 tab.sr.12h 02/11/20 Buspirone HCl 15 mg PO BID 05/06/20 Nystatin [Mycostatin 231727 Unit/1 ml Susp 60 ml Btl] 5 ml PO QID 05/06/20 Acetylcysteine [Mucomist 20% Soln 800 mg/4 mL] 3 ml IH RTTID 07/16/20 Nystatin 1 applic TOP QID 07/16/20 Allergies/Adverse Reactions: No Known Allergies Allergy (Verified 05/05/20 15:03) Review of Systems Constitutional: ABSENT: chills, fever(s), headache(s), weight gain, weight loss Eyes: ABSENT: visual disturbances Ears: ABSENT: hearing changes Cardiovascular: ABSENT: chest pain, dyspnea on exertion, edema, orthropnea, palpitations Respiratory: PRESENT: cough, other - Some SOB Gastrointestinal: ABSENT: abdominal pain, constipation, diarrhea, hematemesis, hematochezia, nausea, vomiting Neurological: ABSENT: abnormal gait, abnormal speech, confusion, dizziness, focal weakness, syncope Psychiatric: ABSENT: anxiety, depression, homidical ideation, suicidal ideation Hematologic/Lymphatic: ABSENT: easy bleeding, easy bruising Physical Exam Vital Signs: Temp Pulse Resp BP Pulse Ox 99.0 F 21 H 154/140 H 98 07/16/20 13:14 07/16/20 09:35 07/16/20 14:59 07/16/20 14:59 Intake & Output 07/15/20 07/16/20 07/17/20 06:59 06:59 06:59 Intake Total 1000 Balance 1000 Weight 238.136 kg Weight/Height Weight 238.136 kg Height 5 ft 9 in General appearance: PRESENT: no acute distress, morbidly obese Head exam: PRESENT: atraumatic, normocephalic Eye exam: PRESENT: conjunctiva pink, EOMI, PERRLA. ABSENT: scleral icterus Ear exam: PRESENT: normal external ear exam Mouth exam: PRESENT: moist, tongue midline Neck exam: PRESENT: tracheostomy Respiratory exam: PRESENT: clear to auscultation kapil, decreased breath sounds. ABSENT: rales, rhonchi, wheezes Cardiovascular exam: PRESENT: RRR. ABSENT: diastolic murmur, rubs, systolic murmur GI/Abdominal exam: PRESENT: normal bowel sounds, soft. ABSENT: distended, gua rding, mass, organolmegaly, rebound, tenderness Rectal exam: PRESENT: deferred Extremities exam: PRESENT: full ROM, +2 edema, other - Bilateral venous stasis disease.. ABSENT: calf tenderness, clubbing, pedal edema Neurological exam: PRESENT: alert, awake, oriented to person, oriented to place, oriented to time, oriented to situation, CN II-XII grossly intact. ABSENT: motor sensory deficit Psychiatric exam: PRESENT: appropriate affect, normal mood. ABSENT: homicidal ideation, suicidal ideation Tubes/Lines: PRESENT: Other - Trach Laboratory/Radiographs Laboratory Results: 07/16/20 09:45 07/16/20 09:45 07/16/20 07/16/20 07/16/20 09:45 09:45 09:45 WBC 10.0 RBC 3.74 L Hgb 10.1 L Hct 32.5 L MCV 87 MCH 27.0 MCHC 31.2 L RDW 17.0 H Plt Count 291 Seg Neutrophils % Not Reportable Carbonic Acid HCO3/H2CO3 Ratio ABG pH ABG pCO2 ABG pO2 ABG HCO3 ABG O2 Saturation ABG Base Excess VBG pH 7.23 L VBG pCO2 123.0 H* VBG HCO3 50.5 H VBG Base Excess 18.1 FiO2 Sodium 139.2 Potassium 4.8 Chloride 86 L Carbon Dioxide 46 H* Anion Gap 7 BUN 37 H Creatinine 1.57 H Est GFR ( Amer) > 60 Glucose 121 H Calcium 9.1 Total Bilirubin 0.3 AST 27 Alkaline Phosphatase 65 Total Protein 7.9 Albumin 4.0 07/16/20 07/16/20 10:45 14:35 WBC RBC Hgb Hct MCV MCH MCHC RDW Plt Count Seg Neutrophils % Carbonic Acid 3.67 H 3.60 H HCO3/H2CO3 Ratio 13:1 13:1 ABG pH 7.23 L 7.23 L ABG pCO2 121.8 H* 119.6 H* ABG pO2 75.9 L 85.4 ABG HCO3 50.1 H 48.5 H ABG O2 Saturation 90.9 L 93.4 L ABG Base Excess 18.3 16.9 VBG pH VBG pCO2 VBG HCO3 VBG Base Excess FiO2 100% 80% Sodium Potassium Chloride Carbon Dioxide Anion Gap BUN Creatinine Est GFR ( Amer) Glucose Calcium Total Bilirubin AST Alkaline Phosphatase Total Protein Albumin 07/16/20 09:45 NT-Pro-B Natriuret Pep 51 Impressions: Chest X-Ray 07/16/20 09:18 IMPRESSION: Low inspiratory lung volumes and cardiomegaly with patchy bilateral basilar predominant opacities that are unchanged compared to the radiograph from 05/05/2020. EKG: NSR All labs, radiographs, diagnostic studies and EKGs were personally reviewed: Yes In addition, reports of radiographic and diagnostic studies were read: Yes Critical Time Critical Time (minutes): 45 -: The care of a critically ill patient is dynamic. This note represents a static moment in the admission process. Orders and treatments may be given simultaneously and urgently, and time is not sales representative adding machines of the treatment process. This patient requires Critical Care secondary to life threatening organ or limb dysfunction. Without Critical Care services, the patient is at risk for increased mortality and morbidity.
[2020-07-16 15:37] LABS: APPEARANCE,URINE CLOUDY; BILIRUBIN,URINE NEGATIVE (NEGATIVE); COLOR,URINE YELLOW; GLUCOSE, URINE NEGATIVE (NEGATIVE); KETONES,URINE NEGATIVE (NEGATIVE); LEUKOCYTE ESTERASE,URINE TRACE (NEGATIVE); NITRITE,URINE NEGATIVE (NEGATIVE); PROTEIN,URINE 30 mg/dL (NEGATIVE); URINE SPECIFIC GRAVITY 1.015; UROBILINOGEN,URINE NEGATIVE mg/dL (<2.0)
[2020-07-16] MEDS ORDERED: NYSTATIN 100000 UNIT/ML PO SCH (15:45)
[2020-07-16] MEDS: THEOPHYLLINE ANHYDROUS 300 MG TAB.SR.12H PO SCH (16:38)
[2020-07-16] MEDS: ENOXAPARIN SODIUM INJ 40 MG/0.4 ML DISP.SYRIN SUBCUT SCH (16:39)
[2020-07-16] MEDS: RINGERS SOLUTION,LACTATED 1,000 ML IV PRN (17:14)
[2020-07-16] MEDS ORDERED: NYSTATIN 1000000 UNIT TOP SCH (18:00)
[2020-07-16] MEDS ORDERED: BUSPIRONE HCL 15 MG PO SCH (18:00)
[2020-07-16] MEDS: BUSPIRONE HCL 10 MG TABLET PO SCH (18:23)
[2020-07-16] MEDS: NYSTATIN 500000 UNIT/5 ML UDCUP PO SCH ×2 (18:23→23:16)
[2020-07-16] MEDS: NYSTATIN TOPICAL POWDER 15 GM TP SCH ×2 (18:24→23:17)
[2020-07-16 19:01] LABS: ARTERIAL BLOOD BASE EXCESS 10.5 mmol/L; ARTERIAL BLOOD FIO2 80%; ARTERIAL BLOOD H2CO3 2.91 mmol/L (1.05-1.35); ARTERIAL BLOOD HCO3 40.6 mmol/L (20-24); ARTERIAL BLOOD O2 SATURATION 98.2 % (94-98); ARTERIAL BLOOD PH 7.24 (7.35-7.45); ARTERIAL BLOOD PO2 142.2 mmHg (80-100); ARTERIAL BLOOD TOTAL CO2 43.6 mmol/L (23-27)
[2020-07-16 19:02] LABS: ARTERIAL BLOOD PCO2 96.8 mmHg (35-45)
[2020-07-16] MEDS ORDERED: ACETYLCYSTEINE 20% SOLN 800 MG/4 ML VIAL.NEB IH SCH (20:00)
[2020-07-16] MEDS: IPRATROPIUM/ALBUTEROL 0.5-2.5 MG/3 ML AMPUL NEB PRN (21:49)
[2020-07-16] MEDS: ACETYLCYSTEINE 20% SOLN 800 MG/4 ML VIAL.NEB IH SCH (21:49)
[2020-07-16] MEDS: GABAPENTIN 300 MG CAPSULE PO SCH (23:15)
--- NOTE | 2020-07-17 01:28 | Progress Note ---
Provider Note Provider Note: The patient who has a tracheostomy and on chronic home ventilator was admitted to the brush worker service earlier with hypoxic hypercapnic respiratory failure. Initially he was on FiO2 100% now he is on FiO2 80%. He is on pressure support 05/29. He is improving. Now he is sleepy but wakes up easily and able to c ommunicate. Denies any discomfort. The brush worker team felt the patient is stable to be transferred to the intermediate care unit. I evaluated the patient, he is hemodynamically stable, he does not appear to be any distress. He is sleeping but wakes up easily. He is sitting in a chair. His oxygen saturation is stable in the 90s. Continue with present vent setting. Check arterial blood gas. In case PCO2 is still elevated with respiratory acidosis may increase inspiratory pressure. He is n.p.o. now, in case he is fully alert in the morning he can be started on a regular diet.
[2020-07-17] MEDS: RINGERS SOLUTION,LACTATED 1,000 ML IV PRN ×2 (01:45→06:53)
[2020-07-17 02:54] LABS: ARTERIAL BLOOD BASE EXCESS 13.9 mmol/L; ARTERIAL BLOOD H2CO3 3.12 mmol/L (1.05-1.35); ARTERIAL BLOOD HCO3 44.4 mmol/L (20-24); ARTERIAL BLOOD O2 SATURATION 91.2 % (94-98); ARTERIAL BLOOD PH 7.25 (7.35-7.45); ARTERIAL BLOOD PO2 74.2 mmHg (80-100); ARTERIAL BLOOD TOTAL CO2 47.6 mmol/L (23-27)
[2020-07-17 02:56] LABS: ARTERIAL BLOOD PCO2 103.6 mmHg (35-45)
[2020-07-17 02:57] LABS: ARTERIAL BLOOD FIO2 80%
[2020-07-17] MEDS: THEOPHYLLINE ANHYDROUS 300 MG TAB.SR.12H PO SCH ×2 (05:25→18:21)
[2020-07-17] MEDS: LEVOTHYROXINE SODIUM 0.1 MG TABLET PO SCH (05:25)
[2020-07-17] MEDS: GABAPENTIN 300 MG CAPSULE PO SCH ×3 (05:25→21:55)
[2020-07-17 05:33] LABS: ABSOLUTE EOSINOPHILS # (AUTO) 0.1 10^3/uL (0.0-0.6); ABSOLUTE MONOCYTES (AUTO) 0.8 10^3/uL (0.1-1.4); ABSOLUTE NEUT (AUTO) 5.9 10^3/uL (1.7-8.2); BASOPHILS % (AUTO) 0.2 % (0-2); EOSINOPHILS % (AUTO) 1.7 % (0-6); HEMATOCRIT 30.3 % (37.9-51.0); HEMOGLOBIN 9.3 g/dL (13.5-17.0); LYMPHOCYTES % (AUTO) 12.7 % (13-45); MEAN CORPUSCULAR HEMOGLOBIN 26.5 pg (27.0-33.4); MEAN CORPUSCULAR HGB CONC 30.6 g/dL (32.0-36.0); MEAN CORPUSCULAR VOLUME 87 fl (80-97); MONOCYTES % (AUTO) 9.6 % (3-13); PLATELET COUNT 222 10^3/uL (150-450); RED CELL DISTRIBUTION WIDTH 16.9 % (11.5-14.0); SEGMENTED NEUTROPHILS % (AUTO) 75.8 % (42-78); TOTAL CELLS COUNTED % (AUTO) 100 %; WHITE BLOOD COUNT 7.8 10^3/uL (4.0-10.5)
[2020-07-17 05:49] LABS: BLOOD UREA NITROGEN 47 mg/dL (7-20); CALCIUM 8.7 mg/dL (8.4-10.2); CHLORIDE 91 mmol/L (98-107); GLUCOSE 93 mg/dL (75-110); POTASSIUM 4.7 mmol/L (3.6-5.0)
[2020-07-17 05:49] LABS: ARTERIAL BLOOD BASE EXCESS 18.2 mmol/L; ARTERIAL BLOOD H2CO3 3.69 mmol/L (1.05-1.35); ARTERIAL BLOOD HCO3 50.1 mmol/L (20-24); ARTERIAL BLOOD O2 SATURATION 72.1 % (94-98); ARTERIAL BLOOD PH 7.23 (7.35-7.45); ARTERIAL BLOOD PO2 48.4 mmHg (80-100); ARTERIAL BLOOD TOTAL CO2 53.9 mmol/L (23-27)
[2020-07-17 05:50] LABS: ARTERIAL BLOOD FIO2 80%
[2020-07-17 05:51] LABS: ARTERIAL BLOOD PCO2 122.7 mmHg (35-45)
[2020-07-17 05:57] LABS: ANION GAP 8 (5-19)
[2020-07-17 05:58] LABS: CARBON DIOXIDE 41 mmol/L (22-30)
[2020-07-17] MEDS: ACETYLCYSTEINE 20% SOLN 800 MG/4 ML VIAL.NEB IH SCH ×3 (07:52→19:49)
[2020-07-17] MEDS: IPRATROPIUM/ALBUTEROL 0.5-2.5 MG/3 ML AMPUL NEB PRN ×2 (07:52→19:49)
--- NOTE | 2020-07-17 08:46 | PDOC PROGRESS REPORT ---
Subjective Date:: 07/17/20 Subjective:: I was called to see the patient. This morning's blood gas revealed a PCO2 of 123. This is no better than his admission blood gas in the emergency department. He is on a home ventilator however with his cuff deflated the ventilator is inefficient at blowing off CO2. He is awake but groggy. He does try and answer questions and answers them fairly appropriately. He has very c ongested breath sounds and secretions are a constant problem for the patient. He freely admits that he does not use his ventilator as he is supposed to and at least by his report has not used it in the past month at home. Reason For Visit: HYPERCARBIA,HYPOVENTILATION,NEEDS VENTILATOR Physical Exam Vital Signs: Temp Pulse Resp BP Pulse Ox 98.5 F 92 16 113/61 94 07/17/20 05:33 07/17/20 07:52 07/17/20 07:52 07/17/20 05:33 07/17/20 07:52 Intake & Output 07/16/20 07/17/20 07/18/20 06:59 06:59 06:59 Intake Total 3770 Output Total 1900 Balance 1870 Weight 211.1 kg General appearance: PRESENT: cooperative - He was cooperative when awake, mild distress - Although his elevated PCO2 could be masking some of this., morbidly obese Eye exam: PRESENT: other - Yellow discharge at bilateral medial canthi Ear exam: PRESENT: normal external ear exam. ABSENT: bleeding, drainage Mouth exam: PRESENT: moist, tongue midline Neck exam: PRESENT: tracheostomy - No active bleeding around the tracheostomy site, other - Extremely large neck with tissue redundancy. Tracheostomy in place. The cuff is not inflated.. ABSENT: full ROM - Due to body habitus Respiratory exam: PRESENT: rales - Faint rales but body habitus makes it somewhat difficult to auscultate., other - At times his respiratory rate was in fact at the vent rate setting. ABSENT: accessory muscle use Cardiovascular exam: PRESENT: RRR, +S1, +S2 GI/Abdominal exam: PRESENT: other - Pendulous abdomen Rectal exam: PRESENT: deferred Gentrourinary exam: PRESENT: indwelling catheter Extremities exam: PRESENT: +2 edema Neurological exam: PRESENT: awake, oriented to person, oriented to place, oriented to time, oriented to situation, CN II-XII grossly intact. ABSENT: alert Psychiatric exam: PRESENT: flat affect. ABSENT: agitated, anxious Focused psych exam: ABSENT: delusional, paranoid, restlessness Skin exam: PRESENT: other - Lower leg discoloration consistent with chronic venous insufficiency Results Laboratory Results: 07/17/20 04:38 07/17/20 04:38 07/16/20 07/16/20 07/16/20 09:45 09:45 09:45 WBC 10.0 RBC 3.74 L Hgb 10.1 L Hct 32.5 L MCV 87 MCH 27.0 MCHC 31.2 L RDW 17.0 H Plt Count 291 Seg Neutrophils % Not Reportable Carbonic Acid HCO3/H2CO3 Ratio ABG pH ABG pCO2 ABG pO2 ABG HCO3 ABG O2 Saturation ABG Base Excess VBG pH 7.23 L VBG pCO2 123.0 H* VBG HCO3 50.5 H VBG Base Excess 18.1 FiO2 Sodium 139.2 Potassium 4.8 Chloride 86 L Carbon Dioxide 46 H* Anion Gap 7 BUN 37 H Creatinine 1.57 H Est GFR ( Amer) > 60 Glucose 121 H Calcium 9.1 Total Bilirubin 0.3 AST 27 Alkaline Phosphatase 65 Total Protein 7.9 Albumin 4.0 Urine Color Urine Appearance Urine pH Ur Specific [place] Urine Protein Urine Glucose (UA) Urine Ketones Urine Blood Urine Nitrite Ur Leukocyte Esterase Urine WBC (Auto) Urine RBC (Auto) 07/16/20 07/16/20 07/16/20 10:45 14:35 15:15 WBC RBC Hgb Hct MCV MCH MCHC RDW Plt Count Seg Neutrophils % Carbonic Acid 3.67 H 3.60 H HCO3/H2CO3 Ratio 13:1 13:1 ABG pH 7.23 L 7.23 L ABG pCO2 121.8 H* 119.6 H* ABG pO2 75.9 L 85.4 ABG HCO3 50.1 H 48.5 H ABG O2 Saturation 90.9 L 93.4 L ABG Base Excess 18.3 16.9 VBG pH VBG pCO2 VBG HCO3 VBG Base Excess FiO2 100% 80% Sodium Potassium Chloride Carbon Dioxide Anion Gap BUN Creatinine Est GFR ( Amer) Glucose Calcium Total Bilirubin AST Alkaline Phosphatase Total Protein Albumin Urine Color YELLOW Urine Appearance CLOUDY Urine pH 5.0 Ur Specific [place] 1.015 Urine Protein 30 H Urine Glucose (UA) NEGATIVE Urine Ketones NEGATIVE Urine Blood NEGATIVE Urine Nitrite NEGATIVE Ur Leukocyte Esterase TRACE H Urine WBC (Auto) 7 Urine RBC (Auto) 2 07/16/20 07/17/20 07/17/20 18:40 02:40 04:38 WBC 7.8 RBC 3.50 L Hgb 9.3 L Hct 30.3 L MCV 87 MCH 26.5 L MCHC 30.6 L RDW 16.9 H Plt Count 222 Seg Neutrophils % 75.8 Carbonic Acid 2.91 H 3.12 H HCO3/H2CO3 Ratio 13:1 14:1 ABG pH 7.24 L 7.25 L ABG pCO2 96.8 H* 103.6 H* ABG pO2 142.2 H 74.2 L ABG HCO3 40.6 H 44.4 H ABG O2 Saturation 98.2 H 91.2 L ABG Base Excess 10.5 13.9 VBG pH VBG pCO2 VBG HCO3 VBG Base Excess FiO2 80% 80% Sodium Potassium Chloride Carbon Dioxide Anion Gap BUN Creatinine Est GFR ( Amer) Glucose Calcium Total Bilirubin AST Alkaline Phosphatase Total Protein Albumin Urine Color Urine Appearance Urine pH Ur Specific [place] Urine Protein Urine Glucose (UA) Urine Ketones Urine Blood Urine Nitrite Ur Leukocyte Esterase Urine WBC (Auto) Urine RBC (Auto) 07/17/20 07/17/20 04:38 05:30 WBC RBC Hgb Hct MCV MCH MCHC RDW Plt Count Seg Neutrophils % Carbonic Acid 3.69 H HCO3/H2CO3 Ratio 13:1 ABG pH 7.23 L ABG pCO2 122.7 H* ABG pO2 48.4 L ABG HCO3 50.1 H ABG O2 Saturation 72.1 L ABG Base Excess 18.2 VBG pH VBG pCO2 VBG HCO3 VBG Base Excess FiO2 80% Sodium 139.7 Potassium 4.7 Chloride 91 L Carbon Dioxide 41 H* Anion Gap 8 BUN 47 H Creatinine 1.71 H Est GFR ( Amer) 57 L Glucose 93 Calcium 8.7 Total Bilirubin AST Alkaline Phosphatase Total Protein Albumin Urine Color Urine Appearance Urine pH Ur Specific [place] Urine Protein Urine Glucose (UA) Urine Ketones Urine Blood Urine Nitrite Ur Leukocyte Esterase Urine WBC (Auto) Urine RBC (Auto) 07/16/20 09:45 NT-Pro-B Natriuret Pep 51 Impressions: Chest X-Ray 07/16/20 09:18 IMPRESSION: Low inspiratory lung volumes and cardiomegaly with patchy bilateral basilar predominant opacities that are unchanged compared to the radiograph from 05/05/2020. Assessment and Plan - Diagnosis (1) Acute on chronic respiratory failure with hypoxia and hypercapnia Is this a current diagnosis for this admission?: Yes (2) Hypoventilation associated with obesity syndrome Is this a current diagnosis for this admission?: Yes (3) TERRANCE (obstructive sleep apnea) Is this a current diagnosis for this admission?: Yes (4) Morbid obesity Is this a current diagnosis for this admission?: Yes (5) Attention to tracheostomy Is this a current diagnosis for this admission?: Yes (6) Conjunctivitis Qualifiers: Conjunctivitis type: acute Acute conjunctivitis type: unspecified Laterality: bilateral Qualified Code(s): H10.33 - Unspecified acute conjunctivitis, bilateral Is this a current diagnosis for this admission?: Yes (7) Acute renal insufficiency Is this a current diagnosis for this admission?: Yes - Plan Summary Summary: (1) Acute on chronic respiratory failure with hypoxia and hypercapnia (2) Hypoventilation associated with obesity syndrome (3) TERRANCE (obstructive sleep apnea) (4) Morbid obesity (5) Attention to tracheostomy (6) Conjunctivitis (7) Acute renal insufficiency 07/17/2020 Acute on chronic respiratory failure with hypoxia and hypercapnia-this morning's blood gas revealed a PCO2 of 123. PO2 was only 48. pH was 7.23. Patient was on FiO2 of 80% with 6 of PEEP and pressure support of 20. There were windows where he was not breathing above the vent rate. Unfortunately his cuff was deflated. We did inflate his cuff and not make any changes to the vent setting. We will need to repeat an ABG in approximately 30 to 60 minutes. I have contacted the implementation advisor. We discussed transitioning the patient to the ICU. They are in agreement and we are currently working on this. Hypoventilation associated with obesity/morbid obesity/obstructive sleep apnea- the patient's BMI is 68.7. He has an extremely large neck. Unfortunately he admits to not using his ventilator at home. He tends to have markedly increased secretions. There is clearly noncompliance. He certainly has the mechanisms in place to treat some of these issues but chooses not to. He is only 30 years old. Serious consideration of bariatric surgery should be given or at least enroll the patient in a program if he is willing. Acute renal insufficiency-the patient's BUN and creatinine are elevated this morning. BUN is 47 with a creatinine of 1.7. Estimated GFR is 47. He does have cardiomegaly by x-ray. Will need to monitor intake and output. Once respiratory status is stable we can look at the renal function. Conjunctivitis-the patient had yellow drainage at both medial canthi. I will order baby shampoo washes and erythromycin ointment. Attention to tracheostomy-the patient reports that the main reason he came to the emergency department because there was bleeding at his tracheostomy site. He also admits that he missed his last ENT appointment. I do not know when the last tracheostomy change took place. There is certainly no bleeding at this time. I did review the chest x-ray. The patient does have cardiomegaly. There were infiltrates that radiologist reported as similar to April. Unfortunately given the clinical circumstance I believe antibiotics are warranted. I did inflate the patient's cuff. He asked why and I did explain for the second time the reason. I spoke with the intensivists. They will cough and evaluate the patient. The patient will need a higher level of care than IMCU. I will continue working with the implementation advisor to transition the patient to the ICU. - Time Total Critical Time (Minutes): 60 Medications reviewed and adjusted accordingly: Yes Anticipated Discharge Disposition: Unknown Anticipated Discharge Timeframe: Unknown
[2020-07-17] MEDS: BUSPIRONE HCL 10 MG TABLET PO SCH ×2 (11:03→18:45)
[2020-07-17] MEDS: NYSTATIN 500000 UNIT/5 ML UDCUP PO SCH ×4 (11:03→21:54)
[2020-07-17] MEDS: SERTRALINE HCL 50 MG TABLET PO SCH (11:03)
[2020-07-17] MEDS: ENOXAPARIN SODIUM INJ 40 MG/0.4 ML DISP.SYRIN SUBCUT SCH (11:04)
[2020-07-17] MEDS: NYSTATIN TOPICAL POWDER 15 GM TP SCH ×4 (11:05→21:55)
[2020-07-17 11:52] LABS: ARTERIAL BLOOD BASE EXCESS 17.1 mmol/L; ARTERIAL BLOOD H2CO3 2.86 mmol/L (1.05-1.35); ARTERIAL BLOOD HCO3 46.8 mmol/L (20-24); ARTERIAL BLOOD O2 SATURATION 93.5 % (94-98); ARTERIAL BLOOD PH 7.31 (7.35-7.45); ARTERIAL BLOOD PO2 78.6 mmHg (80-100); ARTERIAL BLOOD TOTAL CO2 49.7 mmol/L (23-27)
[2020-07-17 11:53] LABS: ARTERIAL BLOOD FIO2 80%
[2020-07-17 14:30] LABS: ARTERIAL BLOOD BASE EXCESS 10.7 mmol/L; ARTERIAL BLOOD HCO3 40.1 mmol/L (20-24); ARTERIAL BLOOD O2 SATURATION 96.9 % (94-98); ARTERIAL BLOOD PH 7.28 (7.35-7.45); ARTERIAL BLOOD PO2 105.4 mmHg (80-100); ARTERIAL BLOOD TOTAL CO2 42.7 mmol/L (23-27)
[2020-07-17 14:32] LABS: ARTERIAL BLOOD FIO2 80%
[2020-07-17 14:33] LABS: ARTERIAL BLOOD PCO2 86.4 mmHg (35-45)
--- NOTE | 2020-07-17 14:46 | Progress Note ---
Provider Note Provider Note: 07/17/2020 2:45 PM I have been in touch with the orientation and mobility instructor as well as several conversations with the respiratory therapist. The cuff inflated we in fact obtained a second blood gas. This was even better than the gas obtained 1 hour after the cuff was inflated. On CPAP with PEEP of 6 and pressure support of 20 with an FiO2 of 80% his pH is 7.28 with a PCO2 that is down to 86.4. PO2 is up to 105.4 and bicarb is 40.1. I have discussed this with respiratory therapy and we will start to taper his FiO2. Respiratory is trying to have a replacement trach in the room in the event of an emergency. As we do not have the exact replacement she will have something equivalent if possible.
[2020-07-17] MEDS: MEROPENEM 1 GM in NORMAL SALINE 50 ML IV SCH ×2 (15:44→21:46)
[2020-07-17] MEDS: ATORVASTATIN CALCIUM 40 MG TABLET PO SCH (21:54)
[2020-07-18] MEDS: THEOPHYLLINE ANHYDROUS 300 MG TAB.SR.12H PO SCH ×2 (05:36→17:34)
[2020-07-18] MEDS: LEVOTHYROXINE SODIUM 0.1 MG TABLET PO SCH (05:36)
[2020-07-18] MEDS: MEROPENEM 1 GM in NORMAL SALINE 50 ML IV SCH ×3 (05:36→21:51)
[2020-07-18] MEDS: GABAPENTIN 300 MG CAPSULE PO SCH ×3 (05:36→21:49)
[2020-07-18 06:37] LABS: ARTERIAL BLOOD BASE EXCESS 18.1 mmol/L; ARTERIAL BLOOD H2CO3 2.47 mmol/L (1.05-1.35); ARTERIAL BLOOD HCO3 46.7 mmol/L (20-24); ARTERIAL BLOOD O2 SATURATION 97.2 % (94-98); ARTERIAL BLOOD PH 7.37 (7.35-7.45); ARTERIAL BLOOD PO2 102.5 mmHg (80-100); ARTERIAL BLOOD TOTAL CO2 49.2 mmol/L (23-27)
[2020-07-18 06:39] LABS: ARTERIAL BLOOD FIO2 65%
[2020-07-18 06:40] LABS: ARTERIAL BLOOD PCO2 81.9 mmHg (35-45)
[2020-07-18] MEDS ORDERED: INFLUENZA QUAD (6MOS+) 2020-21 VAC 0.5 ML SYR IM ONE (08:00)
[2020-07-18] MEDS: ACETYLCYSTEINE 20% SOLN 800 MG/4 ML VIAL.NEB IH SCH ×3 (08:27→20:13)
[2020-07-18] MEDS: IPRATROPIUM/ALBUTEROL 0.5-2.5 MG/3 ML AMPUL NEB PRN ×3 (08:27→20:13)
--- NOTE | 2020-07-18 08:39 | PDOC PROGRESS REPORT ---
Subjective Date:: 07/18/20 Subjective:: Patient is sitting up in the chair. He still struggles with mucus. He reports nasal congestion that is actually chronic. He says occasionally these white soft flakes come out with his mucus. He characterizes them as cotton white and soft. Possibly fungal infection. Overall he feels that he is close to his baseline. Reason For Visit: HYPERCARBIA,HYPOVENTILATION,NEEDS VENTILATOR Physical Exam Vital Signs: Temp Pulse Resp BP Pulse Ox 99.2 F 79 13 141/71 H 94 07/18/20 03:11 07/18/20 03:11 07/18/20 03:11 07/18/20 03:11 07/18/20 04:00 Intake & Output 07/17/20 07/18/20 07/19/20 06:59 06:59 06:59 Intake Total 3770 2072 Output Total 1900 2675 Balance 1870 -603 Weight 211.1 kg 211.1 kg General appearance: PRESENT: cooperative, mild distress, morbidly obese, well- developed Head exam: PRESENT: atraumatic, normocephalic Eye exam: PRESENT: conjunctiva pink, EOMI. ABSENT: scleral icterus Ear exam: PRESENT: normal external ear exam. ABSENT: bleeding, drainage Mouth exam: PRESENT: moist, tongue midline Neck exam: PRESENT: tracheostomy Respiratory exam: PRESENT: symmetrical. ABSENT: accessory muscle use, rales, rhonchi, wheezes Cardiovascular exam: PRESENT: RRR, +S1, +S2. ABSENT: bradycardia, diastolic murmur, irregular rhythm, systolic murmur, tachycardia GI/Abdominal exam: PRESENT: normal bowel sounds, soft, other - Pendulous. ABSENT: tenderness Rectal exam: PRESENT: deferred Gentrourinary exam: ABSENT: indwelling catheter Extremities exam: PRESENT: +2 edema - Chronic Musculoskeletal exam: PRESENT: ambulatory Neurological exam: PRESENT: alert, awake, oriented to person, oriented to place, oriented to time, oriented to situation, CN II-XII grossly intact Psychiatric exam: PRESENT: appropriate affect. ABSENT: agitated, anxious Focused psych exam: ABSENT: delusional, paranoid, restlessness Skin exam: PRESENT: dry, normal color, warm Results Laboratory Results: 07/17/20 04:38 07/17/20 04:38 07/17/20 07/17/20 07/18/20 11:00 14:00 06:25 Carbonic Acid 2.86 H 2.60 H 2.47 H HCO3/H2CO3 Ratio 16:1 15:1 18:1 ABG pH 7.31 L 7.28 L 7.37 ABG pCO2 95.0 H* 86.4 H* 81.9 H* ABG pO2 78.6 L 105.4 H 102.5 H ABG HCO3 46.8 H 40.1 H 46.7 H ABG O2 Saturation 93.5 L 96.9 97.2 ABG Base Excess 17.1 10.7 18.1 FiO2 80% 80% 65% 07/16/20 09:45 NT-Pro-B Natriuret Pep 51 Impressions: Chest X-Ray 07/16/20 09:18 IMPRESSION: Low inspiratory lung volumes and cardiomegaly with patchy bilateral basilar predominant opacities that are unchanged compared to the radiograph from 05/05/2020. Assessment and Plan - Diagnosis (1) Acute on chronic respiratory failure with hypoxia and hypercapnia Is this a current diagnosis for this admission?: Yes (2) Hypoventilation associated with obesity syndrome Is this a current diagnosis for this admission?: Yes (3) TERRANCE (obstructive sleep apnea) Is this a current diagnosis for this admission?: Yes (4) Morbid obesity Is this a current diagnosis for this admission?: Yes (5) Attention to tracheostomy Is this a current diagnosis for this admission?: Yes (6) Conjunctivitis Qualifiers: Conjunctivitis type: acute Acute conjunctivitis type: unspecified Laterality: bilateral Qualified Code(s): H10.33 - Unspecified acute conjunctivitis, bilateral Is this a current diagnosis for this admission?: Yes (7) Acute renal insufficiency Is this a current diagnosis for this admission?: Yes (8) Urinary tract infection Qualifiers: Urinary tract infection type: acute cystitis Hematuria presence: without hematuria Qualified Code(s): N30.00 - Acute cystitis without hematuria Is this a current diagnosis for this admission?: Yes (9) Nasal congestion Is this a current diagnosis for this admission?: Yes - Plan Summary Summary: (1) Acute on chronic respiratory failure with hypoxia and hypercapnia (2) Hypoventilation associated with obesity syndrome (3) TERRANCE (obstructive sleep apnea) (4) Morbid obesity (5) Attention to tracheostomy (6) Conjunctivitis (7) Acute renal insufficiency (8) urinary tract infection (9) nasal congestion 07/17/2020 Acute on chronic respiratory failure with hypoxia and hypercapnia-this morning's blood gas revealed a PCO2 of 123. PO2 was only 48. pH was 7.23. Patient was on FiO2 of 80% with 6 of PEEP and pressure support of 20. There were windows where he was not breathing above the vent rate. Unfortunately his cuff was de flated. We did inflate his cuff and not make any changes to the vent setting. We will need to repeat an ABG in approximately 30 to 60 minutes. I have contacted the supply person. We discussed transitioning the patient to the ICU. They are in agreement and we are currently working on this. Hypoventilation associated with obesity/morbid obesity/obstructive sleep apnea- the patient's BMI is 68.7. He has an extremely large neck. Unfortunately he admits to not using his ventilator at home. He tends to have markedly increased secretions. There is clearly noncompliance. He certainly has the mechanisms in place to treat some of these issues but chooses not to. He is only 30 years old. Serious consideration of bariatric surgery should be given or at least enroll the patient in a program if he is willing. Acute renal insufficiency-the patient's BUN and creatinine are elevated this morning. BUN is 47 with a creatinine of 1.7. Estimated GFR is 47. He does have cardiomegaly by x-ray. Will need to monitor intake and output. Once respiratory status is stable we can look at the renal function. Conjunctivitis-the patient had yellow drainage at both medial canthi. I will order baby shampoo washes and erythromycin ointment. Attention to tracheostomy-the patient reports that the main reason he came to the emergency department because there was bleeding at his tracheostomy site. He also admits that he missed his last ENT appointment. I do not know when the last tracheostomy change took place. There is certainly no bleeding at this time. I did review the chest x-ray. The patient does have cardiomegaly. There were infiltrates that radiologist reported as similar to April. Unfortunately given the clinical circumstance I believe antibiotics are warranted. I did inflate the patient's cuff. He asked why and I did explain for the second time the reason. I spoke with the intensivists. They will cough and evaluate the patient. The patient will need a higher level of care than IMCU. I will continue working with the supply person to transition the patient to the ICU. 07/18/2020 The patient's blood gas continues to improve. His PO2 is greater than 100 and we will continue to taper FiO2. The patient was asking about a trach collar. We will consider instituting a trial of this in the afternoon. Obesity hypoventilation-continue current management Obstructive sleep apnea-chronic ventilator use with tracheostomy. Tracheostomy-no evidence of bleeding at the trach site. Conjunctivitis-discharge is gone. Complete treatment with Ilotycin ointment Acute renal insufficiency-BUN/creatinine still elevated. We will continue to monitor. Patient had a positive net fluid balance yesterday. We will recheck labs tomorrow. Urinary tract infection-urine culture was ordered. Gram-positive cocci identified. Continue current antibiotic regimen. Await identification with sensitivities. Nasal congestion-this is a chronic issue for the patient. He did appear to have some turbinate swelling. We will try several doses of scheduled Ady-Synephrine and initiate antihistamine therapy. If there is a fungal infection I would like to avoid steroids. Therefore no Flonase at this time. He reports white specks when he blows his nose. Certainly there could be a fungal infection. At this point focusing on his respiratory status is primary. If ENT is available tomorr ow I will review the case with them. - Time Time Spent with patient: 15-24 minutes Medications reviewed and adjusted accordingly: Yes Anticipated Discharge Disposition: Home with Home Health Anticipated Discharge Timeframe: within 24 hours
[2020-07-18] MEDS: BUSPIRONE HCL 10 MG TABLET PO SCH ×2 (09:40→17:33)
[2020-07-18] MEDS: NYSTATIN 500000 UNIT/5 ML UDCUP PO SCH ×4 (09:41→21:50)
[2020-07-18] MEDS: ENOXAPARIN SODIUM INJ 40 MG/0.4 ML DISP.SYRIN SUBCUT SCH (09:41)
[2020-07-18] MEDS: LORATADINE 10 MG TABLET PO SCH (09:41)
[2020-07-18] MEDS: SERTRALINE HCL 50 MG TABLET PO SCH (09:41)
[2020-07-18] MEDS: NYSTATIN TOPICAL POWDER 15 GM TP SCH ×4 (09:42→21:50)
[2020-07-18] MEDS: PHENYLEPHRINE HCL 0.5% NASAL SPRAY 15 ML NASL SCH ×4 (11:39→21:51)
[2020-07-18] MEDS: ERYTHROMYCIN 0.5% OPH OINTMENT 3.5 GM TUBE OU SCH ×2 (11:40→17:33)
[2020-07-18] MEDS: MONTELUKAST SODIUM 10 MG TABLET PO SCH (21:49)
[2020-07-18] MEDS: ATORVASTATIN CALCIUM 40 MG TABLET PO SCH (21:49)
[2020-07-19] MEDS: PHENYLEPHRINE HCL 0.5% NASAL SPRAY 15 ML NASL SCH ×2 (02:30→05:54)
[2020-07-19] MEDS: THEOPHYLLINE ANHYDROUS 300 MG TAB.SR.12H PO SCH ×2 (05:50→17:35)
[2020-07-19] MEDS: LEVOTHYROXINE SODIUM 0.1 MG TABLET PO SCH (05:50)
[2020-07-19] MEDS: GABAPENTIN 300 MG CAPSULE PO SCH ×3 (05:50→21:16)
[2020-07-19] MEDS: MEROPENEM 1 GM in NORMAL SALINE 50 ML IV SCH ×4 (05:51→21:31)
[2020-07-19 06:00] LABS: ABSOLUTE EOSINOPHILS # (AUTO) 0.2 10^3/uL (0.0-0.6); ABSOLUTE LYMPHOCYTES (AUTO) 0.8 10^3/uL (0.5-4.7); ABSOLUTE MONOCYTES (AUTO) 0.7 10^3/uL (0.1-1.4); ABSOLUTE NEUT (AUTO) 5.4 10^3/uL (1.7-8.2); BASOPHILS % (AUTO) 0.2 % (0-2); EOSINOPHILS % (AUTO) 2.4 % (0-6); HEMATOCRIT 31.9 % (37.9-51.0); HEMOGLOBIN 9.7 g/dL (13.5-17.0); LYMPHOCYTES % (AUTO) 10.7 % (13-45); MEAN CORPUSCULAR HEMOGLOBIN 26.3 pg (27.0-33.4); MEAN CORPUSCULAR HGB CONC 30.3 g/dL (32.0-36.0); MEAN CORPUSCULAR VOLUME 87 fl (80-97); MONOCYTES % (AUTO) 10.5 % (3-13); PLATELET COUNT 209 10^3/uL (150-450); RED BLOOD COUNT 3.67 10^6/uL (4.35-5.55); RED CELL DISTRIBUTION WIDTH 16.6 % (11.5-14.0); SEGMENTED NEUTROPHILS % (AUTO) 76.2 % (42-78); TOTAL CELLS COUNTED % (AUTO) 100 %; WHITE BLOOD COUNT 7.1 10^3/uL (4.0-10.5)
[2020-07-19 06:38] LABS: ALBUMIN 3.7 g/dL (3.5-5.0); ALKALINE PHOSPHATASE 59 U/L (38-126); ASPARTATE AMINO TRANSFERASE 33 U/L (17-59); BILIRUBIN,DIRECT 0.3 mg/dL (0.0-0.4); BILIRUBIN,TOTAL 0.4 mg/dL (0.2-1.3); BLOOD UREA NITROGEN 20 mg/dL (7-20); CALCIUM 9.2 mg/dL (8.4-10.2); CHLORIDE 88 mmol/L (98-107); GLUCOSE 110 mg/dL (75-110); POTASSIUM 4.8 mmol/L (3.6-5.0); TOTAL PROTEIN 7.3 g/dL (6.3-8.2)
[2020-07-19 06:50] LABS: ANION GAP 7 (5-19)
[2020-07-19 06:52] LABS: CARBON DIOXIDE 44 mmol/L (22-30)
[2020-07-19] MEDS: ACETYLCYSTEINE 20% SOLN 800 MG/4 ML VIAL.NEB IH SCH ×3 (07:40→20:09)
[2020-07-19] MEDS: IPRATROPIUM/ALBUTEROL 0.5-2.5 MG/3 ML AMPUL NEB PRN ×3 (07:40→20:09)
[2020-07-19] MEDS: BUSPIRONE HCL 10 MG TABLET PO SCH ×2 (09:21→17:35)
[2020-07-19] MEDS: SERTRALINE HCL 50 MG TABLET PO SCH (09:21)
[2020-07-19] MEDS: NYSTATIN 500000 UNIT/5 ML UDCUP PO SCH ×4 (09:22→21:16)
[2020-07-19] MEDS: LORATADINE 10 MG TABLET PO SCH (09:22)
[2020-07-19] MEDS: ERYTHROMYCIN 0.5% OPH OINTMENT 3.5 GM TUBE OU SCH ×3 (09:22→17:38)
[2020-07-19] MEDS: NYSTATIN TOPICAL POWDER 15 GM TP SCH ×4 (09:23→21:18)
[2020-07-19] MEDS: ENOXAPARIN SODIUM INJ 40 MG/0.4 ML DISP.SYRIN SUBCUT SCH (09:23)
--- NOTE | 2020-07-19 11:11 | PDOC DISCHARGE SUMMARY ---
Impression - Admit/DC Date/PCP Admission Date/Primary Care Provider: 07/16/20 15:30 MARIALUISA HANSEN, Discharge Date: 07/19/20 - Discharge Diagnosis (1) Acute on chronic respiratory failure with hypoxia and hypercapnia Is this a current diagnosis for this admission?: Yes (2) Hypoventilation associated with obesity syndrome Is this a current diagnosis for this admission?: Yes (3) TERRANCE (obstructive sleep apnea) Is this a current diagnosis for this admission?: Yes (4) Morbid obesity Is this a current diagnosis for this admission?: Yes (5) Attention to tracheostomy Is this a current diagnosis for this admission?: Yes (6) Conjunctivitis Is this a current diagnosis for this admission?: Yes (7) Acute renal insufficiency Is this a current diagnosis for this admission?: Yes (8) Urinary tract infection Is this a current diagnosis for this admission?: Yes (9) Nasal congestion Is this a current diagnosis for this admission?: Yes - Assessment Summary: (1) Acute on chronic respiratory failure with hypoxia and hypercapnia (2) Hypoventilation associated with obesity syndrome (3) TERRANCE (obstructive sleep apnea) (4) Morbid obesity (5) Attention to tracheostomy (6) Conjunctivitis (7) Acute renal insufficiency (8) urinary tract infection (9) nasal congestion 07/17/2020 Acute on chronic respiratory failure with hypoxia and hypercapnia-this morning's blood gas revealed a PCO2 of 123. PO2 was only 48. pH was 7.23. Patient was on FiO2 of 80% with 6 of PEEP and pressure support of 20. There were windows where he was not breathing above the vent rate. Unfortunately his cuff was deflated. We did inflate his cuff and not make any changes to the vent setting. We will need to repeat an ABG in approximately 30 to 60 minutes. I have contacted the assembler adjuster. We discussed transitioning the patient to the ICU. They are in agreement and we are currently working on this. Hypoventilation associated with obesity/morbid obesity/obstructive sleep apnea- the patient's BMI is 68.7. He has an extremely large neck. Unfortunately he admits to not using his ventilator at home. He tends to have markedly increased secretions. There is clearly noncompliance. He certainly has the mechanisms in place to treat some of these issues but chooses not to. He is only 30 years old. Serious consideration of bariatric surgery should be given or at least enroll the patient in a program if he is willing. Acute renal insufficiency-the patient's BUN and creatinine are elevated this morning. BUN is 47 with a creatinine of 1.7. Estimated GFR is 47. He does have cardiomegaly by x-ray. Will need to monitor intake and output. Once respiratory status is stable we can look at the renal function. Conjunctivitis-the patient had yellow drainage at both medial canthi. I will order baby shampoo washes and erythromycin ointment. Attention to tracheostomy-the patient reports that the main reason he came to the emergency department because there was bleeding at his tracheostomy site. He also admits that he missed his last ENT appointment. I do not know when the last tracheostomy change took place. There is certainly no bleeding at this time. I did review the chest x-ray. The patient does have cardiomegaly. There were infiltrates that radiologist reported as similar to April. Unfortunately given the clinical circumstance I believe antibiotics are warranted. I did inflate the patient's cuff. He asked why and I did explain for the second time the reason. I spoke with the intensivists. They will cough and evaluate the patient. The patient will need a higher level of care than IMCU. I will continue working with the assembler adjuster to transition the patient to the ICU. 07/18/2020 The patient's blood gas continues to improve. His PO2 is greater than 100 and we will continue to taper FiO2. The patient was asking about a trach collar. We will consider instituting a trial of this in the afternoon. Obesity hypoventilation-continue current management Obstructive sleep apnea-chronic ventilator use with tracheostomy. Tracheostomy-no evidence of bleeding at the trach site. Conjunctivitis-discharge is gone. Complete treatment with Ilotycin ointment Acute renal insufficiency-BUN/creatinine still elevated. We will continue to monitor. Patient had a positive net fluid balance yesterday. We will recheck labs tomorrow. Urinary tract infection-urine culture was ordered. Gram-positive cocci identified. Continue current antibiotic regimen. Await identification with sensitivities. Nasal congestion-this is a chronic issue for the patient. He did appear to have some turbinate swelling. We will try several doses of scheduled Ady-Synephrine and initiate antihistamine therapy. If there is a fungal infection I would like to avoid steroids. Therefore no Flonase at this time. He reports white specks when he blows his nose. Certainly there could be a fungal infection. At this point focusing on his respiratory status is primary. If ENT is available tomorrow I will review the case with them. 07/19/2020 The patient is actually stable. Is back to his baseline. Stable for discharge today. Will resume home health. I have added loratadine and Singulair to his regimen. I encouraged him to use Mucinex in addition to his acetylcysteine. - Additional Information Resuscitation Status: Full Code Discharge Diet: Cardiac Discharge Activity: Activity As Tolerated Referrals: MARIALUISA HANSEN DO [Primary Care Provider] - Follow up as needed Prescriptions: Ampicillin Trihydrate [Princepen 500 mg Capsule] 1 cap PO QID 7 Days #28 cap Montelukast Sodium [Singulair 10 mg Tablet] 10 mg PO QHS #30 tablet Home Medications: Levothyroxine Sodium [Synthroid] 100 mcg PO Q6AM 03/12/18 Hydrochlorothiazide [Hydrodiuril 25 mg Tablet] 25 mg PO QAM 03/22/19 Atorvastatin Calcium [Lipitor 40 mg Tablet] 40 mg PO QHS tablet 03/29/19 Lisinopril [Prinivil 10 mg Tablet] 40 mg PO DAILY tablet 03/29/19 Amlodipine Besylate [Norvasc 10 mg Tablet] 10 mg PO QAM 01/31/20 Furosemide [Lasix 40 mg Tablet] 40 mg PO BIDP PRN 01/31/20 Gabapentin [Neurontin 300 mg Capsule] 300 mg PO Q8 01/31/20 Sertraline HCl [Zoloft 50 mg Tablet] 200 mg PO QAM 01/31/20 Theophylline Anhydrous [Matthieu-Dur 300 mg Tab.sr] 300 mg PO Q12 #60 tab.sr.12h 02/11/20 Buspirone HCl 15 mg PO BID 05/06/20 Nystatin [Mycostatin 112520 Unit/1 ml Susp 60 ml Btl] 5 ml PO QIDX2W 05/06/20 Acetylcysteine [Mucomist 20% Soln 800 mg/4 mL] 3 ml IH RTTID 07/16/20 Nystatin 1 applic TOP QID 07/16/20 Ampicillin Trihydrate [Princepen 500 mg Capsule] 1 cap PO QID 7 Days #28 cap 07/19/20 Loratadine [Claritin 10 mg Tablet] 10 mg PO DAILY tablet 07/19/20 Montelukast Sodium [Singulair 10 mg Tablet] 10 mg PO QHS #30 tablet 07/19/20 History of Present Illiness History of Present Illness: Per admission history and physical JOEY ORTEGA III is a 30 year old male This patient is a 30 yo man who is morbidly obese with a tracheotomy for Pickwickian syndrome. He has felt SOB for the last week. No secretions, fever or signs of infection/PNA. He was found to be hypercarbic in the ED and was tried on PSV but his pCO2 did not drop. It is still about 121 with a pH around 7.23. He will need a rate on the ventilator and although he has a ventilator at home it is too risky to send him back. His BP also began to drop and resolved somewhat with IVF. History obtained from:: Patient, Dr. Alcantar and records. Hospital Course Hospital Course: Details above Physical Exam Vital Signs: Temp Pulse Resp BP Pulse Ox 99.0 F 90 24 H 159/89 H 97 07/19/20 03:11 07/19/20 07:40 07/19/20 07:40 07/19/20 03:11 07/19/20 07:40 Intake & Output 07/18/20 07/19/20 07/20/20 06:59 06:59 06:59 Intake Total 2072 3636 Output Total 2675 2155 375 Balance -603 1481 -375 Weight 211.1 kg General appearance: PRESENT: no acute distress, cooperative, morbidly obese Eye exam: PRESENT: conjunctiva pink. ABSENT: scleral icterus Respiratory exam: PRESENT: clear to auscultation kapil, symmetrical. ABSENT: rales, rhonchi, tachypnea, wheezes Cardiovascular exam: PRESENT: RRR, +S1, +S2 GI/Abdominal exam: PRESENT: soft, other - Pendulous abdomen. ABSENT: tenderness Rectal exam: PRESENT: deferred Gentrourinary exam: ABSENT: indwelling catheter Neurological exam: PRESENT: alert, awake, oriented to person, oriented to place, oriented to time, oriented to situation, CN II-XII grossly intact Psychiatric exam: PRESENT: appropriate affect. ABSENT: agitated, anxious Focused psych exam: ABSENT: delusional, paranoid, restlessness Results Laboratory Results: WBC 7.1 10^3/uL (4.0-10.5) 07/19/20 05:35 RBC 3.67 10^6/uL (4.35-5.55) L 07/19/20 05:35 Hgb 9.7 g/dL (13.5-17.0) L 07/19/20 05:35 Hct 31.9 % (37.9-51.0) L 07/19/20 05:35 MCV 87 fl (80-97) 07/19/20 05:35 MCH 26.3 pg (27.0-33.4) L 07/19/20 05:35 MCHC 30.3 g/dL (32.0-36.0) L 07/19/20 05:35 RDW 16.6 % (11.5-14.0) H 07/19/20 05:35 Plt Count 209 10^3/uL (150-450) 07/19/20 05:35 Lymph % (Auto) 10.7 % (13-45) L 07/19/20 05:35 [facility] % (Auto) 10.5 % (3-13) 07/19/20 05:35 Eos % (Auto) 2.4 % (0-6) 07/19/20 05:35 Baso % (Auto) 0.2 % (0-2) 07/19/20 05:35 Absolute Neuts (auto) 5.4 10^3/uL (1.7-8.2) 07/19/20 05:35 Absolute Lymphs (auto) 0.8 10^3/uL (0.5-4.7) 07/19/20 05:35 Absolute Monos (auto) 0.7 10^3/uL (0.1-1.4) 07/19/20 05:35 Absolute Eos (auto) 0.2 10^3/uL (0.0-0.6) 07/19/20 05:35 Absolute Basos (auto) 0.0 10^3/uL (0.0-0.2) 07/19/20 05:35 Total Counted 100 07/16/20 09:45 Seg Neutrophils % 76.2 % (42-78) 07/19/20 05:35 Seg Neuts % (Manual) 79 % (42-78) H 07/16/20 09:45 Band Neutrophils % 2 % (3-5) L 07/16/20 09:45 Lymphocytes % (Manual) 9 % (13-45) L 07/16/20 09:45 Monocytes % (Manual) 10 % (3-13) 07/16/20 09:45 Eosinophils % (Manual) 0 % (0-6) 07/16/20 09:45 Basophils % (Manual) 0 % (0-2) 07/16/20 09:45 Abs Neuts (Manual) 8.1 10^3/uL (1.7-8.2) 07/16/20 09:45 Abs Lymphs (Manual) 0.9 10^3/uL (0.5-4.7) 07/16/20 09:45 Abs Monocytes (Manual) 1.0 10^3/uL (0.1-1.4) 07/16/20 09:45 Absolute Eos (Manual) 0.0 10^3/uL (0.0-0.6) 07/16/20 09:45 Abs Basophils (Manual) 0.0 10^3/uL (0.0-0.2) 07/16/20 09:45 Nucleated RBCs 1 /100 WBC (0) 07/16/20 09:45 Toxic Granulation 1+ 07/16/20 09:45 Platelet Comment ADEQUATE 07/16/20 09:45 Poikilocytosis 3+ 07/16/20 09:45 Anisocytosis 1+ 07/16/20 09:45 Stomatocytes 3+ 07/16/20 09:45 Carbonic Acid 2.47 mmol/L (1.05-1.35) H 07/18/20 06:25 HCO3/H2CO3 Ratio 18:1 07/18/20 06:25 ABG pH 7.37 (7.35-7.45) 07/18/20 06:25 ABG pCO2 81.9 mmHg (35-45) H* 07/18/20 06:25 ABG pO2 102.5 mmHg (80-100) H 07/18/20 06:25 ABG HCO3 46.7 mmol/L (20-24) H 07/18/20 06:25 ABG Total CO2 49.2 mmol/L (23-27) H 07/18/20 06:25 ABG O2 Saturation 97.2 % (94-98) 07/18/20 06:25 ABG Base Excess 18.1 mmol/L 07/18/20 06:25 VBG pH 7.23 (7.30-7.42) L 07/16/20 09:45 VBG pCO2 123.0 mmHg (35-63) H* 07/16/20 09:45 VBG HCO3 50.5 mmol/L (20-32) H 07/16/20 09:45 VBG Base Excess 18.1 mmol/L 07/16/20 09:45 FiO2 65% 07/18/20 06:25 Sodium 139.2 mmol/L (137-145) 07/19/20 05:35 Potassium 4.8 mmol/L (3.6-5.0) 07/19/20 05:35 Chloride 88 mmol/L (98-107) L 07/19/20 05:35 Carbon Dioxide 44 mmol/L (22-30) H* 07/19/20 05:35 Anion Gap 7 (5-19) 07/19/20 05:35 BUN 20 mg/dL (7-20) 07/19/20 05:35 Creatinine 0.79 mg/dL (0.52-1.25) 07/19/20 05:35 Est GFR ( Amer) > 60 (>60) 07/19/20 05:35 Est GFR (MDRD) Non-Af > 60 (>60) 07/19/20 05:35 Glucose 110 mg/dL (75-110) 07/19/20 05:35 POC Glucose 91 mg/dL (70-110) 07/17/20 13:11 Calcium 9.2 mg/dL (8.4-10.2) 07/19/20 05:35 Magnesium 2.2 mg/dL (1.6-2.3) 07/19/20 05:35 Total Bilirubin 0.4 mg/dL (0.2-1.3) 07/19/20 05:35 Direct Bilirubin 0.3 mg/dL (0.0-0.4) 07/19/20 05:35 Neonat Total Bilirubin Not Reportable 07/19/20 05:35 Neonat Direct Bilirubin Not Reportable 07/19/20 05:35 Neonat Indirect Bili Not Reportable 07/19/20 05:35 AST 33 U/L (17-59) 07/19/20 05:35 ALT 26 U/L (<50) 07/19/20 05:35 Alkaline Phosphatase 59 U/L (38-126) 07/19/20 05:35 NT-Pro-B Natriuret Pep 51 pg/mL (<125) 07/16/20 09:45 Total Protein 7.3 g/dL (6.3-8.2) 07/19/20 05:35 Albumin 3.7 g/dL (3.5-5.0) 07/19/20 05:35 Urine Color YELLOW 07/16/20 15:15 Urine Appearance CLOUDY 07/16/20 15:15 Urine pH 5.0 (5.0-9.0) 07/16/20 15:15 Ur Specific [place] 1.015 07/16/20 15:15 Urine Protein 30 mg/dL (NEGATIVE) H 07/16/20 15:15 Urine Glucose (UA) NEGATIVE mg/dL (NEGATIVE) 07/16/20 15:15 Urine Ketones NEGATIVE mg/dL (NEGATIVE) 07/16/20 15:15 Urine Blood NEGATIVE (NEGATIVE) 07/16/20 15:15 Urine Nitrite NEGATIVE (NEGATIVE) 07/16/20 15:15 Urine Bilirubin NEGATIVE (NEGATIVE) 07/16/20 15:15 Urine Urobilinogen NEGATIVE mg/dL (<2.0) 07/16/20 15:15 Ur Leukocyte Esterase TRACE (NEGATIVE) H 07/16/20 15:15 Urine WBC (Auto) 7 /HPF 07/16/20 15:15 Urine RBC (Auto) 2 /HPF 07/16/20 15:15 U Hyaline Cast (Auto) 28 /LPF 07/16/20 15:15 Urine Bacteria (Auto) TRACE /HPF 07/16/20 15:15 Squamous Epi Cells Auto 5 /HPF 07/16/20 15:15 Granular Casts (Auto) 3 /LPF 07/16/20 15:15 Urine Mucus (Auto) OCC /LPF 07/16/20 15:15 Urine Ascorbic Acid 40 (NEGATIVE) H 07/16/20 15:15 Fly Human Metapneumo PCR NOT DETECTED (NOT DETECT) 07/16/20 12:59 Adenovirus (PCR) NOT DETECTED (NOT DETECT) 07/16/20 12:59 B. pertussis DNA (PCR) NOT DETECTED (NOT DETECT) 07/16/20 12:59 B.parapertussis DNA PCR NOT DETECTED (NOT DETECT) 07/16/20 12:59 C. pneumoniae DNA (PCR) NOT DETECTED (NOT DETECT) 07/16/20 12:59 Coronavirus OC43 (PCR) NOT DETECTED (NOT DETECT) 07/16/20 12:59 Coronavirus HKU1 (PCR) NOT DETECTED (NOT DETECT) 07/16/20 12:59 Coronavirus 229E (PCR) NOT DETECTED (NOT DETECT) 07/16/20 12:59 Coronavirus NL63 (PCR) NOT DETECTED (NOT DETECT) 07/16/20 12:59 Influenza A (H1) PCR NOT DETECTED (NOT DETECT) 07/16/20 12:59 Influ A (H1N1/09) PCR NOT DETECTED (NOT DETECT) 07/16/20 12:59 Influenza A (H3) PCR NOT DETECTED (NOT DETECT) 07/16/20 12:59 Influenza Type A (PCR) NOT DETECTED (NOT DETECT) 07/16/20 12:59 Influenza Type B (PCR) NOT DETECTED (NOT DETECT) 07/16/20 12:59 M. pneumoniae (PCR) NOT DETECTED (NOT DETECT) 07/16/20 12:59 Parainfluenza 1 (PCR) NOT DETECTED (NOT DETECT) 07/16/20 12:59 Parainfluenza 2 (PCR) NOT DETECTED (NOT DETECT) 07/16/20 12:59 Parainfluenza 3 (PCR) NOT DETECTED (NOT DETECT) 07/16/20 12:59 Parainfluenza 4 (PCR) NOT DETECTED (NOT DETECT) 07/16/20 12:59 RSV (PCR) NOT DETECTED (NOT DETECT) 07/16/20 12:59 Entero/Rhino (PCR) NOT DETECTED (NOT DETECT) 07/16/20 12:59 SARS-CoV-2 (PCR) NOT DETECTED (NOT DETECT) 07/16/20 12:59 07/16/20 09:45 NT-Pro-B Natriuret Pep 51 Impressions: Chest X-Ray 07/16/20 09:18 IMPRESSION: Low inspiratory lung volumes and cardiomegaly with patchy bilateral basilar predominant opacities that are unchanged compared to the radiograph from 05/05/2020. Plan Health Concerns: Morbidly obese ventilator dependent patient with a history of noncompliance Plan of Treatment: Encouraged ventilator compliance. Added Singulair, antihistamine and Mucinex. Resume lower dose of lisinopril and monitor blood pressure. Goals: Stable respiratory status Time Spent: Greater than 30 Minutes Stroke Is this a Stroke Patient?: No Acute Heart Failure Is this a Heart Failure Patient?: No
[2020-07-19] MEDS: MONTELUKAST SODIUM 10 MG TABLET PO SCH (21:17)
[2020-07-19] MEDS: ATORVASTATIN CALCIUM 40 MG TABLET PO SCH (21:17)
[2020-07-20] MEDS: MEROPENEM 1 GM in NORMAL SALINE 50 ML IV SCH (05:44)
[2020-07-20] MEDS: THEOPHYLLINE ANHYDROUS 300 MG TAB.SR.12H PO SCH (05:48)
[2020-07-20] MEDS: GABAPENTIN 300 MG CAPSULE PO SCH (05:48)
[2020-07-20] MEDS: LEVOTHYROXINE SODIUM 0.1 MG TABLET PO SCH (05:48)
[2020-07-20] MEDS: IPRATROPIUM/ALBUTEROL 0.5-2.5 MG/3 ML AMPUL NEB PRN (07:32)
[2020-07-20] MEDS: ACETYLCYSTEINE 20% SOLN 800 MG/4 ML VIAL.NEB IH SCH ×2 (07:32→14:26)
[2020-07-20] MEDS: ERYTHROMYCIN 0.5% OPH OINTMENT 3.5 GM TUBE OU SCH (09:18)
[2020-07-20] MEDS: BUSPIRONE HCL 10 MG TABLET PO SCH (09:20)
[2020-07-20] MEDS: SERTRALINE HCL 50 MG TABLET PO SCH (09:21)
[2020-07-20] MEDS: LORATADINE 10 MG TABLET PO SCH (09:22)
[2020-07-20] MEDS: ENOXAPARIN SODIUM INJ 40 MG/0.4 ML DISP.SYRIN SUBCUT SCH (09:22)
[2020-07-20] MEDS: NYSTATIN 500000 UNIT/5 ML UDCUP PO SCH (09:22)
[2020-07-20] MEDS: NYSTATIN TOPICAL POWDER 15 GM TP SCH (09:23)
[2020-07-20 12:10] VITALS: BP 136/56
== END 2020-07-20 14:58 | disposition home health service (06) | DRG 208 ==
LOC: ER 09:07 → EH 15:30 → 3N 07-17 01:45
PROVIDERS: ADMIT Anesthesiology; ATTEND Internal Medicine
PROC: 5A1945Z Respiratory Ventilation, 24-96 Consecutive Hours (ICD-10-PCS; principal; 2020-07-16)
DX: J96.22 Acute and chronic respiratory failure with hypercapnia (principal); E66.2 Morbid (severe) obesity with alveolar hypoventilation; N30.00 Acute cystitis without hematuria; Z99.11 Dependence on respirator [ventilator] status; Z68.44 Body mass index [BMI] 60.0-69.9, adult; J96.21 Acute and chronic respiratory failure with hypoxia; Z43.0 Encounter for attention to tracheostomy; H10.33 Unspecified acute conjunctivitis, bilateral; N28.9 Disorder of kidney and ureter, unspecified; I10 Essential (primary) hypertension; B95.2 Enterococcus as the cause of diseases classified elsewhere; F41.8 Other specified anxiety disorders; Z91.19 Patient's noncompliance with other medical treatment and regimen
CPT/HCPCS: 36415; 36600; 71045; 80048; 80053; 81001; 82803; 82962; 83735; 83880; 85025; 87086; 87088; 87186; 93005; 93010; 94002; 94003; 94640; 96360; 99285; 0202U; J1650; J2185; J3490; J7030; J7120; J7613